=== PATIENT | female | born 1945 | race Caucasian/White ===

== ENCOUNTER 2016-12-09 09:30 | Observation (INO) | payer OTHER ==
[~2016-12-09] VITALS: Ht 167.6 cm; Wt 55.7 kg
[~2016-12-09 09:30] MED LIST: LPR25 PO; NRV/10 PO
[2016-12-09 10:54] LABS: BASO % 0.8 %; BASO ABS # 0.04 K/uL (0-0.2); COMPLETE YES; EOS % 3.5 %; HEMATOCRIT 34.9 % (37-47); LYMPH % 27.5 %; LYMPH ABS # 1.42 K/uL (1.2-3.4); MEAN CELL VOLUME 92.8 fL (80-100); MEAN CORPUSCULAR HEMOGLOBIN 30.6 pg (25-34); MEAN PLATELET VOLUME 8.6 fL (7.4-10.4); MONO % 7.6 %; NEUT % 59.6 %; PLATELET COUNT 291 K/uL (130-400); RED BLOOD COUNT 3.76 M/uL (4.2-5.4); WHITE BLOOD COUNT 5.16 K/uL (4.8-10.8)
[2016-12-09 11:05] LABS: PARTIAL THROMBOPLASTIN RATIO 0.9; PROTHROMBIN TIME (PATIENT) 10.7 SECONDS (9.0-12.0)
[2016-12-09 11:10] LABS: BUN/CREATININE RATIO 17.7 (10-20); CALCIUM 9.2 mg/dl (8.5-10.1); POTASSIUM 4.3 mmol/L (3.5-5.1)
--- NOTE | 2016-12-09 12:25 | EMERGENCY ROOM VISIT NOTE ---
History Report prepared by Heaven: Sadie Curtis Under the Supervision of: Dr. Rosa Pearson M.D. First contact with patient: 10:28 Chief Complaint: RECTAL BLEEDING Stated Complaint: BLOOD IN BOWEL Nursing Triage Summary: pt developed rectal bleeding on has hx of hemmorhoids blood is present with bm pt has had small clots on Saturday bleeding has now lessened and blood light in color no pain History of Present Illness The patient is a 70 year old female who presents to the Emergency Room with complaints of intermittent rectal bleeding for the past 3 days. She notes bright red blood throughout her stool. She denies any abdominal pain, rectal pain, and constipation. She is not on any blood thinners. She has never experienced symptoms like this before. The patient reports a personal history of hemorrhoids. She has not had a recent colonoscopy. She states that she was supposed to have one last year but did not. Source of History: patient Onset: 3 days ago Position: other (rectum) Quality: other (bleeding) Timing: intermittent Associated Symptoms: No abdominal pain Note: Denies rectal pain and constipation. Review of Systems See HPI for pertinent positives & negatives. A total of 10 systems reviewed and were otherwise negative. Past Medical & Surgical Medical Problems: (1) Cystocele (2) Fracture, clavicle (3) GI bleed (4) Hypertension (5) Hypertension (6) Retinal detachment, left (7) Ureteral mass (8) Urinary tract infection (9) Urinary tract infection Surgical Problems: (1) History of appendectomy (2) Left cataract Family History FHx: cancer Social History Smoking Status: Never Smoker Smokeless Tobacco Use: No Alcohol Use: none Marital Status: Housing Status: lives with significant other Occupation Status: employed Current/Historical Medications Scheduled Amlodipine Besylate (Amlodipine Besylate), 10 MG PO DAILY Metoprolol Tartrate (Lopressor), 25 MG PO BID Allergies Coded Allergies: No Known Allergies (Verified , 12/09/16) Physical Exam Vital Signs Date Time Temp Pulse Resp B/P Pulse Ox O2 Delivery O2 Flow Rate FiO2 12/09/16 12:01 60 108/66 96 Room Air 12/09/16 09:35 36.8 80 18 114/72 98 Room Air Physical Exam CONSTITUTIONAL: No acute distress. HEENT: No icterus, moist mucous membranes NECK: No meningismus, trachea is midline. CARDIOVASCULAR: Regular rate, normal perfusion RESPIRATORY: Unlabored breathing. Clear to auscultation. GASTROINTESTINAL: Non-tender GENITOURINARY: No flank tenderness RECTAL: Hematochezia MUSCULOSKELETAL: Full range of motion NEUROLOGIC: No acute gross focal deficits. PSYCHIATRIC: Normal affect SKIN: Normal for ethnicity. Medical Decision & Procedures Laboratory Results 12/09/16 10:40 Red Blood Count 3.76, Mean Corpuscular Volume 92.8, Mean Corpuscular Hemoglobin 30.6, Mean Corpuscular Hemoglobin Concent 33.0, Mean Platelet Volume 8.6, Neutrophils (%) (Auto) 59.6, Lymphocytes (%) (Auto) 27.5, Monocytes (%) (Auto) 7.6, Eosinophils (%) (Auto) 3.5, Basophils (%) (Auto) 0.8, Neutrophils # (Auto) 3.08, Lymphocytes # (Auto) 1.42, Monocytes # (Auto) 0.39, Eosinophils # (Auto) 0.18, Basophils # (Auto) 0.04 12/09/16 10:40 Test 12/09/16 10:40 White Blood Count 5.16 K/uL (4.8-10.8) Red Blood Count 3.76 M/uL (4.2-5.4) Hemoglobin 11.5 g/dL (12.0-16.0) Hematocrit 34.9 % (37-47) Mean Corpuscular Volume 92.8 fL (80-100) Mean Corpuscular Hemoglobin 30.6 pg (25-34) Mean Corpuscular Hemoglobin Concent 33.0 g/dl (32-36) Platelet Count 291 K/uL (130-400) Mean Platelet Volume 8.6 fL (7.4-10.4) Neutrophils (%) (Auto) 59.6 % Lymphocytes (%) (Auto) 27.5 % Monocytes (%) (Auto) 7.6 % Eosinophils (%) (Auto) 3.5 % Basophils (%) (Auto) 0.8 % Neutrophils # (Auto) 3.08 K/uL (1.4-6.5) Lymphocytes # (Auto) 1.42 K/uL (1.2-3.4) Monocytes # (Auto) 0.39 K/uL (0.11-0.59) Eosinophils # (Auto) 0.18 K/uL (0-0.5) Basophils # (Auto) 0.04 K/uL (0-0.2) RDW Standard Deviation 45.1 fL (36.4-46.3) RDW Coefficient of Variation 13.2 % (11.5-14.5) Immature Granulocyte % (Auto) 1.0 % Immature Granulocyte # (Auto) 0.05 K/uL (0.00-0.02) Prothrombin Time 10.7 SECONDS (9.0-12.0) Prothromb Time International Ratio 1.0 (0.9-1.1) Activated Partial Thromboplast Time 24.3 SECONDS (21.0-31.0) Partial Thromboplastin Ratio 0.9 Anion Gap 9.0 mmol/L (3-11) Est Creatinine Clear Calc Drug Dose 49.7 ml/min Estimated GFR () 66.6 Estimated GFR (Non- 57.4 BUN/Creatinine Ratio 17.7 (10-20) Calcium Level 9.2 mg/dl (8.5-10.1) Labs reviewed by ED physician. ED Course 1028: Past medical records reviewed. The patient was evaluated in room C3. A complete history and physical examination was performed. 1040: I spoke with Dr. Rodriguez of [facility]. We discussed the patient's treatment plan. 1156: I spoke with Silvia Jonas PA-C. We discussed the patients results and treatment plan. [facility] Medical Decision Differential diagnoses includes diverticular disease, oncologic process, internal/external hemorrhoids. 70-year-old presents into the emergency room for evaluation of hematochezia over the last several days. She denies use of blood thinners or prior GI bleeding. She states she's not had a colonoscopy in many years. Rectal exam notable for a very thick hematochezia. She remained hemodynamically stable throughout emergency room course with minimal hemoglobin. Given patient's age of [age] years old with no recent colonoscopies and definitive hematochezia decision made to keep patient in observation hospital. Case was discussed with gastroenterology on-call, Dr. kenny, who will consult on a routine basis. Admission arranged with hospital service. Consults Time Called: 1038 Consulting Physician: Dr. Kenny Returned Call: [address] Gase of GI. We discussed the patient's treatment plan. Additional Consults: Time Called: 1154 Consulted Physician: Silvia Jonas PA-C Returned Call: 1156 Additional Comments: I spoke with Silvia Jonas PA-C. We discussed the patients results and treatment plan. [facility]. Impression Primary Impression: Hematochezia Scribe Attestation The scribe's documentation has been prepared under my direction and personally reviewed by me in its entirety. I confirm that the note above accurately reflects all work, treatment, procedures, and medical decision making performed by me. Departure Information Dispostion Being Evaluated By Hospitalist Referrals Larry Jay M.D.([facility]) (PCP) Patient Instructions A Signature Page
[2016-12-09] MEDS ORDERED: NITROGLYCERIN 0.4 MG SL PER TAB CHARGE SL PRN (12:30)
[2016-12-09] MEDS ORDERED: ONDANSETRON INJ 2 MG/ML 2 ML VIAL IV PRN (12:30)
[2016-12-09] MEDS ORDERED: ACETAMINOPHEN 325 MG TAB PO PRN (12:30)
[2016-12-09 12:35] VITALS: O2SAT 96; BMI 21.4
[2016-12-09 13:42] VITALS: BP 120/84; PULSE 64; TEMP 36.6; O2SAT 97
[2016-12-09] MEDS: SODIUM CHLORIDE 0.9% 1000ML 1,000 ML IV SCH ×2 (13:44→20:22)
--- NOTE | 2016-12-09 13:47 | History and Physical ---
History & Physical Date & Time of Service: Dec 09, 2016 at 13:37 Chief Complaint: Gi Bleed Primary Care Physician: Larry Jay M.D.([facility]) History of Present Illness Source: patient This is a 70 y/o female with PMHx of complete heart block s/p pacemaker placement, HTN and other problems as outlined below who presents to the ED with blood in stool x 3 days. Pt reports that 3 days ago she noticed bright red blood in stool. Since that time she has had about 2 BMs per day. She feels like the bleeding has decreased in amount however when she called her PCP today they recommended that she go to the ED for further evaluation. Pt has history of hemorrhoids but she has never had a bleed like this before. Pt denies NSAID or anticoagulation use. Last colonoscopy was "years ago" which was normal. She was scheduled for colonoscopy in 2015 however it was cancelled due to complete heart block. Pt denies fever/chills, diaphoresis, chest pain, palpitations, SOB , wheezing, abd pain, N/V, melena, bladder issues, LE edema ,calf pain, lightheadedness/dizziness. In the ED, vitals are stable. HgB 11.5. Pt is hemodynamically stable and will be admitted for further evaluation and treatment. Past Medical/Surgical History Medical Problems: (1) Cystocele Status: Chronic (2) Fracture, clavicle Status: Resolved (3) History of pacemaker Permanent Comment: placed 12/27/15 Status: Chronic (4) Hypertension Status: Resolved (5) Hypertension Status: Resolved (6) Retinal detachment, left Status: Resolved (7) Third degree heart block Permanent Comment: s/p pacemaker Status: Chronic (8) Ureteral mass Status: Resolved (9) Urinary tract infection Status: Resolved (10) Urinary tract infection Status: Resolved Surgical Problems: (1) History of appendectomy Status: Resolved (2) S/P laser trabeculoplasty of eye Status: Resolved Family History FHx: cancer Social History Smoking Status: Never Smoker Smokeless Tobacco Use: No Alcohol Use: none Drug Use: none Marital Status: Housing status: lives with family Occupational Status: employed Immunizations History of Tetanus Vaccine?: Yes Tetanus Immunization Date: Jul 29, 2014 Allergies Coded Allergies: No Known Allergies (Verified , 12/09/16) Home Medications Scheduled Amlodipine Besylate (Amlodipine Besylate), 10 MG PO DAILY Metoprolol Tartrate (Lopressor), 25 MG PO BID Review of Systems Constitutional: No chills, No fatigue, No fever, No sweats, No weakness Eyes: No worsening of vision Respiratory: No cough, No shortness of breath Cardiovascular: No chest pain, No claudication, No edema, No palpitations Abdomen: + GI bleeding, No constipation, No diarrhea, No nausea, No pain, No vomiting Musculoskeletal: No calf pain, No swelling Genitourinary - Female: No dysuria Neurologic: No weakness Psychiatric: No depression symptoms Endocrine: No fatigue Hematologic / Lymphatic: No abnormal bleeding/bruising Integumentary: No new/changing skin lesions Physical Exam Vital Signs Date Time Temp Pulse Resp B/P Pulse Ox O2 Delivery O2 Flow Rate FiO2 12/09/16 12:35 96 Room Air 12/09/16 12:01 60 108/66 96 Room Air 12/09/16 09:35 36.8 80 18 114/72 98 Room Air General Appearance: WD/WN, no apparent distress, + pertinent finding (Pt is sitting up comfortably in bed ) Head: normocephalic, atraumatic Eyes: normal inspection ENT: hearing grossly normal Neck: supple Respiratory/Chest: chest non-tender, lungs clear, normal breath sounds, no respiratory distress Cardiovascular: regular rate, rhythm, no edema, no murmur Abdomen/GI: normal bowel sounds, non tender, soft Back: normal inspection Extremities/Musculoskelatal: normal inspection, no calf tenderness, no pedal edema Neurologic/Psych: alert, normal mood/affect, oriented x 3 Skin: normal color, warm/dry Diagnostics Laboratory Results Results Past 24 Hours Test 12/09/16 10:40 Range/Units White Blood Count 5.16 4.8-10.8 K/uL Red Blood Count 3.76 4.2-5.4 M/uL Hemoglobin 11.5 12.0-16.0 g/dL Hematocrit 34.9 37-47 % Mean Corpuscular Volume 92.8 80-100 fL Mean Corpuscular Hemoglobin 30.6 25-34 pg Mean Corpuscular Hemoglobin Concent 33.0 32-36 g/dl Platelet Count 291 130-400 K/uL Mean Platelet Volume 8.6 7.4-10.4 fL Neutrophils (%) (Auto) 59.6 % Lymphocytes (%) (Auto) 27.5 % Monocytes (%) (Auto) 7.6 % Eosinophils (%) (Auto) 3.5 % Basophils (%) (Auto) 0.8 % Neutrophils # (Auto) 3.08 1.4-6.5 K/uL Lymphocytes # (Auto) 1.42 1.2-3.4 K/uL Monocytes # (Auto) 0.39 0.11-0.59 K/uL Eosinophils # (Auto) 0.18 0-0.5 K/uL Basophils # (Auto) 0.04 0-0.2 K/uL RDW Standard Deviation 45.1 36.4-46.3 fL RDW Coefficient of Variation 13.2 11.5-14.5 % Immature Granulocyte % (Auto) 1.0 % Immature Granulocyte # (Auto) 0.05 0.00-0.02 K/uL Prothrombin Time 10.7 9.0-12.0 SECONDS Prothromb Time International Ratio 1.0 0.9-1.1 Activated Partial Thromboplast Time 24.3 21.0-31.0 SECONDS Partial Thromboplastin Ratio 0.9 Sodium Level 142 136-145 mmol/L Potassium Level 4.3 3.5-5.1 mmol/L Chloride Level 108 98-107 mmol/L Carbon Dioxide Level 25 21-32 mmol/L Anion Gap 9.0 3-11 mmol/L Blood Urea Nitrogen 18 7-18 mg/dl Creatinine 1.00 0.60-1.20 mg/dl Est Creatinine Clear Calc Drug Dose 49.7 ml/min Estimated GFR () 66.6 Estimated GFR (Non- 57.4 BUN/Creatinine Ratio 17.7 10-20 Random Glucose 101 70-99 mg/dl Calcium Level 9.2 8.5-10.1 mg/dl Impression Assessment and Plan HEMATOCHEZIA LIKELY LOWER GI BLEED pt presents with 3 days of hematochezia; h/o hemorrhoids -admit observation status to med/surg -Denies NSAID use and/or anticoagulation -FOBT is positive in ED -Hgb currently 11.5; will continue to monitor with H&H q 8h -type and cross completed; transfuse PRN HgB <8 -start IVF and Protonix -clear liquid diet -NPO after midnight for possible scope -consult GI, Dr. Case-for possible colonoscopy -pt appears to be hemodynamically stable -continue to monitor closely COMPLETE HEART BLOCK -s/p pacemaker December 02/2016 -follows with cardiology, Dr. Acosta HTN -BP stable -cont metoprolol and Norvasc -monitor DVT PROPHYLAXIS -SCDs only in setting of GI bleed CODE STATUS -FULL CODE status per discussion with patient upon admission DISPO Pt seen in collaboration with Dr Olson. Please see his addendum for further details. Thanks! Attending Note: Patient is a 70 yr old female with PMHx of complete heart block s/p pacemaker, HTN and other comorbidities presents with history of bright red blood in stools since 3 days. She has history of hemorrhoids, last colonoscopy was many years ago. She denies any abd pain, diarrhea, change in weight, appetite, nausea, vomiting, fever, chills. Not on any NSAIDs or anticoagulation. Current HgB is 11.5 and she is hemodynamically stable. Physical Exam: Vital signs as noted above Moderately built and nourished, no distress NC/AT, EOMI, PERRLA CVS: S1, S2, NSR, No murmur Resp; CTA Abd; soft, non tender, BS present, no organomegaly CRYSTAL LAPPER: no focal deficits Ext: No pedal edema Assessment and plan: Lower GI bleeding: H/O hemorrhoids IV fluids, IV protonix Clear liquid diet, NPO from midnight monitor H&H, Transfuse PRN GI Consult DVT px: SCDs Agree with assessment and plan as above Advanced Directives Existing Advance Directive: No Existing Living Will: No Existing Power of Registered Health Nurse: No VTE Prophylaxis VTE Risk Assessment Done? Y/N: Yes Risk Level: Moderate
[2016-12-09] MEDS ORDERED: IV FLUIDS COMPLETED PRN (15:00)
[2016-12-09 16:00] VITALS: O2SAT 96
[2016-12-09 17:10] VITALS: BP 110/73; PULSE 67; TEMP 36.7; O2SAT 97
[2016-12-09 19:46] LABS: HEMATOCRIT 32.1 % (37-47)
[2016-12-09 19:58] VITALS: BP 132/81; PULSE 64; TEMP 36.6; O2SAT 96
[2016-12-09] MEDS: PANTOprazole INJ 40 MG in SYRINGE 0 ML IV SCH (20:25)
[2016-12-09] MEDS: METOPROLOL TARTRATE 25 MG TAB PO SCH (20:26)
[2016-12-09 23:52] VITALS: BP 111/75; PULSE 73; TEMP 36.7; O2SAT 94
[2016-12-10 03:32] LABS: HEMATOCRIT 32.7 % (37-47); MEAN CELL VOLUME 92.6 fL (80-100); MEAN CORPUSCULAR HEMOGLOBIN 30.6 pg (25-34); MEAN PLATELET VOLUME 8.4 fL (7.4-10.4); PLATELET COUNT 213 K/uL (130-400); RED BLOOD COUNT 3.53 M/uL (4.2-5.4)
[2016-12-10 03:54] LABS: BUN/CREATININE RATIO 11.2 (10-20); CALCIUM 8.8 mg/dl (8.5-10.1); CREATININE 0.89 mg/dl (0.60-1.20); POTASSIUM 4.3 mmol/L (3.5-5.1)
[2016-12-10] MEDS: SODIUM CHLORIDE 0.9% 1000ML 1,000 ML IV SCH (04:04)
[2016-12-10 04:51] VITALS: BP 113/74; PULSE 69; TEMP 36.8; O2SAT 95
[2016-12-10 08:00] VITALS: BP 119/77; PULSE 64; TEMP 36.9; O2SAT 96
[2016-12-10] MEDS: PANTOprazole INJ 40 MG in SYRINGE 0 ML IV SCH (08:46)
[2016-12-10] MEDS: AMLODIPINE BESYLATE 5 MG TAB PO SCH (08:47)
[2016-12-10] MEDS: METOPROLOL TARTRATE 25 MG TAB PO SCH ×2 (08:47→20:28)
--- NOTE | 2016-12-10 09:58 | Gastrointestinal Consultation ---
Gastrointestinal Consultation Date of Consultation: Dec 10, 2016 Consulting Physician: Dr. William Reason for Consultation: melena and BRBPR History of Present Illness Patient is a 70 year old female with history of complete heart block s/p cardiac pacemaker who presented to the ED with 4 days of painless melena abnd PRPBR. She states that she went to the bathroom morning and was alarmed that her stool was dark at sticky. She reports 2-3 BM daily that were dark brown. She reports that the black stools resolved and she began experienced episode of BRBPR without clots. She denies feeling dizzy, lightheadded, abd pain, nausea, vomiting, sick contacts. She was admitted through the ED yesterday morning and has not had any episodes of melena or BRBPR since admission. She denies any use of aspirin, Advil, Motrin, Aleve or other NSAIDs. She is not on any anticoagulation. Patient is a poor historian - she did not recall having a colonoscopy four months ago. She states that she had to cancel two colonoscopy attempts due to her cardiac function. From reviewing previous providers notes, mention of clots were documented. Patient denies any clots when I was speaking to her this AM. Colonoscopy [address] William: numerous diverticula throughout the entire examined colon - repeat for screening in 10 years No previous EGD HGB on admission was 11.5 HGB today 10.8 Past Medical/Surgical History Medical Problems: (1) Cough Status: Acute (2) Hematochezia Status: Acute (3) Influenza-like illness Status: Acute (4) UTI (urinary tract infection) Status: Acute Family History FHx: cancer Social History Smoking Status: Never Smoker Alcohol Use: none Drug Use: none Marital Status: Housing Status: lives with significant other Occupation Status: employed Allergies Coded Allergies: No Known Allergies (Verified , 12/09/16) Current Medications Home Meds and Scripts Medications Dose Route/Sig Max Daily Dose Days Date Category Amlodipine Besylate 10 Mg Tab 10 Mg PO DAILY 11/25/16 Reported Lopressor (Metoprolol Tartrate) 25 Mg Tab 25 Mg PO BID 30 12/31/15 Rx Review of Systems Constitutional: No chills, No fever Respiratory: No cough, No shortness of breath Cardiac: No chest pain, No edema Abdomen: + GI bleeding (melena x 4 days, one episode of PRPBR), No constipation , No diarrhea, No nausea, No pain, No vomiting Skin: No color change, No rash Physical Exam Date Time Temp Pulse Resp B/P Pulse Ox O2 Delivery O2 Flow Rate FiO2 12/10/16 08:00 36.9 64 20 119/77 96 Room Air 12/10/16 08:00 Room Air 12/10/16 04:51 36.8 69 20 113/74 95 Room Air 12/10/16 04:00 Room Air 12/10/16 00:00 Room Air 12/09/16 23:52 36.7 73 18 111/75 94 Room Air 12/09/16 20:00 Room Air 12/09/16 19:58 36.6 64 20 132/81 96 Room Air 12/09/16 17:10 36.7 67 20 110/73 97 Room Air 12/09/16 16:00 96 Room Air 12/09/16 13:42 36.6 64 16 120/84 97 Room Air 12/09/16 12:35 96 Room Air 12/09/16 12:01 60 108/66 96 Room Air General Appearance: no apparent distress Eyes: PERRL Respiratory/Chest: lungs clear, normal breath sounds, no respiratory distress, no accessory muscle use Cardiovascular: regular rate, rhythm, no edema, no gallop, no JVD, no murmur, + pertinent finding (cardiac pacemaker) Abdomen: normal bowel sounds, non tender, soft, no organomegaly, no pulsatile mass Neurologic/Psych: alert, normal mood/affect, oriented x 3 Skin: normal color, no jaundice, warm/dry, no rash Laboratory Results Last 24 Hours Test 12/09/16 10:40 12/09/16 19:25 12/10/16 03:25 White Blood Count 5.16 K/uL 4.20 K/uL Red Blood Count 3.76 M/uL 3.53 M/uL Hemoglobin 11.5 g/dL 10.7 g/dL 10.8 g/dL Hematocrit 34.9 % 32.1 % 32.7 % Mean Corpuscular Volume 92.8 fL 92.6 fL Mean Corpuscular Hemoglobin 30.6 pg 30.6 pg Mean Corpuscular Hemoglobin Concent 33.0 g/dl 33.0 g/dl Platelet Count 291 K/uL 213 K/uL Mean Platelet Volume 8.6 fL 8.4 fL Neutrophils (%) (Auto) 59.6 % Lymphocytes (%) (Auto) 27.5 % Monocytes (%) (Auto) 7.6 % Eosinophils (%) (Auto) 3.5 % Basophils (%) (Auto) 0.8 % Neutrophils # (Auto) 3.08 K/uL Lymphocytes # (Auto) 1.42 K/uL Monocytes # (Auto) 0.39 K/uL Eosinophils # (Auto) 0.18 K/uL Basophils # (Auto) 0.04 K/uL RDW Standard Deviation 45.1 fL 44.2 fL RDW Coefficient of Variation 13.2 % 13.2 % Immature Granulocyte % (Auto) 1.0 % Immature Granulocyte # (Auto) 0.05 K/uL Prothrombin Time 10.7 SECONDS Prothromb Time International Ratio 1.0 Activated Partial Thromboplast Time 24.3 SECONDS Partial Thromboplastin Ratio 0.9 Sodium Level 142 mmol/L 145 mmol/L Potassium Level 4.3 mmol/L 4.3 mmol/L Chloride Level 108 mmol/L 111 mmol/L Carbon Dioxide Level 25 mmol/L 27 mmol/L Anion Gap 9.0 mmol/L 7.0 mmol/L Blood Urea Nitrogen 18 mg/dl 10 mg/dl Creatinine 1.00 mg/dl 0.89 mg/dl Est Creatinine Clear Calc Drug Dose 49.7 ml/min 55.8 ml/min Estimated GFR () 66.6 76.6 Estimated GFR (Non- 57.4 66.1 BUN/Creatinine Ratio 17.7 11.2 Random Glucose 101 mg/dl 86 mg/dl Calcium Level 9.2 mg/dl 8.8 mg/dl Impression Patient is a 70 year old female with 4 days of painless melena and one episode of PRPBR - differentials include upper GI bleed and quick transit upper GI bleed , diverticular bleed Plan NPO EGD today with Dr. William PPI BID ATTESTATION: I have performed a history and physical examination of this patient and reviewed the electronic record. Specifically, on physical examination there is no abdominal tenderness. I have discussed the case with ALEX Man. The above note reflects my findings, conclusions, and recommendations. Johny William MD
[2016-12-10 10:41] VITALS: Ht 167.6 cm; Wt 55.7 kg
[2016-12-10 11:36] VITALS: BP 127/81; PULSE 72; TEMP 36.6; O2SAT 97
[2016-12-10] MEDS ORDERED: LIDOCAINE HCL 2% 2 ML VIAL (20MG/ML) ONE (13:42)
[2016-12-10] MEDS ORDERED: PROPOFOL IV EMULSION 10 MG/ML 20 ML VIAL IV ONE (13:42)
--- NOTE | 2016-12-10 13:46 | GI REPORT ---
Procedure Date: 12/10/2016 1:27 PM Procedure: Upper GI endoscopy Indications: Melena Medicines: Monitored Anesthesia Care Complications: No immediate complications. Estimated blood loss: None. Estimated Blood Loss: Estimated blood loss: none. Procedure: Pre-Anesthesia Assessment: - Prior to the procedure, a History and Physical was performed, and patient medications, allergies and sensitivities were reviewed. The patient's tolerance of previous anesthesia was reviewed. - ASA Grade Assessment: III - A patient with severe systemic disease. After obtaining informed consent, the endoscope was passed under direct vision. Throughout the procedure, the patient's blood pressure, pulse, and oxygen saturations were monitored continuously. The scope was introduced through the mouth, and advanced to the third part of duodenum. The upper GI endoscopy was accomplished with ease. The patient tolerated the procedure well. Findings: The upper third of the esophagus, middle third of the esophagus and lower third of the esophagus were normal. The Z-line was regular and was found 37 cm from the incisors. Normal mucosa was found in the entire examined stomach. Biopsies were taken with a cold forceps for Helicobacter pylori testing. There was a mild deformity suggestive of a healed ulcer in the antrum. The examined duodenum was normal. Impression: - Normal upper third of esophagus, middle third of esophagus and lower third of esophagus. - Z-line regular, 37 cm from the incisors. - Normal mucosa was found in the entire stomach. Biopsied. - Normal examined duodenum. Recommendation: - Return patient to [facility] for ongoing care. Johny William M.D. Johny William MD 12/10/2016 1:45:53 PM This report has been signed electronically. Note Initiated On: 12/10/2016 1:27 PM
--- NOTE | 2016-12-10 14:18 | Anesthesiology Progress Note ---
Anesthesia Post Op Note Date & Time Dec 10, 2016 at 14:17 Vital Signs Pain Intensity: 0.0 Vital Signs Past 12 Hours Date Time Temp Pulse Resp B/P Pulse Ox O2 Delivery O2 Flow Rate FiO2 12/10/16 14:03 62 20 119/86 97 Room Air 12/10/16 13:52 71 20 103/71 95 Room Air 12/10/16 12:58 37.1 64 20 138/69 95 Room Air 12/10/16 11:36 36.6 72 18 127/81 97 Room Air 12/10/16 11:33 Room Air 12/10/16 08:00 36.9 64 20 119/77 96 Room Air 12/10/16 08:00 Room Air 12/10/16 04:51 36.8 69 20 113/74 95 Room Air 12/10/16 04:00 Room Air Notes Mental Status: alert / awake / arousable, participated in evaluation Pt Amnestic to Procedure: Yes Nausea / Vomiting: adequately controlled Pain: adequately controlled Airway Patency, RR, SpO2: stable & adequate BP & HR: stable & adequate Hydration State: stable & adequate Anesthetic Complications: no major complications apparent
[2016-12-10 15:20] VITALS: BP 132/86; PULSE 74; TEMP 36.6; O2SAT 97
--- NOTE | 2016-12-10 19:06 | Progress Note ---
Internal Med Progress Note Date of Service: Dec 10, 2016. Provider Documentation: SUBJECTIVE: Patient is seen and examined at bedside. Had Endoscopy this morning. One episode of bright red blood BM. OBJECTIVE: Vital Signs-as noted below General Appearance: WD/WN, no apparent distress Head: normocephalic, atraumatic Eyes: normal inspection ENT: hearing grossly normal Neck: supple Respiratory/Chest: chest non-tender, lungs clear, normal breath sounds, no respiratory distress Cardiovascular: regular rate, rhythm, no edema, no murmur Abdomen/GI: normal bowel sounds, non tender, soft Back: normal inspection Extremities/Musculoskelatal: normal inspection, no calf tenderness, no pedal edema Neurologic/Psych: alert, normal mood/affect, oriented x 3 Skin: normal color, warm/dry Lab data as noted below. ASSESSMENT & PLAN: Patient is a 70 yr old female with PMHx of complete heart block s/p pacemaker, HTN and other comorbidities presents with history of bright red blood in stools since 3 days. She has history of hemorrhoids, last colonoscopy was many years ago. She denies any abd pain, diarrhea, change in weight, appetite, nausea, vomiting, fever, chills. Not on any NSAIDs or anticoagulation. HgB is 11.5 at time of admission and she is hemodynamically stable. Lower GI bleeding: H/O hemorrhoids/Diverticulosis S/P EGD: Normal EGD Continue IV protonix NPO from midnight, probable colonoscopy in AM monitor H&H, Transfuse PRN Appreciate GI help Complete heart block: s/p pacemaker December 02/2016 follows with cardiology, Dr. Acosta Hypertension: Stable continue metoprolol, Norvasc DVT Px SCDs Code Status Full code Vital Signs: Date Time Temp Pulse Resp B/P Pulse Ox O2 Delivery O2 Flow Rate FiO2 12/10/16 15:20 36.6 74 18 132/86 97 Room Air 12/10/16 14:03 62 20 119/86 97 Room Air 12/10/16 13:52 71 20 103/71 95 Room Air 12/10/16 12:58 37.1 64 20 138/69 95 Room Air 12/10/16 11:36 36.6 72 18 127/81 97 Room Air 12/10/16 11:33 Room Air 12/10/16 08:00 36.9 64 20 119/77 96 Room Air 12/10/16 08:00 Room Air 12/10/16 04:51 36.8 69 20 113/74 95 Room Air 12/10/16 04:00 Room Air 12/10/16 00:00 Room Air 12/09/16 23:52 36.7 73 18 111/75 94 Room Air 12/09/16 20:00 Room Air 12/09/16 19:58 36.6 64 20 132/81 96 Room Air Lab Results: Results Past 24 Hours Test 12/09/16 19:25 12/10/16 03:25 12/10/16 11:28 Range/Units Hemoglobin 10.7 10.8 12.0-16.0 g/dL Hematocrit 32.1 32.7 37-47 % White Blood Count 4.20 4.8-10.8 K/uL Red Blood Count 3.53 4.2-5.4 M/uL Mean Corpuscular Volume 92.6 80-100 fL Mean Corpuscular Hemoglobin 30.6 25-34 pg Mean Corpuscular Hemoglobin Concent 33.0 32-36 g/dl RDW Standard Deviation 44.2 36.4-46.3 fL RDW Coefficient of Variation 13.2 11.5-14.5 % Platelet Count 213 130-400 K/uL Mean Platelet Volume 8.4 7.4-10.4 fL Sodium Level 145 136-145 mmol/L Potassium Level 4.3 3.5-5.1 mmol/L Chloride Level 111 98-107 mmol/L Carbon Dioxide Level 27 21-32 mmol/L Anion Gap 7.0 3-11 mmol/L Blood Urea Nitrogen 10 7-18 mg/dl Creatinine 0.89 0.60-1.20 mg/dl Est Creatinine Clear Calc Drug Dose 55.8 ml/min Estimated GFR () 76.6 Estimated GFR (Non- 66.1 BUN/Creatinine Ratio 11.2 10-20 Random Glucose 86 70-99 mg/dl Calcium Level 8.8 8.5-10.1 mg/dl Bedside Glucose 297 70-90 mg/dl
[2016-12-10 19:29] VITALS: BP 124/74; PULSE 73; TEMP 36.6; O2SAT 96
[2016-12-10 20:21] LABS: HEMATOCRIT 33.6 % (37-47)
[2016-12-10 23:13] VITALS: BP 110/74; PULSE 60; TEMP 36.7; O2SAT 97
[2016-12-11 04:20] VITALS: BP 110/76; PULSE 61; TEMP 36.7; O2SAT 97
[2016-12-11 05:52] LABS: MEAN CELL VOLUME 92.7 fL (80-100); MEAN CORPUSCULAR HEMOGLOBIN 30.9 pg (25-34); MEAN CORPUSCULAR HGB CONC 33.3 g/dl (32-36); MEAN PLATELET VOLUME 8.5 fL (7.4-10.4); PLATELET COUNT 245 K/uL (130-400); RED BLOOD COUNT 3.56 M/uL (4.2-5.4); WHITE BLOOD COUNT 4.69 K/uL (4.8-10.8)
[2016-12-11 06:19] LABS: BUN/CREATININE RATIO 12.3 (10-20); CALCIUM 9.6 mg/dl (8.5-10.1); CREATININE 0.91 mg/dl (0.60-1.20); POTASSIUM 4.3 mmol/L (3.5-5.1)
[2016-12-11 07:26] VITALS: BP 104/67; PULSE 65; TEMP 36.7; O2SAT 97
[2016-12-11] MEDS: METOPROLOL TARTRATE 25 MG TAB PO SCH (07:27)
[2016-12-11] MEDS: AMLODIPINE BESYLATE 5 MG TAB PO SCH (07:27)
--- NOTE | 2016-12-11 08:49 | Gastroenterology Progress Note ---
Progress Note Date of Service: Dec 11, 2016 Subjective Pt evaluation today including: conversation w/ patient, physical exam, lab review Patient states that she feels well. She notes that she had two episodes of bloody stools yesterday. She reports that the blood was red and mixed with the stool. She denies any clots, or blood filling the toilet bowl. She states that she does not wish to proceed with an inpatient colonoscopy. Her most recent colonoscopy was 4 months ago and numerous large diverticula were documented throughout the entire colon. Mechanism of bleeding related to divertriculum was explained to the patient. She verbalized understanding that the BRBPR she is experiencing is most likely related to a diverticular bleed, which are self- limiting and colonoscopy do not offer any relief. The patient was encouraged to seek medical attention if the bleeding becomes more frequent, persist, changes, becomes symptomatic or worrisome. The patient verbalized understanding. She denies chest pain, SOB, lightheadedness, dizziness, abdominal pain, N/V/D, edema. Her HGB on admission: 11.5 HGB 12/11/2016: 11 Review of Systems Constitutional: No chills, No fever Cardiac: No chest pain, No edema Abdomen: + GI bleeding (mixed with stool, 2 episodes yesterday. none overnight ), No constipation, No diarrhea, No nausea, No pain, No vomiting Medications Current Inpatient Medications Medications (Trade) Dose Ordered Sig/[place] Route Start Time Stop Time Status Last Admin Dose Admin Acetaminophen (Tylenol Tab) 650 mg Q4H PRN PO 12/09/16 12:30 01/08/17 12:29 Ondansetron HCl (Zofran Inj) 4 mg Q6H PRN IV 12/09/16 12:30 01/08/17 12:29 Nitroglycerin (Nitrostat Tab) 0.4 mg UD PRN SL 12/09/16 12:30 01/08/17 12:29 Metoprolol Tartrate (Lopressor Tab) 25 mg BID PO 12/09/16 21:00 01/08/17 20:59 12/11/16 07:27 25 MG Amlodipine Besylate (Norvasc Tab) 10 mg DAILY PO 12/10/16 09:00 01/09/17 08:59 12/11/16 07:27 10 MG Miscellaneous 1 ea 1 ea PRN PRN N/A 12/09/16 15:00 12/09/17 14:59 Pantoprazole Sodium/Syringe (Protonix Inj/ Syringe) 10 ml @ 40 mls/min DAILY@1100 IV 12/11/16 11:00 01/10/17 10:59 Objective Vital Signs Date Time Temp Pulse Resp B/P Pulse Ox O2 Delivery O2 Flow Rate FiO2 12/11/16 07:26 36.7 65 16 104/67 97 Room Air 12/11/16 04:20 36.7 61 16 110/76 97 Room Air 12/11/16 04:00 Room Air 12/11/16 00:00 Room Air 12/10/16 23:13 36.7 60 20 110/74 97 Room Air 12/10/16 19:47 Room Air 12/10/16 19:29 36.6 73 16 124/74 96 Room Air 12/10/16 16:00 Room Air 12/10/16 15:20 36.6 74 18 132/86 97 Room Air 12/10/16 14:03 62 20 119/86 97 Room Air 12/10/16 13:52 71 20 103/71 95 Room Air 12/10/16 12:58 37.1 64 20 138/69 95 Room Air 12/10/16 11:36 36.6 72 18 127/81 97 Room Air 12/10/16 11:33 Room Air Physical Exam General Appearance: no apparent distress Eyes: PERRL ENT: hearing grossly normal Neck: supple, trachea midline Respiratory/Chest: lungs clear, normal breath sounds, no respiratory distress, no accessory muscle use Cardiovascular: regular rate, rhythm, no edema, no gallop, no JVD, no murmur Abdomen: normal bowel sounds, non tender, soft, no organomegaly Neurologic/Psych: alert, normal mood/affect, oriented x 3 Skin: normal color, no jaundice, warm/dry, no rash Laboratory Results Last 24 Hours Test 12/10/16 11:28 12/10/16 16:40 12/10/16 20:13 12/10/16 20:17 Bedside Glucose 297 mg/dl 76 mg/dl 100 mg/dl Hemoglobin 11.3 g/dL Hematocrit 33.6 % Test 12/11/16 05:27 White Blood Count 4.69 K/uL Red Blood Count 3.56 M/uL Hemoglobin 11.0 g/dL Hematocrit 33.0 % Mean Corpuscular Volume 92.7 fL Mean Corpuscular Hemoglobin 30.9 pg Mean Corpuscular Hemoglobin Concent 33.3 g/dl RDW Standard Deviation 44.1 fL RDW Coefficient of Variation 13.1 % Platelet Count 245 K/uL Mean Platelet Volume 8.5 fL Sodium Level 144 mmol/L Potassium Level 4.3 mmol/L Chloride Level 111 mmol/L Carbon Dioxide Level 25 mmol/L Anion Gap 8.0 mmol/L Blood Urea Nitrogen 11 mg/dl Creatinine 0.91 mg/dl Est Creatinine Clear Calc Drug Dose 53.6 ml/min Estimated GFR () 74.6 Estimated GFR (Non- 64.4 BUN/Creatinine Ratio 12.3 Random Glucose 86 mg/dl Calcium Level 9.6 mg/dl Assessment and Plan Patient is a 70 year old female with 4 days of painless melena and BRBPR. She had an EGD on 12/10/16 without any source of upper GI bleed identified. Her most recent colonoscopy was in June with Dr. William with numerous diverticula throughout the entire examined colon. Differentials include diverticular bleed, hemorrhoidal bleed, colon CA. This is likely a diverticular bleed, which are self-limiting and a repeat colonoscopy would not change the course of treatment Plan Advance to regular, heart-healthy diet as tolerated Continue PPI Monitor BM for bloody/black stools Monitor symptoms Repeat H&H prior to discharge Patient verbalized understanding of likely diagnosis and when to seek medical attention of the bloody bowel movements, persist, change, become worrisome or she becomes symptomatic ATTESTATION: I have performed a history and physical examination of this patient and reviewed the electronic record. Specifically, on physical examination there is no abdominal tenderness. I have discussed the case with ALEX Man. The above note reflects my findings, conclusions, and recommendations. Johny William MD
[2016-12-11] MEDS ORDERED: PANTOprazole SOD 40 MG TAB PO ONE (09:30)
[2016-12-11 10:54] VITALS: BP 97/61; PULSE 66; TEMP 36.8; O2SAT 99
[2016-12-11] MEDS ORDERED: PANTOprazole INJ 40 MG in SYRINGE 0 ML IV SCH (11:00)
[2016-12-11 14:20] LABS: HEMATOCRIT 31.4 % (37-47)
--- NOTE | 2016-12-11 15:04 | Discharge Instructions ---
Discharge Instructions Admission Reason for Admission: Gi Bleed Discharge Discharge Diagnosis / Problem: Lower gastrointestinal bleed Discharge Goals Goal(s): Improve function, Diagnostic testing Activity Recommendations Activity Limitations: resume your previous activity . Instructions / Follow-Up Instructions / Follow-Up Please follow up with Family Medicine Dr. Jay on December 18 at 10:10am. Please follow up with NATALIA Alvarez on January 08 at 9:30am. Current Hospital Diet Patient's current hospital diet: AHA Diet (Heart Healthy) Discharge Diet Recommended Diet: AHA Diet (Heart Healthy) Procedures Procedures Performed: EGD Pending Studies Studies pending at discharge: yes List of pending studies: EGD biopsy pathology Medical Emergencies . Who to Call and When: Medical Emergencies: If at any time you feel your situation is an emergency, please call 911 immediately. . Non-Emergent Contact Non-Emergency issues call your: Primary Care Provider . . "Provider Documentation" section prepared by Aspen Bello. VTE Core Measure Inpt VTE Proph given/why not?: SCD's
[2016-12-11 15:24] VITALS: BP 97/61; PULSE 66; TEMP 36.8; O2SAT 99
--- NOTE | 2016-12-11 18:02 | Discharge Summary ---
Discharge Summary Admission Date: Dec 09, 2016 at 12:32 Discharge Date: Dec 11, 2016 Discharge Disposition: Home Principal Diagnosis: BRBPR Procedures: EGD - Normal upper third of esophagus, middle third of esophagus and lower third of esophagus. - Z-line regular, 37 cm from the incisors. - Normal mucosa was found in the entire stomach. Biopsied. - Normal examined duodenum. Pyloric antrum biopsy 1. MULTIPLE BENIGN STRIPS OF ANTRAL MUCOSA WITH NO PATHOLOGIC DIAGNOSIS ARE SEEN. 2. AN IMMUNOHISTOCHEMICAL STAIN FOR THE HELICOBACTER PYLORI ORGANISMS IS NEGATIVE. Consultations: Gastroenterology Medication Reconciliation Continued Medications: Amlodipine Besylate (Amlodipine Besylate) 10 Mg Tab 10 MG PO DAILY, #90 Metoprolol Tartrate (Lopressor) 25 Mg Tab 25 MG PO BID for 30 Days, #60 TAB Admission Information HPI (per Admitting provider): This is a 70 y/o female with PMHx of complete heart block s/p pacemaker placement, HTN and other problems as outlined below who presents to the ED with blood in stool x 3 days. Pt reports that 3 days ago she noticed bright red blood in stool. Since that time she has had about 2 BMs per day. She feels like the bleeding has decreased in amount however when she called her PCP today they recommended that she go to the ED for further evaluation. Pt has history of hemorrhoids but she has never had a bleed like this before. Pt denies NSAID or anticoagulation use. Last colonoscopy was "years ago" which was normal. She was scheduled for colonoscopy in 2016 however it was cancelled due to complete heart block. Pt denies fever/chills, diaphoresis, chest pain, palpitations, SOB , wheezing, abd pain, N/V, melena, bladder issues, LE edema ,calf pain, lightheadedness/dizziness. In the ED, vitals are stable. HgB 11.5. Pt is hemodynamically stable and will be admitted for further evaluation and treatment. Physical Exam (per Admitting): General Appearance: WD/WN, no apparent distress, + pertinent finding (Pt is sitting up comfortably in bed ) Head: normocephalic, atraumatic Eyes: normal inspection ENT: hearing grossly normal Neck: supple Respiratory/Chest: chest non-tender, lungs clear, normal breath sounds, no respiratory distress Cardiovascular: regular rate, rhythm, no edema, no murmur Abdomen/GI: normal bowel sounds, non tender, soft Back: normal inspection Extremities/Musculoskelatal: normal inspection, no calf tenderness, no pedal edema Neurologic/Psych: alert, normal mood/affect, oriented x 3 Skin: normal color, warm/dry Hospital Course Patient is a 70 yr old female with PMHx of complete heart block s/p pacemaker, HTN who presented with bright red blood in stools for the past 3 days. She has a history of hemorrhoids and diverticula. Her last colonoscopy in June 2015 showed numerous diverticula throughout the entire examined colon. She denied any abdominal pain, diarrhea, change in weight, appetite, nausea, vomiting, fever, chills. She does not take any NSAIDs or anticoagulation. Her hemoglobin remained stable in the mid 10's to low 11's and she remained hemodynamically stable. GI was consulted and did an EGD, which was normal. Biopsy of stomach mucosa was normal. Patient was continued on her home medications. Patient deemed stable for discharge with Family Medicine and GI follow up. Etiology of lower GI bleed was felt to be most likely diverticular. PE on discharge: General- awake; alert; NAD Eyes- EOMI; no scleral icterus Neck- no stridor; trachea midline Lungs- CTA bilaterally; no wheezes/crackles Heart- RRR; no m/r/g Abdomen- soft; NTND; nBS Back- no gross abnormalities Extremities- no c/c/e; no deformities Neuro- no gross focal deficits Skin- no appreciable rash or bruises . Total time spent on discharge = This includes examination of the patient, discharge planning, medication reconciliation, and communication with other providers. Discharge Instructions Discharge Instructions Admission Reason for Admission: Gi Bleed Discharge Discharge Diagnosis / Problem: Lower gastrointestinal bleed Discharge Goals Goal(s): Improve function, Diagnostic testing Activity Recommendations Activity Limitations: resume your previous activity . Instructions / Follow-Up Instructions / Follow-Up Please follow up with Family Medicine Dr. Jay on December 18 at 10:10am. Please follow up with GI Shayy Alvarez on January 08 at 9:30am. Current Hospital Diet Patient's current hospital diet: AHA Diet (Heart Healthy) Discharge Diet Recommended Diet: AHA Diet (Heart Healthy) Procedures Procedures Performed: EGD Pending Studies Studies pending at discharge: yes List of pending studies: EGD biopsy pathology Medical Emergencies . Who to Call and When: Medical Emergencies: If at any time you feel your situation is an emergency, please call 911 immediately. . Non-Emergent Contact Non-Emergency issues call your: Primary Care Provider . . "Provider Documentation" section prepared by Aspen Bello. VTE Core Measure Inpt VTE Proph given/why not?: SCD's Additional Copies To Larry Jay M.D.(ALICIA)
[2016-12-12] MEDS ORDERED: PANTOprazole SOD 40 MG TAB PO SCH (09:00)
== END 2016-12-11 15:45 | disposition home or self-care (01) ==
LOC: ENRESERVTM → ENRESERVDT → C.EDB 09:31 → C.MED 12:32
PROVIDERS: ADMIT Internal Medicine; ATTEND Internal Medicine
DX: K92.2 Gastrointestinal hemorrhage, unspecified (principal); I10 Essential (primary) hypertension; Z95.0 Presence of cardiac pacemaker; I44.2 Atrioventricular block, complete; Z79.899 Other long term (current) drug therapy

== ENCOUNTER 2017-04-18 08:45 | Emergency (ER) | payer OTHER ==
[~2017-04-18] VITALS: Ht 167.6 cm; Wt 60.2 kg
[2017-04-18 09:02] VITALS: TEMP 37.1; Ht 167.6 cm; Wt 60.2 kg
[2017-04-18] MEDS ORDERED: SODIUM CHLORIDE 0.9% 1000ML 1,000 ML IV STA (09:18)
[2017-04-18] MEDS ORDERED: ONDANSETRON INJ 2 MG/ML 2 ML VIAL IV STA (09:18)
[2017-04-18 09:29] LABS: BASO % 0.4 %; BASO ABS # 0.03 K/uL (0-0.2); COMPLETE YES; EOS % 0.1 %; HEMATOCRIT 40.1 % (37-47); IG% 0.3 %; LYMPH ABS # 0.96 K/uL (1.2-3.4); MEAN CELL VOLUME 87.9 fL (80-100); MEAN CORPUSCULAR HEMOGLOBIN 29.8 pg (25-34); MEAN CORPUSCULAR HGB CONC 33.9 g/dl (32-36); MEAN PLATELET VOLUME 8.9 fL (7.4-10.4); MONO % 17.4 %; NEUT % 68.8 %; PLATELET COUNT 281 K/uL (130-400); RED BLOOD COUNT 4.56 M/uL (4.2-5.4); WHITE BLOOD COUNT 7.37 K/uL (4.8-10.8)
[2017-04-18] MEDS ORDERED: FENTANYL CITRATE INJ 50 MCG/1 ML 2 ML VIAL IV ONE (09:30)
[2017-04-18] MEDS ORDERED: METO25TA56 PO (09:32)
--- NOTE | 2017-04-18 09:36 | EMERGENCY ROOM VISIT NOTE ---
History Report prepared by Heaven: Holland Babb Under the Supervision of: Dr. Luz Murray M.D. First contact with patient: 09:02 Chief Complaint: NAUSEA Stated Complaint: SICK IN STOMACH History of Present Illness The patient is a 71 year old female who presents to the Emergency Room with complaints of worsening abdominal pain that began one week prior to arrival. The patient denies any current nausea, diarrhea, or vomiting in the past week. She is currently having bowel movements and passing gas. The patient still has her gallbladder. She has a history of pacemaker. Source of History: patient Onset: One week [employer] Position: abdomen Timing: worsening Associated Symptoms: No diarrhea, No nausea, No vomiting Review of Systems See HPI for pertinent positives & negatives. A total of 10 systems reviewed and were otherwise negative. Past Medical & Surgical Medical Problems: (1) Cystocele (2) Fracture, clavicle (3) GI bleed (4) History of pacemaker (5) Hypertension (6) Hypertension (7) Retinal detachment, left (8) Third degree heart block (9) Ureteral mass (10) Urinary tract infection (11) Urinary tract infection Surgical Problems: (1) History of appendectomy (2) Left cataract (3) S/P laser trabeculoplasty of eye Family History FHx: cancer Social History Smoking Status: Never Smoker Alcohol Use: none Drug Use: none Marital Status: Housing Status: lives with significant other Occupation Status: employed Current/Historical Medications Scheduled Amlodipine Besylate (Amlodipine Besylate), 10 MG PO DAILY Cephalexin Monohydrate (Keflex), 500 MG PO TID Metoprolol Tartrate (Lopressor) (Lopressor), 25 MG PO BID Ondasetron Odt (Zofran Odt), 4 MG SL Q6H Allergies Coded Allergies: No Known Allergies (Verified , 04/18/17) Physical Exam Vital Signs Date Time Temp Pulse Resp B/P Pulse Ox O2 Delivery O2 Flow Rate FiO2 04/18/17 12:09 70 16 125/76 92 04/18/17 11:32 80 04/18/17 11:16 71 20 124/83 99 Room Air 04/18/17 10:21 67 17 113/73 97 Nasal Cannula 1.0 04/18/17 09:46 92 Nasal Cannula 1.0 04/18/17 09:41 72 16 120/84 90 Room Air 04/18/17 09:02 37.1 85 18 140/93 94 Room Air Physical Exam Vital signs reviewed. General: Well-appearing female, in no significant distress. HEENT: No scleral icterus, PERRLA, neck supple. Atraumatic. Cardiovascular: Regular rate and rhythm, no extra sounds. Pulmonary: Clear to auscultation bilaterally, normal work of breathing. Abdomen: Soft, nontender, there is diffuse abdominal tenderness, no rebound no guarding. positive bowel sounds. Musculoskeletal: Atraumatic, no peripheral edema. Neurologic: Patient awake alert and oriented x 3, full strength in all 4 extremities. Cranial nerves 2 through 12 grossly intact. Skin: Warm, dry, no rash Medical Decision & Procedures ER Provider Diagnostic Interpretation: Radiology results as stated below per my review and radiologist interpretation: ULTRASOUND RIGHT UPPER QUADRANT ABDOMEN CLINICAL HISTORY: Generalized abdominal pain. Nausea. COMPARISON STUDY: Abdominal CT dated 06/18/2007. TECHNIQUE: Real-time, grayscale, and color flow sonography of the right upper quadrant of the abdomen was performed. Images are reviewed in the transverse and longitudinal planes. FINDINGS: Liver: The liver is normal in size and echotexture. There is no intrahepatic biliary ductal dilatation. The main portal vein is patent. Gallbladder: There are numerous shadowing calcified gallstones. The gallbladder is not distended and otherwise normal in appearance. There is no gallbladder wall thickening or pericholecystic fluid. A sonographic Higuera's sign is reportedly absent. The common bile duct measures up to 0.4 cm in diameter. Pancreas: Visualized portions of the pancreatic head and body are normal in appearance. Right kidney: Survey images of the right kidney demonstrate mild cortical atrophy. There is no hydronephrosis. There are several right renal cysts. The largest measures 5.4 cm and is located in the upper pole. Ascites: None. IMPRESSION: Cholelithiasis without sonographic evidence of acute cholecystitis. Electronically signed by: Sudeep Singh M.D. 04/18/2017 11:01 AM Dictated Date/Time: 04/18/2017 10:59 AM Laboratory Results 04/18/17 09:15 Red Blood Count 4.56, Mean Corpuscular Volume 87.9, Mean Corpuscular Hemoglobin 29.8, Mean Corpuscular Hemoglobin Concent 33.9, Mean Platelet Volume 8.9, Neutrophils (%) (Auto) 68.8, Lymphocytes (%) (Auto) 13.0, Monocytes (%) (Auto) 17.4, Eosinophils (%) (Auto) 0.1, Basophils (%) (Auto) 0.4, Neutrophils # (Auto ) 5.07, Lymphocytes # (Auto) 0.96, Monocytes # (Auto) 1.28, Eosinophils # (Auto ) 0.01, Basophils # (Auto) 0.03 04/18/17 09:15 Test 04/18/17 09:15 04/18/17 09:40 White Blood Count 7.37 K/uL (4.8-10.8) Red Blood Count 4.56 M/uL (4.2-5.4) Hemoglobin 13.6 g/dL (12.0-16.0) Hematocrit 40.1 % (37-47) Mean Corpuscular Volume 87.9 fL (80-100) Mean Corpuscular Hemoglobin 29.8 pg (25-34) Mean Corpuscular Hemoglobin Concent 33.9 g/dl (32-36) Platelet Count 281 K/uL (130-400) Mean Platelet Volume 8.9 fL (7.4-10.4) Neutrophils (%) (Auto) 68.8 % Lymphocytes (%) (Auto) 13.0 % Monocytes (%) (Auto) 17.4 % Eosinophils (%) (Auto) 0.1 % Basophils (%) (Auto) 0.4 % Neutrophils # (Auto) 5.07 K/uL (1.4-6.5) Lymphocytes # (Auto) 0.96 K/uL (1.2-3.4) Monocytes # (Auto) 1.28 K/uL (0.11-0.59) Eosinophils # (Auto) 0.01 K/uL (0-0.5) Basophils # (Auto) 0.03 K/uL (0-0.2) RDW Standard Deviation 49.0 fL (36.4-46.3) RDW Coefficient of Variation 15.1 % (11.5-14.5) Immature Granulocyte % (Auto) 0.3 % Immature Granulocyte # (Auto) 0.02 K/uL (0.00-0.02) Anion Gap 4.0 mmol/L (3-11) Est Creatinine Clear Calc Drug Dose 55.7 ml/min Estimated GFR () 77.2 Estimated GFR (Non- 66.6 BUN/Creatinine Ratio 12.9 (10-20) Calcium Level 11.0 mg/dl (8.5-10.1) Magnesium Level 2.1 mg/dl (1.8-2.4) Total Bilirubin 0.6 mg/dl (0.2-1) Direct Bilirubin 0.2 mg/dl (0-0.2) Aspartate Amino Transf (AST/SGOT) 9 U/L (15-37) Alanine Aminotransferase (ALT/SGPT) 15 U/L (12-78) Alkaline Phosphatase 122 U/L (45-117) Total Protein 8.1 gm/dl (6.4-8.2) Albumin 3.1 gm/dl (3.4-5.0) Lipase 121 U/L (73-393) Urine Color YELLOW Urine Appearance TURBID (CLEAR) Urine pH 6.5 (4.5-7.5) Urine Specific [place] 1.020 (1.000-1.030) Urine Protein 2+ (NEG) Urine Glucose (UA) NEG (NEG) Urine Ketones NEG (NEG) Urine Occult Blood 3+ (NEG) Urine Nitrite NEG (NEG) Urine Bilirubin NEG (NEG) Urine Urobilinogen NEG (NEG) Urine Leukocyte Esterase LARGE (NEG) Urine WBC (Auto) >30 /hpf (0-5) Urine RBC (Auto) 10-30 /hpf (0-4) Urine Hyaline Casts (Auto) 10-30 /lpf (0-5) Urine Epithelial Cells (Auto) 10-20 /lpf (0-5) Urine Bacteria (Auto) NEG (NEG) Urine Yeast (Auto) PRESENT (NONE PRSENT) Date/Time Source Procedure Growth Status 04/18/17 09:40 Urine , Clean Catch Urine Culture - Final THREE TYPES OF ORGANISMS PRESENT, ALL... Complete Laboratory results per my review. Medications Administered Medications (Trade) Dose Ordered Sig/[place] Route Start Time Stop Time Status Last Admin Dose Admin Sodium Chloride (Nss 1000ml) 1,000 ml @ 125 mls/hr Q8H STAT IV 04/18/17 09:18 04/18/17 12:16 DC 04/18/17 09:40 125 MLS/HR Ondansetron HCl (Zofran Inj) 4 mg NOW STAT IV 04/18/17 09:18 04/18/17 09:20 DC 04/18/17 09:37 4 MG Fentanyl Citrate (Fentanyl Inj) 50 mcg NOW ONCE IV 04/18/17 09:30 04/18/17 09:31 DC 04/18/17 09:37 50 MCG Ceftriaxone Sodium (Rocephin Inj) 1 gm NOW STAT IV 04/18/17 11:06 04/18/17 11:07 DC 04/18/17 11:22 1 GM ECG Indication: abdominal pain Rate (beats per minute): 71 Rhythm: normal sinus Findings: T-wave inversion (Diffuse) Comparison ECG Date: 12/09/2016 Change: No significant pain in repolarization, Sinus rhythm replaced Paced rhythm ED Course 09: Past medical records reviewed. The patient was evaluated in room A4. A complete history and physical examination was performed. 0918: Zofran 4 mg IV, Sodium Chloride 1000 mL @ 125 mL/hr IV. 0930: Ordered Fentanyl 50 mcg IV. 1106: Ordered Rocephin Inj 1 gm IV. 1117: Upon reevaluation, the patient appeared to have improvement of her symptoms. I discussed findings with her. She verbalized agreement of the treatment plan. The patient was discharged home. Medical Decision Differential diagnosis: Etiologies such as appendicitis, diverticulitis, PUD, biliary pathology, UTI, pancreatitis, obstruction, mesenteric ischemia, aortic pathology, infections, inflammatory bowel disease, renal colic, as well as others were entertained. This patient was evaluated and appeared to be in no significant distress. IV access was obtained and laboratory work was drawn. EKG was performed and reveals a normal sinus rhythm with T-wave inversion. Laboratory work is fairly unrevealing. Urinalysis is positive for infection. Ultrasound of right upper quadrant is negative for acute cholecystitis. Cholelithiasis is present. The patient was informed of the findings. She was placed on Keflex 3 times a day for 7 days. She will increase the amount of fluids that she drinks and follow- up with her primary care physician this week for reevaluation. She will return to the ER for worsening of symptoms or any medical concerns. Impression Primary Impression: UTI (urinary tract infection) Scribe Attestation The scribe's documentation has been prepared under my direction and personally reviewed by me in its entirety. I confirm that the note above accurately reflects all work, treatment, procedures, and medical decision making performed by me. Departure Information Dispostion Home / Self-Care Prescriptions Ondasetron Odt (ZOFRAN ODT) 4 Mg Tab 4 MG SL Q6H for Nausea, #10 TAB Prov: Luz Murray M.D. 04/18/17 Cephalexin Monohydrate (Keflex) 500 Mg Cap 500 MG PO TID, #21 CAP Prov: Luz Murray M.D. 04/18/17 Referrals No Doctor, Assigned (PCP) Forms HOME CARE DOCUMENTATION FORM, IMPORTANT VISIT INFORMATION Patient Instructions My [facility] Additional Instructions Diagnosis: UTI Keflex 500 mg 3 times daily for 7 days. Drink plenty of clear fluids. Zofran 4 mg ODT every 6 hours as needed for nausea. Follow up with your doctor this week for reevaluation. Return to emergency for worsening of symptoms or any medical concerns.
[2017-04-18 09:46] VITALS: O2SAT 92
[2017-04-18 09:48] LABS: BUN/CREATININE RATIO 12.9 (10-20); CREATININE 0.88 mg/dl (0.60-1.20); MAGNESIUM 2.1 mg/dl (1.8-2.4); POTASSIUM 4.2 mmol/L (3.5-5.1)
[2017-04-18 09:56] LABS: URINE APPEARANCE TURBID (CLEAR); URINE BILIRUBIN NEG (NEG); URINE COLOR YELLOW; URINE NITRITE NEG (NEG); URINE PH 6.5 (4.5-7.5); UROBILINOGEN NEG (NEG); ZZUR CULT IF INDIC CLEAN CATCH YES
[2017-04-18 10:03] LABS: MANUAL MICROSCOPIC REQUIRED? NO; REVIEW REQ? YES
--- NOTE | 2017-04-18 11:02 | DIAGNOSTIC IMAGING REPORT ---
ULTRASOUND RIGHT UPPER QUADRANT ABDOMEN CLINICAL HISTORY: Generalized abdominal pain. Nausea. COMPARISON STUDY: Abdominal CT dated 06/18/2007. TECHNIQUE: Real-time, grayscale, and color flow sonography of the right upper quadrant of the abdomen was performed. Images are reviewed in the transverse and longitudinal planes. FINDINGS: Liver: The liver is normal in size and echotexture. There is no intrahepatic biliary ductal dilatation. The main portal vein is patent. Gallbladder: There are numerous shadowing calcified gallstones. The gallbladder is not distended and otherwise normal in appearance. There is no gallbladder wall thickening or pericholecystic fluid. A sonographic Higuera's sign is reportedly absent. The common bile duct measures up to 0.4 cm in diameter. Pancreas: Visualized portions of the pancreatic head and body are normal in appearance. Right kidney: Survey images of the right kidney demonstrate mild cortical atrophy. There is no hydronephrosis. There are several right renal cysts. The largest measures 5.4 cm and is located in the upper pole. Ascites: None. IMPRESSION: Cholelithiasis without sonographic evidence of acute cholecystitis. Electronically signed by: Sudeep Singh M.D. 04/18/2017 11:01 AM Dictated Date/Time: 04/18/2017 10:59 AM
[2017-04-18] MEDS ORDERED: CEFTRIAXONE SOD INJ 1 GM ADDVIAL IV STA (11:06)
[2017-04-18] MEDS ORDERED: CEPH500C PO (11:09)
[2017-04-18] MEDS ORDERED: ONDA4TAB10 SL (11:10)
[2017-04-18 12:09] VITALS: BP 125/76; PULSE 70; O2SAT 92
== END 2017-04-18 12:10 | disposition home or self-care (01) ==
LOC: C.EDB 08:46 → C.EDA 12:10
DX: N39.0 Urinary tract infection, site not specified (principal); Z95.0 Presence of cardiac pacemaker; I10 Essential (primary) hypertension; K80.20 Calculus of gallbladder without cholecystitis without obstruction; Z87.440 Personal history of urinary (tract) infections; Z98.49 Cataract extraction status, unspecified eye; Z80.9 Family history of malignant neoplasm, unspecified; Z79.899 Other long term (current) drug therapy

== ENCOUNTER 2017-04-22 09:34 | Emergency (ER) | payer OTHER ==
[~2017-04-22] VITALS: Ht 165.1 cm; Wt 57.0 kg
[~2017-04-22 09:34] MED LIST changes: +CEPH500C PO; -LPR25 PO; +METO25TA56 PO; +ONDA4TAB10 SL
[2017-04-22 09:37] VITALS: TEMP 36.5; Ht 165.1 cm; Wt 57.0 kg
[2017-04-22] MEDS ORDERED: ONDANSETRON INJ 2 MG/ML 2 ML VIAL IV STA (10:02)
--- NOTE | 2017-04-22 10:03 | EMERGENCY ROOM VISIT NOTE ---
History Report prepared by Heaven: Maritza Baker Under the Supervision of: Dr. Adrianna Lamar D.O. First contact with patient: 09:50 Chief Complaint: ABDOMINAL PAIN Stated Complaint: NAUSEA, ABD. PAIN History of Present Illness The patient is a 71 year old female who presents to the Emergency Room with complaints of intermittent nausea beginning yesterday. She notes that she did vomit this morning. The patient was seen in the ED last week for similar symptoms and abdominal pain. She notes that her symptoms improved slightly but worsened again yesterday after she ate. She notes this was the first time having a meal since her symptoms began 9 days ago. The patient has been unable to sleep due to the nausea. She was started on Keflex when she was in the ED for urinary tract infection. The patient was in the ED in December for rectal bleeding and was hospitalized for 2 days. She has a EGD done on December 09 that was normal. She has a history of diverticulitis. Source of History: patient Onset: yesterday Position: other (global) Quality: other (nausea) Timing: intermittent Associated Symptoms: + abdominal pain, + vomiting Note: The patient has been unable to sleep due to the nausea. Review of Systems See HPI for pertinent positives & negatives. A total of 10 systems reviewed and were otherwise negative. Past Medical & Surgical Medical Problems: (1) Cystocele (2) Fracture, clavicle (3) GI bleed (4) History of pacemaker (5) Hypertension (6) Hypertension (7) Retinal detachment, left (8) Third degree heart block (9) Ureteral mass (10) Urinary tract infection (11) Urinary tract infection Surgical Problems: (1) History of appendectomy (2) Left cataract (3) S/P laser trabeculoplasty of eye Family History FHx: cancer Social History Smoking Status: Never Smoker Alcohol Use: none Drug Use: none Marital Status: Housing Status: lives with significant other Occupation Status: employed Current/Historical Medications Scheduled Amlodipine Besylate (Amlodipine Besylate), 10 MG PO DAILY Cephalexin Monohydrate (Keflex), 500 MG PO TID Metoprolol Tartrate (Lopressor) (Lopressor), 25 MG PO BID Ondasetron Odt (Zofran Odt), 4 MG SL Q6H Ranitidine Hcl (Zantac), 150 MG PO BID Allergies Coded Allergies: No Known Allergies (Verified , 04/18/17) Physical Exam Vital Signs Date Time Temp Pulse Resp B/P Pulse Ox O2 Delivery O2 Flow Rate FiO2 04/22/17 12:08 70 18 115/87 94 Room Air 04/22/17 10:40 66 04/22/17 10:39 67 18 112/82 93 Room Air 04/22/17 09:37 36.5 82 18 140/99 95 Room Air Physical Exam HEENT: Head - normocephalic and atraumatic Pupils are equal, round, and reactive to light. Extraocular eye muscles are intact, and sclera are anicteric. Nose - moist nasal mucosa without discharge. Mouth - moist buccal mucosa. Oropharynx is nonerythematous and there is no tonsillar exudate or edema noted. Neck: Supple; no JVD, nuchal rigidity, cervical lymphadenopathy. Heart: Regular rate and rhythm. There is a normal S1 and S2 with no murmurs, clicks, or gallops appreciated. Lungs: Clear to auscultation bilaterally with no wheezes, rales, or rhonchi. Abdomen: Soft, completely nontender, nondistended, with good bowel sounds. There are no palpable pulsatile masses or hepatosplenomegaly. There is no guarding, rigidity, or rebound noted. Extremities: No evidence of cyanosis, clubbing, or edema. There are easily palpable peripheral pulses. Skin: warm and dry with good turgor and no rashes. Medical Decision & Procedures Laboratory Results 04/22/17 09:50 Red Blood Count 5.17, Mean Corpuscular Volume 86.8, Mean Corpuscular Hemoglobin 29.6, Mean Corpuscular Hemoglobin Concent 34.1, Mean Platelet Volume 8.7, Neutrophils (%) (Auto) 59.6, Lymphocytes (%) (Auto) 21.9, Monocytes (%) (Auto) 13.5, Eosinophils (%) (Auto) 0.5, Basophils (%) (Auto) 1.0, Neutrophils # (Auto ) 3.71, Lymphocytes # (Auto) 1.36, Monocytes # (Auto) 0.84, Eosinophils # (Auto ) 0.03, Basophils # (Auto) 0.06 04/22/17 09:50 Test 04/22/17 09:50 04/22/17 10:40 White Blood Count 6.22 K/uL (4.8-10.8) Red Blood Count 5.17 M/uL (4.2-5.4) Hemoglobin 15.3 g/dL (12.0-16.0) Hematocrit 44.9 % (37-47) Mean Corpuscular Volume 86.8 fL (80-100) Mean Corpuscular Hemoglobin 29.6 pg (25-34) Mean Corpuscular Hemoglobin Concent 34.1 g/dl (32-36) Platelet Count 452 K/uL (130-400) Mean Platelet Volume 8.7 fL (7.4-10.4) Neutrophils (%) (Auto) 59.6 % Lymphocytes (%) (Auto) 21.9 % Monocytes (%) (Auto) 13.5 % Eosinophils (%) (Auto) 0.5 % Basophils (%) (Auto) 1.0 % Neutrophils # (Auto) 3.71 K/uL (1.4-6.5) Lymphocytes # (Auto) 1.36 K/uL (1.2-3.4) Monocytes # (Auto) 0.84 K/uL (0.11-0.59) Eosinophils # (Auto) 0.03 K/uL (0-0.5) Basophils # (Auto) 0.06 K/uL (0-0.2) RDW Standard Deviation 47.4 fL (36.4-46.3) RDW Coefficient of Variation 14.8 % (11.5-14.5) Immature Granulocyte % (Auto) 3.5 % Immature Granulocyte # (Auto) 0.22 K/uL (0.00-0.02) Anion Gap 8.0 mmol/L (3-11) Est Creatinine Clear Calc Drug Dose 50.1 ml/min Estimated GFR () 71.2 Estimated GFR (Non- 61.5 BUN/Creatinine Ratio 13.0 (10-20) Calcium Level 10.4 mg/dl (8.5-10.1) Total Bilirubin 0.4 mg/dl (0.2-1) Direct Bilirubin < 0.1 mg/dl (0-0.2) Aspartate Amino Transf (AST/SGOT) 12 U/L (15-37) Alanine Aminotransferase (ALT/SGPT) 15 U/L (12-78) Alkaline Phosphatase 121 U/L (45-117) Total Creatine Kinase 42 U/L (26-192) Creatine Kinase MB 1.4 ng/ml (0.5-3.6) Creatine Kinase MB Ratio 3.3 (0-3.0) Troponin I < 0.015 ng/ml (0-0.045) Total Protein 8.4 gm/dl (6.4-8.2) Albumin 3.2 gm/dl (3.4-5.0) Lipase 161 U/L (73-393) Urine Color YELLOW Urine Appearance TURBID (CLEAR) Urine pH 7.0 (4.5-7.5) Urine Specific [place] 1.015 (1.000-1.030) Urine Protein 3+ (NEG) Urine Glucose (UA) NEG (NEG) Urine Ketones NEG (NEG) Urine Occult Blood 3+ (NEG) Urine Nitrite NEG (NEG) Urine Bilirubin NEG (NEG) Urine Urobilinogen NEG (NEG) Urine Leukocyte Esterase LARGE (NEG) Urine WBC (Auto) >30 /hpf (0-5) Urine RBC (Auto) >30 /hpf (0-4) Urine Hyaline Casts (Auto) 0 /lpf (0-5) Urine Epithelial Cells (Auto) >30 /lpf (0-5) Urine Bacteria (Auto) 2+ (NEG) Urine Pathogenic Casts /lpf (0) Urine Mucus PRESENT (NONE PRSENT) Urine Yeast (Auto) (NONE PRSENT) Laboratory results per my review. Medications Administered Medications (Trade) Dose Ordered Sig/[place] Route Start Time Stop Time Status Last Admin Dose Admin Ondansetron HCl (Zofran Inj) 4 mg NOW STAT IV 04/22/17 10:02 04/22/17 10:04 DC 04/22/17 10:32 4 MG Ranitidine HCl (zANTac TAB) 150 mg NOW STAT PO 04/22/17 11:49 04/22/17 11:50 DC 04/22/17 12:13 150 MG Procedure Zofran Inj 4 mg IV, Zantac Tab 150 mg PO. ECG Indication: nausea Rate (beats per minute): 70 Rhythm: other (paced) Findings: T-wave inversion (Inferior and lateral) Change: no significant change (from April 18, 2017) ED Course 0956: Past medical records reviewed. The patient was evaluated in room C5. A complete history and physical exam was performed. An IV lock was initiated and labs are drawn as above. 1002: Zofran Inj 4 mg IV. 1108: I checked on the patient. She was asleep and I woke her up. She notes no nausea after the antiemetics. 1141: The patient is still asleep. 1149: Zantac Tab 150 mg PO. 1152: I spoke with Dr. Jay about the patient. It is recommended she is started on H2 maco and follows up in the office. 1158: I discussed my conversation with Dr. Jay to the patient. She said that she had chilli last night for dinner and then the pain began. I encouraged a bland diet. 1206: Upon reevaluation, the patient is hemodynamically stable. I discussed findings and results with her. She verbalized agreement of the treatment plan. She was discharged home. Medical Decision The patient is a 71 year old female who presents to the ED with abdominal pain. Differential diagnosis includes diverticulitis, colitis, GERD, pancreatitis, cholecystitis. Lab findings include: no leukocytosis, stable H&H, glucose 101, normal LFT, normal lipase, negative cardiac enzyme. Urine analysis showed 3+ blood, large leukocyte esterase, greater than 30 white blood cells, greater than 30 red blood cells, 2+ bacteria. While evaluating the patient, it does not seem that the patient has any reproducible abdominal pain at all but that her symptoms are nausea and vomiting. The patient has been having nausea for the past 10 days. Unfortunately, last night the patient ate a bowl of chili and it seemed to make the symptoms worse. I will start the patient on Zantac twice a day and she will follow-up with Dr. Jay. Laboratory studies today were not much different then when she was here couple of days ago. Consults Time Called: 1150 Consulting Physician: Dr. Misty Suh Returned Call: [address] Jay about the patient. It is recommended she is started on H2 maco and follows up in the office. Impression Primary Impression: Nausea Scribe Attestation The scribe's documentation has been prepared under my direction and personally reviewed by me in its entirety. I confirm that the note above accurately reflects all work, treatment, procedures, and medical decision making performed by me. Departure Information Dispostion Home / Self-Care Prescriptions Ranitidine Hcl (ZANTAC) 150 Mg Tab 150 MG PO BID, #60 TAB Prov: Adrianna Lamar D.O. 04/22/17 Referrals Larry Jay M.D.([place]) (PCP) Forms HOME CARE DOCUMENTATION FORM, IMPORTANT VISIT INFORMATION Patient Instructions My [facility], Nausea Vomit Control Additional Instructions Rest Take a bland diet zantac - 150mg every 12 [address] Follow up with Dr. Jay this week
[2017-04-22 10:22] LABS: BASO ABS # 0.06 K/uL (0-0.2); COMPLETE YES; EOS % 0.5 %; HEMATOCRIT 44.9 % (37-47); IG% 3.5 %; LYMPH % 21.9 %; LYMPH ABS # 1.36 K/uL (1.2-3.4); MEAN CELL VOLUME 86.8 fL (80-100); MEAN CORPUSCULAR HEMOGLOBIN 29.6 pg (25-34); MEAN CORPUSCULAR HGB CONC 34.1 g/dl (32-36); MEAN PLATELET VOLUME 8.7 fL (7.4-10.4); MONO % 13.5 %; NEUT % 59.6 %; PLATELET COUNT 452 K/uL (130-400); RED BLOOD COUNT 5.17 M/uL (4.2-5.4); WHITE BLOOD COUNT 6.22 K/uL (4.8-10.8)
[2017-04-22 10:30] LABS: ALT/SGPT 15 U/L (12-78); AST/SGOT 12 U/L (15-37); BLOOD UREA NITROGEN 12 mg/dl (7-18); CALCIUM 10.4 mg/dl (8.5-10.1); CARBON DIOXIDE 30 mmol/L (21-32); CHLORIDE 101 mmol/L (98-107); CREATININE 0.94 mg/dl (0.60-1.20); GLUCOSE 101 mg/dl (70-99); POTASSIUM 3.6 mmol/L (3.5-5.1); SODIUM 139 mmol/L (136-145)
[2017-04-22 10:36] LABS: ALKALINE PHOSPHATASE 121 U/L (45-117); CKMB/CK RATIO 3.3 (0-3.0)
[2017-04-22 11:15] LABS: URINE APPEARANCE TURBID (CLEAR); URINE BILIRUBIN NEG (NEG); URINE COLOR YELLOW; URINE EPITHELIAL CELL AUTO >30 /lpf (0-5); URINE NITRITE NEG (NEG); URINE SPECIFIC GRAVITY 1.015 (1.000-1.030); UROBILINOGEN NEG (NEG)
[2017-04-22 11:19] LABS: MANUAL MICROSCOPIC REQUIRED? NO; REVIEW REQ? YES
[2017-04-22 11:42] LABS: URINE MUCUS PRESENT (NONE PRSENT)
[2017-04-22] MEDS ORDERED: RANITIDINE HCL 150 MG TAB PO STA (11:49)
[2017-04-22] MEDS ORDERED: RANI150T3 PO (11:54)
[2017-04-22 12:08] VITALS: BP 115/87; PULSE 70; O2SAT 94
== END 2017-04-22 12:23 | disposition home or self-care (01) ==
LOC: C.EDB 09:35 → C.EDC 12:23
DX: R11.0 Nausea (principal); Z87.440 Personal history of urinary (tract) infections; I10 Essential (primary) hypertension; Z95.0 Presence of cardiac pacemaker; Z98.42 Cataract extraction status, left eye; Z80.9 Family history of malignant neoplasm, unspecified; Z79.899 Other long term (current) drug therapy

== ENCOUNTER 2018-04-22 20:26 | Emergency (ER) | payer OTHER ==
[~2018-04-22] VITALS: Ht 165.1 cm; Wt 60.0 kg
[~2018-04-22 20:26] MED LIST changes: -CEPH500C PO; -ONDA4TAB10 SL
[2018-04-22 20:28] VITALS: TEMP 36.7; Ht 165.1 cm; Wt 60.0 kg
--- NOTE | 2018-04-22 20:33 | EMERGENCY ROOM VISIT NOTE ---
ED Visit Note First contact with patient: 20:32 CHIEF COMPLAINT: Right foot pain HISTORY OF PRESENTING ILLNESS: This is a 72-year-old female who presents to the emergency department with complaint of right foot pain. She states that she started with itching and burning of the foot approximately 2-3 weeks ago that she believed was athlete's foot. She states she has been treating this with [id number] sprays and creams, but states this has not been helping. Over the past week the pain has been increasing, to the point that she is having difficulty walking because of pain. Pain is constant, 10/10. She states she has tried Epsom salts which have helped slightly. She has not tried any over- the-counter pain medication such as Tylenol or ibuprofen. She states that she has developed swelling in the foot for the past 2 days and the entire foot has turned red. She denies any fevers or chills. She denies any previous infections of her foot or leg. She is not a diabetic. She is not on any blood thinners. She denies any injuries to the foot. She denies any headaches, neck pain, chest pain, shortness of breath, dizziness or syncope, abdominal pain, back pain, nausea or vomiting, diarrhea, bowel or bladder dysfunction, urinary symptoms, or unusual rash. REVIEW OF SYSTEMS: A complete 10 point review of systems was reviewed with the patient with pertinent positives and negatives as per history of present illness. All else were negative. PAST MEDICAL HISTORY: Reviewed in the chart, see problem list below. SOCIAL HISTORY: Lives at home. Denies tobacco use. ALLERGIES: No known allergies. PHYSICAL EXAM: CONSTITUTIONAL: Pleasant and cooperative. No acute distress. Well appearing and well nourished. HEENT: Normocephalic, atraumatic. Pupils equal, round and reactive to light, EOMI. TMs normal. Pharynx normal. NECK: Supple, full active range of motion without discomfort. RESPIRATORY: Clear to auscultation bilaterally with no wheezing, crackles, rhonchi or stridor. Equal expansion bilaterally. CARDIOVASCULAR: Regular rate and rhythm with no murmurs, rubs or gallops. Normal peripheral perfusion. GASTROINTESTINAL: Soft, nontender, nondistended. No palpable masses or HSM. Bowel sounds present in all quadrants. MUSCULOSKELETAL: The right foot is moderately swollen, erythematous, and slightly warm to touch. Tender to palpation. There is excoriated tissue between the toes and under the toes with cracked, moist skin. There is no purulent drainage noted. Palpable pulses, brisk cap refill and sensation intact. Full range of motion of all joints without discomfort. No calf tenderness or swelling. INTEGUMENTARY: No rash or other significant dermatologic conditions noted. NEUROLOGIC: Alert and oriented X 4 with normal affect. Normal strength and sensation in all 4 extremities. No focal neurologic deficits noted. Normal speech. ED COURSE AND MEDICAL DECISION MAKING: CC: Patient presenting with complaint of right foot pain and swelling DIFFERENTIAL DIAGNOSIS: Includes, but not limited to athlete's foot, cellulitis , osteomyelitis, gangrene, trench foot, among others. INTERPRETATION OF LABS: No leukocytosis, no anemia, no significant electrolyte abnormalities, renal function grossly within normal limits. Mildly elevated CRP , normal ESR. IMAGING: R FOOT MIN 3 VIEWS ROUTINE CLINICAL HISTORY: 72 years-old Female presenting with foot pain, swelling, eval cellulitis, osteomyelitis, right foot pain for 2 weeks, no history of injury. TECHNIQUE: Frontal, oblique, and lateral views of the right foot were obtained. COMPARISON: None. FINDINGS: Osteopenia suspected. Mild hallux valgus deformity. Prominent enthesophyte at the origin of the plantar fascia. No acute fracture or malalignment. No advanced degenerative change. Mild diffuse soft tissue swelling. No gross evidence of soft tissue emphysema. No osseous erosion or periosteal reaction apparent. IMPRESSION: 1. No acute osseous injury. 2. No radiographic evidence of osteomyelitis. MEDICATION RECONCILIATION: I attest that I have personally reviewed the patient 's current medication list. INITIAL VITAL SIGNS REVIEW: I reviewed the patient's initial vital signs and interpret them as follows: T: Afebrile; BP: Hypertensive; HR: Within normal limits; RR: Within normal limits; Pulse Ox: Within normal limits on room air. Blood pressure screening: The patient was found to have an elevated blood pressure and was referred to their primary doctor for recheck and further treatment. SUMMARY: Patient was evaluated at bedside, history and physical exam performed. Patient is alert and oriented, in no acute distress, but does appear uncomfortable, resting in the stretcher. Moderate swelling and erythema of the right foot, tender to palpation, with excoriated skin under the toes and between the toes. No calf swelling or tenderness to palpation. Orders were placed at bedside for labs, Tylenol for pain, foot x-ray to evaluate for osteomyelitis/cellulitis. Patient discussed with Dr. Echavarria, who agrees with my assessment and plan. Labs and imaging reviewed as above, no findings concerning for osteomyelitis or severe cellulitis. Patient was given IV Rocephin 1 g, and Rx for Keflex was sent to pharmacy. Patient does not meet any criteria or risk factors for MRSA at this time. Patient reassessed multiple times throughout ED stay, she remained stable, and reports significant improvement in her pain after the Tylenol. Wound care was provided by nursing staff, patient was placed in a postop shoe for comfort. telehealth case manager faxed a referral for wound care clinic, the patient will be called tomorrow to set up an appointment. Patient was updated on all results and plan for discharge, she was encouraged to follow closely with her PCP, as well as to follow-up with the wound care clinic. Patient was also given strict return precautions should her symptoms worsen, she verbalized understanding. Patient was discharged home in stable condition and ambulatory. Problem List Medical Problems: (1) Cystocele Status: Chronic (2) Fracture, clavicle Status: Resolved (3) History of pacemaker Permanent Comment: placed 12/27/15 Status: Chronic (4) Hypertension Status: Resolved (5) Hypertension Status: Resolved (6) Retinal detachment, left Status: Resolved (7) Third degree heart block Permanent Comment: s/p pacemaker Status: Chronic (8) Ureteral mass Status: Resolved (9) Urinary tract infection Status: Resolved (10) Urinary tract infection Status: Resolved Surgical Problems: (1) History of appendectomy Status: Resolved (2) S/P laser trabeculoplasty of eye Status: Resolved Current/Historical Medications Scheduled Amlodipine Besylate (Amlodipine Besylate), 10 MG PO DAILY Cephalexin Monohydrate (Keflex), 500 MG PO QID Metoprolol Tartrate (Lopressor) (Lopressor), 25 MG PO BID Allergies Coded Allergies: No Known Allergies (Verified , 04/18/17) Vital Signs Date Time Temp Pulse Resp B/P (MAP) Pulse Ox O2 Delivery O2 Flow Rate FiO2 04/22/18 22:47 66 150/96 98 04/22/18 20:28 36.7 85 18 145/102 97 Room Air Laboratory Results 04/22/18 21:00 Red Blood Count 4.77, Mean Corpuscular Volume 90.6, Mean Corpuscular Hemoglobin 31.2, Mean Corpuscular Hemoglobin Concent 34.5, Mean Platelet Volume 8.6, Neutrophils (%) (Auto) 50.0, Lymphocytes (%) (Auto) 38.1, Monocytes (%) (Auto) 7.8, Eosinophils (%) (Auto) 3.3, Basophils (%) (Auto) 0.5, Neutrophils # (Auto) 2.87, Lymphocytes # (Auto) 2.19, Monocytes # (Auto) 0.45, Eosinophils # (Auto) 0.19, Basophils # (Auto) 0.03 04/22/18 21:00 Test 04/22/18 21:00 White Blood Count 5.75 K/uL (4.8-10.8) Red Blood Count 4.77 M/uL (4.2-5.4) Hemoglobin 14.9 g/dL (12.0-16.0) Hematocrit 43.2 % (37-47) Mean Corpuscular Volume 90.6 fL (80-100) Mean Corpuscular Hemoglobin 31.2 pg (25-34) Mean Corpuscular Hemoglobin Concent 34.5 g/dl (32-36) Platelet Count 193 K/uL (130-400) Mean Platelet Volume 8.6 fL (7.4-10.4) Neutrophils (%) (Auto) 50.0 % Lymphocytes (%) (Auto) 38.1 % Monocytes (%) (Auto) 7.8 % Eosinophils (%) (Auto) 3.3 % Basophils (%) (Auto) 0.5 % Neutrophils # (Auto) 2.87 K/uL (1.4-6.5) Lymphocytes # (Auto) 2.19 K/uL (1.2-3.4) Monocytes # (Auto) 0.45 K/uL (0.11-0.59) Eosinophils # (Auto) 0.19 K/uL (0-0.5) Basophils # (Auto) 0.03 K/uL (0-0.2) RDW Standard Deviation 44.6 fL (36.4-46.3) RDW Coefficient of Variation 13.5 % (11.5-14.5) Immature Granulocyte % (Auto) 0.3 % Immature Granulocyte # (Auto) 0.02 K/uL (0.00-0.02) Erythrocyte Sedimentation Rate 21 mm/hr (0-21) Anion Gap 6.0 mmol/L (3-11) Est Creatinine Clear Calc Drug Dose 41.1 ml/min Estimated GFR () 56.6 Estimated GFR (Non- 48.9 BUN/Creatinine Ratio 25.9 (10-20) Calcium Level 9.6 mg/dl (8.5-10.1) C-Reactive Protein 0.76 mg/dl (0-0.29) Medications Administered Medications (Trade) Dose Ordered Sig/[place] Route Start Time Stop Time Status Last Admin Dose Admin Acetaminophen (Tylenol Tab) 1,000 mg NOW STAT PO 04/22/18 20:42 04/22/18 20:43 DC 04/22/18 20:47 1,000 MG Ceftriaxone Sodium (Rocephin Inj) 1 gm NOW STAT IV 04/22/18 21:40 04/22/18 21:43 DC 04/22/18 21:51 1 GM Departure Information Impression Primary Impression: Cellulitis of right foot Dispostion Home / Self-Care Condition GOOD Prescriptions Cephalexin Monohydrate (Keflex) 500 Mg Cap 500 MG PO QID for 10 Days, #40 CAP Prov: Lora Garrison CRNP 04/22/18 Referrals No Doctor, Assigned (PCP) [facility] Patient Instructions ED Infec Skin Cellulitis, [facility] Additional Instructions You were seen in the Emergency Department for cellulitis (infection) of your right foot. You have been prescribed Keflex to be taken 4 times a day for 10 days. This medication is an antibiotic. Stop this medication and contact a medical provider if you were to develop any significant adverse side effects including: wheezing, shortness of breath, passing out, vomiting, or a diffuse rash. Always take antibiotics as directed and COMPLETE the ENTIRE course regardless of the improvement of your symptoms. Look for signs of worsening infection of the wound including: increased pain, swelling, foul discharge, streaking, or fevers/chills/feeling ill. If any of these are noticed you should return to the Emergency Department for further assessment and treatment. For pain control, you can use the following [id number] medicines (if >12 yo): - Extra strength (500mg/tab) Tylenol (acetaminophen) 1-2 tabs every 6-8 hours as needed. Do not exceed 6 tablets in a 24 hour period. Avoid taking more than 3 grams (3000 mg) of Tylenol per day. This includes any other sources of acetaminophen you may take on a regular basis. - Regular strength (200 mg/tab) Advil (ibuprofen) 1-2 tabs every 4-6 hours as needed. Do not exceed a dose of 2400 mg per day. Apply warm compresses to the area to help with pain and also to help improve the infection. Keep the foot elevated as much as possible to reduce swelling. Follow up with your PCP in 2 days for recheck, or sooner for worsening symptoms. You have also been provided with a referral to the wound care clinic. You will be called tomorrow to set up an appointment. Return to the emergency department if your symptoms worsen despite treatment course outlined above. Work Instructions Return To Work: 5 days
[2018-04-22] MEDS ORDERED: ACETAMINOPHEN 500 MG TAB PO STA (20:42)
--- NOTE | 2018-04-22 20:46 | EMERGENCY ROOM VISIT NOTE ---
ED Visit Note First contact with patient: 20:32 I have seen and examined this patient with Lora Garrison and generally agree with the treatment plan as discussed. Problem List Medical Problems: (1) Cystocele Status: Chronic (2) Fracture, clavicle Status: Resolved (3) History of pacemaker Permanent Comment: placed 12/27/15 Status: Chronic (4) Hypertension Status: Resolved (5) Hypertension Status: Resolved (6) Retinal detachment, left Status: Resolved (7) Third degree heart block Permanent Comment: s/p pacemaker Status: Chronic (8) Ureteral mass Status: Resolved (9) Urinary tract infection Status: Resolved (10) Urinary tract infection Status: Resolved Surgical Problems: (1) History of appendectomy Status: Resolved (2) S/P laser trabeculoplasty of eye Status: Resolved Current/Historical Medications Scheduled Amlodipine Besylate (Amlodipine Besylate), 10 MG PO DAILY Metoprolol Tartrate (Lopressor) (Lopressor), 25 MG PO BID Allergies Coded Allergies: No Known Allergies (Verified , 04/18/17) Vital Signs Date Time Temp Pulse Resp B/P (MAP) Pulse Ox O2 Delivery O2 Flow Rate FiO2 04/22/18 20:28 36.7 85 18 145/102 97 Room Air Laboratory Results Test 04/22/18 20:40 Departure Information Referrals No Doctor, Assigned (PCP) Patient Instructions [facility]
[2018-04-22 21:15] LABS: BASO % 0.5 %; BASO ABS # 0.03 K/uL (0-0.2); EOS % 3.3 %; EOS ABS # 0.19 K/uL (0-0.5); HEMATOCRIT 43.2 % (37-47); HEMOGLOBIN 14.9 g/dL (12.0-16.0); IG# 0.02 K/uL (0.00-0.02); LYMPH % 38.1 %; LYMPH ABS # 2.19 K/uL (1.2-3.4); MEAN CELL VOLUME 90.6 fL (80-100); MEAN CORPUSCULAR HEMOGLOBIN 31.2 pg (25-34); MEAN CORPUSCULAR HGB CONC 34.5 g/dl (32-36); MEAN PLATELET VOLUME 8.6 fL (7.4-10.4); MONO % 7.8 %; MONO ABS # 0.45 K/uL (0.11-0.59); NEUT ABS # 2.87 K/uL (1.4-6.5); PLATELET COUNT 193 K/uL (130-400); RED CELL DISTRIBUTION WIDTH CV 13.5 % (11.5-14.5); RED CELL DISTRIBUTION WIDTH SD 44.6 fL (36.4-46.3); WHITE BLOOD COUNT 5.75 K/uL (4.8-10.8)
--- NOTE | 2018-04-22 21:24 | DIAGNOSTIC IMAGING REPORT ---
R FOOT MIN 3 VIEWS ROUTINE CLINICAL HISTORY: 72 years-old Female presenting with foot pain, swelling, eval cellulitis, osteomyelitis, right foot pain for 2 weeks, no history of injury. TECHNIQUE: Frontal, oblique, and lateral views of the right foot were obtained. COMPARISON: None. FINDINGS: Osteopenia suspected. Mild hallux valgus deformity. Prominent enthesophyte at the origin of the plantar fascia. No acute fracture or malalignment. No advanced degenerative change. Mild diffuse soft tissue swelling. No gross evidence of soft tissue emphysema. No osseous erosion or periosteal reaction apparent. IMPRESSION: 1. No acute osseous injury. 2. No radiographic evidence of osteomyelitis. . Electronically signed by: Simon Bolden M.D. 04/22/2018 9:23 PM Dictated Date/Time: 04/22/2018 9:20 PM
[2018-04-22 21:38] LABS: CALCIUM 9.6 mg/dl (8.5-10.1); CREATININE 1.13 mg/dl (0.60-1.20)
[2018-04-22] MEDS ORDERED: CEFTRIAXONE SOD INJ 1 GM ADDVIAL IV STA (21:40)
[2018-04-22] MEDS ORDERED: CEPH500C PO (21:55)
[2018-04-22 22:47] VITALS: BP 150/96; PULSE 66; O2SAT 98
== END 2018-04-22 22:48 | disposition home or self-care (01) ==
LOC: C.EDB 20:27 → C.EDC 22:48
DX: L03.115 Cellulitis of right lower limb (principal); I10 Essential (primary) hypertension; Z87.440 Personal history of urinary (tract) infections; Z95.0 Presence of cardiac pacemaker; Z90.89 Acquired absence of other organs; Z98.890 Other specified postprocedural states; Z79.899 Other long term (current) drug therapy

== ENCOUNTER 2021-08-02 14:32 | Inpatient (IN) ==
[2021-08-02 17:13] LABS: Basophils # (auto) 0.01 K/uL (0-0.2); Basophils % (auto) 0.2 %; Eosinophils # (auto) 0.01 K/uL (0-0.5); Eosinophils % (auto) 0.2 %; Hematocrit (blood only) 45.3 % (37-47); Hemoglobin 15.3 g/dL (12.0-16.0); Immature Granulocytes # (auto) 0.01 K/uL (0.00-0.02); Immature Granulocytes % (auto) 0.2 %; Lymphocytes # (auto) 1.63 K/uL (1.2-3.4); Lymphocytes % (auto) 36.8 %; Mean Corpuscular Hemoglobin 31.2 pg (25-34); Mean Corpuscular Hgb Conc 33.8 g/dL (32-36); Mean Corpuscular Volume 92.3 fL (80-100); Mean Platelet Volume 9.2 fL (7.4-10.4); Monocytes # (auto) 0.68 K/uL (0.11-0.59); Monocytes % (auto) 15.3 %; Neutrophils # (auto) 2.09 K/uL (1.4-6.5); Neutrophils % (auto) 47.3 %; Platelet Count 197 K/uL (130-400); RDW Coefficient of Variation 14.7 % (11.5-14.5); RDW Standard Deviation 50.1 fL (36.4-46.3); Red Blood Count 4.91 M/uL (4.2-5.4); White Blood Count 4.43 K/uL (4.8-10.8)
[2021-08-02] MEDS ORDERED: SODIUM CHLORIDE 0.9% 1000ML 1,000 ML IV SCH (17:15)
[2021-08-02 17:21] LABS: Alanine Aminotransferase 23 U/L (12-78); Aspartate Aminotransferase 28 U/L (15-37); BUN Creatinine Ratio 16.7 (10-20); Blood Urea Nitrogen 20 mg/dl (7-18); Calcium 9.2 mg/dl (8.5-10.1); Carbon Dioxide 25 mmol/L (21-32); Chloride 105 mmol/L (98-107); Creatinine Clr Calc Pharmacy 38.2 ml/min; Est GFR (African American) 52.1 ml/min; Est GFR (Non-African American) 44.9 ml/min; Glucose 87 mg/dl (70-99); Sodium 136 mmol/L (136-145)
[2021-08-02 17:23] LABS: Appearance Urine Clear (Clear); Bacteria Urine Automated Negative (Negative); Bilirubin Urine Negative (Negative); Blood Urine 1+ (Negative); Color Urine Dark Yellow; Glucose Urine UA Negative (Negative); Ketones Urine Negative (Negative); Leukocyte Esterase Urine 1+ (Negative); Nitrite Urine Negative (Negative); Protein Urine 1+ (Negative); Specific Gravity Urine 1.025 (1.000-1.030); Urobilinogen Urine Negative (Negative); pH Urine 5.5 (4.5-7.5)
[2021-08-02 17:32] LABS: Alkaline Phosphatase 125 U/L (45-117); Bilirubin,Total 0.7 mg/dl (0.2-1); Globulin 4.1 gm/dl (2.5-4.0); Total Protein 8.1 gm/dl (6.4-8.2); Troponin I < 0.015 ng/ml (0-0.045)
--- NOTE | 2021-08-02 17:44 | XRay Report ---
XR chest 1V portable HISTORY: weakness COMPARISON: Chest 02/01/2021. FINDINGS: Mild interstitial thickening which appears to be chronic. No new focal lung consolidations to suggest pneumonia. No pleural effusions. No pneumothorax. Left-sided dual-chamber pacemaker. There is a left shoulder prosthesis. Tortuous thoracic aorta. The heart is mildly enlarged. IMPRESSION: No significant change compared to the prior study. No acute process. ACT 112: Negative or not required by law. Electronically signed by: Julito Rodrigez M.D. 08/02/2021 5:43 PM
[2021-08-02] MEDS ORDERED: cefTRIAXone SODIUM 1,000 MG/50 ML BAG IV STA (21:07)
[2021-08-02] MEDS ORDERED: OPTIRAY 320 125ml IV ONE (21:19)
--- NOTE | 2021-08-02 22:10 | Emergency Department Note ---
Impression & Plan Syncope and collapse, Weakness, Acute UTI (urinary tract infection) ED Provider Note INFORMANT: Patient and family ED PROVIDER(S): Rigoberto Rich MD CHIEF COMPLAINT: Fall PLAN: Disposition: Admitted Condition: Good Outpatient prescription management: none Referral: None MEDICAL DECISION MAKING: Patient presented after what appears to be a syncopal episode. She struck the back of her head. She underwent laboratory work-up, ECG, and urinalysis. The patient was ordered for CT imaging. Her ECG showed a paced rhythm. Her pacemaker was interrogated and I did speak with the [employer] sales representative. No episodes were noted. Battery and the device functioned normally. The elizabeth ent underwent CT imaging of the head but also CT imaging of the chest for PE. The patient was found to have findings concerning for UTI. Her CBC, chemistry panel, LFTs, TSH, and troponin were negative. Patient was given IV Rocephin. She was gently hydrated. Given the UTI, weakness, and syncope further management in the hospital was felt to be appropriate. [facility]. Patient was evaluated in the ER for further management. CT study showed no PE. But the patient did have findings concerning for possible atypical pneumonia. Covid testing ordered. Triage Nursing notes reviewed and agree them. Vital Signs: reviewed and remarkable for no significant abnormalities Differential diagnosis: Vasovagal event, dehydration, infection, hypoglycemia, electrolyte abnormalities, cardiac sources, intracerebral event, pulmonary embolism, seizure, toxicologic, neurologic, as well as other pathologies. Diagnostics interpreted by me: ECG: Twelve-lead ECG reveals a paced rhythm at 75 bpm. No ectopy. Cardiac Monitoring: Cardiac monitoring ordered by me: The patient was placed on continuous cardiac monitoring and observed. It revealed a paced rhythm at 71 bpm. Imaging studies: Chest x-ray. Findings: A chest x-ray was performed and revealed no pneumothorax, effusion, infiltrate, pulmonary edema, free air under the diaphragm, or wide mediastinum. Impression: No acute disease. Head CT: A noncontrast CT scan of the head was performed and was negative for tumor, fracture, intracranial hemorrhage, or other acute pathology. CT PE study negative for acute pulmonary embolus. Radiology question of an atypical infiltrate. . HPI: The patient is a 75 year old female who presents to the Emergency Room with complaints of fall. This started tonight just prior to arrival and is concerning for syncopal episode. The patient states that she was walking into the kitchen and then woke up on the floor. The patient also notes the following associated symptoms, weakness for a few days. The patient has taken no medication for relieving factors. Current pain is rated as 3/10. Pt denies fevers, chills, diaphoresis, visual changes, neck pain, chest pain, breathing difficulties, nausea, vomiting, abdominal pain, back pain, melena, hematochezia, urinary symptoms, numbness, lymphadenopathy, rash, or other complaints. ROS: See above HPI for pertinent positives & negatives. A total of 10 systems reviewed and were otherwise negative. PAST MEDICAL HISTORY:GI bleed, hypercalcemia, third-degree heart block, see below PAST SURGICAL HISTORY:See Below, pacemaker FAMILY HISTORY:See Below SOCIAL HISTORY:See Below, HOME MEDICATIONS:See Below ALLERGIES:See Below VITALS:See Below PHYSICAL EXAMINATION: GENERAL: Awake, tired-appearing, in no distress HENT: Normocephalic, small occipital contusion. No lacerations.. Oropharynx unremarkable. EYES: Normal conjunctiva. Sclera non-icteric. NECK: Inspection normal. Non-tender. Supple. No nuchal rigidity. FROM. No masses. RESPIRATORY: Clear to auscultation. No wheezes. No rales. Normal respiratory effort. CARDIAC: Normal rate. Normal rhythm. No murmurs. No rubs. Extremities warm and well perfused. Pulses equal. No JVD. GI: Soft, non-distended. No tenderness to palpation. No rebound or guarding. No masses. RECTAL: Deferred. MUSCULOSKELETAL: Atraumatic. Chest examination reveals no tenderness. The back is symmetrical on inspection without obvious abnormality. There is no CVA tenderness to palpation. No joint edema. LOWER EXTREMITIES: Calves are equal size bilaterally and non-tender. No edema. No discoloration. NEURO: Normal sensorium. No sensory or motor deficits noted. SKIN: No rash or jaundice noted. Rigoberto Rich MD Past Med/Surg History Medical History Hemothorax on right History of GI bleed History of pacemaker Surgical History H/O detached retina repair History of appendectomy History of cataract surgery History of colonoscopy History of esophagogastroduodenoscopy (EGD) History of tooth extraction Status post biventricular cardiac pacemaker insertion Status post reverse arthroplasty of left shoulder (~01/2021) Family History Other No family history of adverse response to anesthesia Social History Smoking Status: Never smoker Second Hand Exposure: No; Hx Alcohol Use: No Preferred Language: Maltese Communication Ability: Effective Reimbursement Counselor Required: No Beliefs That Will Affect Care: None Current Living Situation: Spouse Feels Safe at Home: Yes Assistive Devices: Glasses Allergies Allergies Allergy/AdvReac Type Severity Reaction Status Date / Time No Known Allergies Allergy Verified 08/02/21 16:43 Home Meds Home Medications Medication Instructions Recorded Confirmed amlodipine 10 mg tablet 10 mg PO QAM 08/24/19 08/02/21 metoprolol tartrate 25 mg tablet 25 mg PO BID 08/24/19 08/02/21 Results & Data (ED) Vital Signs Vital Signs - 24 hr 08/02/21 14:53 08/02/21 16:27 08/02/21 16:30 Temperature 37.1 C Temperature Source Oral Pulse Rate - Lying Pulse Rate - Sitting Pulse Rate - Standing Pulse Rate 74 62 64 Pulse Rate from SpO2 Sensor Respiratory Rate 20 20 22 Respiratory Effort / Characteristics Non-Labored Spontaneous Respiratory Depth Normal Blood Pressure - Lying Blood Pressure - Sitting Blood Pressure- Standing Blood Pressure 123/85 Blood Pressure Mean 97 Pulse Oximetry 93 Oxygen Delivery Method Room Air Room Air Room Air Sepsis Recent Fever Within 48 Hours No Sepsis New/Unexplained Change in Mental Status N/A Sepsis Action Taken by Nursing No Action Required End-Tidal CO2 90 90 08/02/21 17:00 08/02/21 17:10 08/02/21 17:30 Temperature Temperature Source Pulse Rate - Lying Pulse Rate - Sitting Pulse Rate - Standing Pulse Rate 62 63 67 Pulse Rate from SpO2 Sensor 68 Respiratory Rate 24 20 18 Respiratory Effort / Characteristics Respiratory Depth Blood Pressure - Lying Blood Pressure - Sitting Blood Pressure- Standing Blood Pressure 141/80 H 140/80 Blood Pressure Mean 100 100 Pulse Oximetry 90 90 95 Oxygen Delivery Method Room Air Room Air Sepsis Recent Fever Within 48 Hours Sepsis New/Unexplained Change in Mental Status Sepsis Action Taken by Nursing End-Tidal CO2 08/02/21 17:46 08/02/21 18:00 08/02/21 18:30 Temperature Temperature Source Pulse Rate - Lying 67 Pulse Rate - Sitting 76 Pulse Rate - Standing 75 Pulse Rate 64 71 Pulse Rate from SpO2 Sensor 63 72 Respiratory Rate 22 19 Respiratory Effort / Characteristics Respiratory Depth Blood Pressure - Lying 141/83 H Blood Pressure - Sitting 145/84 H Blood Pressure- Standing 110/78 Blood Pressure 137/78 143/82 H Blood Pressure Mean 97 102 Pulse Oximetry 95 91 Oxygen Delivery Method Room Air Sepsis Recent Fever Within 48 Hours Sepsis New/Unexplained Change in Mental Status Sepsis Action Taken by Nursing End-Tidal CO2 08/02/21 19:00 08/02/21 19:30 08/02/21 20:00 Temperature Temperature Source Pulse Rate - Lying Pulse Rate - Sitting Pulse Rate - Standing Pulse Rate 65 65 71 Pulse Rate from SpO2 Sensor 65 66 70 Respiratory Rate 22 21 18 Respiratory Effort / Characteristics Respiratory Depth Blood Pressure - Lying Blood Pressure - Sitting Blood Pressure- Standing Blood Pressure 142/81 H 134/81 131/82 Blood Pressure Mean 101 98 98 Pulse Oximetry 91 90 92 Oxygen Delivery Method Room Air Room Air Room Air Sepsis Recent Fever Within 48 Hours Sepsis New/Unexplained Change in Mental Status Sepsis Action Taken by Nursing End-Tidal CO2 08/02/21 20:30 08/02/21 21:00 08/02/21 21:30 Temperature Temperature Source Pulse Rate - Lying Pulse Rate - Sitting Pulse Rate - Standing Pulse Rate 77 74 74 Pulse Rate from SpO2 Sensor 77 74 73 Respiratory Rate 18 19 20 Respiratory Effort / Characteristics Respiratory Depth Blood Pressure - Lying Blood Pressure - Sitting Blood Pressure- Standing Blood Pressure 149/88 H 132/92 162/89 H Blood Pressure Mean 108 105 113 Pulse Oximetry 93 94 91 Oxygen Delivery Method Sepsis Recent Fever Within 48 Hours Sepsis New/Unexplained Change in Mental Status Sepsis Action Taken by Nursing End-Tidal CO2 08/02/21 22:01 08/02/21 22:30 Temperature Temperature Source Pulse Rate - Lying Pulse Rate - Sitting Pulse Rate - Standing Pulse Rate 83 75 Pulse Rate from SpO2 Sensor 85 75 Respiratory Rate 23 23 Respiratory Effort / Characteristics Respiratory Depth Blood Pressure - Lying Blood Pressure - Sitting Blood Pressure- Standing Blood Pressure Blood Pressure Mean Pulse Oximetry 92 93 Oxygen Delivery Method Room Air Sepsis Recent Fever Within 48 Hours Sepsis New/Unexplained Change in Mental Status Sepsis Action Taken by Nursing End-Tidal CO2 Laboratory Data Result diagrams: 08/02/21 16:30 08/02/21 16:30 Lab Results 08/02/21 08/02/21 08/02/21 Range/Units 16:30 16:30 22:55 WBC 4.43 L (4.8-10.8) K/uL RBC 4.91 (4.2-5.4) M/uL Hgb 15.3 (12.0-16.0) g/dL Hct 45.3 (37-47) % MCV 92.3 (80-100) fL MCH 31.2 (25-34) pg MCHC 33.8 (32-36) g/dL RDW Std Deviation 50.1 H (36.4-46.3) fL RDW Coeff of Ole 14.7 H (11.5-14.5) % Plt Count 197 (130-400) K/uL MPV 9.2 (7.4-10.4) fL Immature Gran % (Auto) 0.2 % Neut % (Auto) 47.3 % Lymph % (Auto) 36.8 % Charlton % (Auto) 15.3 % Eos % (Auto) 0.2 % Baso % (Auto) 0.2 % Neut # (Auto) 2.09 (1.4-6.5) K/uL Lymph # (Auto) 1.63 (1.2-3.4) K/uL Charlton # (Auto) 0.68 H (0.11-0.59) K/uL Eos # (Auto) 0.01 (0-0.5) K/uL Baso # (Auto) 0.01 (0-0.2) K/uL Immature Gran # (Auto) 0.01 (0.00-0.02) K/uL Sodium 136 (136-145) mmol/L Potassium 4.0 (3.5-5.1) mmol/L Chloride 105 (98-107) mmol/L Carbon Dioxide 25 (21-32) mmol/L Anion Gap 6.0 (3-11) BUN 20 H (7-18) mg/dl Creatinine 1.19 (0.6-1.2) mg/dl Est Cr Clr Drug Dosing 38.2 ml/min Est GFR ( Amer) 52.1 ml/min Est GFR (Non-Af Amer) 44.9 ml/min BUN/Creatinine Ratio 16.7 (10-20) Glucose 87 (70-99) mg/dl Calcium 9.2 (8.5-10.1) mg/dl Magnesium 2.0 (1.8-2.4) mg/dl Total Bilirubin 0.7 (0.2-1) mg/dl AST 28 (15-37) U/L ALT 23 (12-78) U/L Alkaline Phosphatase 125 H (45-117) U/L Troponin I < 0.015 (0-0.045) ng/ml Total Protein 8.1 (6.4-8.2) gm/dl Albumin 4.0 (3.4-5.0) gm/dl Globulin 4.1 H (2.5-4.0) gm/dl Albumin/Globulin Ratio 1.0 (0.9-2) TSH 1.760 (0.300-4.500) uIu/ml Urine Color Urine Appearance (Clear) Urine pH (4.5-7.5) Ur Specific Leary (1.000-1.030) Urine Protein (Negative) Urine Glucose (UA) (Negative) Urine Ketones (Negative) Urine Blood (Negative) Urine Nitrite (Negative) Urine Bilirubin (Negative) Urine Urobilinogen (Negative) Ur Leukocyte Esterase (Negative) Urine WBC (Auto) (0-5) /hpf Urine RBC (Auto) (0-4) /hpf U Hyaline Cast (Auto) (0-5) /lpf U Epithel Cells (Auto) (0-5) /lpf Urine Bacteria (Auto) (Negative) COVID-19 Eval Order Covid19 at [facility] 08/02/21 Range/Units Unknown WBC (4.8-10.8) K/uL RBC (4.2-5.4) M/uL Hgb (12.0-16.0) g/dL Hct (37-47) % MCV (80-100) fL MCH (25-34) pg MCHC (32-36) g/dL RDW Std Deviation (36.4-46.3) fL RDW Coeff of Ole (11.5-14.5) % Plt Count (130-400) K/uL MPV (7.4-10.4) fL Immature Gran % (Auto) % Neut % (Auto) % Lymph % (Auto) % Charlton % (Auto) % Eos % (Auto) % Baso % (Auto) % Neut # (Auto) (1.4-6.5) K/uL Lymph # (Auto) (1.2-3.4) K/uL Charlton # (Auto) (0.11-0.59) K/uL Eos # (Auto) (0-0.5) K/uL Baso # (Auto) (0-0.2) K/uL Immature Gran # (Auto) (0.00-0.02) K/uL Sodium (136-145) mmol/L Potassium (3.5-5.1) mmol/L Chloride (98-107) mmol/L Carbon Dioxide (21-32) mmol/L Anion Gap (3-11) BUN (7-18) mg/dl Creatinine (0.6-1.2) mg/dl Est Cr Clr Drug Dosing ml/min Est GFR ( Amer) ml/min Est GFR (Non-Af Amer) ml/min BUN/Creatinine Ratio (10-20) Glucose (70-99) mg/dl Calcium (8.5-10.1) mg/dl Magnesium (1.8-2.4) mg/dl Total Bilirubin (0.2-1) mg/dl AST (15-37) U/L ALT (12-78) U/L Alkaline Phosphatase (45-117) U/L Troponin I (0-0.045) ng/ml Total Protein (6.4-8.2) gm/dl Albumin (3.4-5.0) gm/dl Globulin (2.5-4.0) gm/dl Albumin/Globulin Ratio (0.9-2) TSH (0.300-4.500) uIu/ml Urine Color Dark Yellow Urine Appearance Clear (Clear) Urine pH 5.5 (4.5-7.5) Ur Specific Leary 1.025 (1.000-1.030) Urine Protein 1+ H (Negative) Urine Glucose (UA) Negative (Negative) Urine Ketones Negative (Negative) Urine Blood 1+ H (Negative) Urine Nitrite Negative (Negative) Urine Bilirubin Negative (Negative) Urine Urobilinogen Negative (Negative) Ur Leukocyte Esterase 1+ H (Negative) Urine WBC (Auto) 10-30 H (0-5) /hpf Urine RBC (Auto) 5-10 H (0-4) /hpf U Hyaline Cast (Auto) 5-10 H (0-5) /lpf U Epithel Cells (Auto) 10-20 H (0-5) /lpf Urine Bacteria (Auto) Negative (Negative) COVID-19 Eval Order Administered Medications Sodium Chloride (Nss 1000ml) 1,000 mls @ 125 mls/hr IV .Q8H JUDY Stop: 08/03/21 01:14 Last Admin: 08/02/21 17:16 Dose: 125 mls/hr Documented by: [id number] Discontinued Medications Ceftriaxone Sodium (Rocephin) 1,000 mg in 50 mls @ 100 mls/hr IV NOW STA Stop: 08/02/21 21:36 Last Infusion: 08/02/21 22:20 Dose: 0 mls/hr Documented by: [id number] Admin: 08/02/21 21:50 Dose: 100 mls/hr Documented by: [id number] Ioversol (Optiray 320 125ml) 119 ml IV ONCE ONE Stop: 08/02/21 21:20 Last Admin: 08/02/21 21:19 Dose: 119 ml Documented by: [id number] Imaging Data Radiologist's Impression: Chest X-Ray 08/02/21 17:06 XR chest 1V portable HISTORY: weakness COMPARISON: Chest 02/01/2021. FINDINGS: Mild interstitial thickening which appears to be chronic. No new focal lung consolidations to suggest pneumonia. No pleural effusions. No pneumothorax. Left-sided dual-chamber pacemaker. There is a left shoulder prosthesis. Tortuous thoracic aorta. The heart is mildly enlarged. IMPRESSION: No significant change compared to the prior study. No acute process. ACT 112: Negative or not required by law. Electronically signed by: Julito Rodrigez M.D. 08/02/2021 5:43 PM Discharge Plan Visit Data Chief Complaint: Fall Stated Complaint: FELL AND DOES NOT REMEMBER IT ED Provider: Rigoberto Rich Discharge Problem: Syncope and collapse, Weakness, Acute UTI (urinary tract infection) Forms Stand Alone Forms: [facility] [employer] Prescriptions Prescriptions: No Action amlodipine 10 mg tablet 10 mg PO QAM RF: 0 metoprolol tartrate 25 mg tablet 25 mg PO BID RF: 0 Referrals Referrals: PCP,NO [Primary Care Provider] -
[2021-08-03] MEDS ORDERED: REMDESIVIR 200 MG in SODIUM CHLORIDE 0.9% 210 ML IV STA (00:14)
[2021-08-03] MEDS ORDERED: ACETAMINOPHEN 325 MG TAB PO PRN (01:38)
[2021-08-03] MEDS ORDERED: NITROGLYCERIN SL 0.4 MG/TAB TAB SL PRN (01:38)
[2021-08-03] MEDS ORDERED: ONDANSETRON INJ 2 MG/ML 2 ML VIAL IV PRN (01:38)
--- NOTE | 2021-08-03 01:48 | History and Physical Report ---
DATE OF ADMISSION: 08/02/2021. CHIEF COMPLAINT: Syncope and COVID positive. HISTORY OF PRESENT ILLNESS: A 75-year-old female with past medical history significant for complete heart block, status post pacemaker, hypertension, GERD, vitamin D deficiency, chronic kidney disease stage III, history of partial retinal detachment comes with syncope. The patient lives with her . She was getting up from a chair and walking, trying to go to the kitchen. Next thing she heard her calling out and she fell down in the kitchen, lost consciousness for about a few minutes, no seizure-like activity, no biting of the tongue, no incontinence and after that, she was doing okay. She has a cough for last 2 days. Denies any chest pain, no shortness of breath, no fever. Appetite is good. No difficulty swallowing. Denies any headache. No blurred vision. Very hard of hearing, no runny nose, no sore throat, no abdominal pain, normal bowel and bladder movements. Currently, resting comfortably. She was saturating 88% on room air, requiring 1 liter of oxygen. ER, physician also interrogated her pacemaker. It was okay. Labs showed possible UTI. CT of the chest was done, which showed possible ground glass opacities, possible pneumonia . She is not vaccinated and COVID came it back positive. ALLERGIES: No known drug allergies. PAST MEDICAL HISTORY: As mentioned above. PAST SURGICAL HISTORY: Colonoscopy, EGD, pacemaker placement,laser trabeculoplasty, left shoulder reconstruction surgery, appendectomy. MEDICATIONS: The patient is on amlodipine 10 mg p.o. a.m., metoprolol tartrate 25 mg p.o. b.i.d. FAMILY HISTORY: Significant for father has kidney failure; mother has aneurysm. SOCIAL HISTORY: . No smoking, no alcohol, no drug use. REVIEW OF SYSTEMS: As per HPI. Rest of the review of systems is negative. PHYSICAL EXAMINATION: GENERAL: The patient is of moderate build, not in acute distress. VITAL SIGNS: Temperature 37.1, pulse 69, respiratory rate 20, blood pressure 113/78, oxygen 92% on 1 liter. HEENT: Pupils equal, round and reactive to light. Oral mucosa moist. NECK: No JVD. No neck masses. CARDIOVASCULAR: S1 and S2 heard. Regular rate and rhythm. No murmur, no gallop. RESPIRATORY SYSTEM: Normal AP diameter. No accessory muscle use. No wheezing, no crackles. ABDOMEN: Soft, bowel sounds present, nontender, no distention. CENTRAL NERVOUS SYSTEM: Cranial nerves II-XII grossly intact, nonfocal. EXTREMITIES: No edema, no erythema. LABORATORY DATA: WBC is 4.4, hemoglobin 15.3, hematocrit 45.3, platelets 197. Sodium 136, potassium 4, chloride 105, bicarbonate 25, BUN 20, creatinine 1.1, serum glucose 87, calcium 9.2, magnesium 2, total bilirubin 0.7, AST 28, ALT 23, alkaline phosphatase 124. Troponin I less than 0.015. TSH 1.7. Urinalysis positive for leukocyte esterase. SARS-CoV-2 PCR positive. 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 No evidence of right heart strain, mild patchy peripheral airspace and ground glass infiltrates. Unable to exclude atypical pneumonia in the appropriate clinical setting. Mild T12 compression fracture deformity, multiple old bilateral rib fractures, no pneumothorax or hemothorax. CT of the head, no acute findings. Chest x-ray, no acute findings. EKG: AV dual paced rhythm, rate of 75. ASSESSMENT AND PLAN: This is a 75-year-old female who presents with syncope and found to be COVID positive. 1. Syncope, possibly secondary to COVID. We will monitor in the [employer], serial enzymes, consult Cardiology. Echo as per Cardiology. We will also check for orthostatics, fluids for 1 liter. 2. COVID pneumonia. Empirically started on Rocephin, doxycycline and we will start on remdesivir and steroids. COVID precautions. Follow up inflammatory markers as needed. 3. Possible UTI. Antibiotics as above. We will follow the cultures. Likely contributing to her fall and syncope. 4. History of complete heart block, status post pacemaker. In the ER, the patient was interrogated and was okay. 5. History of hypertension: On amlodipine and metoprolol. We will monitor the blood pressure. 6. History of chronic kidney disease stage III, creatinine is 1.1. We will follow the repeat labs. 7. Deep venous thrombosis prophylaxis: Placed her on Lovenox. DISPOSITION: Closely monitor in the [employer] tele. PT/OT prior to discharge. Social service to help with discharge planning. Job ID: [id number] [facility]
[2021-08-03] MEDS ORDERED: SODIUM CHLORIDE 0.9% 1000ML 1,000 ML IV SCH (02:00)
[2021-08-03] MEDS: dexAMETHasone 6 MG in SYRINGE 0 ML IV SCH (03:20)
[2021-08-03] MEDS: ENOXAPARIN INJ 40 MG/0.4 ML SYR SQ SCH (03:20)
[2021-08-03] MEDS: DOXYCYCLINE HYCLATE 100 MG in DEXTROSE 5% 100 ML IV SCH ×2 (03:22→13:51)
--- NOTE | 2021-08-03 07:00 | CT Scan Report ---
CT SCAN OF THE BRAIN WITHOUT IV CONTRAST CLINICAL HISTORY: Fall. COMPARISON STUDY: CT of the brain dated 01/31/2012. TECHNIQUE: Unenhanced axial CT scan of the brain is performed from the vertex to the skull base. A do se lowering technique was utilized adhering to the principles of ALARA. FINDINGS: Brain parenchyma: There are age-related involutional changes noting mild to moderate patchy subcorti debbie and periventricular microangiopathic change. There is no hemorrhage, mass effect, or evidence of acute territorial ischemia by CT criteria. Mancini-white matter differentiation is preserved. No extra-a xial fluid collection is seen. Ventricles, sulci, cisterns: Prominent secondary to involutional change. Intracranial vasculature: There is atherosclerotic calcification of the cavernous carotid arteries. Calvarium: The skeletal structures are osteopenic. There is no depressed calvarial fracture. Sinuses and mastoids: There is trace mucosal thickening within sphenoid sinuses. The remaining visual ized paranasal sinuses are clear. The mastoid air cells are well pneumatized. Orbits: The bony orbits are grossly intact. There has been banding of the right globe. IMPRESSION: There is no hemorrhage, mass effect, or evidence of acute territorial ischemia by CT katlyn santillan. ACT 112: Negative or not required by law. Electronically signed by: Sudeep Singh M.D. 08/03/2021 6:59 AM
[2021-08-03] MEDS: METOPROLOL TARTRATE 25 MG TAB PO SCH ×2 (08:08→20:02)
[2021-08-03] MEDS: amLODIPine BESYLATE 5 MG TAB PO SCH (08:13)
[2021-08-03 08:16] LABS: Alanine Aminotransferase 18 U/L (12-78); Albumin Level 3.3 gm/dl (3.4-5.0); Alkaline Phosphatase 107 U/L (45-117); Aspartate Aminotransferase 19 U/L (15-37); Bilirubin Direct < 0.1 mg/dl (0-0.2); Bilirubin,Total 0.4 mg/dl (0.2-1); Troponin I < 0.015 ng/ml (0-0.045)
--- NOTE | 2021-08-03 08:33 | CT Scan Report ---
CT ANGIOGRAPHY OF THE CHEST, PULMONARY EMBOLUS PROTOCOL CLINICAL HISTORY: Fall. Weakness. COMPARISON STUDY: Chest CT August 24, 2019. Chest radiograph performed earlier today. TECHNIQUE: Following IV administration of Optiray, helical axial images of the chest were obtained ut ilizing the pulmonary embolus protocol. Maximal intensity projections and sagittal and coronal refor mats were viewed on an independent 3D workstation. IV contrast was administered without complication . Automated exposure control was utilized for the study. A dose lowering technique was utilized adh ering to the principles of ALARA. CT DOSE: 781.22 mGy.cm FINDINGS: No pulmonary emboli are identified. Moderate cardiomegaly is noted. A dual-lead left subcl ike pacemaker is in place. There is no pericardial effusion. There is a small hiatal hernia. There is no thoracic aortic dissection. Dilatation of the ascending aorta, measuring 4 cm, is similar to CT of August 24, 2019. There is mild dilatation of the central pulmonary arteries. There is no pneum othorax or pleural effusion. There are mild ground glass opacity scattered throughout the lungs. Lung s are suboptimally assessed due to respiratory motion. Central airways are patent. Numerous old bilat eral rib fractures are noted. There is a left seventh rib fracture which is mildly displaced and appe ars subacute. Right hepatic dome cyst is benign. Left hydronephrosis is chronic and partially imaged on this exam. This was shown on prior abdominal CT. IMPRESSION: 1. No pulmonary emboli identified. 2. Moderate scattered groundglass opacities within the lungs which may reflect viral pneumonia. 3. Moderate cardiomegaly. Stable mild dilatation of the ascending aorta. No thoracic aortic dissectio n. 4. Mildly displaced left seventh rib fracture which is likely subacute. Numerous old bilateral rib fr actures. ACT 112: Negative or not required by law. Electronically signed by: Jamel Grant M.D. 08/03/2021 8:32 AM
--- NOTE | 2021-08-03 10:40 | Cardiology Consultation ---
Date of Consultation August 03, 2021 Assessment & Plan (1) Syncope and collapse: (2) Fall: (3) Pneumonia due to COVID-19 virus: (4) Hypoxia: 75-year-old female present to the hospital with fall and possible syncope. Pacemaker interrogation without evidence of dysrhythmia or malfunction. Telemetry revealing AV paced rhythm. Currently she is resting comfortably without symptoms. I suspect episode is related to orthostatic blood pressure changes in the setting of acute Covid pneumonia, hypoxia, and urinary tract infection. Defer echocardiogram at this time until she has recovered from COVID-19 as no arrhythmias were discovered on pacemaker interrogation. No evidence of acute coronary syndrome. Treatment of urinary tract infection and COVID-19 pneumonia as per internal medicine. Encourage patient to improve hydration. Cardiology follow-up and echocardiogram in the outpatient setting when recovered. Thank you for allow me to participate in the care of your patient. History of Present Illness Reason for Consultation: Syncope Requesting Physician: Dr. Bragg Attending Physician: Sonia Ríos DO History of Present Illness 75-year-old female presents to the emergency department with fall and possible syncope. Patient remembers walking to her kitchen where she fell. She does not recall the fall. Struck the back of her head. Pacemaker interrogation performed in the ER demonstrates normal function. No arrhythmic events. Diagnosed with COVID-19 pneumonia as well as possible urinary tract infection in the ER. Patient seen examined in the COVID-19 unit. Appropriate PPE was worn during examination. She denies chest pain or shortness of breath. She does not recall the events precipitating her fall. Denies any chest pain, lightheadedness, or dizziness. Minimally hypoxic requiring 1 L nasal cannula supplemental oxygen. Cardiac enzymes are undetectable. Telemetry reveals AV sequential pacing. No arrhythmias. Allergies Allergy/AdvReac Type Severity Reaction Status Date / Time No Known Allergies Allergy Verified 08/02/21 16:43 Home Medications Medication Instructions Recorded Confirmed Type amlodipine 10 mg tablet 10 mg PO QAM 08/24/19 08/02/21 History metoprolol tartrate 25 mg tablet 25 mg PO BID 08/24/19 08/02/21 History Patient History Medical History Hemothorax on right 08/2019 2/2 rib fx. Had OP f/u with Jocelyn. Resolved. History of GI bleed History of pacemaker 2016, [employer]. INSERTED FOR CHB (FOLLOWS WITH DR. DAHL). WILL BRING CARD DOS. Surgical History H/O detached retina repair LEFT History of appendectomy History of cataract surgery RT/LEFT History of colonoscopy History of esophagogastroduodenoscopy (EGD) History of tooth extraction Status post biventricular cardiac pacemaker insertion Status post reverse arthroplasty of left shoulder (~01/2021) Family History Other No family history of adverse response to anesthesia Social History Smoking Status: Never smoker Second Hand Exposure: No; Hx Alcohol Use: No Hx Substance Use: No Preferred Language: Japanese Communication Ability: Effective Demand Planning Manager Required: No Beliefs That Will Affect Care: None marital status: Current Living Situation: Spouse Other Information That Helps Us Care for You: No Feels Safe at Home: Yes Safety Concerns: Feels Safe At This Time Assistive Devices: Glasses Assistive Devices Comment: glasses not with patient Review of Systems Review of Systems: All systems reviewed & are unremarkable except as noted in Subjective Physical Exam Constitutional: well developed, well nourished and + thin; not ill appearing Respiratory: normal respiratory effort; no respiratory distress, no labored breathing and no retractions Auscultation: + crackles (Scant, scattered crackles bilaterally); no rales, no rhonchi and no wheezes Cardiovascular: Rate/Rhythm: regular rate and regular rhythm Heart Sounds: normal S1 and normal S2; no gallop, no murmur and no cardiac rub Vessels: radial pulses present; no JVD and no carotid bruit Extremities: no edema Gastrointestinal (Abdomen): Inspection/Auscultation: abdomen normal to inspection and normal bowel sounds; abdomen not distended Percussion/Palpation: abdomen soft; abdomen nontender, no guarding and abdomen not rigid Neurologic: CN's II-XI intact bilaterally and moves all extremities; no focal motor deficits Speech / Cognition: normal speech Motor/Sensory: no tremor Psychiatric: A+Ox3, euthymic affect Results & Data ([facility]) Vital Signs (Past 12 Hours) Vital Signs Temp Pulse Pulse Resp BP BP Pulse Ox 08/03/21 07:31 36.7 C 67 18 128/69 95 08/03/21 07:00 60 08/03/21 01:38 36.2 C L 75 16 137/95 100 08/03/21 01:00 80 21 127/84 94 08/03/21 00:30 70 17 122/76 93 08/03/21 00:00 69 20 139/78 92 08/02/21 23:56 88 L 08/02/21 23:54 72 21 88 L 08/02/21 23:30 24 138/85 92 08/02/21 23:00 16 150/87 H 92 Pulse Ox 08/03/21 07:31 08/03/21 07:00 08/03/21 01:38 97 08/03/21 01:00 08/03/21 00:30 08/03/21 00:00 08/02/21 23:56 08/02/21 23:54 08/02/21 23:30 08/02/21 23:00
[2021-08-03 11:23] LABS: Hematocrit (blood only) 40.9 % (37-47); Hemoglobin 13.7 g/dL (12.0-16.0); Mean Corpuscular Hemoglobin 31.3 pg (25-34); Mean Corpuscular Hgb Conc 33.5 g/dL (32-36); Mean Corpuscular Volume 93.4 fL (80-100); Mean Platelet Volume 9.1 fL (7.4-10.4); Nucleated RBC # (auto) 0.02 K/uL (0-0); Nucleated RBC % (auto) 0.7 %; Platelet Count 182 K/uL (130-400); RDW Coefficient of Variation 14.7 % (11.5-14.5); RDW Standard Deviation 49.8 fL (36.4-46.3); Red Blood Count 4.38 M/uL (4.2-5.4); White Blood Count 2.15 K/uL (4.8-10.8)
--- NOTE | 2021-08-03 11:36 | Hospitalist Progress Note ---
Date of Service August 03, 2021 Assessment & Plan (1) Syncope and collapse: Plan: Syncope and collapse at home likely secondary to one of the following possibilities, which is not an exhaustive list. Suspect orthostatic blood pressure changes in setting of acute Covid pneumonia, hypoxia and/or urinary tract infection. She is currently on treatment for all 3. Device was interrogated with no arrhythmias. She has no evidence of acute coronary syndrome. She reports feeling better with treatment. Orthostatics today were checked and were negative. (2) Pneumonia due to COVID-19 virus: Plan: Symptoms began on Saturday, 08/01 with fatigue. She denies excessive coughing and declines cough syrup at this time. She remains hypoxic. Continue treatment with dexamethasone and remdesivir. Trend CRP in a.m. and continue supportive care with oxygen based on her needs. Prone as able. (3) Hypoxia: Plan: Secondary to pneumonia as above, continue current plan as listed above. (4) Acute UTI (urinary tract infection): Plan: Abnormal urinalysis on admission. Continue antibiotics pending culture results. (5) History of pacemaker: Plan: Pacemaker device was interrogated with no arrhythmia noted. She remains on telemetry and is doing well. Cardiology following. (6) DVT prophylaxis: Plan: Lovenox Full code Disposition-pending PT/OT recommendations Sonia Ríos DO [facility] Hospitalist Admission and Anticipated Discharge Date Admission Date: August 02, 2021 Subjective 75 yo F presented after syncopal episode at home. She reports going from lying down in her recliner to standing up and walking into her kitchen. Right when she got in her kitchen she lost consciousness without warning or prodrome, and woke up on the floor clear that she was on the kitchen floor. She has been symptomatic with fatigue, retrospectively this was Covid, since Saturday. Device was interrogated with no abnormal rhythm. She remains on telemetry and notably is hypoxic off oxygen therapy. When I arrived in the room she was not working to breathe but was 86% on room air. Review of Systems Review of Systems: At least ten systems were reviewed and negative except as indicated in HPI above. Physical Exam Physical Exam: CONSTITUTIONAL: WNWD, vitals as above, generally well- appearing EYES: normal conjunctivae, no scleral icterus ENT: external ear and nose normal, MMM NECK: trachea midline RESPIRATORY: Crackles at the bases bilaterally, no rales or wheezes, normal respiratory effort, supplemental oxygen in place. CARDIOVASCULAR: regular rate and rhythm, S1 and 2 heard without murmurs, gallops or rubs, no JVD, no peripheral edema GASTROINTESTINAL: soft, nontender, nondistended. MUSCULOSKELETAL: strength 5/5 throughout, head is normocephalic and atraumatic SKIN: warm and dry NEUROLOGIC: CN 2-12 grossly intact, no sensory deficit, normal cognition, normal speech, no tremor PSYCHIATRIC: alert cooperative and oriented to person, place and time. Results & Data Results & Data ([facility]) Vital Signs (Past 12 Hours) Vital Signs Temp Pulse Pulse Resp BP BP Pulse Ox 08/03/21 11:32 36.7 C 61 18 107/69 94 08/03/21 07:31 36.7 C 67 18 128/69 95 08/03/21 07:00 60 08/03/21 01:38 36.2 C L 75 16 137/95 100 08/03/21 01:00 80 21 127/84 94 08/03/21 00:30 70 17 122/76 93 08/03/21 00:00 69 20 139/78 92 08/02/21 23:56 88 L 08/02/21 23:54 72 21 88 L Pulse Ox 08/03/21 11:32 08/03/21 07:31 08/03/21 07:00 08/03/21 01:38 97 08/03/21 01:00 08/03/21 00:30 08/03/21 00:00 08/02/21 23:56 08/02/21 23:54 Laboratory Results Short CBC 08/02/21 08/03/21 Range/Units 16:30 10:58 WBC 4.43 L 2.15 L (4.8-10.8) K/uL Hgb 15.3 13.7 (12.0-16.0) g/dL Hct 45.3 40.9 (37-47) % Plt Count 197 182 (130-400) K/uL BMP 08/02/21 16:30 Sodium 136 Potassium 4.0 Chloride 105 Carbon Dioxide 25 BUN 20 H Creatinine 1.19 Glucose 87 Calcium 9.2 Cardiac Enzymes 08/02/21 08/03/21 Range/Units 16:30 06:45 Troponin I < 0.015 < 0.015 (0-0.045) ng/ml Liver Function 08/02/21 08/03/21 Range/Units 16:30 06:45 Total Bilirubin 0.7 0.4 (0.2-1) mg/dl Direct Bilirubin < 0.1 (0-0.2) mg/dl AST 28 19 (15-37) U/L ALT 23 18 (12-78) U/L Alkaline Phosphatase 125 H 107 (45-117) U/L Albumin 4.0 3.3 L (3.4-5.0) gm/dl Urine 08/02/21 Range/Units Unknown Urine Color Dark Yellow Urine Appearance Clear (Clear) Urine pH 5.5 (4.5-7.5) Ur Specific [place] 1.025 (1.000-1.030) Urine Protein 1+ H (Negative) Urine Glucose (UA) Negative (Negative) Medications Administered Current Inpatient Medications Acetaminophen (Acetaminophen 325 Mg Tab) 650 mg PO Q4H PRN PRN Reason: Pain or Fever Stop: 09/02/21 01:37 Amlodipine Besylate (Amlodipine Besylate 5 Mg Tab) 10 mg PO QAM [facility] Stop: 09/02/21 08:59 Last Admin: 08/03/21 08:13 Dose: 10 mg Documented by: Enoxaparin Sodium (Enoxaparin Inj 40 Mg/0.4 Ml Syr) 40 mg SQ Q24H [facility] Stop: 09/02/21 01:59 Last Admin: 08/03/21 03:20 Dose: 40 mg Documented by: Sodium Chloride (Nss 1000ml) 1,000 mls @ 100 mls/hr IV .Q10H [facility]Y Stop: 08/03/21 11:59 Last Admin: 08/03/21 03:21 Dose: 100 mls/hr Documented by: Ceftriaxone Sodium 1,000 mg/ (Dextrose) 50 mls @ 100 mls/hr IV Q24H [facility]; Protocol Stop: 08/10/21 19:59 Doxycycline Hyclate 100 mg/ (Dextrose) 110 mls @ 50 mls/hr IV Q12H [facility] Stop: 08/10/21 01:59 Last Infusion: 08/03/21 05:54 Dose: Infused Documented by: Remdesivir 100 mg/ Sodium (Chloride) 250 mls @ 250 mls/hr IV Q24H [facility]; Protocol Stop: 08/06/21 20:59 Dexamethasone 6 mg/ Syringe 1.5 mls @ 1 mls/min IV DAILY [facility] Stop: 09/02/21 01:59 Last Admin: 08/03/21 03:20 Dose: 1 mls/min Documented by: Metoprolol Tartrate (Metoprolol Tartrate 25 Mg Tab) 25 mg PO BID [facility] Stop: 09/02/21 08:59 Last Admin: 08/03/21 08:08 Dose: 25 mg Documented by: Nitroglycerin (Nitroglycerin Sl 0.4 Mg/Tab Tab) 0.4 mg SL UD PRN PRN Reason: Chest Pain Stop: 09/02/21 01:37 Ondansetron HCl (Ondansetron Inj 2 Mg/Ml 2 Ml Vial) 4 mg IV Q6H PRN PRN Reason: Nausea Stop: 09/02/21 01:37 Sodium Chloride (Sodium Chloride 0.9% 10ml Flush) 30 ml IV Q24H [facility] Stop: 08/06/21 20:01
[2021-08-03 11:46] LABS: BUN Creatinine Ratio 14.7 (10-20); Blood Urea Nitrogen 14 mg/dl (7-18); C Reactive Protein < 0.29 mg/dl (0-0.29); Calcium 8.1 mg/dl (8.5-10.1); Carbon Dioxide 22 mmol/L (21-32); Chloride 110 mmol/L (98-107); Creatinine Clr Calc Pharmacy 42.5 ml/min; Est GFR (African American) 67.5 ml/min; Est GFR (Non-African American) 58.3 ml/min; Glucose 148 mg/dl (70-99); Potassium 4.2 mmol/L (3.5-5.1); Sodium 138 mmol/L (136-145)
[2021-08-03] MEDS: cefTRIAXone SODIUM 1,000 MG in DEXTROSE 5% 50 ML IV SCH (19:43)
[2021-08-03] MEDS: REMDESIVIR 100 MG in SODIUM CHLORIDE 0.9% 230 ML IV SCH (20:58)
[2021-08-03] MEDS: SODIUM CHLORIDE 0.9% 10ML FLUSH IV SCH (22:10)
[2021-08-04] MEDS: ENOXAPARIN INJ 40 MG/0.4 ML SYR SQ SCH (02:57)
[2021-08-04] MEDS: DOXYCYCLINE HYCLATE 100 MG in DEXTROSE 5% 100 ML IV SCH ×2 (02:57→14:06)
--- NOTE | 2021-08-04 05:39 | Electrocardiogram Report ---
Test Reason : Blood Pressure : / mmHG Vent. Rate : 075 BPM Atrial Rate : 075 BPM P-R Int : 186 ms QRS Dur : 154 ms QT Int : 430 ms P-R-T Axes : 000 -75 091 degrees QTc Int : 480 ms AV dual-paced rhythm Abnormal ECG When compared with ECG of 01-FEB-2021 14:17, Vent. rate has increased BY 12 BPM Confirmed by Rudy Costa ([id number]) on 08/04/2021 5:38:57 AM Referred By: REFERRED SELF Confirmed By:Rudy Costa
[2021-08-04 06:10] LABS: Hematocrit (blood only) 43.1 % (37-47); Hemoglobin 14.5 g/dL (12.0-16.0); Mean Corpuscular Hemoglobin 30.9 pg (25-34); Mean Corpuscular Hgb Conc 33.6 g/dL (32-36); Mean Corpuscular Volume 91.9 fL (80-100); Mean Platelet Volume 8.8 fL (7.4-10.4); Platelet Count 171 K/uL (130-400); RDW Coefficient of Variation 14.7 % (11.5-14.5); RDW Standard Deviation 49.5 fL (36.4-46.3); Red Blood Count 4.69 M/uL (4.2-5.4); White Blood Count 3.55 K/uL (4.8-10.8)
--- NOTE | 2021-08-04 06:11 | Electrocardiogram Report ---
Test Reason : Blood Pressure : / mmHG Vent. Rate : 064 BPM Atrial Rate : 064 BPM P-R Int : 186 ms QRS Dur : 154 ms QT Int : 468 ms P-R-T Axes : 086 -71 096 degrees QTc Int : 482 ms AV dual-paced rhythm Abnormal ECG When compared with ECG of 02-AUG-2021 16:19, Vent. rate has decreased BY 11 BPM Confirmed by Rudy Costa ([id number]) on 08/04/2021 6:11:03 AM Referred By: REFERRED SELF Confirmed By:Rudy Costa
[2021-08-04 06:30] LABS: BUN Creatinine Ratio 20.3 (10-20); Creatinine Clr Calc Pharmacy 44.9 ml/min; Est GFR (Non-African American) 62.2 ml/min; Magnesium 1.7 mg/dl (1.8-2.4); Potassium 4.2 mmol/L (3.5-5.1)
[2021-08-04 06:31] LABS: C Reactive Protein 0.33 mg/dl (0-0.29); Phosphorus 2.8 mg/dl (2.5-4.9)
[2021-08-04] MEDS: dexAMETHasone 6 MG in SYRINGE 0 ML IV SCH (09:22)
[2021-08-04] MEDS: METOPROLOL TARTRATE 25 MG TAB PO SCH ×2 (09:23→20:18)
[2021-08-04] MEDS: amLODIPine BESYLATE 5 MG TAB PO SCH (09:23)
--- NOTE | 2021-08-04 12:51 | Cardiology Progress Note ---
Date of Service August 04, 2021 Assessment & Plan (1) Syncope and collapse: (2) Fall: (3) Pneumonia due to COVID-19 virus: (4) Hypoxia: Plan: Pacemaker interrogation without evidence of dysrhythmia or malfunction. Telemetry and ECG revealing AV paced rhythm. Suspect episode is related to orthostatic blood pressure changes and/or vagal etiology in the setting of acute Covid pneumonia. Blood pressure stable since admission. Defer echocardiogram at this time until she has recovered from COVID-19 as no arrhythmias were discovered on pacemaker interrogation. No evidence of acute coronary syndrome. Treatment COVID-19 pneumonia as per internal medicine. Encouraged patient to improve hydration. Cardiology will sign off. Please call with any further concerns/questions. Admission and Anticipated Discharge Date Admission Date: August 02, 2021 Subjective Patient seen exam at the bedside. Requesting discharge. Denies lighthea dedness, dizziness, syncope, or near syncope. No chest pain or unusual shortness of breath. Denies orthopnea, PND, or lower extremity edema. Telemetry reveals AV paced rhythm. Review of Systems Review of Systems: All systems reviewed & are unremarkable except as noted in Subjective Physical Exam Constitutional: well developed, well nourished and + thin; not ill appearing Respiratory: normal respiratory effort; no respiratory distress, no labored breathing and no retractions Auscultation: no crackles, no rales, no rhonchi and no wheezes Cardiovascular: Rate/Rhythm: regular rate and regular rhythm Heart Sounds: normal S1 and normal S2; no gallop, no murmur and no cardiac rub Vessels: radial pulses present; no JVD and no carotid bruit Extremities: no edema Gastrointestinal (Abdomen): Inspection/Auscultation: abdomen normal to inspection and normal bowel sounds; abdomen not distended Percussion/Palpation: abdomen soft; abdomen nontender, no guarding and abdomen not rigid Neurologic: CN's II-XI intact bilaterally and moves all extremities; no focal motor deficits Speech / Cognition: normal speech Motor/Sensory: no tremor Psychiatric: A+Ox3, euthymic affect Results & Data ([facility]) Vital Signs (Past 12 Hours) Vital Signs Temp Pulse Pulse Resp BP Pulse Ox Pulse Ox 08/04/21 11:47 36.7 C 60 18 119/76 95 08/04/21 11:24 96 08/04/21 07:16 36.5 C 60 18 131/82 92 09/03/21 07:00 62 08/04/21 04:00 61 08/04/21 03:11 36.5 C 69 20 144/93 H 96 Pulse Ox Pulse Ox 08/04/21 11:47 08/04/21 11:24 96 88 L 08/04/21 07:16 08/04/21 07:00 08/04/21 04:00 08/04/21 03:11
--- NOTE | 2021-08-04 15:28 | Hospitalist Progress Note ---
Date of Service August 04, 2021 Assessment & Plan (1) Syncope and collapse: Plan: Syncope and collapse at home likely secondary to- Suspect orthostatic blood pressure changes in setting of acute Covid pneumonia, hypoxia and/or urinary tract infection. Device was interrogated with no arrhythmias. She has no evidence of acute coronary syndrome. Orthostatics today were checked and were negative. Appreciate cardiology input and recommendation No more episodes of syncope and no dizziness in the hospital (2) Pneumonia due to COVID-19 virus: Plan: Symptoms began on Saturday, 08/01 with fatigue. She denies excessive coughing and declines cough syrup at this time. She remains hypoxic on admission. Continue treatment with dexamethasone and remdesivir. CRP is not elevated Has not been requiring any oxygen at rest right now Need to finish the course of remdesivir before discharge (3) Hypoxia: Plan: Secondary to pneumonia as above, continue current plan as listed above. Hypoxic episodes on admission and also noted once following admission Has been requiring any oxygen to maintain saturation now Clinically much better (4) Acute UTI (urinary tract infection): Plan: Abnormal urinalysis on admission. Continue antibiotics pending culture results. Urine culture is growing three types of organisms We will discontinue antibiotic after 3 days (5) History of pacemaker: Plan: Pacemaker device was interrogated with no arrhythmia noted. She remains on telemetry and is doing well. Cardiology following. (6) DVT prophylaxis: Plan: Lovenox Full code Disposition-pending PT/OT recommendations Admission and Anticipated Discharge Date Admission Date: August 02, 2021 Subjective 08/04/21 The patient was seen and examined in telemetry unit and in the Covid room She has been feeling much better without any symptoms and wants to go home She has been ambulating in the room without any difficulties She is saturating well on room air Review of Systems Review of Systems: All systems reviewed and are unremarkable except as noted below Respiratory: no cough, no chest congestion and no dyspnea Cardiovascular: no chest pain and no palpitations Physical Exam Physical Exam: Lying in bed comfortably Constitutional: average body habitus; not ill appearing Eyes: PERRL, conjunctivae normal, anicteric sclerae ENMT: external ear and nose normal, oropharynx normal Neck: trachea midline, no thyromegaly Respiratory: no respiratory distress Auscultation: lungs clear to auscultation bilaterally Cardiovascular: Rate/Rhythm: regular rate and regular rhythm; not tachycardic Heart Sounds: normal S1 and normal S2; no murmur Extremities: no edema Gastrointestinal (Abdomen): Inspection/Auscultation: normal bowel sounds; abdomen not distended Musculoskeletal: No acute arthritis in any joint Neurologic: Alert, awake and oriented x3. No focal sensory and motor deficit appreciated Results & Data Results & Data ([facility]) Vital Signs (Past 12 Hours) Vital Signs Temp Pulse Pulse Resp BP Pulse Ox Pulse Ox 08/04/21 11:47 36.7 C 60 18 119/76 95 08/04/21 11:24 96 08/04/21 07:16 36.5 C 60 18 131/82 92 08/04/21 07:00 62 08/04/21 04:00 61 Pulse Ox Pulse Ox 08/04/21 11:47 08/04/21 11:24 96 88 L 08/04/21 07:16 08/04/21 07:00 08/04/21 04:00 Laboratory Results Short CBC 08/04/21 Range/Units 05:51 WBC 3.55 L (4.8-10.8) K/uL Hgb 14.5 (12.0-16.0) g/dL Hct 43.1 (37-47) % Plt Count 171 (130-400) K/uL BMP 08/04/21 05:51 Sodium 139 Potassium 4.2 Chloride 112 H Carbon Dioxide 24 BUN 18 Creatinine 0.91 Glucose 81 Calcium 9.0 Liver Function 08/04/21 Range/Units 05:51 AST 19 (15-37) U/L ALT 17 (12-78) U/L Medications Administered Current Inpatient Medications Acetaminophen (Acetaminophen 325 Mg Tab) 650 mg PO Q4H PRN PRN Reason: Pain or Fever Stop: 09/02/21 01:37 Amlodipine Besylate (Amlodipine Besylate 5 Mg Tab) 10 mg PO QAM [facility] Stop: 09/02/21 08:59 Last Admin: 08/04/21 09:23 Dose: 10 mg Documented by: Enoxaparin Sodium (Enoxaparin Inj 40 Mg/0.4 Ml Syr) 40 mg SQ Q24H [facility] Stop: 09/02/21 01:59 Last Admin: 08/04/21 02:57 Dose: 40 mg Documented by: Ceftriaxone Sodium 1,000 mg/ (Dextrose) 50 mls @ 100 mls/hr IV Q24H [facility]; Protocol Stop: 08/10/21 19:59 Last Infusion: 08/03/21 20:59 Dose: Infused Documented by: Doxycycline Hyclate 100 mg/ (Dextrose) 110 mls @ 50 mls/hr IV Q12H [facility] Stop: 08/10/21 01:59 Last Admin: 08/04/21 14:06 Dose: 50 mls/hr Documented by: Remdesivir 100 mg/ Sodium (Chloride) 250 mls @ 250 mls/hr IV Q24H [facility]; Protocol Stop: 08/06/21 20:59 Last Infusion: 08/03/21 22:10 Dose: Infused Documented by: Dexamethasone 6 mg/ Syringe 1.5 mls @ 1 mls/min IV DAILY [facility] Stop: 09/02/21 01:59 Last Admin: 08/04/21 09:22 Dose: 1 mls/min Documented by: Metoprolol Tartrate (Metoprolol Tartrate 25 Mg Tab) 25 mg PO BID [facility] Stop: 09/02/21 08:59 Last Admin: 08/04/21 09:23 Dose: 25 mg Documented by: Nitroglycerin (Nitroglycerin Sl 0.4 Mg/Tab Tab) 0.4 mg SL UD PRN PRN Reason: Chest Pain Stop: 09/02/21 01:37 Ondansetron HCl (Ondansetron Inj 2 Mg/Ml 2 Ml Vial) 4 mg IV Q6H PRN PRN Reason: Nausea Stop: 09/02/21 01:37 Sodium Chloride (Sodium Chloride 0.9% 10ml Flush) 30 ml IV Q24H [facility] Stop: 08/06/21 20:01 Last Admin: 08/03/21 22:10 Dose: 30 ml Documented by:
[2021-08-04] MEDS: cefTRIAXone SODIUM 1,000 MG in DEXTROSE 5% 50 ML IV SCH (20:18)
[2021-08-04] MEDS: REMDESIVIR 100 MG in SODIUM CHLORIDE 0.9% 230 ML IV SCH (21:10)
[2021-08-04] MEDS: SODIUM CHLORIDE 0.9% 10ML FLUSH IV SCH (22:20)
[2021-08-05] MEDS: DOXYCYCLINE HYCLATE 100 MG in DEXTROSE 5% 100 ML IV SCH ×2 (02:25→13:48)
[2021-08-05] MEDS: ENOXAPARIN INJ 40 MG/0.4 ML SYR SQ SCH (02:26)
--- NOTE | 2021-08-05 06:32 | Electrocardiogram Report ---
Test Reason : Blood Pressure : / mmHG Vent. Rate : 060 BPM Atrial Rate : 060 BPM P-R Int : 188 ms QRS Dur : 154 ms QT Int : 480 ms P-R-T Axes : -20 -73 086 degrees QTc Int : 480 ms AV dual-paced rhythm Abnormal ECG When compared with ECG of 03-AUG-2021 06:37, Vent. rate has decreased BY 4 BPM Confirmed by Rudy Costa ([id number]) on 08/05/2021 6:31:56 AM Referred By: REFERRED SELF Confirmed By:Rudy Costa
[2021-08-05 07:04] LABS: Albumin Level 3.3 gm/dl (3.4-5.0); Calcium 9.5 mg/dl (8.5-10.1); Est GFR (African American) 78.2 ml/min; Est GFR (Non-African American) 67.5 ml/min; Potassium 4.3 mmol/L (3.5-5.1)
[2021-08-05 07:06] LABS: Albumin Globulin Ratio 0.9 (0.9-2); Bilirubin,Total 0.4 mg/dl (0.2-1); Globulin 3.8 gm/dl (2.5-4.0); Total Protein 7.1 gm/dl (6.4-8.2)
[2021-08-05] MEDS: amLODIPine BESYLATE 5 MG TAB PO SCH (07:52)
[2021-08-05] MEDS: METOPROLOL TARTRATE 25 MG TAB PO SCH ×2 (07:52→19:49)
[2021-08-05] MEDS: dexAMETHasone 6 MG in SYRINGE 0 ML IV SCH (07:52)
--- NOTE | 2021-08-05 16:30 | Hospitalist Progress Note ---
Date of Service August 05, 2021 Assessment & Plan (1) Syncope and collapse: Plan: Syncope and collapse at home likely secondary to- Suspect orthostatic blood pressure changes in setting of acute Covid pneumonia, hypoxia and/or urinary tract infection. Device was interrogated with no arrhythmias. She has no evidence of acute coronary syndrome. Orthostatics today were checked and were negative. Appreciate cardiology input and recommendation No more episodes of syncope and no dizziness in the hospital Remains stable (2) Pneumonia due to COVID-19 virus: Plan: Symptoms began on Saturday, 08/01 with fatigue. She denies excessive coughing and declines cough syrup at this time. She remains hypoxic on admission. Continue treatment with dexamethasone and remdesivir. CRP is not elevated Has not been requiring any oxygen at rest right now Need to finish the course of remdesivir before discharge No requirement of oxygen to maintain saturation (3) Hypoxia: Plan: Secondary to pneumonia as above, continue current plan as listed above. Hypoxic episodes on admission and also noted once following admission Has been requiring any oxygen to maintain saturation now Clinically much better (4) Acute UTI (urinary tract infection): Plan: Abnormal urinalysis on admission. Continue antibiotics pending culture results. Urine culture is growing three types of organisms We will discontinue antibiotic after 3 days We will discontinue antibiotic from tomorrow (5) History of pacemaker: Plan: Pacemaker device was interrogated with no arrhythmia noted. She remains on telemetry and is doing well. Cardiology following. (6) DVT prophylaxis: Plan: Lovenox Full code Disposition-pending PT/OT recommendations Admission and Anticipated Discharge Date Admission Date: August 02, 2021 Subjective 08/04/21 The patient was seen and examined in telemetry unit and in the Covid room She has been feeling much better without any symptoms and wants to go home She has been ambulating in the room without any difficulties She is saturating well on room air 08/05/2021 The patient was seen and examined in telemetry unit and in the Covid room She remains stable and does not require any more oxygen to maintain saturation She wants to go home Review of Systems Review of Systems: All systems reviewed and are unremarkable except as noted below Respiratory: no cough, no chest congestion and no dyspnea Cardiovascular: no chest pain and no palpitations Physical Exam Physical Exam: Lying in bed comfortably Constitutional: average body habitus; not ill appearing Eyes: PERRL, conjunctivae normal, anicteric sclerae ENMT: external ear and nose normal, oropharynx normal Neck: trachea midline, no thyromegaly Respiratory: no respiratory distress Auscultation: lungs clear to auscultation bilaterally Cardiovascular: Rate/Rhythm: regular rate and regular rhythm; not tachycardic Heart Sounds: normal S1 and normal S2; no murmur Extremities: no edema Gastrointestinal (Abdomen): Inspection/Auscultation: normal bowel sounds; abdomen not distended Musculoskeletal: No acute arthritis in any joint Neurologic: Alert, awake and oriented x3. No focal sensory and motor deficit appreciated Results & Data Results & Data ([facility]) Vital Signs (Past 12 Hours) Vital Signs Temp Pulse Pulse Resp BP BP Pulse Ox 08/05/21 15:31 36.8 C 64 18 108/70 96 08/05/21 15:02 60 08/05/21 11:35 36.6 C 60 18 115/73 96 08/05/21 07:41 36.5 C 68 18 119/81 93 08/05/21 07:24 60 Laboratory Results [facility] 08/05/21 06:04 Sodium 138 Potassium 4.3 Chloride 110 H Carbon Dioxide 22 BUN 24 H Creatinine 0.85 Glucose 86 Calcium 9.5 Liver Function 08/05/21 Range/Units 06:04 Total Bilirubin 0.4 (0.2-1) mg/dl AST 12 L (15-37) U/L ALT 16 (12-78) U/L Alkaline Phosphatase 108 (45-117) U/L Albumin 3.3 L (3.4-5.0) gm/dl Medications Administered Current Inpatient Medications Acetaminophen (Acetaminophen 325 Mg Tab) 650 mg PO Q4H PRN PRN Reason: Pain or Fever Stop: 09/02/21 01:37 Amlodipine Besylate (Amlodipine Besylate 5 Mg Tab) 10 mg PO QAM [facility] Stop: 09/02/21 08:59 Last Admin: 08/05/21 07:52 Dose: 10 mg Documented by: Enoxaparin Sodium (Enoxaparin Inj 40 Mg/0.4 Ml Syr) 40 mg SQ Q24H [facility] Stop: 09/02/21 01:59 Last Admin: 08/05/21 02:26 Dose: 40 mg Documented by: Ceftriaxone Sodium 1,000 mg/ (Dextrose) 50 mls @ 100 mls/hr IV Q24H [facility]; Protocol Stop: 08/10/21 19:59 Last Infusion: 08/04/21 21:14 Dose: Infused Documented by: Doxycycline Hyclate 100 mg/ (Dextrose) 110 mls @ 50 mls/hr IV Q12H [facility] Stop: 08/10/21 01:59 Last Infusion: 08/05/21 16:10 Dose: Infused Documented by: Remdesivir 100 mg/ Sodium (Chloride) 250 mls @ 250 mls/hr IV Q24H [facility]; Protocol Stop: 08/06/21 20:59 Last Infusion: 08/04/21 22:15 Dose: Infused Documented by: Dexamethasone 6 mg/ Syringe 1.5 mls @ 1 mls/min IV DAILY [facility] Stop: 09/02/21 01:59 Last Admin: 08/05/21 07:52 Dose: 1 mls/min Documented by: Metoprolol Tartrate (Metoprolol Tartrate 25 Mg Tab) 25 mg PO BID [facility] Stop: 09/02/21 08:59 Last Admin: 08/05/21 07:52 Dose: 25 mg Documented by: Nitroglycerin (Nitroglycerin Sl 0.4 Mg/Tab Tab) 0.4 mg SL UD PRN PRN Reason: Chest Pain Stop: 09/02/21 01:37 Ondansetron HCl (Ondansetron Inj 2 Mg/Ml 2 Ml Vial) 4 mg IV Q6H PRN PRN Reason: Nausea Stop: 09/02/21 01:37 Sodium Chloride (Sodium Chloride 0.9% 10ml Flush) 30 ml IV Q24H [facility] Stop: 08/06/21 20:01 Last Admin: 08/04/21 22:20 Dose: 30 ml Documented by:
[2021-08-05] MEDS: REMDESIVIR 100 MG in SODIUM CHLORIDE 0.9% 230 ML IV SCH (19:49)
[2021-08-05] MEDS: SODIUM CHLORIDE 0.9% 10ML FLUSH IV SCH (22:18)
[2021-08-06] MEDS: ENOXAPARIN INJ 40 MG/0.4 ML SYR SQ SCH (02:22)
[2021-08-06] MEDS: DOXYCYCLINE HYCLATE 100 MG in DEXTROSE 5% 100 ML IV SCH (02:22)
[2021-08-06 07:16] LABS: Creatinine Clr Calc Pharmacy 53.7 ml/min; Est GFR (African American) 89.6 ml/min; Est GFR (Non-African American) 77.3 ml/min
[2021-08-06] MEDS: dexAMETHasone 6 MG in SYRINGE 0 ML IV SCH (07:34)
[2021-08-06] MEDS: METOPROLOL TARTRATE 25 MG TAB PO SCH (07:34)
[2021-08-06] MEDS: amLODIPine BESYLATE 5 MG TAB PO SCH (07:34)
--- NOTE | 2021-08-06 12:15 | Hospitalist Progress Note ---
Date of Service August 06, 2021 Assessment & Plan (1) Syncope and collapse: Plan: Syncope and collapse at home likely secondary to- Suspect orthostatic blood pressure changes in setting of acute Covid pneumonia, hypoxia and/or urinary tract infection. Device was interrogated with no arrhythmias. She has no evidence of acute coronary syndrome. Orthostatics today were checked and were negative. Appreciate cardiology input and recommendation No more episodes of syncope and no dizziness in the hospital Remains stable No arrhythmias and no more episode of dizziness and/or collapse (2) Pneumonia due to COVID-19 virus: Plan: Symptoms began on Saturday, 08/01 with fatigue. She denies excessive coughing and declines cough syrup at this time. She remains hypoxic on admission. Continue treatment with dexamethasone and remdesivir. CRP is not elevated Has not been requiring any oxygen at rest right now Need to finish the course of remdesivir before discharge No requirement of oxygen to maintain saturation We'll finish the last dose of remdesivir today and will be discharged home after that (3) Hypoxia: Plan: Secondary to pneumonia as above, continue current plan as listed above. Hypoxic episodes on admission and also noted once following admission Has been requiring any oxygen to maintain saturation now Clinically much better-not requiring any oxygen since admission (4) Acute UTI (urinary tract infection): Plan: Abnormal urinalysis on admission. Continue antibiotics pending culture results. Urine culture is growing three types of organisms We will discontinue antibiotic after 3 days We will discontinue antibiotic from tomorrow (5) History of pacemaker: Plan: Pacemaker device was interrogated with no arrhythmia noted. She remains on telemetry and is doing well. Cardiology following. (6) DVT prophylaxis: Plan: Lovenox Full code Disposition-pending PT/OT recommendations Plan: Discharge home this afternoon Admission and Anticipated Discharge Date Admission Date: August 02, 2021 Subjective 08/04/21 The patient was seen and examined in telemetry unit and in the Covid room She has been feeling much better without any symptoms and wants to go home She has been ambulating in the room without any difficulties She is saturating well on room air 08/05/2021 The patient was seen and examined in telemetry unit and in the Covid room She remains stable and does not require any more oxygen to maintain saturation She wants to go home 08/06/2021 The patient was seen and examined in telemetry unit and in Covid room She has been feeling much better and has been ambulating in the room without any difficulties She hasn't been requiring any oxygen since admission Denies any other symptoms and will be going home this afternoon Review of Systems Review of Systems: All systems reviewed and are unremarkable except as noted below Respiratory: no cough, no chest congestion and no dyspnea Cardiovascular: no chest pain and no palpitations Physical Exam Physical Exam: Sitting on a chair without any acute symptoms Constitutional: average body habitus; not ill appearing Eyes: PERRL, conjunctivae normal, anicteric sclerae ENMT: external ear and nose normal, oropharynx normal Neck: trachea midline, no thyromegaly Respiratory: no respiratory distress Auscultation: lungs clear to auscultation bilaterally Cardiovascular: Rate/Rhythm: regular rate and regular rhythm; not tachycardic Heart Sounds: normal S1 and normal S2; no murmur Extremities: no edema Gastrointestinal (Abdomen): Inspection/Auscultation: normal bowel sounds; abdomen not distended Musculoskeletal: no cyanosis or clubbing, extremities motor strength 5/5 Neurologic: PERRL, EOMI, accommodation nl, no face palsy, no dysarthria Lymphatic: no cervical or axillary lymphadenopathy Results & Data Results & Data ([facility]) Vital Signs (Past 12 Hours) Vital Signs Temp Pulse Pulse Resp BP BP Pulse Ox 08/06/21 11:05 36.5 C 72 18 125/76 96 08/06/21 07:32 36.4 C L 66 16 118/88 95 08/06/21 07:15 60 08/06/21 04:22 36.7 C 64 17 137/87 94 Laboratory Results [facility] 08/06/21 06:34 Creatinine 0.76 Liver Function 08/06/21 Range/Units 06:34 AST 17 (15-37) U/L ALT 17 (12-78) U/L Medications Administered Current Inpatient Medications Acetaminophen (Acetaminophen 325 Mg Tab) 650 mg PO Q4H PRN PRN Reason: Pain or Fever Stop: 09/02/21 01:37 Amlodipine Besylate (Amlodipine Besylate 5 Mg Tab) 10 mg PO QAM [facility] Stop: 09/02/21 08:59 Last Admin: 08/06/21 07:34 Dose: 10 mg Documented by: Enoxaparin Sodium (Enoxaparin Inj 40 Mg/0.4 Ml Syr) 40 mg SQ Q24H [facility] Stop: 09/02/21 01:59 Last Admin: 08/06/21 02:22 Dose: 40 mg Documented by: Doxycycline Hyclate 100 mg/ (Dextrose) 110 mls @ 50 mls/hr IV Q12H [facility] Stop: 08/10/21 01:59 Last Infusion: 08/06/21 05:32 Dose: Infused Documented by: Remdesivir 100 mg/ Sodium (Chloride) 250 mls @ 250 mls/hr IV Q24H [facility]; Protocol Stop: 08/06/21 20:59 Last Infusion: 08/05/21 22:18 Dose: Infused Documented by: Dexamethasone 6 mg/ Syringe 1.5 mls @ 1 mls/min IV DAILY [facility] Stop: 09/02/21 01:59 Last Admin: 08/06/21 07:34 Dose: 1 mls/min Documented by: Metoprolol Tartrate (Metoprolol Tartrate 25 Mg Tab) 25 mg PO BID [facility] Stop: 09/02/21 08:59 Last Admin: 08/06/21 07:34 Dose: 25 mg Documented by: Nitroglycerin (Nitroglycerin Sl 0.4 Mg/Tab Tab) 0.4 mg SL UD PRN PRN Reason: Chest Pain Stop: 09/02/21 01:37 Ondansetron HCl (Ondansetron Inj 2 Mg/Ml 2 Ml Vial) 4 mg IV Q6H PRN PRN Reason: Nausea Stop: 09/02/21 01:37 Sodium Chloride (Sodium Chloride 0.9% 10ml Flush) 30 ml IV Q24H [facility] Stop: 08/06/21 20:01 Last Admin: 08/05/21 22:18 Dose: 30 ml Documented by:
[2021-08-06] MEDS: REMDESIVIR 100 MG in SODIUM CHLORIDE 0.9% 230 ML IV SCH (12:33)
--- NOTE | 2021-08-06 15:46 | Discharge Summary ---
Date of Service August 06, 2021 Admission HPI Per Admitting Provider DICTATED BY: Mathieu Bragg MD DATE OF ADMISSION: 08/02/2021. CHIEF COMPLAINT: Syncope and COVID positive. HISTORY OF PRESENT ILLNESS: A 75-year-old female with past medical history significant for complete heart block, status post pacemaker, hypertension, GERD, vitamin D deficiency, chronic kidney disease stage III, history of partial retinal detachment comes with syncope. The patient lives with her . She was getting up from a chair and walking, trying to go to the kitchen. Next thing she heard her calling out and she fell down in the kitchen, lost consciousness for about a few minutes, no seizure-like activity, no biting of the tongue, no incontinence and after that, she was doing okay. She has a cough for last 2 days. Denies any chest pain, no shortness of breath, no fever. Appetite is good. No difficulty swallowing. Denies any headache. No blurred vision. Very hard of hearing, no runny nose, no sore throat, no abdominal pain, normal bowel and bladder movements. Currently, resting comfortably. She was saturating 88% on room air, requiring 1 liter of oxygen. ER, physician also interrogated her pacemaker. It was okay. Labs showed possible UTI. CT of the chest was done, which showed possible ground glass opacities, possible pneumonia . She is not vaccinated and COVID came it back positive. Admission Exam Per Admitting Provider GENERAL: The patient is of moderate build, not in acute distress. VITAL SIGNS: Temperature 37.1, pulse 69, respiratory rate 20, blood pressure 113/78, oxygen 92% on 1 liter. HEENT: Pupils equal, round and reactive to light. Oral mucosa moist. NECK: No JVD. No neck masses. CARDIOVASCULAR: S1 and S2 heard. Regular rate and rhythm. No murmur, no gallop. RESPIRATORY SYSTEM: Normal AP diameter. No accessory muscle use. No wheezing, no crackles. ABDOMEN: Soft, bowel sounds present, nontender, no distention. CENTRAL NERVOUS SYSTEM: Cranial nerves II-XII grossly intact, nonfocal. EXTREMITIES: No edema, no erythema. Principal Diagnosis Syncope and collapse, no arrhythmias and/or neurological symptoms, COVID-19 virus infection, history of PPM Discharge Exam Constitutional average body habitus; not ill appearing Eyes PERRL, conjunctivae normal, anicteric sclerae ENMT external ear and nose normal, oropharynx normal Neck trachea midline, no thyromegaly Respiratory no respiratory distress Auscultation: lungs clear to auscultation bilaterally Cardiovascular Rate/Rhythm: regular rate and regular rhythm; not tachycardic Heart Sounds: normal S1 and normal S2; no murmur Extremities: no edema Gastrointestinal (Abdomen) Inspection/Auscultation: normal bowel sounds; abdomen not distended Musculoskeletal no cyanosis or clubbing, extremities motor strength 5/5 Neurologic PERRL, EOMI, accommodation nl, no face palsy, no dysarthria Lymphatic no cervical or axillary lymphadenopathy Discharge Data Allergies Allergy/AdvReac Type Severity Reaction Status Date / Time No Known Allergies Allergy Verified 08/02/21 16:43 Consultations 08/03/21 08:00 Consult Cardiology Routine Ordered Studies 08/02/21 19:57 CT head/brain wo con Urgent 08/02/21 20:34 CT angio chest PE protocol Urgent Hospital Course (1) Syncope and collapse: Syncope and collapse at home likely secondary to- Suspect orthostatic blood pressure changes in setting of acute Covid pneumonia, hypoxia and/or urinary tract infection. Device was interrogated with no arrhythmias. She has no evidence of acute coronary syndrome. Orthostatics today were checked and were negative. Appreciate cardiology input and recommendation No more episodes of syncope and no dizziness in the hospital Remains stable No arrhythmias and no more episode of dizziness and/or collapse (2) Pneumonia due to COVID-19 virus: Symptoms began on Saturday, 08/01 with fatigue. She denies excessive coughing and declines cough syrup at this time. She remains hypoxic on admission. Continue treatment with dexamethasone and remdesivir. CRP is not elevated Has not been requiring any oxygen at rest right now Need to finish the course of remdesivir before discharge No requirement of oxygen to maintain saturation We'll finish the last dose of remdesivir today and will be discharged home after that (3) Hypoxia: Secondary to pneumonia as above, continue current plan as listed above. Hypoxic episodes on admission and also noted once following admission Has been requiring any oxygen to maintain saturation now Clinically much better-not requiring any oxygen since admission (4) Acute UTI (urinary tract infection): Abnormal urinalysis on admission. Continue antibiotics pending culture results. Urine culture is growing three types of organisms We will discontinue antibiotic after 3 days We will discontinue antibiotic from tomorrow (5) History of pacemaker: Pacemaker device was interrogated with no arrhythmia noted. She remains on telemetry and is doing well. Cardiology following. (6) DVT prophylaxis: Lovenox Full code Disposition-pending PT/OT recommendations Discharge home this afternoon Total Time Total Time Spent Total Time Spent (In Minutes): 35 minutes Discharge Plan Discharge Items Patient Disposition: Home - Self-Care Reason For Visit: FALL Discharge Diagnosis: Syncope and collapse, no arrhythmias and/or neurological symptoms, COVID-19 virus infection, history of PPM Condition on Discharge: Good Activity: Resume your previous activity Non-emergency contact: Primary Care Provider Call non-emergency contact if: you have any medication questions and your symptoms worsen Follow-up/Referrals: PCP,NO [Primary Care Provider] - (Please make an appointment with your primary care physician within 1 week) Diet: Heart Healthy Addtl Attending Provider Instructions: Please take precautions to avoid falls Please take your medications as advised You will need to be in isolation until 08/11/2021 as per guidelines below:Home Isolation COVID-19 Instructions The following information about Home Isolation is from the CDC Website: https://www.cdc.gov/coronavirus/2019-ncov/hcp/ctqxtfmv-qbosptw-rllbus.html Stay home except to get medical care People who are mildly ill with COVID-19 are able to isolate at home during their illness. You should restrict activities outside your home, except for getting medical care. Do not go to work, school, or public areas. Avoid using public transportation, ride-sharing, or taxis. Separate yourself from other people and animals in your home People: As much as possible, you should stay in a specific room and away from other people in your home. Also, you should use a separate bathroom, if available. Animals: You should restrict contact with pets and other animals while you are sick with COVID-19, just like you would around other people. Although there have not been reports of pets or other animals becoming sick with COVID-19, it is still recommended that people sick with COVID-19 limit contact with animals until more information is known about the virus. When possible, have another member of your household care for your animals while you are sick. If you are sick with COVID-19, avoid contact with your pet, including petting, snuggling, being kissed or licked, and sharing food. If you must care for your pet or be around animals while you are sick, wash your hands before and after you interact with pets and wear a face mask. Call ahead before visiting your doctor If you have a medical appointment, call the healthcare provider and tell them that you have or may have COVID-19. This will help the healthcare providers office take steps to keep other people from getting infected or exposed. Wear a face mask You should wear a face mask when you are around other people (e.g., sharing a room or vehicle) or pets and before you enter a healthcare providers office. If you are not able to wear a face mask (for example, because it causes trouble breathing), then people who live with you should not stay in the same room with you, or they should wear a face mask if they enter your room. Cover your coughs and sneezes Cover your mouth and nose with a tissue when you cough or sneeze. Throw used tissues in a lined trash can. Immediately wash your hands with soap and water for at least 20 seconds or, if soap and water are not available, clean your hands with an alcohol-based hand dialysis rn that contains at least 60% alcohol. Clean your hands often Wash your hands often with soap and water for at least 20 seconds, especially after blowing your nose, coughing, or sneezing; going to the bathroom; and before eating or preparing food. If soap and water are not readily available, use an alcohol-based hand dialysis rn with at least 60% alcohol, covering all surfaces of your hands and rubbing them together until they feel dry. Soap and water are the best option if hands are visibly dirty. Avoid touching your eyes, nose, and mouth with unwashed hands. Avoid sharing personal household items You should not share dishes, drinking glasses, cups, eating utensils, towels, or bedding with other people or pets in your home. After using these items, they should be washed thoroughly with soap and water. Clean all high-touch surfaces everyday High touch surfaces include counters, tabletops, doorknobs, bathroom fixtures, toilets, phones, keyboards, tablets, and bedside tables. Also, clean any surfaces that may have blood, stool, or body fluids on them. Use a household cleaning spray or wipe, according to the label instructions. Labels contain instructions for safe and effective use of the cleaning product including p recautions you should take when applying the product, such as wearing gloves and making sure you have good ventilation during use of the product. Monitor your symptoms Seek prompt medical attention if your illness is worsening (e.g., difficulty breathing).Beforeseeking care, call your healthcare provider and tell them that you have, or are being evaluated for, COVID-19. Put on a face mask before you enter the facility. These steps will help the healthcare providers office to keep other people in the office or waiting room from getting infected or exposed. Ask your healthcare provider to call the local or state health department. Persons who are placed under active monitoring or facilitated self- monitoring should follow instructions provided by their local health department or occupational health professionals, as appropriate. When working with your local health department check their available hours. If you have a medical emergency and need to call 911, notify the dispatch personnel that you have, or are being evaluated for COVID-19. If possible, put on a face mask before emergency medical services arrive. Discontinuing home isolation Patients with confirmed COVID-19 should remain under home isolation precautions until the risk of secondary transmission to others is thought to be low. The decision to discontinue home isolation precautions should be made on a [id number] basis, in consultation with healthcare providers and state and local health departments. Pending Studies at Discharge: No Stand-Alone Forms: [employer], Smoking Cessation Medications and DC Order Prescriptions: New dexamethasone 6 mg tablet 6 mg PO DAILY Qty: 5 RF: 0 doxycycline hyclate 100 mg capsule 100 mg PO BID 5 Days Qty: 10 RF: 0 Continued amlodipine 10 mg tablet 10 mg PO QAM RF: 0 metoprolol tartrate 25 mg tablet 25 mg PO BID RF: 0 Discharge Orders: Discharge Order (Routine); Ordered 08/06/21 Ordered By: Jason Herman Admission Data Admit Date/Time: 08/02/21 23:59 Attending Provider: Jason Herman Admit Provider: Mathieu Bragg Primary Care Provider: PCP,NO Other Providers: Jasper Pollard ; Burke Guerrero ; Ajay Acosta ; Reji Bender ; Renato Mcclellan ; Abdulkadir Miller ; Shannon Lopez ; Karen Garcia ; Radha Nieves ; Pawel Irving ; Sonia Ríos Other Interventions: Discharge Summary Assessment (RN) Last Done: 08/06/21 14:38
== END 2021-08-06 14:40 | disposition home or self-care (01) | DRG 177 ==
LOC: ED 14:32 → SUATTDRO 23:59 → 2E 23:59

== ENCOUNTER 2024-05-24 14:51 | Inpatient (IN) ==
--- OUTSIDE RECORDS SUMMARY | 2024-05-24 14:56 | External Medical Summary | Summary of Care ---
Author Name Unknown Organization [facility] Address [address] [facility] [place] [address] Phone [phone] Care Team Providers Care Meeting Facilitator Name Role Phone Avani Palacios DO Primary Care Provider [phone] Reason for Referral * Precert (Within 10 days (routine)) - Authorized Specialty Diagnoses / Procedures Referred By Sukhwindre sultana Referred To Contact Sleep Disorders Diagnoses Obstructive sleep apnea Loud snoring Insomnia, unspecified type Atrial flutter, unspecified type (HCC) Procedures SLEEP STUDY, W/O CPAP Brooklynn Cobb CRNP [address] [place] [address] Referral ID Status Reason Start Date Expiration Date V isits Requested Visits Authorized [id number] Authorized 02/12/2024 999 999 * Precert (Within 10 days (routine)) - Authorized Specialty Diagnoses / Procedures Referred By Sukhwinder sultana Referred To Contact Sleep Disorders Diagnoses Obstructive sleep apnea Loud snoring Insomnia, unspecified type Atrial flutter, unspecified type (HCC) Procedures SLEEP STUDY, W/ CPAP (TREATMENT SETTINGS) Brooklynn Cobb CRNP [address] [place] [address] Referral ID Status Reason Start Date Expiration Date V isits Requested Visits Authorized [id number] Authorized 02/12/2024 999 999 Reason for Visit * Reason Comments NEW PATIENT * Evaluate & Treat - Unlimited Visits (Within 30 days (routine)) - Authorized Specialty Diagnoses / Procedures Referred By Sukhwinder t Referred To Contact Sleep Medicine / Sleep Disorders Diagnoses Atrial flutter, unspecified type (HCC) CHB (complete heart block) (HCC) Cardiac pacemaker in situ HTN, goal below 140/90 Dyslipidemia, goal LDL below 100 Radha Nieves CRNP [address] [facility] [place] [address] Referral ID Status Reason Start Date Expiration Date Visits Requested Visits Authorized [id number] Authorized Specialty Services Required 01/28/2024 2 2 Encounter Details Date Type Department Care Team (Late st Contact Info) Description 02/12/2024 8:00 AM EDT Office Visit Sleep Disorders Ctr [facility] [address] [facility] [place] [phone] Brooklynn Cobb CRNP [address] [facility] [place] [address] Obstructive sleep apnea*; Loud snoring; Insomnia, unspecified type; Atrial flutter, unspecified type (HCC); Frequent nocturnal awakening Allergies No known active allergiesdocumented as of this encounter (statuses as of 02/12/2024) Medications Medication Sig Dispensed Refills Start Date End Date Status Vitamin D3 915214 UNIT/GM Powder Use as directed. 0 Acti ve D-1000 Extra Strength 25 MCG (1000 UT) Oral Tablet (Cholecalciferol)Deysi cations:Vitamin D deficiency TAKE BY MOUTH 1 TABLET IN THE MORNING. 90 Tablet 3 03/18/2023 Active amLODIPine Besylate 10 MG Oral Tablet (Norvasc)Indications: CHB (complete heart block) (HCC),HTN, goal below 140/90 TAKE 1 TABLET BY MOUTH EVERY DAY 90 Tablet 3 11/04/2023 Active Metoprolol Succinate ER 25 MG Oral Tablet Extended Release 24 Hour (toPROL XL)Indications:Atrial flutter, unspecified type (HCC),CHB (complete heart block) (HCC),Cardiac pacemaker in situ,HTN, goal below 140/90,Dyslipidemia, goal LDL below 100 Take 1.5 Tablets by mouth in the morning. 200 Tablet 3 01/28/2024 Active Apixaban 5 MG Oral Tablet (Eliquis)Indications: Atrial flutter, unspecified type (HCC),CHB (complete heart block) (HCC),Cardiac pacemaker in situ,HTN, goal below 140/90,Dyslipidemia, goal LDL below 100 Take 1 Tablet by mouth in the morning and 1 Tablet before bedtime. 60 Tablet 11 01/28/2024 Active Rosuvastatin Calcium 5 MG Oral Tablet (Crestor) Take 1 Tablet by mouth in the morning. 90 Tablet 3 01/29/2024 Active documented as of this encounter (statuses as of 02/12/2024) Active Problems Problem Noted Date Diagnosed Date Hyperparathyroidism, primary 08/20/2023 Age-related osteoporosis wit hout current pathological fracture 08/20/2023 Female genital prolapse 08/20/2023 Presence of pessary 08/20/2023 Diverticulosis of large intestine without hemorr ammy 08/20/2023 History of GI bleed 08/20/2023 Hepatic cyst 08/20/2023 Tortuous aorta 08/20/2023 History of bilateral reverse prosthetic total shoulder arthroplasty 08/20/2023 LVH (left ventricular hypertrophy) 08/20/2023 Trace mitral regurgitation by prior echocardiogr am 08/20/2023 Trace tricuspid regurgitation by prior echocardi ogram 08/20/2023 Trace aortic regurgitation by prior echocardiogr am 08/20/2023 Diastolic dysfunction 08/20/2023 Ascending aorta dilatation 08/20/2023 Atherosclerosis of both carotid arteries 023 Stage 3a chronic kidney disease 10/10/2020 Overview: Per CKD protocol - Per CKD protocol HTN, goal below 140/90 06/30/2018 Gastroesophageal reflux disease without esophagi tis 06/30/2018 Vitamin D deficiency 03/15/2017 CHB (complete heart block) 01/09/2016 Cardiac pacemaker in situ 01/09/2016 Old retinal detachment, partial 02/24/2015 documented as of this encounter (statuses as of 02/12/2024) Resolved Problems Problem Noted Date Diagnosed Date Resolved Date Kidney disease, chronic, sta ge III (GFR 30-59 ml/min) 09/14/2019 10/13/2020 Overview: Per CKD protocol Menopause 05/09/2017 documented as of this encounter (statuses as of 02/12/2024) Immunizations Name Administration Dates Next Due TDAP (age 10 and older)(Boostrix) 07/29/2014 documented as of this encounter Social History Tobacco Use Types Packs/Day Years Used Date Smoking Tobacco: Never Smokeless Tobacco: Never Alcohol Use Standard Drinks/Week Comments No 0 (1 standard drink = 0.6 oz pur e alcohol) PHQ-2 Answer Date Recorded PHQ-2 Score 0 08/19/2019 Sex and Gender Information Value Date Recorded Sex Assigned at Not on file Gender Identity Not on file Sexual Orientation Not on file Job Start Date Occupation Industry Not on file Not on file Not on file documented as of this encounter Last Filed Vital Signs Vital Sign Reading Time Taken Comments Blood Pressure 136/82 02/12/2024 7:51 AM EDT Pulse 67 02/12/2024 7:51 AM EDT Temperature 36 C (96.8 F) 02/12/2024 7:51 AM EDT Respiratory Rate 20 02/12/2024 7:51 AM EDT Oxygen Saturation 97% 02/12/2024 7:51 AM EDT ra, rest Inhaled Oxygen Concentration - - Weight 55.2 kg (121 lb 12.8 oz) 02/12/2024 7:51 AM EDT Height 160 cm (5' 3") 02/12/2024 7:51 AM EDT Body Mass Index 21.58 02/12/2024 7:51 AM EDT documented in this encounter Patient Instructions * Patient Instructions* Brooklynn Cobb CRNP - 02/12/2024 8:38 AM EDT OBSTRUCTIVE SLEEP APNEA You are being evaluated for obstructive sleep apnea. Obstructive sleep apnea is when someone has difficulties with breathing only during sleep. This typically happens without the individual being aware they are having breathing issues. Obstructive sleep apnea is very common. It can be seen in kids and adults. It can cause symptoms of excessive daytime sleepiness, fatigue, morning headaches, and poor memory and cognition. It can also lead to difficulties at work or school and motor vehicle accidents. If left untreated, it puts people at risk for heart attacks, strokes, and diabetes, among other things. Obstructive sleep apnea is diagnosed through either an in-lab sleep study or a home sleep test. If a home sleep test is done and shows inconclusive results, an in-lab study may be recommended. At [facility], a trained crop and soil technician will be present to administer and monitor the test. They willbe putting sensors on you that monitor your brain waves, breathing, movements, and respiratory effort. None of the sensors should be painful, though they may be annoying or uncomfortable to some patients when they are trying to sleep. [facility] are accredited by the [place] [employer] (AASM), as they meet or exceed all standards for professional quality sleep medicine care. - Plan to get enough sleep at night. Most adults do best with 7-8 hours a night. - Exercise daily! Aim for 30 minutes per day of moderate-intensity exercise (enough to get your heart rate up and break out into a light sweat). - Losing even a little bit of weight can reduce the severity of sleep apnea and helps overall sleep. - Don't drive when you are sleepy/drowsy. If you become drowsy while driving, dry chain puller, take a quick nap, get some caffeine, or get someone else to drive. More information can be obtained at: SleepEducation.org It may take 4 weeks to get the results. Please arrange a follow-up appointment to discuss your testresults. documented in this encounter Progress Notes * Brooklynn Cobb CRNP - 02/12/2024 8:16 AM EDT [facility] SLEEP MEDICINE CONSULTATION Mrs. Deidre Dewey is a 78 year old female with history of hypertension, complete heart block s/p pacemaker, atrial flutter, LVH, diastolic dysfunction seen at the request of ALEX Gudino for evaluation of possible sleep disordered breathing in the setting of atrial flutter. Deidre is unsure why she is here today. She denies any concerns about her sleep. Review of sleep symptoms ("+" indicates reports, "-" indicates denies): (+) Loud snoring (-) Witnessed apneas (-) Nocturnal choking or gasping (-) Dry mouth on waking (-) Morning headaches (-) Non-restorative sleep (-) Daytime sleepiness or fatigue (+) Difficulty with sleep initiation and maintenance noting frequent awakenings (-) Use of hypnotics (-) Symptoms of restless legs syndrome (-) Abnormal sleep behaviors including dream enactment or sleep walking (-) Difficulty with memory or concentration (-) History of nasal fracture or other facial trauma Bedroom environment: Lives with and 6 grand/great grand kids. Sleeps in bed shared with . Prefers right side sleeping. 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 Sitting and reading Slight chance of dozing Watching TV Slight chance of dozing Sitting inactive in a public place, such as a theater or meeting No chance of dozing As a passenger in a car for an hour without a break No chance of dozing Lying down to rest in the afternoon when circumstances permit Slight chance of dozing When sitting and talking to someone No chance of dozing When sitting quietly after lunch without alcohol No chance of dozing In a car, while stopped for a few minutes in traffic No chance of dozing Score (range: 0 - 24) 3 Functional Outcomes Of Sleep Question 02/12/2024 7:56 AM EDT - Filed by Dominique Navarro LPN Please complete the following questions. Do you have difficulty concentrating because you are sleepy or tired? No Do you have difficulty remembering things because you are sleepy or tired? No Do you have difficulty operating a motor vehicle for short distances (less than 100 miles) because you become sleepy? No Do you have difficulty operating a motor vehicle for long distances (more than 100 miles) because you become sleepy? No Do you have difficulty visiting family or friends in their home because you become sleepy or tired?No Has your relationship with family, friends, or work colleagues been affected because you are sleepyor tired? No Do you have difficulty watching a movie or video because you become sleepy or tired? Yes, a little Do you have difficulty being as active as you want to be in the evening because you are tired or sleepy? No Do you have difficulty being as active as you want to be in the morning because you are tired or sleepy? No Has your mood been affected because you are sleepy or tired? No Score (range: 10 - 40) 39 Medical History: Patient Active Problem List Diagnosis Code Old retinal detachment, partial H33.8 CHB (complete heart block) ([facility]) I44.2 Cardiac pacemaker in situ Z95.0 Vitamin D deficiency E55.9 HTN, goal below 140/90 I10 Gastroesophageal reflux disease without esophagitis K21.9 Stage 3a chronic kidney disease N18.31 Hyperparathyroidism, primary (HCC) E21.0 Age-related osteoporosis without current pathological fracture M81.0 Female genital prolapse N81.9 Presence of pessary Z96.0 Diverticulosis of large intestine without hemorrhage K57.30 History of GI bleed Z87.19 Hepatic cyst K76.89 Tortuous aorta (HCC) I77.1 History of bilateral reverse prosthetic total shoulder arthroplasty Z96.611, Z96.612 LVH (left ventricular hypertrophy) I51.7 Trace mitral regurgitation by prior echocardiogram I34.0 Trace tricuspid regurgitation by prior echocardiogram I07.1 Trace aortic regurgitation by prior echocardiogram I35.1 Diastolic dysfunction I51.89 Ascending aorta dilatation (HCC) I77.810 Atherosclerosis of both carotid arteries I65.23 Surgical History: Past Surgical History: Procedure Laterality Date COLONOSCOPY, DIAGNOSTIC (RECTUM) 06/11/2016 diverticulosis, repeat 10 yrs/COLONOSCOPY FLEXIBLE PROXIMAL DIAGNOSTIC performed by Johny William MD at [facility] COLONOSCOPY, DIAGNOSTIC (RECTUM) 12/29/2015 COLONOSCOPY FLEXIBLE PROXIMAL DIAGNOSTIC performed by Roby Zayas MD at [facility] EGD, FLEXIBLE, DIAGNOSTIC 12/10/2016 normal bx/[facility] INSERT HEART ELECTRODE, DUAL CHAMBR 12/30/2015 LASER TRABECULOPLASTY Left 03/09/2015 Laser procedure of the LEFT eye; Dr. Alonso RECONSTRUCT SHOULDER JOINT, IMPLANT Left 02/06/2021 REMOVAL OF APPENDIX Denies history of upper airway, palate or jaw surgery Current Medications: Outpatient Medications Marked as Taking for the 02/12/24 encounter (Office Visit) with Brooklynn Cobb CRNP Medication Sig Rosuvastatin Calcium 5 MG Oral Tablet (Crestor) Take 1 Tablet by mouth in the morning. Apixaban 5 MG Oral Tablet (Eliquis) Take 1 Tablet by mouth in the morning and 1 Tablet before bedtime. Metoprolol Succinate ER 25 MG Oral Tablet Extended Release 24 Hour (toPROL XL) Take 1.5 Tablets by mouth in the morning. amLODIPine Besylate 10 MG Oral Tablet (Norvasc) TAKE 1 TABLET BY MOUTH EVERY DAY D-1000 Extra Strength 25 MCG (1000 UT) Oral Tablet (Cholecalciferol) TAKE BY MOUTH 1 TABLET IN THE MORNING. Vitamin D3 844438 UNIT/GM Powder Use as directed. Social History: Caffeine: coffee 2 cups/am, occasional soda or ice tea Alcohol use: denies Nicotine use: denies Illicit drug use: denies Routine exercise: none outside of work and house chores Family History: Denies family history of sleep related disorders. Review of Systems Constitutional: Negative for fatigue. Weight down 10 lbs HENT: Negative for congestion and postnasal drip. Respiratory: Negative for shortness of breath. Cardiovascular: Negative for chest pain, palpitations and leg swelling. Musculoskeletal: Negative for arthralgias, back pain and neck pain. Psychiatric/Behavioral: Positive for sleep disturbance. Physical Exam: BP 136/82 | Pulse 67 | Temp 36 C (96.8 F) (Tympanic) | Resp 20 | Ht 1.6 m (5' 3") | Wt 55.2 kg (121 lb 12.8 oz) | SpO2 97% Comment: ra, rest | BMI 21.58 kg/m | BSA 1.57 m Constitutional: No acute distress, accompanied by self Eyes: No conjunctival icterus or pallor Nose: Normal external appearance. Oral: edentulous with dentures, tongue large for mouth, hard palate normal, low soft palate, small oropharyngeal space, uvula erythematous, Mallampati 4, tonsils are not visualized Mandible: No retrognathia Neck: Circumference 11 inches Chest: Normal respiratory effort at rest, clear lung tubbs Cardiac: Regular rate and rhythm Neuro: Alert, oriented, fluent/clear speech Psych: Appropriate mood and affect. Impression/Recommendations: 78 year old female with history of hypertension, complete heart block s/p pacemaker, atrial flutter, LVH, diastolic dysfunction who presents with loud snoring, SO/SM insomnia and frequent awakenings. At risk for LEXA given small airway, STOP-Bang 2 (snoring and HTN) - Discussed the pathophysiology, implications on short- and long-term health, diagnostic evaluation, and likely treatment options of LEXA - Schedule an overnight PSG - split night protocol if meets criteria. - Avoid driving or engaging in any activity that requires full alertness if feeling sleepy, drowsy or otherwise impaired. Return following testing in order to review test results and next steps. [facility] I spent a total of 30-39 minutes (exact time 35 mins) on the date of service in preparation, delivery, and documentation of the care provided to Deidre Dewey excluding any time spent in the performance of separately billed services. documented in this encounter Nursing Notes * Dominique Navarro LPN - 02/12/2024 7:48 AM EDT New pt referred for sleep evaluation. Neck - 11" [place] Sleepiness Scale Question 02/12/2024 7:55 AM EDT - Filed by Dominique Navarro LPN What is the chance you will doze off in the following situation? Sitting and reading Slight chance of dozing Watching TV Slight chance of dozing Sitting inactive in a public place, such as a theater or meeting No chance of dozing As a passenger in a car for an hour without a break No chance of dozing Lying down to rest in the afternoon when circumstances permit Slight chance of dozing When sitting and talking to someone No chance of dozing When sitting quietly after lunch without alcohol No chance of dozing In a car, while stopped for a few minutes in traffic No chance of dozing Score (range: 0 - 24) 3 Functional Outcomes Of Sleep Question 02/12/2024 7:56 AM EDT - Filed by Dominique Navarro LPN Please complete the following questions. Do you have difficulty concentrating because you are sleepy or tired? No Do you have difficulty remembering things because you are sleepy or tired? No Do you have difficulty operating a motor vehicle for short distances (less than 100 miles) because you become sleepy? No Do you have difficulty operating a motor vehicle for long distances (more than 100 miles) because you become sleepy? No Do you have difficulty visiting family or friends in their home because you become sleepy or tired?No Has your relationship with family, friends, or work colleagues been affected because you are sleepyor tired? No Do you have difficulty watching a movie or video because you become sleepy or tired? Yes, a little Do you have difficulty being as active as you want to be in the evening because you are tired or sleepy? No Do you have difficulty being as active as you want to be in the morning because you are tired or sleepy? No Has your mood been affected because you are sleepy or tired? No Score (range: 10 - 40) 39 documented in this encounter Plan of Treatment Upcoming Encounters Date Type Department Care Team (Late st Contact Info) Description 03/20/2024 8:30 AM EDT Cardiac Studies Cardiology, [facility] [address] [place] [address] [facility] [address] [place] [address] 03/25/2024 7:30 PM EDT PulmDiagnostic Sleep Lab, [facility] [address] [facility] [address] [place] [address] [facility], Sleep Med [facility] Sleep [address] [facility] [place] [address] 03/26/2024 3:00 PM EDT Office Visit Cardiology, [facility] [address] [place] [address] Radha Nieves CRNP [address] [place] [address] 04/29/2024 2:30 PM EDT Office Visit Gynecology/Obstetrics Kael Rousseau [address] [facility] [place] [address] Lesvia Mcbride CRNP [address] [place] [address] 06/24/2024 7:00 AM EDT [facility] [address] [place] [phone] Brooklynn Cobb CRNP [address] [place] [address] 08/24/2024 10:30 AM EDT Office Visit Care at Home [address], [place] [id number] Farzaneh Cardoso PA-C [address], [place] [id number] Scheduled Orders Name Type Priority Associated Diagnoses Orde r Schedule SLEEP STUDY, W/ CPAP (TREATMENT SETTINGS) Procedures Routine Obstructive sleep apnea Loud snoring Insomnia, unspecified type Atrial flutter, unspecified type (HCC) Ordered: 02/12/2024 SLEEP STUDY, W/O CPAP Procedures Routine Obstructive sleep apnea Loud snoring Insomnia, unspecified type Atrial flutter, unspecified type (HCC) Ordered: 02/12/2024 Scheduled Procedures Name Priority Associated Diagnoses Date/Ti me COLONOSCOPY FLEXIBLE PROXIMA L DIAGNOSTIC Recall Encounter for screening colonoscopy Health Maintenance Due Date Last Done Comments Albumin/Creatinine Ratio 1963 Hepatitis C Screening 1963 DXA Scan 1996 Zoster Vaccines (1 of 2) 1996 Pneumococcal Vaccine: 65+ Years (1 of 1 - PCV) 2011 Depression Screening 08/19/2020 08/19/2019 CKD PHOS USE SMARTSET [id number] 03/08/2023 04/0 06/2022, 12/08/2021, 12/04/2021 COVID-19 Vaccine ( season) 2023 Influenza Vaccine (FLU shot) (#1) 2023 *BISPHONATE OR OTHER ACCEPTABLE MEDICATION NEEDED FOR OSTEOPOROSIS (REFER TO SMARTSET #1146) 08/28/2023 GFR 07/28/2024 01/28/2024, 04/0 06/2022, 12/08/2021, Additional history exists DTaP,Tdap,and Td Vaccines (2 - Td or Tdap) 07/29/2024 07/29/2014 CKD HGB USE SMARTSET [id number] 01/28/202501/28, 01/28/2024, 12/04/2021, Additional history exists VITAMIN D LEVEL ONCE IN A LIFETIME-USE SMARTSET# [id number] Completed 12/08/2021, 12/04/2021, 08/19/2019, Additional history exists GARDASIL-HPV IMMUNIZATION SERIES Aged Out No longer eligible based on patient's age to complete this topic Hepatitis B Aged Out No longer eligi ble based on patient's age to complete this topic MENINGOCOCCAL (MENACTRA/MENVEO) Aged Out No longer eligible based on patient's age to complete this topic documented as of this encounter Medical Devices Not on filedocumented as of this encounter Visit Diagnoses Diagnosis Obstructive sleep apnea- Primary Obstructive sleep apnea (adult) (pediatric) Loud snoring Insomnia, unspecified type Atrial flutter, unspecified type (HCC) Frequent nocturnal awakening Other sleep disturbances documented in this encounter Care Teams Meeting Facilitator Relationship Specialty Start Date End Date Avani Palacios DO [address] [place] [address] PCP - General Family Medicine 07/30/22 documented as of this encounter
--- OUTSIDE RECORDS SUMMARY | 2024-05-24 14:56 | External Medical Summary | Summary of Care ---
Author Name Unknown Organization [facility] Address [address] [place] [facility] [place] [address] Phone [phone] Care Team Providers Care Cnc Specialist Name Role Phone Avani Palacios DO Primary Care Provider [phone] Reason for Visit * Reason Comments Outpatient Testing Encounter Details Date Type Department Care Team (Late st Contact Info) Description 01/28/2024 10:00 AM EST Laboratory Laboratory, [facility] [address] [place] [address] [facility] [address] [place] [address] [employer] Other*[id number]; Atrial flutter, unspecified type (HCC); CHB (complete heart block) (HCC); Cardiac pacemaker in situ; HTN, goal below 140/90; Dyslipidemia, goal LDL below 100 Allergies No known active allergiesdocumented as of this encounter (statuses as of 01/28/2024) Medications Medication Sig Dispensed Refills Start Date End Date Status Vitamin D3 865092 UNIT/GM Powder Use as directed. 0 Acti [...] before bedtime. 60 Tablet 11 01/28/2024 Active documented as of this encounter (statuses as of 01/28/2024) Active Problems Problem Noted Date Diagnosed Date [...] as of this encounter (statuses as of 01/28/2024) Resolved Problems Problem Noted Date Diagnosed Date Resolved Date Kidney disease, chronic, sta ge III (GFR 30-59 ml/min) 09/14/2019 10/13/2020 Overview: Per CKD protocol Menopause 05/09/2017 documented as of this encounter (statuses as of 01/28/2024) Immunizations Name Administration Dates Next Due TDAP [...] on file documented as of this encounter Plan of Treatment Upcoming Encounters Date Type Department Care Team (Late st Contact Info) Description 01/30/2024 1:45 PM EST Office Visit Gynecology/Obstetrics [facility] [address] [place] [address] Lesvia Mcbride CRNP [address] [place] [address] 02/06/2024 8:40 AM EST Office Visit Sleep Disorders Ctr [facility] [address] [place] [phone] Ute Delgado DO [address] [place] [address] 03/20/2024 8:30 AM EDT Cardiac Studies Cardiology, [facility] [address] [place] [address] [facility] [address] [place] [address] 03/26/2024 3:00 PM EDT Office Visit Cardiology, [facility] [address] [place] [address] Radha Nieves, [employer]HOUSE P[employer]ER [address] [place] [address] 08/24/2024 10:30 AM EDT Office Visit Care at Home [address], [place] [id number] Farzaneh Cardoso PA-C [address], [place] [phone] Pending Results Name Type Priority Associated Diagnoses Date /Time MYCODE SUBSEQUENT ADULT Lab Routine MyCode [employer] Other*[id number] 01/28/2024 9:58 AM EST LIPID PANEL WITH DIRECT LDL IF TG IS HIGH Lab Routine Atrial flutter, unspecified type (HCC) CHB (complete heart block) (HCC) Cardiac pacemaker in situ HTN, goal below 140/90 Dyslipidemia, goal LDL below 100 01/28/2024 9:58 AM EST CBC WITH WBC DIFFERENTIAL Lab Routine Atrial flutter, unspecified type (HCC) CHB (complete heart block) (HCC) Cardiac pacemaker in situ HTN, goal below 140/90 Dyslipidemia, goal LDL below 100 01/28/2024 9:58 AM EST COMPREHENSIVE METABOLIC PANEL Lab Routine Atrial flutter, unspecified type (HCC) CHB (complete heart block) (HCC) Cardiac pacemaker in situ HTN, goal below 140/90 Dyslipidemia, goal LDL below 100 01/28/2024 9:58 AM EST TSH WITH FREE T4 IF INDICATED Lab Routine Atrial flutter, unspecified type (HCC) CHB (complete heart block) (HCC) Cardiac pacemaker in situ HTN, goal below 140/90 Dyslipidemia, goal LDL below 100 01/28/2024 9:58 AM EST MAGNESIUM Lab Routine Atrial flutter, unspecified type (HCC) CHB (complete heart block) (HCC) Cardiac pacemaker in situ HTN, goal below 140/90 Dyslipidemia, goal LDL below 100 01/28/2024 9:58 AM EST MYCODE SST1 Lab Routine MyCode Research Other*[id number] 01/28/2024 9:58 AM EST MYCODE SST2 Lab Routine MyCode Research Other*[id number] 01/28/2024 9:58 AM EST CBC Lab Routine Atrial flutter, unspecified type (HCC) CHB (complete heart block) (HCC) Cardiac pacemaker in situ HTN, goal below 140/90 Dyslipidemia, goal LDL below 100 01/28/2024 9:58 AM EST DIFFERENTIAL, AUTOMATED Lab Routine Atrial flutter, unspecified type (HCC) CHB (complete heart block) (HCC) Cardiac pacemaker in situ HTN, goal below 140/90 Dyslipidemia, goal LDL below 100 01/28/2024 9:58 AM EST Scheduled Procedures Name Priority Associated Diagnoses Date/Ti me COLONOSCOPY FLEXIBLE PROXIMA L DIAGNOSTIC Recall Encounter for screening colonoscopy Health Maintenance Due Date Last Done Comments Albumin/Creatinine Ratio 1963 Hepatitis C Screening 1963 DXA Scan 1996 Zoster Vaccines (1 of 2) 1996 Pneumococcal Vaccine: 65+ Years (1 of 1 - PCV) 2011 Depression Screening 08/19/2020 08/19/2019 GFR 09/07/2022 03/08/2022, 06/2022, 12/04/2021, Additional history exists CKD HGB USE SMARTSET 50272 12/04/202212/04, 12/04/2021, 11/09/2020, Additional history exists CKD PHOS USE SMARTSET 70326 03/08/202306/2022, 12/08/2021, 12/04/2021 COVID-19 Vaccine ( season) 2023 Influenza Vaccine (FLU shot) (#1) 2023 *BISPHONATE OR OTHER ACCEPTABLE MEDICATION NEEDED FOR OSTEOPOROSIS (REFER TO SMARTSET #1146) 08/28/2023 DTaP,Tdap,and Td Vaccines (2 - Td or Tdap) 07/29/2024 07/29/2014 VITAMIN D LEVEL ONCE IN A LIFETIME-USE SMARTSET# [id number] Completed 12/08/2021, 12/04/2021, 08/19/2019, Additional history exists [...] as of this encounter Visit Diagnoses Diagnosis MyCode Research Other*[id number] Atrial flutter, unspecified type (HCC) CHB (complete heart block) (HCC) Atrioventricular block, complete Cardiac pacemaker in situ HTN, goal below 140/90 Unspecified essential hypertension Dyslipidemia, goal LDL below 100 Other and unspecified hyperlipidemia documented in this encounter Care Teams Cnc Specialist Relationship Specialty Start Date End Date Avani Palacios DO [address] [place] [address] PCP - General Family Medicine 07/30/22 documented as of this encounter
--- OUTSIDE RECORDS SUMMARY | 2024-05-24 14:56 | External Medical Summary | Summary of Care ---
Author Name Unknown Organization [facility] Address [address] [facility] [place] [address] Phone [phone] Care Team Providers Care Transportation Lead Name Role Phone Avani Palacios DO Primary Care Provider [phone] Encounter Details Date Type Department Care Team (Late st Contact Info) Description 01/30/2024 1:45 PM EST Office Visit Gynecology/Obstetric s [facility] [address] [place] [address] Lesvia Mcbride CRNP [address] [place] [address] Pessary maintenance* Allergies No known active allergiesdocumented as of this encounter (statuses as of 01/30/2024) Medications Medication Sig Dispensed Refills Start Date End Date Status Vitamin D3 416679 UNIT/GM Powder Use as directed. 0 Acti [...] as of this encounter (statuses as of 01/30/2024) Active Problems Problem Noted Date Diagnosed Date [...] as of this encounter (statuses as of 01/30/2024) Resolved Problems Problem Noted Date Diagnosed Date Resolved Date Kidney disease, chronic, sta ge III (GFR 30-59 ml/min) 09/14/2019 10/13/2020 Overview: Per CKD protocol Menopause 05/09/2017 documented as of this encounter (statuses as of 01/30/2024) Immunizations Name Administration Dates Next Due TDAP [...] Sign Reading Time Taken Comments Blood Pressure 122/74 01/30/2024 1:44 PM EST Pulse - - Temperature - - Respiratory Rate - - Oxygen Saturation - - Inhaled Oxygen Concentration - - Weight 54.9 kg (121 lb) 01/30/2024 1:44 PM EST Height 157.5 cm (5' 2") 01/30/2024 1:44 PM EST Body Mass Index 22.13 01/30/2024 1:44 PM EST documented in this encounter Progress Notes * Lesvia Mcbride CRNP - 01/30/2024 1:53 PM EST CC: Here for pessary check HPI: The pt is a 78 year old female with prolapse who has been using a ring with support pessary for relief of her symptoms. She has no c/o today. She denies pelvic pressure, vaginal bleeding or soreness. She denies urinary burning, leaking of urine, or urinary retention. PE: pleasant white female in NAD BP 122/74 | Ht 1.575 m (5' 2") | Wt 54.9 kg (121 lb) | BMI 22.13 kg/m | BSA 1.55 m Tariff Expert Documentation Provider requested cryptographic center specialist. Name of cryptographic center specialist: Crystal EXAM: General: alert, healthy, and no distress Head: Normocephalic Neuro Exam: alert & oriented x 3 with fluent speech, no focal motor/sensory deficits, gait normal Pelvic Exam- reveals pessary to be in place. It was gently removed and cleansed. Speculum exam reveals no abrasions or ulcerations. BM exam is negative. The pessary was coated with KY Jelly and replaced. A/P: Pessary maintenance (Primary) Follow Up: Return in about 3 months (around 04/29/2024) for pessary. | For: pessary ALEX Price documented in this encounter Nursing Notes * Crystal Liu LPN - 01/30/2024 1:44 PM EST Pt is here for pessary check documented in this encounter Plan of Treatment Upcoming Encounters Date Type Department Care Team (Late st Contact Info) Description 03/20/2024 8:30 AM EDT Cardiac Studies Cardiology, [facility] [address] [facility] [place] [address] [place] [address] [place] [address] 03/26/2024 3:00 PM EDT Office Visit Cardiology, [facility] [address] [facility] [place] [address] Radha Nieves CRNP [address] [place] [address] 04/29/2024 2:30 PM EDT Office Visit Gynecology/Obstetrics [facility] [address] [place] [address] Lesvia Mcbride CRNP [address] [place] [address] 08/24/2024 10:30 AM EDT [facility] [address] [facility] [address] Farzaneh Cardoso PA-C [address] [place] [address] Scheduled Procedures Name Priority Associated Diagnoses Date/Ti me COLONOSCOPY FLEXIBLE PROXIMA L DIAGNOSTIC Recall Encounter for screening colonoscopy Health Maintenance Due Date Last Done Comments Albumin/Creatinine Ratio 1963 Hepatitis C Screening 1963 DXA Scan 1996 Zoster Vaccines (1 of 2) 1996 Pneumococcal Vaccine: 65+ Years (1 of 1 - PCV) 2011 Depression Screening 08/19/2020 08/19/2019 CKD PHOS USE SMARTSET 33648 03/08/2023 04/0 06/2022, 12/08/2021, 12/04/2021 COVID-19 Vaccine ( - season) 2023 Influenza Vaccine (FLU shot) (#1) 2023 *BISPHONATE OR OTHER ACCEPTABLE MEDICATION NEEDED FOR OSTEOPOROSIS (REFER TO SMARTSET #1146) 08/28/2023 GFR 07/28/2024 01/28/2024, 04/0 06/2022, 12/08/2021, Additional history exists DTaP,Tdap,and Td Vaccines (2 - Td or Tdap) 07/29/2024 07/29/2014 CKD HGB USE SMARTSET 29846 01/28/202501/28, 01/28/2024, 12/04/2021, Additional history exists VITAMIN D LEVEL ONCE IN A LIFETIME-USE SMARTSET# 22627 Completed 12/08/2021, 12/04/2021, 08/19/2019, Additional history exists [...] as of this encounter Visit Diagnoses Diagnosis Pessary maintenance- Primary Fitting and adjustment of other device documented in this encounter Care Teams Transportation Lead Relationship Specialty Start Date End Date Avani Palacios DO [address] [place] [address] PCP - General Family Medicine 07/30/22 documented as of this encounter
--- OUTSIDE RECORDS SUMMARY | 2024-05-24 14:56 | External Medical Summary | Summary of Care ---
Author Name Unknown Organization [facility] Address [address] [facility] [place] [address] Phone [phone] Care Team Providers Care Log Stacker Operator Name Role Phone Avani Palacios DO Primary Care Provider [phone] Reason for Visit * Reason Comments Call Center Operator Return Encounter Details Date Type Department Care Team (Late st Contact Info) Description 04/29/2024 2:30 PM EDT Office Visit Gynecology/Obstetric s [facility] [address] [place] [address] Lesvia Mcbride CRNP [address] [place] [address] Pessary maintenance* Allergies No known active allergiesdocumented as of this encounter (statuses as of 04/29/2024) Medications Medication Sig Dispensed Refills Start Date End Date Status Vitamin D3 679183 UNIT/GM Powder Use as directed. Acti ve amLODIPine Besylate 10 MG Oral Tablet (Norvasc)Indications: [...] the morning. 200 Tablet 3 01/28/2024 Active Rosuvastatin Calcium 5 MG Oral Tablet (Crestor) Take 1 Tablet by mouth in the morning. 90 Tablet 3 01/29/2024 Active D-1000 Extra Strength 25 MCG (1000 UT) Oral Tablet (Cholecalciferol)Deysi cations:Vitamin D deficiency TAKE 1 TABLET BY MOUTH EVERY DAY IN THE MORNING 90 Tablet 3 03/25/2024 Active Apixaban 5 MG Oral Tablet (Eliquis)Indications: Atrial flutter, unspecified type (HCC),CHB (complete heart block) (HCC),Cardiac pacemaker in situ,HTN, goal below 140/90,Dyslipidemia, goal LDL below 100 Take 1 Tablet by mouth in the morning and 1 Tablet before bedtime. 180 Tablet 3 03/26/2024 Active documented as of this encounter (statuses as of 04/29/2024) Active Problems Problem Noted Date Diagnosed Date [...] as of this encounter (statuses as of 04/29/2024) Resolved Problems Problem Noted Date Diagnosed Date Resolved Date Kidney disease, chronic, sta ge III (GFR 30-59 ml/min) 09/14/2019 10/13/2020 Overview: Per CKD protocol Menopause 05/09/2017 documented as of this encounter (statuses as of 04/29/2024) Immunizations Name Administration Dates Next Due TDAP [...] Sign Reading Time Taken Comments Blood Pressure 108/62 04/29/2024 2:38 PM EDT Pulse - - Temperature - - Respiratory Rate - - Oxygen Saturation - - Inhaled Oxygen Concentration - - Weight 56.7 kg (125 lb) 04/29/2024 2:38 PM EDT Height 160 cm (5' 3") 04/29/2024 2:38 PM EDT Body Mass Index 22.14 04/29/2024 2:38 PM EDT documented in this encounter Progress Notes * Lesvia Mcbride CRNP - 04/29/2024 2:49 PM EDT CC: Here for pessary check HPI: The pt is a 78 year old female with prolapse who has been using a ring with support pessary for relief of her symptoms. She has no c/o today. She denies pelvic pressure, vaginal bleeding or soreness. She denies urinary burning, leaking of urine, or urinary retention. PE: pleasant white female in NAD BP 108/62 | Ht 1.6 m (5' 3") | Wt 56.7 kg (125 lb) | BMI 22.14 kg/m | BSA 1.59 m In Service Education Teacher Documentation Provider requested master control supervisor. Name of master control supervisor: Crystal General: alert, healthy, and no distress Head: [...] Up: Return in about 3 months (around 07/30/2024) for pessary. | For: pessary ALEX Price documented in this encounter Nursing Notes * Crystal Liu LPN - 04/29/2024 2:39 PM EDT Pt is here for pessary check documented in this encounter Plan of Treatment Upcoming Encounters Date Type Department Care Team (Late st Contact Info) Description 06/24/2024 7:00 AM EDT Office Visit Sleep Disorders Ctr [facility] [address] [facility] [place] [address] Brooklynn Cobb CRNP [address] [facility] [address] 08/12/2024 2:30 PM EDT Office Visit Gynecology/Obstetrics [facility] [address] [facility] [place] [address] Les[facility] Mcbride CRNP [address] [facility] [place] [address] 08/24/2024 10:30 AM EDT Office Visit Care at Home [address] [place], [place] [phone] Farzaneh Cardoso PA-C [address] [place], [place] [phone] 09/25/2024 9:30 AM EDT Office Visit Cardiology, [facility] [address] [facility] [place] [address] Radha Nieves CRNP [address] [place] [address] Scheduled Procedures Name Priority Associated Diagnoses Date/Ti me COLONOSCOPY FLEXIBLE PROXIMA L DIAGNOSTIC Recall Encounter for screening colonoscopy Health Maintenance Due Date Last Done Comments Albumin/Creatinine Ratio 1963 Hepatitis C Screening 1963 DXA Scan 1996 Zoster Vaccines (1 of 2) 1996 Pneumococcal Vaccine: 65+ Years (1 of 1 - PCV) 2011 Depression Screening 08/19/2020 08/19/2019 CKD PHOS USE SMARTSET 22979 03/08/20230 06/2022, 12/08/2021, 12/04/2021 COVID-19 Vaccine ( - season) 2023 *BISPHONATE OR OTHER ACCEPTABLE MEDICATION NEEDED FOR OSTEOPOROSIS (REFER TO SMARTSET #1146) 08/28/2023 GFR 07/28/2024 01/28/2024, 0 06/2022, 12/08/2021, Additional history exists DTaP,Tdap,and Td Vaccines (2 - Td or Tdap) 07/29/2024 07/29/2014 Influenza Vaccine (FLU shot) (Season Ended) 2024 CKD HGB USE SMARTSET 34993 01/28/202501/28, 01/28/2024, 12/04/2021, Additional history exists VITAMIN D LEVEL ONCE IN A LIFETIME-USE SMARTSET# 79522 Completed 12/08/2021, 12/04/2021, 08/19/2019, Additional history exists [...] device documented in this encounter Care Teams Log Stacker Operator Relationship Specialty Start Date End Date Avani Palacios DO [address] [place] [address] PCP - General Family Medicine 07/30/22 documented as of this encounter
--- OUTSIDE RECORDS SUMMARY | 2024-05-24 14:56 | External Medical Summary | Summary of Care ---
Author Name Unknown Organization [facility] Address [address] [facility] [place] [address] Phone [phone] Care Team Providers Care Car Dropper Name Role Phone Avani Palacios DO Primary Care Provider [phone] Reason for Visit * Reason Comments Follow Up Encounter Details Date Type Department Care Team (Late st Contact Info) Description 03/26/2024 3:00 PM EDT Office Visit Cardiology, [facility] [address] [facility] [place] [address] Radha Nieves CRNP [address] [facility] [place] [address] PAF (paroxysmal atrial fibrillation) (HCC)*; Atrial flutter, unspecified type (HCC); CHB (complete heart block) (HCC); Cardiac pacemaker in situ; HTN, goal below 140/90; Dyslipidemia, goal LDL below 100 Allergies No known active allergiesdocumented as of this encounter (statuses as of 03/26/2024) Medications Medication Sig Dispensed Refills Start Date End Date Status Vitamin D3 829928 UNIT/GM Powder Use as directed. 0 Active amLODIPine Besylate 10 MG Oral Tablet (Norvasc)Indicatio ns:CHB (complete heart block) (HCC),HTN, goal below 140/90 TAKE 1 TABLET BY MOUTH EVERY DAY 90 Tablet 3 11/04/2023 Active Metoprolol Succinate ER 25 MG Oral Tablet Extended Release 24 Hour (toPROL XL)Indications:Atr ial flutter, unspecified type (HCC),CHB (complete heart block) (HCC),Cardiac pacemaker in situ,HTN, goal below 140/90,Dyslipidemi a, goal LDL below 100 Take 1.5 Tablets by mouth in the morning. 200 Tablet 3 01/28/2024 Active Rosuvastatin Calcium 5 MG Oral Tablet (Crestor) Take 1 Tablet by mouth in the morning. 90 Tablet 3 01/29/2024 Active D-1000 Extra Strength 25 MCG (1000 UT) Oral Tablet (Cholecalciferol)I ndications:Vitamin D deficiency TAKE 1 TABLET BY MOUTH EVERY DAY IN THE MORNING 90 Tablet 3 03/25/2024 Active Apixaban 5 MG Oral Tablet (Eliquis)Indicatio ns:Atrial flutter, unspecified type (HCC),CHB (complete heart block) (HCC),Cardiac pacemaker in situ,HTN, goal below 140/90,Dyslipidemi a, goal LDL below 100 Take 1 Tablet by mouth in the morning and 1 Tablet before bedtime. 180 Tablet 3 03/26/2024 Active Apixaban 5 MG Oral Tablet (Eliquis)Indicatio ns:Atrial flutter, unspecified type (HCC),CHB (complete heart block) (HCC),Cardiac pacemaker in situ,HTN, goal below 140/90,Dyslipidemi a, goal LDL below 100 Take 1 Tablet by mouth in the morning and 1 Tablet before bedtime. 60 Tablet 11 01/28/2024 03/26/2024 Discontinued (Refill) documented as of this encounter (statuses as of 03/26/2024) Active Problems Problem Noted Date Diagnosed Date [...] as of this encounter (statuses as of 03/26/2024) Resolved Problems Problem Noted Date Diagnosed Date Resolved Date Kidney disease, chronic, sta ge III (GFR 30-59 ml/min) 09/14/2019 10/13/2020 Overview: Per CKD protocol Menopause 05/09/2017 documented as of this encounter (statuses as of 03/26/2024) Immunizations Name Administration Dates Next Due TDAP (age 10 and older)(Boostrix) 07/29/2014 documented as of this encounter Social History Tobacco Use Types Packs/Day Years Used Date Smoking Tobacco: Never Smokeless Tobacco: Never Tobacco Cessation:Counseling Given: Not Answered Alcohol Use Standard Drinks/Week Comments No 0 [...] Sign Reading Time Taken Comments Blood Pressure 110/82 03/26/2024 3:04 PM EDT Pulse 82 03/26/2024 3:04 PM EDT Temperature - - Respiratory Rate - - Oxygen Saturation 97% 03/26/2024 3:04 PM EDT Inhaled Oxygen Concentration - - Weight 55.8 kg (123 lb) 03/26/2024 3:04 PM EDT Height - - Body Mass Index 21.79 02/12/2024 7:51 AM EDT documented in this encounter Progress Notes * Radha Nieves CRNP - 03/26/2024 3:00 PM EDT Cardiology Outpatient Visit 03/26/2024 Primary Hotel Maid: Dr. 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 Last evaluated by the undersigned approximately 2 months ago. On 01/20/2024 patient presented for a device check, she had an episode appearing to be a flutter on11/02/2023 at 5:33 a.m. lasting approximately 31 seconds with controlled ventricular response. Eliquis was started. Metoprolol tartrate dc'd in favor of succinate. An echocardiogram was performed 01/27/2024 showing a preserved LV systolic function 65-69% with moderate concentric LVH. Moderate MR and mild TR noted. Left and right atrium were normal in size. Repeat device interrogation dated 03/20/2024 showed no return of atrial fibrillation/flutter. Today the patient presents feeling well and offers no acute concerns. Continues to work at the [employer]. She is active. Denies any exertional chest pain or unusual shortness of breath. No palpitations lightheadedness or dizziness. No orthopnea or PND. No lower extremity edema. No fever, chills,cough, hematochezia, melena, or hemoptysis. She states she is compliant with all medications, and offers no side effects. Current Outpatient Medications Medication Sig Dispense Refill Vitamin D3 196244 UNIT/GM Powder Use as directed. amLODIPine Besylate 10 MG Oral Tablet (Norvasc) TAKE 1 TABLET BY MOUTH EVERY DAY 90 Tablet 3 Metoprolol Succinate ER 25 MG Oral Tablet Extended Release 24 Hour (toPROL XL) Take 1.5 Tablets by mouth in the morning. 200 Tablet 3 Rosuvastatin Calcium 5 MG Oral Tablet (Crestor) Take 1 Tablet by mouth in the morning. 90 Tablet 3 D-1000 Extra Strength 25 MCG (1000 UT) Oral Tablet (Cholecalciferol) TAKE 1 TABLET BY MOUTH EVERY DAY IN THE MORNING 90 Tablet 3 Apixaban 5 MG Oral Tablet (Eliquis) Take 1 Tablet by mouth in the morning and 1 Tablet before bedtime. 180 Tablet 3 No current facility-administered medications for this visit. Past Medical History: Diagnosis Date Cardiac pacemaker in situ 01/09/2016 CHB (complete heart block) (HCC) 01/09/2016 Old retinal detachment, partial 02/24/2015 Vitamin D deficiency 03/15/2017 Past Surgical History: Procedure Laterality Date COLONOSCOPY, DIAGNOSTIC (RECTUM) 06/11/2016 diverticulosis, repeat 10 yrs/COLONOSCOPY FLEXIBLE PROXIMAL DIAGNOSTIC performed by Johny William MD at [facility] COLONOSCOPY, DIAGNOSTIC (RECTUM) 12/29/2015 COLONOSCOPY FLEXIBLE PROXIMAL DIAGNOSTIC performed by Roby Zayas MD at [facility] EGD, FLEXIBLE, DIAGNOSTIC 12/10/2016 normal /[facility] INSERT HEART ELECTRODE, DUAL CHAMBR 12/30/2015 LASER TRABECULOPLASTY Left 03/09/2015 Laser procedure of the LEFT eye; Dr. Alonso RECONSTRUCT SHOULDER JOINT, IMPLANT Left 02/06/2021 REMOVAL OF APPENDIX Social History Tobacco Use Smoking status: Never Smokeless tobacco: Never Vaping Use Vaping Use: Never used Substance Use Topics Alcohol use: No Drug use: No Review of patient's allergies indicates: No Known Allergies Review of Systems: See HPI for pertinent positives. All others negative, other than those noted in HPI. Physical Exam BP 110/82 | Pulse 82 | Wt 55.8 kg (123 lb) | SpO2 97% | BMI 21.79 kg/m | BSA 1.57 m General: No acute distress. A+Ox3. HEENT: Normocephalic. Atraumatic. Conjunctiva and sclera clear. NECK: No carotid bruits. No JVD. Carotid upstrokes are brisk. Heart: RRR. S1 and S2 noted.+1/6 systolic murmur Lungs: Clear to auscultation. No wheezes, rhonchi, rales. Extremities: No edema. No clubbing or cyanosis. Pulses: radial=2/4, posterior tibial=2/4, dorsalis pedis = 2/4. NEURO: No focal deficits. PSYCH: Normal. Lab data/imaging study review: Echo 01/27/2024 The examination is adequate to evaluate the referral indication. The qualitative LV ejection fraction is 65-69% (normal). The left ventricular cavity size is normal. The basal septum is thickened and angulated consistent with sigmoid septum. The LV wall thickness is moderately increased (concentric). There is a pacemaker wire in the right ventricle. The left atrium is normal sized (< 35 ml/m^2). Mild aortic valve sclerosis is present. Aortic stenosis is absent. Mild aortic valve regurgitation is present. Moderate mitral regurgitation is present. Mild tricuspid regurgitation is present. Impression/Plan: This is a 78 year old female who is being evaluated in the cardiology office for ongoing care/risk management for Aflutter, CHB s/p ppm and HTN. 1. Atrial fibrillation/flutter -Atrial fibrillation/flutter, initially seen on device check 11/02/2023, No further atrial fibrillation seen on device check 03/2024. -[id number] score of 5 (age 3, female, HTN, PAD) 1. Continue metoprolol succinate 37.5 mg twice daily. 2. Continue Eliquis 5 mg BID for stroke prevention. 2. CHB (complete heart block) (HCC) 3. Cardiac pacemaker in situ -Sinus atrial node disease with complete heart block, status post dual chamber Medtronic permanent pacemaker implantation 12/30/2015. 1. Continue to follow with device Clinic as scheduled. 4. HTN, goal below 140/90 -Well controlled. No medication changes at this time. 1. Continue Norvasc 10 mg daily 5. Dyslipidemia, goal LDL below 100 LDL 133. 1. Crestor started 01/2024-- repeat fasting lipid panel with next blood work. There are no Patient Instructions on file for this visit. The patient agrees to the above plan and will call with additional questions or concerns. ER with all emergencies advised. Follow Up: Return in about 6 months (around 09/25/2024). I spent a total of 30 minutes on the date of service in preparation, delivery, and documentation ofthe care provided to Deidre Dewey excluding any time spent in the performance of separately billedservices. ALEX Lord, Department of Cardiology This chart was completed in part utilizing [employer] Speech Voice Recognition Software. Grammatical errors, random word insertions, prounoun errors, and incomplete sentences are an occasional consequence of this system due to software limitations, ambient noise, and hardware issues. Any formal questions or concerns about the content, text, or information contained within the body of this dictation should be directly addressed to the provider for clarification. documented in this encounter Nursing Notes * Jolie Calvillo CMA - 03/26/2024 3:03 PM EDT Examination Room: 7 Name: Deidre Dewey Date of : (1945) Reason for Visit: 2m Interim Hospitalization(s): none Problems/Concerns: denied Chest Pain/SOB: denied My [facility] is a way you can talk to your provider online through e-mail. Would you like to sign up? I can activate it for you? ALREADY ACTIVE Patient was instructed to not get up on the exam table until directed and assisted by their provider; patient is to remain seated in the chair/ wheelchair/ exam table for fall prevention and safety reasons. Patient is aware to have assistance to step down off exam table with personnel. Patient voiced full comprehension of instructions. documented in this encounter Plan of Treatment Upcoming Encounters Date Type Department Care Team (Late st Contact Info) Description 04/29/2024 2:30 PM EDT Office Visit Gynecology/Obstetrics [facility] [address] [place] [address] Lesvia Mcbride CRNP [address] [place] [address] 06/24/2024 7:00 AM EDT [facility] [address] [place] [id number] Brooklynn Cobb CRNP [address] [place] [address] 08/24/2024 10:30 AM EDT Office Visit Care at Home [address] [place] [address] Farzaneh Cardoso PA-C [address] [place] [address] 09/25/2024 9:30 AM EDT Office Visit Cardiology, [facility] [address] [place] [address] Radha Nieves CRNP [address] [place] [address] Scheduled Orders Name Type Priority Associated Diagnoses Orde r Schedule LIPID PANEL WITH DIRECT LDL IF TG IS HIGH Lab Routine Atrial flutter, unspecified type (HCC) CHB (complete heart block) (HCC) Cardiac pacemaker in situ HTN, goal below 140/90 Dyslipidemia, goal LDL below 100 Expected: 03/26/2024, Expires: 03/26/2025 HEPATIC FUNCTION PANEL Lab Routine PAF (paroxysmal atrial fibrillation) (HCC) Atrial flutter, unspecified type (HCC) CHB (complete heart block) (HCC) Cardiac pacemaker in situ HTN, goal below 140/90 Dyslipidemia, goal LDL below 100 Expected: 03/26/2024, Expires: 03/26/2025 Scheduled Procedures Name Priority Associated Diagnoses Date/Ti me COLONOSCOPY FLEXIBLE PROXIMA L DIAGNOSTIC Recall Encounter for screening colonoscopy Health Maintenance Due Date Last Done Comments Albumin/Creatinine Ratio 1963 Hepatitis C Screening 1963 DXA Scan 1996 Zoster Vaccines (1 of 2) 1996 Pneumococcal Vaccine: 65+ Years (1 of 1 - PCV) 2011 Depression Screening 08/19/2020 08/19/2019 CKD PHOS USE SMARTSET 61172 03/08/20230 06/2022, 12/08/2021, 12/04/2021 COVID-19 Vaccine ( - season) 2023 *BISPHONATE OR OTHER ACCEPTABLE MEDICATION NEEDED FOR OSTEOPOROSIS (REFER TO SMARTSET #1146) 08/28/2023 GFR 07/28/2024 01/28/2024, 0 06/2022, 12/08/2021, Additional history exists DTaP,Tdap,and Td Vaccines (2 - Td or Tdap) 07/29/2024 07/29/2014 Influenza Vaccine (FLU shot) (Season Ended) 2024 CKD HGB USE SMARTSET 26320 01/28/202501/28, 01/28/2024, 12/04/2021, Additional history exists VITAMIN D LEVEL ONCE IN A LIFETIME-USE SMARTSET# 54076 Completed 12/08/2021, 12/04/2021, 08/19/2019, Additional history exists [...] as of this encounter Visit Diagnoses Diagnosis PAF (paroxysmal atrial fibrillation) (HCC)- Primary Atrial fibrillation Atrial flutter, unspecified type (HCC) CHB (complete heart block) (HCC) Atrioventricular block, complete Cardiac pacemaker in situ HTN, goal below 140/90 Unspecified essential hypertension Dyslipidemia, goal LDL below 100 Other and unspecified hyperlipidemia documented in this encounter Care Teams Car Dropper Relationship Specialty Start Date End Date Avani Palacios DO [address] [place] [place] [address] PCP - General Family Medicine 07/30/22 documented as of this encounter"
--- OUTSIDE RECORDS SUMMARY | 2024-05-24 14:56 | External Medical Summary ---
Author Name Unknown Address Unknown Organization K01:[facility] [place] [address] [place] [address] Laboratory Report Ordering Provider Test Date Status SUKHI ZHU 01/28/2024 09:58:38 Final Observation Date Value Abnormality Reference (Units ) Status TSH 01/28/2024 09:58:38 2.02 0.27-4.20 (uIU/mL) Final Performing Location [facility] [place] [address] [place] [address]
--- OUTSIDE RECORDS SUMMARY | 2024-05-24 14:56 | External Medical Summary | Summary of Care ---
Author Name Unknown Organization [facility] Address [address] [facility] [address] Phone [phone] Care Team Providers Care Studio Receptionist Name Role Phone Avani Palacios DO Primary Care Provider [phone] Encounter Details Date Type Department Care Team (Late st Contact Info) Description 03/24/2024 Result Scan Unspecified Department Ajay Acosta MD [address] [place] [address] <No scans attached> Allergies No known active allergiesdocumented as of this encounter (statuses as of 03/24/2024) Medications Medication Sig Dispensed Refills Start Date End Date Status Vitamin D3 126169 UNIT/GM Powder Use as directed. 0 Acti [...] as of this encounter (statuses as of 03/24/2024) Active Problems Problem Noted Date Diagnosed Date [...] as of this encounter (statuses as of 03/24/2024) Resolved Problems Problem Noted Date Diagnosed Date Resolved Date Kidney disease, chronic, sta ge III (GFR 30-59 ml/min) 09/14/2019 10/13/2020 Overview: Per CKD protocol Menopause 05/09/2017 documented as of this encounter (statuses as of 03/24/2024) Immunizations Name Administration Dates Next Due TDAP [...] 03/26/2024 3:00 PM EDT Office Visit Cardiology, [facility] [address] [place] [address] Radha Nieves CRNP [address] [place] [address] 04/29/2024 2:30 PM EDT Office Visit Gynecology/Obstetrics [facility] [address] [place] [address] Lesvia Mcbride CRNP [address] [place] [address] 06/24/2024 7:00 AM EDT [facility] [place] [phone] Brooklynn Cobb CRNP [address] [place] [address] 08/24/2024 10:30 AM EDT Office Visit Care at Home [address] [facility] [place] [address] Farzaneh Cardoso PA-C [address] [facility] [place] [address] Scheduled Procedures Name Priority Associated Diagnoses Date/Ti me COLONOSCOPY FLEXIBLE PROXIMA L DIAGNOSTIC Recall Encounter for screening colonoscopy Health Maintenance Due Date Last Done Comments Albumin/Creatinine Ratio 1963 Hepatitis C Screening 1963 DXA Scan 1996 Zoster Vaccines (1 of 2) 1996 Pneumococcal Vaccine: 65+ Years (1 of 1 - PCV) 2011 Depression Screening 08/19/2020 08/19/2019 CKD PHOS USE SMARTSET 43447 03/08/2023 04/0 06/2022, 12/08/2021, 12/04/2021 COVID-19 Vaccine (1 - season) 2023 *BISPHONATE OR OTHER ACCEPTABLE MEDICATION NEEDED FOR OSTEOPOROSIS (REFER TO SMARTSET #1146) 08/28/2023 GFR 07/28/2024 01/28/2024, 0 06/2022, 12/08/2021, Additional history exists DTaP,Tdap,and Td Vaccines (2 - Td or Tdap) 07/29/2024 07/29/2014 Influenza Vaccine (FLU shot) (Season Ended) 2024 CKD HGB USE SMARTSET 84170 01/28/202501/28, 01/28/2024, 12/04/2021, Additional history exists VITAMIN D LEVEL ONCE IN A LIFETIME-USE SMARTSET# [id number] Completed 12/08/2021, 12/04/2021, 08/19/2019, Additional history exists [...] Not on filedocumented as of this encounter Procedures Procedure Name Priority Date/Time Associated Diagnosis Comments CARDIOLOGY SCANNED RESULT 03/24/2024 documented in this encounter Results * CARDIOLOGY SCANNED RESULT (03/24/2024) 03/24/2024 Ajay Acosta MD OTHER documented in this encounter Care Teams Studio Receptionist Relationship Specialty Start Date End Date Avani Palacios DO [address] [place] [address] PCP - General Family Medicine 07/30/22 documented as of this encounter
--- OUTSIDE RECORDS SUMMARY | 2024-05-24 14:56 | External Medical Summary | Summary of Care ---
Author Name Unknown Organization [facility] Address [address] [facility] [place] [address] Phone [phone] Care Team Providers Care Air And Water Tester Name Role Phone Shauna Monaco DO Primary Care Provider [phone] Reason for Visit * Reason Comments eRx-Medication Refill Encounter Details Date Type Department Care Team (Late st Contact Info) Description 03/24/2024 Refill Family Practice [facility] [address] [place] [address] Shauna Monaco DO [address] [place] [address] Vitamin D deficiency Allergies No known active allergiesdocumented as of this encounter (statuses as of 03/25/2024) Medications Medication Sig Dispensed Refills Start Date End Date Status Vitamin D3 047134 UNIT/GM Powder Use as directed. 0 Active amLODIPine Besylate 10 MG Oral Tablet (Norvasc)Indicati ons:CHB (complete heart block) (HCC),HTN, goal below 140/90 TAKE 1 TABLET BY MOUTH EVERY DAY 90 Tablet 3 11/04/2023 Active Metoprolol Succinate ER 25 MG Oral Tablet Extended Release 24 Hour (toPROL XL)Indications:At rial flutter, unspecified type (HCC),CHB (complete heart block) (HCC),Cardiac pacemaker in situ,HTN, goal below 140/90,Dyslipidem ia, goal LDL below 100 Take 1.5 Tablets by mouth in the morning. 200 Tablet 3 01/28/2024 Active Apixaban 5 MG Oral Tablet (Eliquis)Indicati ons:Atrial flutter, unspecified type (HCC),CHB (complete heart block) (HCC),Cardiac pacemaker in situ,HTN, goal below 140/90,Dyslipidem ia, goal LDL below 100 Take 1 Tablet by mouth in the morning and 1 Tablet before bedtime. 60 Tablet 11 01/28/2024 Active Rosuvastatin Calcium 5 MG Oral Tablet (Crestor) Take 1 Tablet by mouth in the morning. 90 Tablet 3 01/29/2024 Active D-1000 Extra Strength 25 MCG (1000 UT) Oral Tablet (Cholecalciferol) Indications:Vitam in D deficiency TAKE 1 TABLET BY MOUTH EVERY DAY IN THE MORNING 90 Tablet 3 03/25/2024 Active D-1000 Extra Strength 25 MCG (1000 UT) Oral Tablet (Cholecalciferol) Indications:Vitam in D deficiency TAKE BY MOUTH 1 TABLET IN THE MORNING. 90 Tablet 3 03/18/2023 03/25/2024 Discontinued documented as of this encounter (statuses as of 03/25/2024) Active Problems Problem Noted Date Diagnosed Date [...] as of this encounter (statuses as of 03/25/2024) Resolved Problems Problem Noted Date Diagnosed Date Resolved Date Kidney disease, chronic, sta ge III (GFR 30-59 ml/min) 09/14/2019 10/13/2020 Overview: Per CKD protocol Menopause 05/09/2017 documented as of this encounter (statuses as of 03/25/2024) Immunizations Name Administration Dates Next Due TDAP [...] on file documented as of this encounter Miscellaneous Notes * Telephone Encounter - Shauna Monaco DO - 03/25/2024 9:10 AM EDTSigned Prescriptions: Disp Refills D-1000 Extra Strength 25 MCG (1000 UT) Ora*90 Tab*3 Sig: TAKE 1 TABLET BY MOUTH EVERY DAY IN THE MORNING Authorizing Provider: SHAUNA MONACO * Telephone Encounter - Sarah Espino LPN - 03/25/2024 8:02 AM EDTPending Prescriptions: Disp Refills D-1000 Extra Strength 25 MCG (1000 UT) Ora*90 Tab*3 Sig: TAKE 1 TABLET BY MOUTH EVERY DAY IN THE MORNING * Telephone Encounter - Sarah Espino LPN - 03/25/2024 8:01 AM EDT Did you pend patient's preferred pharmacy and medication before forwarding?yes Pharmacy: [id number] [address] [place] [address] Pending Prescriptions: Disp Refills D-1000 Extra Strength 25 MCG (1000 UT) Or*90 Tab*3 Sig: TAKE 1 TABLET BY MOUTH EVERY DAY IN THE MORNING Last Visit: 12/11/2021 (in office), Visit date not found (telemedicine) Next Visit: Visit date not found If no future appointments scheduled, and last appointment is greater than a year ago, please schedule patient for a follow-up appointment Last date the medication was ordered: 03/18/2023 Is this request for a controlled substance?No Urine Drug Screen:No results found for this or any previous visit. Patient Phone Numbers Labs: Lab Results Component Value Date/Time CREAT 1.0 01/28/2024 09:58 AM CREAT 1.0 11/09/2020 08:24 AM POTASSIUM 4.8 01/28/2024 09:58 AM POTASSIUM 5.0 11/09/2020 08:24 AM TSH 2.02 01/28/2024 09:58 AM TSH 2.70 11/09/2020 08:24 AM LDLCALC 133 (H) 01/28/2024 09:58 AM LDLCALC 136 (H) 11/09/2020 08:24 AM LDLDIRECT NOT APPLICABLE 11/09/2020 08:24 AM ALT 11 01/28/2024 09:58 AM ALT 11 11/09/2020 08:24 AM * Telephone Encounter - Ladarius Maldonado - 03/25/2024 5:06 AM EDTPending Prescriptions: Disp Refills D-1000 Extra Strength 25 MCG (1000 UT) Ora*90 Tab*3 Sig: TAKE 1TABLET BY MOUTH EVERY DAY IN THE MORNING documented in this encounter Plan of Treatment Upcoming Encounters Date Type Department Care Team (Late st Contact Info) Description 03/26/2024 3:00 PM EDT Office Visit Cardiology, [facility] [address] [place] [address] Radha Nieves CRNP [address] [place] [address] 04/29/2024 2:30 PM EDT Office Visit Gynecology/Obstetrics [facility] [address] [place] [address] Lesvia Mcbride CRNP [address] [place] [address] 06/24/2024 7:00 AM EDT Office Visit Sleep Disorders Ctr [facility] [address] [facility] [place] [phone] Brooklynn Cobb CRNP [address] [place] [address] 08/24/2024 10:30 AM EDT [facility] [address] [facility] [address] Farzaneh Cardoso PA-C [address] [place] [address] Scheduled Procedures Name Priority Associated Diagnoses Date/Ti me COLONOSCOPY FLEXIBLE PROXIMA L DIAGNOSTIC Recall Encounter for screening colonoscopy Health Maintenance Due Date Last Done Comments Albumin/Creatinine Ratio 1963 Hepatitis C Screening 1963 DXA Scan 1996 Zoster Vaccines (1 of 2) 1996 Pneumococcal Vaccine: 65+ Years (1 of 1 - PCV) 2011 Depression Screening 08/19/2020 08/19/2019 CKD PHOS USE SMARTSET 35877 03/08/2023 04/0 06/2022, 12/08/2021, 12/04/2021 COVID-19 Vaccine (1 - season) 2023 *BISPHONATE OR OTHER ACCEPTABLE MEDICATION NEEDED FOR OSTEOPOROSIS (REFER TO SMARTSET #1146) 08/28/2023 GFR 07/28/2024 01/28/2024, 0 06/2022, 12/08/2021, Additional history exists DTaP,Tdap,and Td Vaccines (2 - Td or Tdap) 07/29/2024 07/29/2014 Influenza Vaccine (FLU shot) (Season Ended) 2024 CKD HGB USE SMARTSET 47489 01/28/202501/28, 01/28/2024, 12/04/2021, Additional history exists VITAMIN D LEVEL ONCE IN A LIFETIME-USE SMARTSET# [id number] Completed 12/08/2021, 12/04/2021, 08/19/2019, Additional history exists [...] as of this encounter Visit Diagnoses Diagnosis Vitamin D deficiency Unspecified vitamin D deficiency documented in this encounter Care Teams Air And Water Tester Relationship Specialty Start Date End Date Shauna Monaco DO [address] [place] [address] PCP - General Family Medicine 07/30/22 documented as of this encounter
--- OUTSIDE RECORDS SUMMARY | 2024-05-24 14:56 | External Medical Summary | Summary of Care ---
Author Name Unknown Organization [facility] Address [address] [place] [address] Phone [phone] Care Team Providers Care Cardiographer Name Role Phone Avani Palacios DO Primary Care Provider [phone] Reason for Visit * Reason Onset Date Comments Order Request 03/09/2024 Sleep Study orde r sent to [facility] Encounter Details Date Type Department Care Team (Late st Contact Info) Description 03/09/2024 Telephone Access Center, [place] [address] [facility] *DO NOT REMOVE THIS DEPARTMENT* [place] [address] Services, Scheduling [address] [place] [address] Order Request (Sleep Study order sent to [facility]... Allergies No known active allergiesdocumented as of this encounter (statuses as of 03/09/2024) Medications Medication Sig Dispensed Refills Start Date End Date Status Vitamin D3 684844 UNIT/GM Powder Use as directed. 0 Acti [...] as of this encounter (statuses as of 03/09/2024) Active Problems Problem Noted Date Diagnosed Date [...] as of this encounter (statuses as of 03/09/2024) Resolved Problems Problem Noted Date Diagnosed Date Resolved Date Kidney disease, chronic, sta ge III (GFR 30-59 ml/min) 09/14/2019 10/13/2020 Overview: Per CKD protocol Menopause 05/09/2017 documented as of this encounter (statuses as of 03/09/2024) Immunizations Name Administration Dates Next Due TDAP [...] encounter Miscellaneous Notes * Telephone Encounter - Kaylee Maradiaga OSA - 03/09/2024 7:57 AM EDT Pt called in requesting that Sleep Study orders please be sent to [facility] to be completed. Pt is requesting a return call once the orders are sent. Please Advise. Thank you! documented in this encounter Plan of Treatment Upcoming Encounters Date Type Department Care Team (Late st Contact Info) Description 03/20/2024 8:30 AM EDT Cardiac Studies Cardiology, [facility] [address] [facility] [place] [address] [facility] [address] [facility] [place] [address] 03/26/2024 3:00 PM EDT Office Visit Cardiology, [facility] [address] [facility] [place] [address] Radha Nieves CRNP [address] [facility] [place] [address] 04/29/2024 2:30 PM EDT Office Visit Gynecology/Obstetrics [facility] [address] [place] [address] Lesvia Mcbride CRNP [address] [place] [address] 06/24/2024 7:00 AM EDT Office Visit Sleep Disorders Ctr [facility] [address] [place] [phone] Brooklynn Cobb CRNP [address] [place] [address] 08/24/2024 10:30 AM EDT Office Visit Care at Home [address] [place], [place] [id number] Farzaneh Cardoso PA-C [address] [place], [place] [id number] Scheduled Procedures Name Priority Associated Diagnoses Date/Ti me COLONOSCOPY FLEXIBLE PROXIMA L DIAGNOSTIC Recall Encounter for screening colonoscopy Health Maintenance Due Date Last Done Comments Albumin/Creatinine Ratio 1963 Hepatitis C Screening 1963 DXA Scan 1996 Zoster Vaccines (1 of 2) 1996 Pneumococcal Vaccine: 65+ Years (1 of 1 - PCV) 2011 Depression Screening 08/19/2020 08/19/2019 CKD PHOS USE SMARTSET 70379 03/08/20230 06/2022, 12/08/2021, 12/04/2021 COVID-19 Vaccine ( - season) 2023 *BISPHONATE OR OTHER ACCEPTABLE MEDICATION NEEDED FOR OSTEOPOROSIS (REFER TO SMARTSET #1146) 08/28/2023 GFR 07/28/2024 01/28/2024, 06/2022, 12/08/2021, Additional history exists DTaP,Tdap,and Td Vaccines (2 - Td or Tdap) 07/29/2024 07/29/2014 Influenza Vaccine (FLU shot) (Season Ended) 2024 CKD HGB USE SMARTSET 31038 01/28/202501/28, 01/28/2024, 12/04/2021, Additional history exists VITAMIN D LEVEL ONCE IN A LIFETIME-USE SMARTSET# [id number] Completed 12/08/2021, 12/04/2021, 08/19/2019, Additional history exists [...] Not on filedocumented as of this encounter Care Teams Cardiographer Relationship Specialty Start Date End Date Avani Palacios DO [address] [place] [address] PCP - General Family Medicine 07/30/22 documented as of this encounter
--- OUTSIDE RECORDS SUMMARY | 2024-05-24 14:56 | External Medical Summary | Summary of Care ---
Author Name Unknown Organization [facility] Address [address] [facility] [place] [address] Phone [phone] Care Team Providers Care Permastone Applicator Name Role Phone Avani Palacios DO Primary Care Provider [phone] Reason for Referral * Evaluate & Treat - Unlimited Visits (Within 30 days (routine)) - Authorized Specialty Diagnoses / Procedures Referred By Sukhwinder t Referred To Contact Sleep Medicine / Sleep Disorders Diagnoses Atrial flutter, unspecified type (HCC) CHB (complete heart block) (HCC) Cardiac pacemaker in situ HTN, goal below 140/90 Dyslipidemia, goal LDL below 100 Radha Nieves CRNP [address] [place] [address] Referral ID Status Reason Start Date Expiration Date Visits Requested Visits Authorized [id number] Authorized Specialty Services Required 01/28/2024 2 2 Question Answer Referral Priority Within 30 days (routine) [facility] Sleep Apnea Testing and Management Does the patient snore and/or gasp at night or has been told they stop breathing at night? Yes Reason for Visit * Reason Comments Follow Up Encounter Details Date Type Department Care Team (Late st Contact Info) Description 01/28/2024 9:30 AM EST Office Visit Cardiology, [facility] [address] [place] [address] Radha Nieves CRNP [address] [place] [address] Atrial flutter, unspecified type (HCC)*; CHB (complete heart block) (HCC); Cardiac pacemaker in situ; HTN, goal below 140/90; Dyslipidemia, goal LDL below 100 Allergies No known active allergiesdocumented as of this encounter (statuses as of 01/28/2024) Medications Medication Sig Dispensed Refills Start Date End Date Status Vitamin D3 982612 UNIT/GM Powder Use as directed. 0 Active D-1000 Extra Strength 25 MCG (1000 UT) Oral Tablet (Cholecalciferol)I ndications:Vitamin D deficiency TAKE BY MOUTH 1 TABLET [...] 01/28/2024 Active Apixaban 5 MG Oral Tablet (Eliquis)Indicatio ns:Atrial flutter, unspecified type (HCC),CHB (complete heart block) (HCC),Cardiac pacemaker in situ,HTN, goal below 140/90,Dyslipidemi a, goal LDL below 100 Take 1 Tablet by mouth in the morning and 1 Tablet before bedtime. 60 Tablet 11 01/28/2024 Active Metoprolol Tartrate 25 MG Oral Tablet (Lopressor)Indicat ions:CHB (complete heart block) (HCC),HTN, goal below 140/90 TAKE 1 TABLET BY MOUTH TWICE A DAY 180 Tablet 3 11/04/2023 01/28/2024 Discontinued (Medication/ Dose Changed) documented as of this encounter (statuses as [...] Sign Reading Time Taken Comments Blood Pressure 130/84 01/28/2024 9:33 AM EST Pulse 76 01/28/2024 9:33 AM EST Temperature - - Respiratory Rate 14 01/28/2024 9:33 AM EST Oxygen Saturation - - Inhaled Oxygen Concentration - - Weight 54.9 kg (121 lb) 01/28/2024 9:33 AM EST Height - - Body Mass Index 22.13 10/28/2023 9:07 AM EST documented in this encounter Patient Instructions * Patient Instructions* Radha Nieves CRNP - 01/28/2024 9:46 AM EST STOP Metoprolol TARTRATE START Metoprolol succinate 37.5 mg (1.5 tablets) twice per day Start Eliquis 5 mg twice per day -- use coupon card for the first 30 days free and we will work with your insurance to get it for you intermission coordinator. PACE/PACENET Prescription Assistance Program (Program of All-Inclusive Care for the Elderly) [facility] prescription assistance programs for older adults offer low-cost prescription medication to qualified residents, age 65 and older. This is a free program. There is no cost to apply. Call to apply. If you do not qualify, please reach out to our office so we can investigate other options for you. PACE Income Limits: Single: $33,500 : $41,500 documented in this encounter Progress Notes * Radha Nieves CRNP - 01/28/2024 9:30 AM EST Cardiology Outpatient Visit 01/28/2024 Primary Outbound Sales Professional: Dr. 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 On 01/20/2024 patient presented for a device check, she had an episode appearing to be a flutter on11/02/2023 at 5:33 a.m. lasting approximately 31 seconds with controlled ventricular response. An echocardiogram was performed yesterday, 01/27/2024 showing a preserved LV systolic function 65-69% with moderate concentric LVH. Moderate MR and mild TR noted. Left and right atrium were normal insize. Today the patient presents feeling well and offers no acute concerns. She was completely asymptomatic with her episode of atrial flutter. She denies chest pain, shortness of breath or palpitations. No lightheadedness/dizziness, syncope or near syncope. No orthopnea, PND, or increased lower extremity edema. No fever, chills, cough, hematochezia, melena, or hemoptysis. Notes that she sleeps well but per her she does snore. Chart review indicated a history of GI bleed back in 2017 secondary to diverticulitis. No return of bleeding. She continues to work at the [employer] a few times per week doing strenuous activities-- no exertional symptoms. She states she is compliant with all medications, and offers no side effects. Current Outpatient Medications Medication Sig Dispense Refill D-1000 Extra Strength 25 MCG (1000 UT) Oral Tablet (Cholecalciferol) TAKE BY MOUTH 1 TABLET IN THE MORNING. 90 Tablet 3 amLODIPine Besylate 10 MG Oral Tablet (Norvasc) TAKE 1 TABLET BY MOUTH EVERY DAY 90 Tablet 3 Metoprolol Succinate ER 25 MG Oral Tablet Extended Release 24 Hour (toPROL XL) Take 1.5 Tablets by mouth in the morning. 200 Tablet 3 Apixaban 5 MG Oral Tablet (Eliquis) Take 1 Tablet by mouth in the morning and 1 Tablet before bedtime. 60 Tablet 11 Vitamin D3 244960 UNIT/GM Powder Use as directed. (Patient not taking: Reported on 10/01/2022 ) No current facility-administered medications for this visit. Past Medical History: Diagnosis Date Cardiac pacemaker in situ 01/09/2016 CHB (complete heart block) (HCC) 01/09/2016 Old retinal detachment, partial 02/24/2015 Vitamin D deficiency 03/15/2017 Past Surgical History: Procedure Laterality Date COLONOSCOPY, DIAGNOSTIC (RECTUM) 06/11/2016 diverticulosis, repeat 10 yrs/COLONOSCOPY FLEXIBLE PROXIMAL DIAGNOSTIC performed by Johny William MD at [facility] COLONOSCOPY, DIAGNOSTIC (RECTUM) 12/29/2015 COLONOSCOPY FLEXIBLE PROXIMAL DIAGNOSTIC performed by Roby Zayas MD at [facility] EGD, FLEXIBLE, DIAGNOSTIC 12/10/2016 normal /[facility] INSERT HEART ELECTRODE, DUAL CHAMBR 12/30/2015 LASER TRABECULOPLASTY Left 03/09/2015 Laser procedure of the LEFT eye; Dr. Alonso RECONSTRUCT SHOULDER JOINT, IMPLANT Left 02/06/2021 REMOVAL OF APPENDIX Social History Tobacco Use Smoking status: Never Smokeless tobacco: Never Substance Use Topics Alcohol use: No Drug use: No Review of patient's allergies indicates: No Known Allergies Review of Systems: See HPI for pertinent positives. All others negative, other than those noted in HPI. Physical Exam BP 130/84 | Pulse 76 | Resp 14 | Wt 54.9 kg (121 lb) | BMI 22.13 kg/m | BSA 1.55 m General: No acute distress. A+Ox3. HEENT: [...] CHB s/p ppm and HTN. 1. Atrial flutter, unspecified type (HCC) -Atrial flutter, initially seen on device check 11/02/2023 -[id number] score of 5 (age 3, female, HTN, PAD) 1. Discontinue metoprolol tartrate in favor of metoprolol succinate with a slightly higher dose of 37.5 mg twice daily. 2. Start Eliquis 5 mg BID for stroke prevention-- 30 day free trial card given. Will reach out to pharmacy regarding fpc cost. Patient may qualify for PACE 3. Sleep Medicine referral placed, rule out LEXA. 4. Routine blood work ordered. 2. CHB (complete heart block) (HCC) 3. Cardiac pacemaker in situ -Sinus atrial node disease with complete heart block, status post dual chamber Medtronic permanent pacemaker implantation 12/30/2015. 1. Continue to follow with device Clinic as scheduled. 2. Discontinuing metoprolol tartrate in favor of metoprolol succinate as stated above. 4. HTN, goal below 140/90 -Well controlled. No medication changes at this time. 1. Continue Norvasc 10 mg daily 5. Dyslipidemia, goal LDL below 100 LDL 104. 1. Need to consider starting statin therapy. Will discuss at follow-up. Patient Instructions STOP Metoprolol TARTRATE START Metoprolol succinate 37.5 mg (1.5 tablets) twice per day Start Eliquis 5 mg twice per day -- use coupon card for the first 30 days free and we will work with your insurance to get it for you fpc. PACE/PACENET Prescription Assistance Program (Program of All-Inclusive Care for the Elderly) [facility] prescription assistance programs for older adults offer low-cost prescription medication to qualified residents, age 65 and older. This is a free program. There is no cost to apply. Call to apply. If you do not qualify, please reach out to our office so we can investigate other options for you. PACE Income Limits: Single: $33,500 : $41,500 The patient agrees to the above plan and will call with additional questions or concerns. ER with all emergencies advised. Follow-up: Return in about 2 months (around 03/28/2024). | Check-out note: Labs today. Sleep med referral. I spent a total of 40 minutes on the date of service in preparation, delivery, and documentation ofthe care provided to Deidre Dewey excluding any time spent in the performance of separately billedservices. ALEX Lord, Department of Cardiology This chart was completed in part utilizing [employer] Speech Voice Recognition Software. Grammatical errors, random [...] documented in this encounter Nursing Notes * Bowen Abdalla RN - 01/28/2024 9:31 AM EST Examination Room: room 7 Name: Deidre Dewey Date of : (1945). Reason for Visit: for follow up Interim Hospitalization(s): denies Problems/Concerns: denies Chest Pain/SOB: denies [facility] Discussed: Yes [facility] is a way you can talk to your provider online through e-mail. Would you like to sign up? I can activate it for you? NO INTERNET ACCESS Patient was instructed to not get up [...] 01/30/2024 1:45 PM EST Office Visit Gynecology/Obstetrics [facility] [address] [place] [address] Lesvia Mcbride CRNP [address] [place] [address] 02/06/2024 8:40 AM EST [facility] [address] [place] [address] Ute Delgado DO [address] [place] [address] 03/20/2024 8:30 AM EDT Cardiac Studies Cardiology, [facility] [address] [place] [address] [place], [facility] [address] [facility] [place] [address] 03/26/2024 3:00 PM EDT Office Visit Cardiology, [facility] [place] [place] [address] Radha Nieves CRNP [address] [facility] [place] [address] 08/24/2024 10:30 AM EDT Office Visit Care at Home [address], [place] [id number] Farzaneh Cardoso PA-C [address] [place] [address] Pending Results Name Type Priority Associated Diagnoses Date /Time LIPID PANEL WITH DIRECT LDL IF TG [...] below 100 01/28/2024 9:58 AM EST Scheduled Orders Name Type Priority Associated Diagnoses Orde r Schedule LIPID PANEL WITH DIRECT LDL IF TG IS HIGH Lab Routine Atrial flutter, unspecified type (HCC) CHB (complete heart block) (HCC) Cardiac pacemaker in situ HTN, goal below 140/90 Dyslipidemia, goal LDL below 100 Expected: 01/28/2024, Expires: 01/28/2025 CBC WITH WBC DIFFERENTIAL Lab Routine Atrial flutter, unspecified type (HCC) CHB (complete heart block) (HCC) Cardiac pacemaker in situ HTN, goal below 140/90 Dyslipidemia, goal LDL below 100 Expected: 01/28/2024, Expires: 01/28/2025 COMPREHENSIVE METABOLIC PANEL Lab Routine Atrial flutter, unspecified type (HCC) CHB (complete heart block) (HCC) Cardiac pacemaker in situ HTN, goal below 140/90 Dyslipidemia, goal LDL below 100 Expected: 01/28/2024, Expires: 01/28/2025 TSH WITH FREE T4 IF INDICATED Lab Routine Atrial flutter, unspecified type (HCC) CHB (complete heart block) (HCC) Cardiac pacemaker in situ HTN, goal below 140/90 Dyslipidemia, goal LDL below 100 Expected: 01/28/2024, Expires: 01/28/2025 MAGNESIUM Lab Routine Atrial flutter, unspecified type (HCC) CHB (complete heart block) (HCC) Cardiac pacemaker in situ HTN, goal below 140/90 Dyslipidemia, goal LDL below 100 Expected: 01/28/2024, Expires: 01/28/2025 Scheduled Procedures Name Priority Associated Diagnoses Date/Ti me COLONOSCOPY FLEXIBLE PROXIMA L DIAGNOSTIC Recall Encounter for screening colonoscopy Scheduled Referrals Name Type Priority Associated Diagnoses Orde r Schedule SLEEP MEDICINE REFERRAL OP Referral Within 30 days (routine) Atrial flutter, unspecified type (HCC) CHB (complete heart block) (HCC) Cardiac pacemaker in situ HTN, goal below 140/90 Dyslipidemia, goal LDL below 100 Ordered: 01/28/2024 Health Maintenance Due Date Last Done Comments Albumin/Creatinine Ratio 1963 Hepatitis C Screening 1963 DXA Scan 1996 Zoster Vaccines (1 of 2) 1996 Pneumococcal Vaccine: 65+ Years (1 of 1 - PCV) 2011 Depression Screening 08/19/2020 08/19/2019 GFR 09/07/2022 03/08/2022, 06/2022, 12/04/2021, Additional history exists CKD HGB USE SMARTSET 06673 12/04/202212/04, 12/04/2021, 11/09/2020, Additional history exists CKD PHOS USE SMARTSET 87473 03/08/202306/2022, 12/08/2021, 12/04/2021 COVID-19 Vaccine ( - season) 2023 Influenza Vaccine (FLU shot) (#1) 2023 *BISPHONATE OR OTHER ACCEPTABLE MEDICATION NEEDED FOR OSTEOPOROSIS (REFER TO SMARTSET #1146) 08/28/2023 DTaP,Tdap,and Td Vaccines (2 - Td or Tdap) 07/29/2024 07/29/2014 VITAMIN D LEVEL ONCE IN A LIFETIME-USE SMARTSET# [id number] Completed 12/08/2021, 12/04/2021, 08/19/2019, Additional history exists [...] as of this encounter Visit Diagnoses Diagnosis Atrial flutter, unspecified type (HCC)- Primary CHB (complete heart block) (HCC) Atrioventricular block, complete Cardiac pacemaker in situ HTN, goal below 140/90 Unspecified essential hypertension Dyslipidemia, goal LDL below 100 Other and unspecified hyperlipidemia documented in this encounter Care Teams Permastone Applicator Relationship Specialty Start Date End Date Avani Palacios DO [address] [place] [address] PCP - General Family Medicine 07/30/22 documented as of this encounter"
--- OUTSIDE RECORDS SUMMARY | 2024-05-24 14:56 | External Medical Summary ---
Author Name Unknown Address Unknown Organization K01:[facility]ORY [facility] [place], [place] - [address] [place] [address] Laboratory Report Ordering Provider Test Date Status SUKHI ZHU 01/28/2024 09:58:38 Final Observation Date Value Abnormality Reference (Units ) Status Magnesium 01/28/2024 09:58:38 2.2 1.5-2.6 (m g/dL) Final Performing Location LAB[facility]ATORY [facility] - [address] [place] [address]
--- OUTSIDE RECORDS SUMMARY | 2024-05-24 14:56 | External Medical Summary | Summary of Care ---
Author Name Unknown Organization [facility] Address [address] [place] [address] Phone [phone] Care Team Providers Care Commissary Superintendent Name Role Phone Avani Palacios DO Primary Care Provider [phone] Reason for Visit * Reason Onset Date Comments Order Request 03/09/2024 Sleep Study orde r sent to [facility] Encounter Details Date Type Department Care Team (Late st Contact Info) Description 03/09/2024 Telephone Access Center, [place] [address] [facility] *DO NOT REMOVE THIS DEPARTMENT* [place] [address] Services, Scheduling [address] [place] [address] Order Request (Sleep Study order sent to M... Allergies No known active allergiesdocumented as of this encounter (statuses as of 03/09/2024) Medications Medication Sig Dispensed Refills Start Date End Date Status Vitamin D3 354434 UNIT/GM Powder Use as directed. 0 Acti [...] encounter Miscellaneous Notes * Telephone Encounter - Macie Chang OSA - 03/09/2024 10:46 AM EDT Orders sent to [facility] * Telephone Encounter - Kaylee Maradiaga OSA [...] 03/20/2024 8:30 AM EDT Cardiac Studies Cardiology, [facility] [address] [facility] [place] [address] [facility] [address] [place] [address] 03/26/2024 3:00 PM EDT Office Visit Cardiology, [facility] [address] [facility] [place] [address] Radha Nieves CRNP [address] [place] [address] 04/29/2024 2:30 PM EDT Office Visit Gynecology/Obstetrics [facility] [address] [place] [address] Lesvia Mcbride CRNP [address] [place] [address] 06/24/2024 7:00 AM EDT Office Visit Sleep Disorders Ctr [facility] [address] [place] [phone] Brooklynn Cobb CRNP [address] [place] [address] 08/24/2024 10:30 AM EDT Office Visit Care at Home [address] [place] [address] Farzaneh Cardoso PA-C [address] [place] [address] Scheduled Procedures Name Priority Associated Diagnoses Date/Ti me COLONOSCOPY FLEXIBLE PROXIMA L DIAGNOSTIC Recall Encounter for screening colonoscopy Health Maintenance Due Date Last Done Comments Albumin/Creatinine Ratio 1963 Hepatitis C Screening 1963 DXA Scan 1996 Zoster Vaccines (1 of 2) 1996 Pneumococcal Vaccine: 65+ Years (1 of 1 - PCV) 2011 Depression Screening 08/19/2020 08/19/2019 CKD PHOS USE SMARTSET 45475 03/08/202306/2022, 12/08/2021, 12/04/2021 COVID-19 Vaccine ( - 2022- season) 2023 *BISPHONATE OR OTHER ACCEPTABLE MEDICATION NEEDED FOR OSTEOPOROSIS (REFER TO SMARTSET #1146) 08/28/2023 GFR 07/28/2024 01/28/2024, 06/2022, 12/08/2021, Additional history exists DTaP,Tdap,and Td Vaccines (2 - Td or Tdap) 07/29/2024 07/29/2014 Influenza Vaccine (FLU shot) (Season Ended) 2024 CKD HGB USE SMARTSET 53576 01/28/202501/28, 01/28/2024, 12/04/2021, Additional history exists VITAMIN D LEVEL ONCE IN A LIFETIME-USE SMARTSET# 30372 Completed 12/08/2021, 12/04/2021, 08/19/2019, Additional history exists [...] filedocumented as of this encounter Care Teams Commissary Superintendent Relationship Specialty Start Date End Date Avani Palacios DO [address] [place] [address] PCP - General Family Medicine 07/30/22 documented as of this encounter
--- OUTSIDE RECORDS SUMMARY | 2024-05-24 14:56 | External Medical Summary | Summary of Care ---
Author Name Unknown Organization [facility] Address [address] [facility] [place] [address] Phone [phone] Care Team Providers Care Investment Director Name Role Phone Avani Palacios DO Primary Care Provider [phone] Reason for Visit * Reason Comments Pacemaker Clinic Encounter Details Date Type Department Care Team (Latest Contact Info) Description 03/20/2024 8:30 AM EDT Cardiac Studies Cardiology, [facility] [address] [place] [address] [place], [facility] [address] [place] [address] CHB (complete heart block) (HCC)*; Atrial flutter, unspecified type (HCC); Cardiac pacemaker in situ Allergies No known active allergiesdocumented as of this encounter (statuses as of 03/20/2024) Medications Medication Sig Dispensed Refills Start Date End Date Status Vitamin D3 566430 UNIT/GM Powder Use as directed. 0 Acti [...] as of this encounter (statuses as of 03/20/2024) Active Problems Problem Noted Date Diagnosed Date [...] as of this encounter (statuses as of 03/20/2024) Resolved Problems Problem Noted Date Diagnosed Date Resolved Date Kidney disease, chronic, sta ge III (GFR 30-59 ml/min) 09/14/2019 10/13/2020 Overview: Per CKD protocol Menopause 05/09/2017 documented as of this encounter (statuses as of 03/20/2024) Immunizations Name Administration Dates Next Due TDAP [...] on file documented as of this encounter Progress Notes * Rachell Rowe LPN - 03/20/2024 8:44 AM EDT Patient and implanted device were evaluated today in the [facility]. Providers please see scanned report in the Scans tab. Left pectoral device pocket is healthy without erythema, swelling, pain, or drainage. Patient interrogated by [employer]. Home monitor ordered, patient educated on how to send manual transmissions. documented in this encounter Plan of Treatment Upcoming Encounters Date Type Department Care Team (Late st Contact Info) Description 03/26/2024 3:00 PM EDT Office Visit Cardiology, [facility] [address] [place] [address] Radha Nieves CRNP [address] [place] [address] 04/29/2024 2:30 PM EDT Office Visit Gynecology/Obstetrics [facility] [address] [place] [address] Lesvia Mcbride CRNP [address] [place] [address] 06/24/2024 7:00 AM EDT [facility] [address] [place] [phone] Brooklynn Cobb CRNP [address] [place] [address] 08/24/2024 10:30 AM EDT Office Visit Care at Home [address] [place] [address] Farzaneh Cardoso PA-C [address] [place], [place] [phone] Scheduled Orders Name Type Priority Associated Diagnoses Orde r Schedule DUAL-LEAD PACEMAKER + REPROGRAM Procedures Routine CHB (complete heart block) (HCC) Atrial flutter, unspecified type (HCC) Cardiac pacemaker in situ Ordered: 03/20/2024 Scheduled Procedures Name Priority Associated Diagnoses Date/Ti me COLONOSCOPY FLEXIBLE PROXIMA L DIAGNOSTIC Recall Encounter for screening colonoscopy Health Maintenance Due Date Last Done Comments Albumin/Creatinine Ratio 1963 Hepatitis C Screening 1963 DXA Scan 1996 Zoster Vaccines (1 of 2) 1996 Pneumococcal Vaccine: 65+ Years (1 of 1 - PCV) 2011 Depression Screening 08/19/2020 08/19/2019 CKD PHOS USE SMARTSET 65418 03/08/20230 06/2022, 12/08/2021, 12/04/2021 COVID-19 Vaccine ( - season) 2023 *BISPHONATE OR OTHER ACCEPTABLE MEDICATION NEEDED FOR OSTEOPOROSIS (REFER TO SMARTSET #1146) 08/28/2023 GFR 07/28/2024 01/28/2024, 06/2022, 12/08/2021, Additional history exists DTaP,Tdap,and Td Vaccines (2 - Td or Tdap) 07/29/2024 07/29/2014 Influenza Vaccine (FLU shot) (Season Ended) 2024 CKD HGB USE SMARTSET 35218 01/28/202501/28, 01/28/2024, 12/04/2021, Additional history exists VITAMIN D LEVEL ONCE IN A LIFETIME-USE SMARTSET# 62510 Completed 12/08/2021, 12/04/2021, 08/19/2019, Additional history exists [...] as of this encounter Visit Diagnoses Diagnosis CHB (complete heart block) (HCC)- Primary Atrioventricular block, complete Atrial flutter, unspecified type (HCC) Cardiac pacemaker in situ documented in this encounter Care Teams Investment Director Relationship Specialty Start Date End Date Avani Palacios DO [address] [place] [address] PCP - General Family Medicine 07/30/22 documented as of this encounter
--- OUTSIDE RECORDS SUMMARY | 2024-05-24 14:56 | External Medical Summary | Summary of Care ---
Author Name Unknown Organization [facility] Address [address] [facility] [place] [address] Phone [phone] Care Team Providers Care Cannery Tender Engineer Name Role Phone Avani Palacios DO Primary Care Provider [phone] Reason for Visit * Reason Onset Date Comments Test Results 01/29/2024 Encounter Details Date Type Department Care Team (Late st Contact Info) Description 01/29/2024 Telephone Cardiology, [facility] [address] [place] [address] Radha Nieves CRNP [address] [place] [address] Test Results Allergies No known active allergiesdocumented as of this encounter (statuses as of 01/29/2024) Medications Medication Sig Dispensed Refills Start Date End Date Status Vitamin D3 448951 UNIT/GM Powder Use as directed. 0 Acti [...] as of this encounter (statuses as of 01/29/2024) Active Problems Problem Noted Date Diagnosed Date [...] as of this encounter (statuses as of 01/29/2024) Resolved Problems Problem Noted Date Diagnosed Date Resolved Date Kidney disease, chronic, sta ge III (GFR 30-59 ml/min) 09/14/2019 10/13/2020 Overview: Per CKD protocol Menopause 05/09/2017 documented as of this encounter (statuses as of 01/29/2024) Immunizations Name Administration Dates Next Due TDAP [...] encounter Miscellaneous Notes * Telephone Encounter - Mingo Shields LPN - 01/29/2024 2:06 PM EST Called patient and informed of Radha's message. Patient verbalized understanding. Orders pended. ----- Message from ALEX Gudino sent at 01/29/2024 10:52 AM EST ----- LDL uncontrolled-- recommend starting rosuvastatin 5 mg daily. Repeat fasting cholesterol panel andLFTs in 6 weeks. Renal function electrolytes stable. CBC stable-repeat CBC in 6 weeks after starting anticoagulation Thyroid function normal documented in this encounter Plan of Treatment Upcoming Encounters Date Type Department Care Team (Late st Contact Info) Description 01/30/2024 1:45 PM EST Office Visit Gynecology/Obstetrics Kael Rousseau [address] [place] [address] Lesvia Mcbride CRNP [address] [place] [address] 02/06/2024 8:40 AM EST [facility] [address] [place] [address] Ute Delgado, DO [address] [place] [address] 03/20/2024 8:30 AM EDT Cardiac Studies Cardiology, [facility] [address] [place] [address] [place], [facility] [address] [place] [address] 03/26/2024 3:00 PM EDT Office Visit Cardiology, [facility] [address] [facility] [place] [address] Radha Nieves CRNP [facility] [address] 08/24/2024 10:30 AM EDT Office Visit Care at Home [address] [place], [place] [address] Farzaneh Cardoso PA-C [address] [place], [place] [id number] Scheduled Orders Name Type Priority Associated Diagnoses Orde r Schedule CBC Lab Routine PAF (paroxysmal atrial fibrillation) (HCC) Dyslipidemia, goal LDL below 100 Expected: 03/12/2024 (Approximate), Expires: 01/29/2025 HEPATIC FUNCTION PANEL Lab Routine PAF (paroxysmal atrial fibrillation) (HCC) Dyslipidemia, goal LDL below 100 Expected: 03/12/2024 (Approximate), Expires: 01/29/2025 LIPID PANEL WITH DIRECT LDL IF TG IS HIGH Lab Routine PAF (paroxysmal atrial fibrillation) (HCC) Dyslipidemia, goal LDL below 100 Expected: 03/12/2024 (Approximate), Expires: 01/29/2025 Scheduled Procedures Name Priority Associated Diagnoses Date/Ti me COLONOSCOPY FLEXIBLE PROXIMA L DIAGNOSTIC Recall Encounter for screening colonoscopy Health Maintenance Due Date Last Done Comments Albumin/Creatinine Ratio 1963 Hepatitis C Screening 1963 DXA Scan 1996 Zoster Vaccines (1 of 2) 1996 Pneumococcal Vaccine: 65+ Years (1 of 1 - PCV) 2011 Depression Screening 08/19/2020 08/19/2019 CKD PHOS USE SMARTSET 96827 03/08/20230 06/2022, 12/08/2021, 12/04/2021 COVID-19 Vaccine (1 - season) 2023 Influenza Vaccine (FLU shot) (#1) 2023 *BISPHONATE OR OTHER ACCEPTABLE MEDICATION NEEDED FOR OSTEOPOROSIS (REFER TO SMARTSET #1146) 08/28/2023 GFR 07/28/2024 01/28/2024, 0 06/2022, 12/08/2021, Additional history exists DTaP,Tdap,and Td Vaccines (2 - Td or Tdap) 07/29/2024 07/29/2014 CKD HGB USE SMARTSET 99102 01/28/202501/28, 01/28/2024, 12/04/2021, Additional history exists VITAMIN D LEVEL ONCE IN A LIFETIME-USE SMARTSET# 05863 Completed 12/08/2021, 12/04/2021, 08/19/2019, Additional history exists [...] Diagnosis Atrial flutter, unspecified type (HCC)- Primary PAF (paroxysmal atrial fibrillation) (HCC) Atrial fibrillation Dyslipidemia, goal LDL below 100 Other and unspecified hyperlipidemia documented in this encounter Care Teams Cannery Tender Engineer Relationship Specialty Start Date End Date Avani Palacios DO [address] [place] [address] PCP - General Family Medicine 07/30/22 documented as of this encounter
--- OUTSIDE RECORDS SUMMARY | 2024-05-24 14:56 | External Medical Summary ---
Author Name Unknown Address Unknown Organization K01:[facility] [place] [address] [place] [address] Laboratory Report Ordering Provider Test Date Status CIELO DUPREE 01/28/2024 09:58:38 Final Observation Date Value Abnormality Reference (Units ) Status MYCODE SPECIMEN-SST 01/28/2024 09:58:38 Freezing of extracted DNA, whole blood and/or serum. Final Performing Location [facility] [place] [address] [place] [address]
--- OUTSIDE RECORDS SUMMARY | 2024-05-24 14:56 | External Medical Summary | Summary of Care ---
Author Name Unknown Organization [facility] Address [address] [facility] [place] [address] Phone [phone] Care Team Providers Care Heel Stiffener Name Role Phone Avani Palacios DO Primary Care Provider [phone] Reason for Visit * Reason Onset Date Comments Medication Question 01/28/2024 Encounter Details Date Type Department Care Team (Late st Contact Info) Description 01/28/2024 Telephone Cardiology, [facility] [address] [place] [address] Radha Nieves CRNP [address] [place] [address] Medication Question Allergies No known active allergiesdocumented as of this encounter (statuses as of 01/31/2024) Medications Medication Sig Dispensed Refills Start Date End Date Status Vitamin D3 365086 UNIT/GM Powder Use as directed. 0 Acti [...] as of this encounter (statuses as of 01/31/2024) Active Problems Problem Noted Date Diagnosed Date [...] as of this encounter (statuses as of 01/31/2024) Resolved Problems Problem Noted Date Diagnosed Date Resolved Date Kidney disease, chronic, sta ge III (GFR 30-59 ml/min) 09/14/2019 10/13/2020 Overview: Per CKD protocol Menopause 05/09/2017 documented as of this encounter (statuses as of 01/31/2024) Immunizations Name Administration Dates Next Due TDAP [...] encounter Miscellaneous Notes * Telephone Encounter - Rachel Mueller RPh - 01/30/2024 3:22 PM EST Followed up with pt regarding residential cost of Eliquis. Confirmed she picked up Eliquis and used 30-day free trial card. Pt is already enrolled in [employer] therefore she likely has a $15 copay/month going forward. Informed pt to call if this is not the case. Rachel Mueller PharmD PGY1 Bookkeeper 01/30/2024 3:27 PM * Telephone Encounter - Rachel Mueller RPh - 01/30/2024 10:17 AM EST Attempted to call pt regarding cost of Eliquis. informed me pt is not available to talk until after 3pm this afternoon. Will follow up then. Rachel Mueller PharmD PGY1 Bookkeeper 01/30/2024 10:21 AM * Telephone Encounter - Radha Nieves CRNP - 01/28/2024 9:56 AM EST I started this patient on Eliquis for PAF/Flutter. I did provide her with a free trial card. Can we check residential cost for this med for her? She is willing to switch to mail order if needed-- she may also qualify for [employer]. Thanks, ALEX Youngblood documented in this encounter Plan of Treatment Upcoming Encounters Date Type Department Care Team (Late st Contact Info) Description 03/20/2024 8:30 AM EDT Cardiac Studies Cardiology, [facility] [address] [facility] [place] [address] [place], Pacer Clinic [facility] [address] [place] [address] 03/26/2024 3:00 PM EDT Office Visit Cardiology, [facility] [address] [facility] [place] [address] Radha Nieves CRNP [address] [place] [address] 04/29/2024 2:30 PM EDT Office Visit Gynecology/Obstetrics [facility] [address] [place] [address] Lesvia Mcbride CRNP [address] [place] [address] 08/24/2024 10:30 AM EDT Office Visit Care at Home [address] [place] [address] Farzaneh Cardoso PA-C [address] [place] [address] Scheduled Procedures Name Priority Associated Diagnoses Date/Ti me COLONOSCOPY FLEXIBLE PROXIMA L DIAGNOSTIC Recall Encounter for screening colonoscopy Health Maintenance Due Date Last Done Comments Albumin/Creatinine Ratio 1963 Hepatitis C Screening 1963 DXA Scan 1996 Zoster Vaccines (1 of 2) 1996 Pneumococcal Vaccine: 65+ Years (1 of 1 - PCV) 2011 Depression Screening 08/19/2020 08/19/2019 CKD PHOS USE SMARTSET 33698 03/08/20230 06/2022, 12/08/2021, 12/04/2021 COVID-19 Vaccine (1 - 2022-24 season) 2023 Influenza Vaccine (FLU shot) (#1) 2023 *BISPHONATE OR OTHER ACCEPTABLE MEDICATION NEEDED FOR OSTEOPOROSIS (REFER TO SMARTSET #1146) 08/28/2023 GFR 07/28/2024 01/28/2024, 06/2022, 12/08/2021, Additional history exists DTaP,Tdap,and Td Vaccines (2 - Td or Tdap) 07/29/2024 07/29/2014 CKD HGB USE SMARTSET 54976 01/28/202501/28, 01/28/2024, 12/04/2021, Additional history exists VITAMIN D LEVEL ONCE IN A LIFETIME-USE SMARTSET# 11340 Completed 12/08/2021, 12/04/2021, 08/19/2019, Additional history exists [...] filedocumented as of this encounter Care Teams Heel Stiffener Relationship Specialty Start Date End Date Avani Palacios DO [address] [place] [address] PCP - General Family Medicine 07/30/22 documented as of this encounter
--- OUTSIDE RECORDS SUMMARY | 2024-05-24 14:57 | External Medical Summary | Summary of Care ---
Author Name Unknown Organization [facility] Address [address] [facility] [address] Phone [phone] Care Team Providers Care County Auditor Name Role Phone Avani Palacios DO Primary Care Provider [phone] Reason for Referral * Precert (Within 10 days (routine)) - Authorized Specialty Diagnoses / Procedures Referred By Contashley t Referred To Contact Cardiac Studies Diagnoses PAF (paroxysmal atrial fibrillation) (HCC) Murmur Procedures ECHO, COMPLETE (2D), TRANS-THORACIC Erum Soriano PA-C [address] [place] [id number] Referral ID Status Reason Start Date Expiration Date V isits Requested Visits Authorized [id number] Authorized Precert 01/22/2024 999 999 Reason for Visit * Reason Onset Date Comments Abnormal Test Results 01/20/2024 Encounter Details Date Type Department Care Team (Late st Contact Info) Description 01/20/2024 Telephone Cardiology, [facility] [address] [place] [address] Erum Soriano PA-C [address] [place] [address] Abnormal Test Results Allergies No known active allergiesdocumented as of this encounter (statuses as of 01/21/2024) Medications Medication Sig Dispensed Refills Start Date End Date Status Vitamin D3 704719 UNIT/GM Powder Use as directed. 0 Acti ve D-1000 Extra Strength 25 MCG (1000 UT) Oral Tablet (Cholecalciferol)Deysi cations:Vitamin D deficiency TAKE BY MOUTH 1 TABLET IN THE MORNING. 90 Tablet 3 03/18/2023 Active amLODIPine Besylate 10 MG Oral Tablet (Norvasc)Indications: CHB (complete heart block) (HCC),HTN, goal below 140/90 TAKE 1 TABLET BY MOUTH EVERY DAY 90 Tablet 3 11/04/2023 Active Metoprolol Tartrate 25 MG Oral Tablet (Lopressor)Indication s:CHB (complete heart block) (HCC),HTN, goal below 140/90 TAKE 1 TABLET BY MOUTH TWICE A DAY 180 Tablet 3 11/04/2023 Active documented as of this encounter (statuses as of 01/21/2024) Active Problems Problem Noted Date Diagnosed Date [...] as of this encounter (statuses as of 01/21/2024) Resolved Problems Problem Noted Date Diagnosed Date Resolved Date Kidney disease, chronic, sta ge III (GFR 30-59 ml/min) 09/14/2019 10/13/2020 Overview: Per CKD protocol Menopause 05/09/2017 documented as of this encounter (statuses as of 01/21/2024) Immunizations Name Administration Dates Next Due TDAP [...] as of this encounter Miscellaneous Notes * Addendum Note - Erum Soriano PA-C - 01/21/2024 12:27 PM ESTAddended by: ERUM SORIANO on: 01/21/2024 12:27 PM Modules accepted: Orders * Telephone Encounter - Erum Soriano PA-C - 01/21/2024 12:26 PM EST Echo ordered. Hold off on other recommendations listed until seen. Erum Soriano PA-C Department of Cardiology * Telephone Encounter - Arlin Merrill OSA - 01/21/2024 11:05 AM EST Pt returned my call and accepted appointments for echo and office visit. * Telephone Encounter - Arlin Merrill OSA - 01/21/2024 9:51 AM EST Called Pt to schedule, no answer, left message for return call. I did schedule an echo for 01/27 at 10:45, and an appointment with Radha Nieves on 01/28 at 9:30. I will reschedule these if they do notwork for the patient. Need orders for echo and lab. Also need referral for sleep med. * Telephone Encounter - Erum Soriano PA-C - 01/20/2024 5:27 PM EST Patient presented to the office today for device interrogation. Monitored episode of AT/AF brought to my attention, appearing to be atrial flutter on November 02, 2023 at 5:53 AM lasting 31 seconds induration, with a controlled ventricular response. [id number] Score is 5 points via chart review. Patient last seen in this office by Mrs. Nieves in November 2021. Recommend Cardiology follow-up evaluation, to discuss results. Will need to discuss anticoagulation risks and benefits, referral for laboratory work, resting echocardiography, and evaluation for sleep apnea as well as switching metoprolol tartrate to metoprolol succinate. Erum Soriano PA-C Department of Cardiology documented in this encounter Plan of Treatment Upcoming Encounters Date Type Department Care Team (Late st Contact Info) Description 01/27/2024 10:45 AM EST Cardiac Studies Cardiac Studies, [facility] [address] [place] [address] 01/28/2024 9:30 AM EST [facility], [facility] [place] [address] Radha Neives CRNP [address] [place] [address] 01/30/2024 1:45 PM EST Office Visit Gynecology/Obstetrics [facility] [address] [place] [address] Levsia Mcbride CRNP [address] [place] [address] 03/20/2024 8:30 AM EDT Cardiac Studies Cardiology, [facility] [address] [facility] [place] [address] [place] [facility] [address] [place] [address] 08/24/2024 10:30 AM EDT Office Visit Care at Home [address] [place], [place] [phone] Farzaneh Cardoso PA-C [address] [place] [address] Scheduled Orders Name Type Priority Associated Diagnoses Orde r Schedule ECHO, COMPLETE (2D), TRANS-THORACIC Echocardiology Routine PAF (paroxysmal atrial fibrillation) (HCC) Murmur Expected: 01/22/2024, Expires: 02/18/2026 Scheduled Procedures Name Priority Associated Diagnoses Date/Ti [...] Additional history exists CKD HGB USE SMARTSET 19221 12/04/202212/04, 12/04/2021, 11/09/2020, Additional history exists CKD PHOS USE SMARTSET 24155 03/08/202306/2022, 12/08/2021, 12/04/2021 COVID-19 Vaccine ( - season) 2023 Influenza Vaccine (FLU shot) (#1) 2023 *BISPHONATE OR OTHER ACCEPTABLE MEDICATION NEEDED FOR OSTEOPOROSIS (REFER TO SMARTSET #1146) 08/28/2023 DTaP,Tdap,and Td Vaccines (2 - Td or Tdap) 07/29/2024 07/29/2014 VITAMIN D LEVEL ONCE IN A LIFETIME-USE SMARTSET# 58682 Completed 12/08/2021, 12/04/2021, 08/19/2019, Additional history exists [...] (paroxysmal atrial fibrillation) (HCC)- Primary Atrial fibrillation Murmur Undiagnosed cardiac murmurs documented in this encounter Care Teams County Auditor Relationship Specialty Start Date End Date Avani Palacios DO [address] [place] [address] PCP - General Family Medicine 07/30/22 documented as of this encounter
--- OUTSIDE RECORDS SUMMARY | 2024-05-24 14:57 | External Medical Summary ---
Author Name Unknown Address Unknown Organization K01:[facility] [place] [address] [facility] [place] [address] Laboratory Report Ordering Provider Test Date Status REBEL ZHUISO 01/28/2024 09:58:38 Final Observation Date Value Abnormality Reference (Units ) Status Triglyceride 01/28/2024 09:58:38 119 <=174 ( mg/dL) Final Triglyceride Reference Range s (mg/dL):
<150 Acceptable
150-174 Borderline high
175-499 High
>=500 Very high Cholesterol 01/28/2024 09:58:38 250 Above high normal <200 (mg/dL) Final Total Cholesterol Reference Ranges (mg/dL):
<200 Desirable
200-239 Borderline high
>=240 High HDL 01/28/2024 09:58:38 93 >49 (mg/dL ) Final HDL Cholesterol Reference Ra nges (mg/dL):
>=60 High (Desirable)
<50 Low (Undesirable) For Females
<40 Low (Undesirable) For Males NON-HDL CHOLESTEROL 01/28/2024 09:58:38 157 <=159 (mg/dL) Final Non-HDL Cholesterol Referenc e Range (mg/dL):
<100 Target level for high risk ASCVD patient
<130 Optimal for general population
130-159 Near optimal for general population
160-189 Borderline High
190-219 High
>=220 Very High LDL, (calculated) 01/28/2024 09:58:38 133 Above high n ormal <=129 (mg/dL) Final LDL Cholesterol Reference Ra nges (mg/dL):
<70 Target level for high risk ASCVD patient
<100 Optimal for general population
100-129 Near optimal for general population
130-159 Borderline high
160-189 High
>=190 Very high Performing Location [facility] [place] [address] [facility] [address]
--- OUTSIDE RECORDS SUMMARY | 2024-05-24 14:57 | External Medical Summary | Summary of Care ---
Author Name Unknown Organization [facility] Address [address] [facility] [place] [address] Phone [phone] Care Team Providers Care Call Center Agent Name Role Phone Avani Palacios DO Primary Care Provider [phone] Reason for Visit * Reason Onset Date Comments Abnormal Test Results 01/20/2024 Encounter Details Date Type Department Care Team (Late st Contact Info) Description 01/20/2024 Telephone Cardiology, [facility] [address] [place] [address] Abdulkadir Miller PA-C [address] [place] [address] Abnormal Test Results Allergies No known active allergiesdocumented as of this encounter (statuses as of 01/21/2024) Medications Medication Sig Dispensed Refills Start Date End Date Status Vitamin D3 487944 UNIT/GM Powder Use as directed. 0 Acti [...] encounter Miscellaneous Notes * Telephone Encounter - Arlin Merrill OSA [...] for sleep med. * Telephone Encounter - Abdulkadir Miller PA-C - 01/20/2024 5:27 PM EST Patient presented to the office today for device interrogation. Monitored episode of AT/AF brought to my attention, appearing to be atrial flutter on November 02, 2023 at 5:53 AM lasting 31 seconds induration, with a controlled ventricular response. [id number] Score is 5 points via chart review. Patient last seen in this office by Mrs. Nieves in November 2021. Recommend Cardiology follow-up evaluation, to discuss results. Will need to discuss anticoagulation risks and benefits, referral for laboratory work, resting echocardiography, and evaluation for sleep apnea as well as switching metoprolol tartrate to metoprolol succinate. Abdulkadir Miller PA-C Department of Cardiology documented in this encounter Plan of Treatment Upcoming Encounters Date Type Department Care Team (Late st Contact Info) Description 01/27/2024 10:45 AM EST Cardiac Studies Card[facility] Studies, [facility] [address] 01/28/2024 9:30 AM EST Office Visit Cardiology, [facility] 132 [facility] [place] [address] Radha Nieves CRNP [address] [facility] [place] [address] 01/30/2024 1:45 PM EST Office Visit Gynecology/Obstetrics [facility] [address] [facility] [place] [address] Lesvia Mcbride CRNP [address] [facility] [place] [address] 03/20/2024 8:30 AM EDT Cardiac Studies Cardiology, [facility] [address] [facility] [place] [address] [facility] [address] 08/24/2024 10:30 AM EDT Office Visit Care at Home [address] [place] [address] Farzaneh Cardoso PA-C [address] [place], [place] [phone] Scheduled Procedures Name Priority Associated Diagnoses Date/Ti [...] Additional history exists CKD HGB USE SMARTSET 90558 12/04/202212/04, 12/04/2021, 11/09/2020, Additional history exists CKD PHOS USE SMARTSET 90958 03/08/2023 04/0 06/2022, 12/08/2021, 12/04/2021 COVID-19 Vaccine ( - season) 2023 Influenza Vaccine (FLU shot) (#1) 2023 *BISPHONATE OR OTHER ACCEPTABLE MEDICATION NEEDED FOR OSTEOPOROSIS (REFER TO SMARTSET #1146) 08/28/2023 DTaP,Tdap,and Td Vaccines (2 - Td or Tdap) 07/29/2024 07/29/2014 VITAMIN D LEVEL ONCE IN A LIFETIME-USE SMARTSET# 57737 Completed 12/08/2021, 12/04/2021, 08/19/2019, Additional history exists [...] filedocumented as of this encounter Care Teams Call Center Agent Relationship Specialty Start Date End Date Avani Palacios DO [address] [place] [address] PCP - General Family Medicine 07/30/22 documented as of this encounter
--- OUTSIDE RECORDS SUMMARY | 2024-05-24 14:57 | External Medical Summary | Summary of Care ---
Author Name Unknown Organization [facility] Address [address] [place] [place] [address] Phone [phone] Care Team Providers Care Herb Grower Name Role Phone Avani Palacios DO Primary Care Provider [phone] Reason for Visit * Reason Comments Outpatient Testing Encounter Details Date Type Department Care Team (Late st Contact Info) Description 01/27/2024 11:50 AM EST Laboratory Laboratory, [facility] [address] [facility] [place] [address] [facility] [address] [facility] [place] [address] Arrived Allergies No known active allergiesdocumented as of this encounter (statuses as of 01/27/2024) Medications Medication Sig Dispensed Refills Start Date End Date Status Vitamin D3 940280 UNIT/GM Powder Use as directed. 0 Acti [...] as of this encounter (statuses as of 01/27/2024) Active Problems Problem Noted Date Diagnosed Date [...] as of this encounter (statuses as of 01/27/2024) Resolved Problems Problem Noted Date Diagnosed Date Resolved Date Kidney disease, chronic, sta ge III (GFR 30-59 ml/min) 09/14/2019 10/13/2020 Overview: Per CKD protocol Menopause 05/09/2017 documented as of this encounter (statuses as of 01/27/2024) Immunizations Name Administration Dates Next Due TDAP [...] Office Visit [facility], [facility] [place] [address] Radha Nieves CRNP [address] [place] [address] 01/30/2024 1:45 PM EST Office Visit Gynecology/Obstetrics [facility] 132 [facility] [place] [address] Lesvia Mcbride CRNP [address] [place] [address] 03/20/2024 8:30 AM EDT Cardiac Studies Cardiology, [facility] 132 [facility] [place] [address] [place], [facility] 132 [facility] [place] [address] 08/24/2024 10:30 AM EDT Office Visit Care at Home [address], [place] [phone] Farzaneh Cardoso PA-C [address], [place] [phone] Scheduled Procedures Name Priority Associated Diagnoses Date/Ti [...] Additional history exists CKD HGB USE SMARTSET 13738 12/04/202212/04, 12/04/2021, 11/09/2020, Additional history exists CKD PHOS USE SMARTSET 05981 03/08/2023 04/0 06/2022, 12/08/2021, 12/04/2021 COVID-19 Vaccine (24 season) 2023 Influenza Vaccine (FLU shot) (#1) 2023 *BISPHONATE OR OTHER ACCEPTABLE MEDICATION NEEDED FOR OSTEOPOROSIS (REFER TO SMARTSET #1146) 08/28/2023 DTaP,Tdap,and Td Vaccines (2 - Td or Tdap) 07/29/2024 07/29/2014 VITAMIN D LEVEL ONCE IN A LIFETIME-USE SMARTSET# 75098 Completed 12/08/2021, 12/04/2021, 08/19/2019, Additional history exists [...] filedocumented as of this encounter Care Teams Herb Grower Relationship Specialty Start Date End Date Avani Palacios DO [address] [place] [address] PCP - General Family Medicine 07/30/22 documented as of this encounter
--- OUTSIDE RECORDS SUMMARY | 2024-05-24 14:57 | External Medical Summary ---
Author Name Unknown Address Unknown Organization [id number]:[facility] [address] [place] [address] Laboratory Report Ordering Provider Test Date Status SUKHI ZHU 01/28/2024 09:58:38 Final Observation Date Value Abnormality Reference (Units ) Status WBC, Total 01/28/2024 09:58:38 4.87 4.00-10.8 0 (K/uL) Final RBC 01/28/2024 09:58:38 4.77 3.85-5.15 (M/uL) Final Hemoglobin 01/28/2024 09:58:38 15.0 12.0-15.3 (g/dL) Final HCT 01/28/2024 09:58:38 45.9 Above high normal 36 .0-45.2 (%) Final MCV 01/28/2024 09:58:38 96.2 81.5-97.5 (fL) Final MCH 01/28/2024 09:58:38 31.4 27.0-34.0 (pg) Final MCHC 01/28/2024 09:58:38 32.7 32.0-36.0 (g/dL) Final RDW 01/28/2024 09:58:38 13.1 11.5-15.5 (%) Final Platelets 01/28/2024 09:58:38 214 140-400 (K /uL) Final MPV 01/28/2024 09:58:38 9.4 6.6-11.1 ( fL) Final Performing Location [facility] [address] [place] [address]
--- OUTSIDE RECORDS SUMMARY | 2024-05-24 14:57 | External Medical Summary | Summary of Care ---
Author Name Unknown Organization [facility] Address [address] [facility] [address] Phone [phone] Care Team Providers Care Campaign Consultant Name Role Phone Avani Palacios DO Primary Care Provider [phone] Reason for Visit * Reason Comments Pacemaker Clinic Encounter Details Date Type Department Care Team (Latest Contact Info) Description 01/20/2024 9:30 AM EST Cardiac Studies Cardiology, [facility] 132 [place] [address] [place], Pacer Clinic [facility] 132 [place] [address] CHB (complete heart block) (HCC)*; Cardiac pacemaker in situ Allergies No known active allergiesdocumented as of this encounter (statuses as of 01/20/2024) Medications Medication Sig Dispensed Refills Start Date End Date Status Vitamin D3 669838 UNIT/GM Powder Use as directed. 0 Acti [...] as of this encounter (statuses as of 01/20/2024) Active Problems Problem Noted Date Diagnosed Date [...] as of this encounter (statuses as of 01/20/2024) Resolved Problems Problem Noted Date Diagnosed Date Resolved Date Kidney disease, chronic, sta ge III (GFR 30-59 ml/min) 09/14/2019 10/13/2020 Overview: Per CKD protocol Menopause 05/09/2017 documented as of this encounter (statuses as of 01/20/2024) Immunizations Name Administration Dates Next Due TDAP [...] on file documented as of this encounter Nursing Notes * Rachell Rowe LPN - 01/20/2024 11:32 AM EST Patient and implanted device were evaluated today in the [facility]. Providers please see scanned report in the Scans tab. Left pectoral device pocket is healthy without erythema, swelling, pain, or drainage. 3 episodes of NSVT, longest episode 2 seconds fastest 207bpm 1 episode of AFIB lasting 2 seconds V-rate 95bpm documented in this encounter Plan of Treatment Upcoming Encounters Date Type Department Care Team (Late st Contact Info) Description 01/30/2024 1:45 PM EST Office Visit Gynecology/Obstetrics [facility] [address] [facility] [place] [address] Lesvia Mcbride CRNP [facility] [place] [address] 03/20/2024 8:30 AM EDT Cardiac Studies Cardiology, [facility] 132 [facility] [place] [address] [place], [facility] [address] 08/24/2024 10:30 AM EDT Office Visit Care at [facility] [address] [facility] [address] Farzaneh Cardoso PA-C [address] [facility] [phone] Scheduled Orders Name Type Priority Associated Diagnoses Orde r Schedule DUAL-LEAD PACEMAKER + REPROGRAM Procedures Routine CHB (complete heart block) (HCC) Cardiac pacemaker in situ Ordered: 01/20/2024 Scheduled Procedures Name Priority Associated Diagnoses Date/Ti [...] Additional history exists CKD HGB USE SMARTSET 53887 12/04/202212/04, 12/04/2021, 11/09/2020, Additional history exists CKD PHOS USE SMARTSET 84209 03/08/202306/2022, 12/08/2021, 12/04/2021 COVID-19 Vaccine (1 - season) 2023 Influenza Vaccine (FLU shot) (#1) 2023 *BISPHONATE OR OTHER ACCEPTABLE MEDICATION NEEDED FOR OSTEOPOROSIS (REFER TO SMARTSET #1146) 08/28/2023 DTaP,Tdap,and Td Vaccines (2 - Td or Tdap) 07/29/2024 07/29/2014 VITAMIN D LEVEL ONCE IN A LIFETIME-USE SMARTSET# 71785 Completed 12/08/2021, 12/04/2021, 08/19/2019, Additional history exists [...] heart block) (HCC)- Primary Atrioventricular block, complete Cardiac pacemaker in situ documented in this encounter Care Teams Campaign Consultant Relationship Specialty Start Date End Date Avani Palacios DO 132 [place] [address] PCP - General Family Medicine 07/30/22 documented as of this encounter
--- OUTSIDE RECORDS SUMMARY | 2024-05-24 14:57 | External Medical Summary | Summary of Care ---
Author Name Unknown Organization [facility] Address [address] [facility] [place] [address] Phone [phone] Care Team Providers Care Asbestos Removal Worker Name Role Phone Avani Palacios DO Primary Care Provider [phone] Reason for Visit * Reason Onset Date Comments Abnormal Test Results 01/20/2024 Encounter Details Date Type Department Care Team (Late st Contact Info) Description 01/20/2024 Telephone Cardiology, [facility] [address] [place] [address] Abdulkadir Miller PA-C [address] [place] [address] Abnormal Test Results Allergies No known active allergiesdocumented as of this encounter (statuses as of 01/21/2024) Medications Medication Sig Dispensed Refills Start Date End Date Status Vitamin D3 076231 UNIT/GM Powder Use as directed. 0 Acti [...] seconds induration, with a controlled ventricular response. [id number] Score is 5 points via chart review. Patient last seen in this office by Jose Nieves in November 2021. Recommend Cardiology follow-up [...] 10:45 AM EST Cardiac Studies Cardiac Studies, [facility] [place] [address] 01/28/2024 9:30 AM EST Office Visit Cardiology, [facility] [place] [address] Radha Nieves CRNP 132 [facility] [place] [address] 01/30/2024 1:45 PM EST Office Visit Gynecology/Obstetrics [facility] [address] [place] [address] Lesvia Mcbride CRNP [address] [place] [address] 03/20/2024 8:30 AM EDT Cardiac Studies Cardiology, [facility] [address] [facility] [place] [address] [place] [facility] [place] [address] 08/24/2024 10:30 AM EDT Office Visit Care at Home [address] [place] [address] Farzaneh Cardoso PA-C [address] [place], [place] [phone] Scheduled Procedures Name Priority Associated Diagnoses Date/Ti [...] Additional history exists CKD HGB USE SMARTSET 70170 12/04/202212/04, 12/04/2021, 11/09/2020, Additional history exists CKD PHOS USE SMARTSET 85453 03/08/202306/2022, 12/08/2021, 12/04/2021 COVID-19 Vaccine ( - season) 2023 Influenza Vaccine (FLU shot) (#1) 2023 *BISPHONATE OR OTHER ACCEPTABLE MEDICATION NEEDED FOR OSTEOPOROSIS (REFER TO SMARTSET #1146) 08/28/2023 DTaP,Tdap,and Td Vaccines (2 - Td or Tdap) 07/29/2024 07/29/2014 VITAMIN D LEVEL ONCE IN A LIFETIME-USE SMARTSET# 37684 Completed 12/08/2021, 12/04/2021, 08/19/2019, Additional history exists [...] filedocumented as of this encounter Care Teams Asbestos Removal Worker Relationship Specialty Start Date End Date Avani Palacios DO 132 [place] [address] PCP - General Family Medicine 07/30/22 documented as of this encounter
--- OUTSIDE RECORDS SUMMARY | 2024-05-24 14:57 | External Medical Summary ---
Author Name Unknown Address Unknown Organization [facility] [address] [facility] [address] [place] [address] Laboratory Report Ordering Provider Test Date Status SUKHI ZHU 01/28/2024 09:58:38 Final Observation Date Value Abnormality Reference (Units ) Status SYNC LEUKOCYTES IN BLOOD BY AUTOMATED COUNT 01/28/2024 09:58:38 4.87 4.00-10.80 (K/uL) Final Segs 01/28/2024 09:58:38 50.5 40.0-75.0 (%) Final Lymphs % 01/28/2024 09:58:38 34.3 18.0-42.0 (%) Final Monos 01/28/2024 09:58:38 10.9 1.0-11.0 (%) Final Eosinophils 01/28/2024 09:58:38 3.5 0.0-6.0 (%) Final Basos 01/28/2024 09:58:38 0.8 0.0-2.0 (%) Final Absolute Segs 01/28/2024 09:58:38 2.46 1.80-7.70 (K/uL) Final Lymphs, absolute 01/28/2024 09:58:38 1.67 1.00-4.80 (K/ul) Final Monos, Abs 01/28/2024 09:58:38 0.53 0.00-1.10 (K/uL) Final Eos, Abs 01/28/2024 09:58:38 0.17 0.00-0.70 (K/uL) Final Basos, Abs 01/28/2024 09:58:38 0.04 0.00-0.20 (K/uL) Final Performing Location [facility]ORY [facility] [address] [place] [address]
--- OUTSIDE RECORDS SUMMARY | 2024-05-24 14:57 | External Medical Summary | Summary of Care ---
Author Name Unknown Organization [facility] Address [address] [facility] [place] [address] Phone [phone] Care Team Providers Care Construction Job Cost Estimator Name Role Phone Avani Palacios DO Primary Care Provider [phone] Encounter Details Date Type Department Care Team (Late st Contact Info) Description 01/22/2024 Result Scan Unspecified Department Ajay Acosta MD [address] [place] [address] <No scans attached> Allergies No known active allergiesdocumented as of this encounter (statuses as of 01/22/2024) Medications Medication Sig Dispensed Refills Start Date End Date Status Vitamin D3 575306 UNIT/GM Powder Use as directed. 0 Acti [...] as of this encounter (statuses as of 01/22/2024) Active Problems Problem Noted Date Diagnosed Date [...] as of this encounter (statuses as of 01/22/2024) Resolved Problems Problem Noted Date Diagnosed Date Resolved Date Kidney disease, chronic, sta ge III (GFR 30-59 ml/min) 09/14/2019 10/13/2020 Overview: Per CKD protocol Menopause 05/09/2017 documented as of this encounter (statuses as of 01/22/2024) Immunizations Name Administration Dates Next Due TDAP [...] 10:45 AM EST Cardiac Studies Card[facility] Studies, [facility] [address] 01/28/2024 9:30 AM EST Office Visit Cardiology, [facility] [address] Radha Nieves CRNP [address] [place] [address] 01/30/2024 1:45 PM EST Office Visit Gynecology/Obstetrics [facility] 132 [facility] [place] [address] Lesvia Mcbride CRNP 132 [facility] [place] [address] 03/20/2024 8:30 AM EDT Cardiac Studies Cardiology, [facility] [address] [place] [address] 08/24/2024 10:30 AM EDT Office Visit Care at Home [address] [place] [address] Farzaneh Cardoso PA-C [address] [place], [place] [phone] Scheduled Procedures Name Priority Associated Diagnoses Date/Ti [...] Additional history exists CKD HGB USE SMARTSET 84248 12/04/202212/04, 12/04/2021, 11/09/2020, Additional history exists CKD PHOS USE SMARTSET 31581 03/08/2023 04/0 06/2022, 12/08/2021, 12/04/2021 COVID-19 Vaccine (2022-24 season) 2023 Influenza Vaccine (FLU shot) (#1) 2023 *BISPHONATE OR OTHER ACCEPTABLE MEDICATION NEEDED FOR OSTEOPOROSIS (REFER TO SMARTSET #1146) 08/28/2023 DTaP,Tdap,and Td Vaccines (2 - Td or Tdap) 07/29/2024 07/29/2014 VITAMIN D LEVEL ONCE IN A LIFETIME-USE SMARTSET# 69686 Completed 12/08/2021, 12/04/2021, 08/19/2019, Additional history exists [...] Date/Time Associated Diagnosis Comments CARDIOLOGY SCANNED RESULT 01/22/2024 documented in this encounter Results * CARDIOLOGY SCANNED RESULT (01/22/2024) 01/22/2024 Ajay Acosta MD OTHER documented in this encounter Care Teams Construction Job Cost Estimator Relationship Specialty Start Date End Date Avani Palacios DO [address] [place] [address] PCP - General Family Medicine 07/30/22 documented as of this encounter
--- OUTSIDE RECORDS SUMMARY | 2024-05-24 14:57 | External Medical Summary ---
Author Name Unknown Address Unknown Organization K01:LAB[facility]ORY [facility] - [address] [place] [address] Laboratory Report Ordering Provider Test Date Status CIELO DUPREE 01/28/2024 09:58:38 Final Observation Date Value Abnormality Reference (Units ) Status MYCODE SPECIMEN-SST 01/28/2024 09:58:38 Freezing of extracted DNA, whole blood and/or serum. Final Performing Location LAB[facility] - [address] [place] [address]
--- OUTSIDE RECORDS SUMMARY | 2024-05-24 14:57 | External Medical Summary | Summary of Care ---
Author Name Unknown Organization [facility] Address [address] [facility] [place] [address] Phone [phone] Care Team Providers Care Factory Maintenance Manager Name Role Phone Avani Palacios DO Primary Care Provider [phone] Reason for Visit * Reason Onset Date Comments Abnormal Test Results 01/20/2024 Encounter Details Date Type Department Care Team (Late st Contact Info) Description 01/20/2024 Telephone Cardiology, [facility] [address] [place] [address] Abdulkadir Miller PA-C [address] [place] [address] Abnormal Test Results Allergies No known active allergiesdocumented as of this encounter (statuses as of 01/20/2024) Medications Medication Sig Dispensed Refills Start Date End Date Status Vitamin D3 614080 UNIT/GM Powder Use as directed. 0 Acti [...] encounter Miscellaneous Notes * Telephone Encounter - Abdulkadir Miller PA-C - 01/20/2024 5:27 PM EST Patient presented to the office today for device interrogation. Monitored episode of AT/AF brought to my attention, appearing to be atrial flutter on November 02, 2023 at 5:53 AM lasting 31 seconds induration, with a controlled ventricular response. [id number] Score is 5 points via chart review. [...] Visit Gynecology/Obstetrics [facility] [address] [place] [address] Lesvia Mcbride CRNP [address] [place] [address] 03/20/2024 8:30 AM EDT Cardiac Studies Cardiology, [facility] [address] [place] [address] [place], Pacer Clinic [facility] [address] [place] [address] 08/24/2024 10:30 AM EDT Office Visit Care at Home [address] [place], [place] [phone] Farzaneh Cardoso PA-C [address] [place], [place] [phone] Scheduled Procedures Name Priority Associated Diagnoses Date/Ti [...] Additional history exists CKD HGB USE SMARTSET 54505 12/04/202212/04, 12/04/2021, 11/09/2020, Additional history exists CKD PHOS USE SMARTSET 04690 03/08/202306/2022, 12/08/2021, 12/04/2021 COVID-19 Vaccine ( - season) 2023 Influenza Vaccine (FLU shot) (#1) 2023 *BISPHONATE OR OTHER ACCEPTABLE MEDICATION NEEDED FOR OSTEOPOROSIS (REFER TO SMARTSET #1146) 08/28/2023 DTaP,Tdap,and Td Vaccines (2 - Td or Tdap) 07/29/2024 07/29/2014 VITAMIN D LEVEL ONCE IN A LIFETIME-USE SMARTSET# 12580 Completed 12/08/2021, 12/04/2021, 08/19/2019, Additional history exists [...] filedocumented as of this encounter Care Teams Factory Maintenance Manager Relationship Specialty Start Date End Date Avani Palacios DO [address] [place] [address] PCP - General Family Medicine 07/30/22 documented as of this encounter
--- OUTSIDE RECORDS SUMMARY | 2024-05-24 14:57 | External Medical Summary | Summary of Care ---
Author Name Unknown Organization [facility] Address [address] [facility] [address] Phone [phone] Care Team Providers Care Agricultural Research Director Name Role Phone Avani Palacios DO Primary Care Provider [phone] Reason for Referral * Precert (Within 10 days (routine)) - Authorized Specialty Diagnoses / Procedures Referred By Contashley t Referred To Contact Cardiac Studies Diagnoses PAF (paroxysmal atrial fibrillation) (HCC) Murmur Procedures ECHO, COMPLETE (2D), TRANS-THORACIC Erum Soriano PA-C [address] [place] [address] Referral ID Status Reason Start Date Expiration Date V isits Requested Visits Authorized [id number] Authorized Precert 01/22/2024 999 999 Reason for Visit * Reason Onset Date Comments Abnormal Test Results 01/20/2024 Encounter Details Date Type Department Care Team (Late st Contact Info) Description 01/20/2024 Telephone Cardiology, [facility] [address] [place] [address] Erum Soriano PA-C [address] [place] [address] Abnormal Test Results Allergies No known active allergiesdocumented as of this encounter (statuses as of 01/21/2024) Medications Medication Sig Dispensed Refills Start Date End Date Status Vitamin D3 631658 UNIT/GM Powder Use as directed. 0 Acti [...] seconds induration, with a controlled ventricular response. [id number] Score is 5 points via chart review. [...] 10:45 AM EST Cardiac Studies Cardiac Studies, [facility] [address] [place] [address] 01/28/2024 9:30 AM EST Office Visit Cardiology, [facility] [place] [address] Radha Nieves CRNP [address] [place] [address] 01/30/2024 1:45 PM EST Office Visit Gynecology/Obstetrics [facility] [address] [place] [address] Lesvia Mcbride CRNP [address] [place] [address] 03/20/2024 8:30 AM EDT Cardiac Studies Cardiology, [facility] 132 [facility] [place] [address] [place] [facility] [address] [place] [address] 08/24/2024 10:30 AM EDT Office Visit Care at Home [address] [place], [place] [phone] Farzaneh Cardoso PA-C [address] [place] [address] Scheduled Orders Name Type Priority [...] Additional history exists CKD HGB USE SMARTSET 04428 12/04/202212/04, 12/04/2021, 11/09/2020, Additional history exists CKD PHOS USE SMARTSET 75348 03/08/202306/2022, 12/08/2021, 12/04/2021 COVID-19 Vaccine ( - season) 2023 Influenza Vaccine (FLU shot) (#1) 2023 *BISPHONATE OR OTHER ACCEPTABLE MEDICATION NEEDED FOR OSTEOPOROSIS (REFER TO SMARTSET #1146) 08/28/2023 DTaP,Tdap,and Td Vaccines (2 - Td or Tdap) 07/29/2024 07/29/2014 VITAMIN D LEVEL ONCE IN A LIFETIME-USE SMARTSET# [id number] Completed 12/08/2021, 12/04/2021, 08/19/2019, Additional history exists [...] murmurs documented in this encounter Care Teams Agricultural Research Director Relationship Specialty Start Date End Date Avani Palacios DO [address] [place] [address] PCP - General Family Medicine 07/30/22 documented as of this encounter
--- OUTSIDE RECORDS SUMMARY | 2024-05-24 14:57 | External Medical Summary | Summary of Care ---
Author Name Unknown Organization [facility] Address [address] [facility] [place] [address] Phone [phone] Care Team Providers Care Glass Silverer Name Role Phone Avani Palacios DO Primary Care Provider [phone] Reason for Visit * Reason Onset Date Comments Abnormal Test Results 01/20/2024 Encounter Details Date Type Department Care Team (Late st Contact Info) Description 01/20/2024 Telephone Cardiology, [facility] [address] [place] [address] Abdulkadir Miller PA-C [address] [place] [address] Abnormal Test Results Allergies No known active allergiesdocumented as of this encounter (statuses as of 01/21/2024) Medications Medication Sig Dispensed Refills Start Date End Date Status Vitamin D3 567629 UNIT/GM Powder Use as directed. 0 Acti [...] seconds induration, with a controlled ventricular response. [id number] Score is 5 points via chart review. [...] 10:45 AM EST Cardiac Studies Cardiac Studies, [facility] [address] [facility] [place] [address] 01/28/2024 9:30 AM EST Office Visit Cardiology, [facility] [address] [facility] [place] [address] Radha Nieves CRNP [address] [facility] [place] [place] [address] 01/30/2024 1:45 PM EST Office Visit Gynecology/Obstetrics [facility] [address] [place] [address] Lesvia Mcbride CRNP [address] [place] [address] 03/20/2024 8:30 AM EDT Cardiac Studies Cardiology, [facility] [address] [facility] [place] [address] [facility] [address] [facility] [place] [address] 08/24/2024 10:30 AM EDT Office Visit Care at Home [address] [place] [address] Farzaneh Cardoso PA-C [address] [place], [place] [id number] Scheduled Procedures Name Priority Associated Diagnoses Date/Ti [...] Additional history exists CKD HGB USE SMARTSET 24358 12/04/202212/04, 12/04/2021, 11/09/2020, Additional history exists CKD PHOS USE SMARTSET 58399 03/08/202306/2022, 12/08/2021, 12/04/2021 COVID-19 Vaccine ( - season) 2023 Influenza Vaccine (FLU shot) (#1) 2023 *BISPHONATE OR OTHER ACCEPTABLE MEDICATION NEEDED FOR OSTEOPOROSIS (REFER TO SMARTSET #1146) 08/28/2023 DTaP,Tdap,and Td Vaccines (2 - Td or Tdap) 07/29/2024 07/29/2014 VITAMIN D LEVEL ONCE IN A LIFETIME-USE SMARTSET# 60149 Completed 12/08/2021, 12/04/2021, 08/19/2019, Additional history exists [...] filedocumented as of this encounter Care Teams Glass Silverer Relationship Specialty Start Date End Date Avani Palacios DO [address] [place] [address] PCP - General Family Medicine 07/30/22 documented as of this encounter
--- OUTSIDE RECORDS SUMMARY | 2024-05-24 14:57 | External Medical Summary | Summary of Care ---
Author Name Unknown Organization [facility] Address [address] [facility] [address] Phone [phone] Care Team Providers Care Wood Shop Teacher Name Role Phone Avani Palacios DO Primary Care Provider [phone] Reason for Referral * Precert (Within 10 days (routine)) - Authorized Specialty Diagnoses / Procedures Referred By Contashley t Referred To Contact Cardiac Studies Diagnoses PAF (paroxysmal atrial fibrillation) (HCC) Murmur Procedures ECHO, COMPLETE (2D), TRANS-THORACIC Erum Soriano PA-C [address] [place] [address] Referral ID Status Reason Start Date Expiration Date V isits Requested Visits Authorized [id number] Authorized Precert 01/22/2024 999 999 Reason for Visit * Reason Onset Date Comments Abnormal Test Results 01/20/2024 Encounter Details Date Type Department Care Team (Late st Contact Info) Description 01/20/2024 Telephone Cardiology, [facility] [address] [place] [address] Erum Soriano PA-C [address] [place] [address] Abnormal Test Results Allergies No known active allergiesdocumented as of this encounter (statuses as of 01/21/2024) Medications Medication Sig Dispensed Refills Start Date End Date Status Vitamin D3 799225 UNIT/GM Powder Use as directed. 0 Acti [...] seconds induration, with a controlled ventricular response. [id number] Score is 5 points via chart review. [...] AM EST Cardiac Studies Cardiac Studies, [facility] [address] [place] [address] 01/28/2024 9:30 AM EST Office Visit Cardiology, [facility] [place] [address] Radha Nieves CRNP [address] [place] [address] 01/30/2024 1:45 PM EST Office Visit Gynecology/Obstetrics [facility] [address] [place] [address] Lesvia Mcbride CRNP [address] [place] [address] 03/20/2024 8:30 AM EDT Cardiac Studies Cardiology, [facility] [address] [facility] [place] [address] [facility] [address] [facility] [place] [address] 08/24/2024 10:30 AM EDT Office Visit Care at Home [address] [place], [place] [phone] Farzaneh Cardoso PA-C [address] [place] [address] Scheduled Orders Name Type Priority [...] Additional history exists CKD HGB USE SMARTSET 12162 12/04/202212/04, 12/04/2021, 11/09/2020, Additional history exists CKD PHOS USE SMARTSET 57227 03/08/202306/2022, 12/08/2021, 12/04/2021 COVID-19 Vaccine ( - season) 2023 Influenza Vaccine (FLU shot) (#1) 2023 *BISPHONATE OR OTHER ACCEPTABLE MEDICATION NEEDED FOR OSTEOPOROSIS (REFER TO SMARTSET #1146) 08/28/2023 DTaP,Tdap,and Td Vaccines (2 - Td or Tdap) 07/29/2024 07/29/2014 VITAMIN D LEVEL ONCE IN A LIFETIME-USE SMARTSET# 37259 Completed 12/08/2021, 12/04/2021, 08/19/2019, Additional history exists [...] murmurs documented in this encounter Care Teams Wood Shop Teacher Relationship Specialty Start Date End Date Avani Palacios DO [address] [place] [address] PCP - General Family Medicine 07/30/22 documented as of this encounter
--- NOTE | 2024-05-24 15:21 | ED Triage Note ---
Date of Service May 24, 2024 Provider in Triage Author: Lora Flores History of Present Illness This patient was briefly evaluated while in triage. An abbreviated physical exam was performed. This patient is a 78-year-old Female who presents to the ED for evaluation of fatigue and feeling of no energy. Had some fevers a couple days ago, not now. Has a cough and congestion. No sick contacts known. No chest pain, SOB, abd pain, nausea, vomiting, diarrhea, urianry symptoms. Has a pacemaker. Physical Exam CONSTITUTIONAL: No acute distress. Well appearing. RESPIRATORY: Diminished throughout, clear to auscultation bilaterally. Nonlabored breathing. Equal expansion bilaterally. CARDIOVASCULAR: Regular rate and rhythm. GASTROINTESTINAL: Soft, nontender. NEUROLOGIC: Alert and oriented X 4 with normal affect. Initial orders for labs and / or imaging were placed and patient was placed in the waiting area until a bed is available. Please see further documentation for the full ED course.
--- NOTE | 2024-05-24 16:44 | XRay Report ---
SINGLE VIEW CHEST CLINICAL HISTORY: Generalized weakness. Cough FINDINGS: A PA chest radiograph is compared to chest x-ray and chest CT dated 08/02/2021. A 2-lead card iac pacemaker is unchanged in position and partially obscures the left upper chest. The heart is enla rged, and there is uncoiling of the thoracic. The pulmonary vasculature is noncongested. Chronic inte rstitial thickening is similar to previous. There is bibasilar scarring/atelectasis. No airspace cons olidation or large pleural effusion is identified. No pneumothorax is seen. The skeletal structures a re osteopenic. There are numerous chronic/healed bilateral rib fractures. A left shoulder arthroplast y is in place. IMPRESSION: 1. Cardiomegaly and cardiac pacemaker without radiographic evidence of congestive failure. 2. No airspace consolidation or pleural effusion is identified. ACT 112: Negative or not required by law. Electronically signed by: Sudeep Singh M.D. 05/24/2024 4:41 PM
[2024-05-24 17:04] LABS: Basophils # (auto) 0.03 K/uL (0.00-0.20); Basophils % (auto) 0.6 %; Hematocrit (blood only) 38.1 % (37.0-47.0); Hemoglobin 12.5 g/dl (12.0-16.0); Immature Granulocytes # (auto) 0.04 K/uL (0.01-0.20); Immature Granulocytes % (auto) 0.8 %; Lymphocytes # (auto) 1.26 K/uL (1.20-3.40); Lymphocytes % (auto) 24.9 %; Mean Corpuscular Hemoglobin 30.6 pg (25.0-34.0); Mean Corpuscular Hgb Conc 32.8 g/dL (32.0-36.0); Mean Corpuscular Volume 93.2 fL (80.0-100.0); Mean Platelet Volume 8.8 fL (9.4-12.4); Monocytes # (auto) 0.57 K/uL (0.11-0.59); Monocytes % (auto) 11.2 %; Neutrophils # (auto) 3.07 K/uL (1.40-6.50); Neutrophils % (auto) 60.5 %; Platelet Count 344 K/uL (130-400); RDW Coefficient of Variation 12.9 % (11.5-14.5); RDW Standard Deviation 44.2 fL (36.4-46.3); Red Blood Count 4.09 M/uL (4.20-5.40); White Blood Count 5.07 K/ul (4.8-10.8)
[2024-05-24 17:23] LABS: Albumin Level 3.6 gm/dl (3.4-5.0); BUN Creatinine Ratio 15.6 (10-20); Bilirubin,Total 0.4 mg/dl (0.2-1.0); Calcium 10.6 mg/dl (8.6-10.3); Creatinine Clr Calc Pharmacy 50.6 ml/min; Est GFR (African American) 86.3 ml/min; Est GFR (Non-African American) 74.5 ml/min; Globulin 3.7 gm/dl (2.5-4.0); Magnesium 1.8 mg/dl (1.7-2.4); Potassium 4.1 mmol/L (3.5-5.1); Total Protein 7.3 gm/dl (6.0-8.3)
[2024-05-24 17:29] LABS: Troponin I High Sensitivity 4.3 pg/ml (0-14)
[2024-05-24 17:39] LABS: Thyroid Stimulating Hormone 1.491 uIu/ml (0.300-4.500)
[2024-05-24 17:46] LABS: Adenovirus PCR Not Detected (NotDetected); Bordetella parapertussis PCR Not Detected (NotDetected); Bordetella pertussis PCR Not Detected (NotDetected); Chlamydia pneumoniae PCR Not Detected (NotDetected); Coronavirus 229E PCR Not Detected (NotDetected); Coronavirus CoV-2 (COVID19)PCR Not Detected (NotDetected); Coronavirus HKU1 PCR Not Detected (NotDetected); Coronavirus NL63 PCR Not Detected (NotDetected); Coronavirus OC43PCR Not Detected (NotDetected); Human Metapneumovirus PCR Not Detected (NotDetected); Influenza A PCR Not Detected (NotDetected); Influenza B PCR Not Detected (NotDetected); Mycoplasma pneumoniae PCR Not Detected (NotDetected); Parainfluenza Virus 1 PCR Not Detected (NotDetected); Parainfluenza Virus 2 PCR Not Detected (NotDetected); Parainfluenza Virus 3 PCR Not Detected (NotDetected); Parainfluenza Virus 4 PCR Not Detected (NotDetected); Respiratory Syncytial VirusPCR Not Detected (NotDetected); Rhinovirus/Enterovirus PCR Not Detected (NotDetected)
--- NOTE | 2024-05-24 17:48 | Emergency Department Note ---
Impression & Plan Acute UTI, Weakness, History of pacemaker ED Provider Note NAME: DESMOND AVENDANO AGE: 78 SEX: F : 1945 ARRIVES VIA: Walk-In INFORMANT: Patient ED PROVIDER(S): Wilner Zarate MD CHIEF COMPLAINT: Weakness, UTI PLAN: Disposition: Admit MEDICAL DECISION MAKING: The patient is a pleasant 78-year-old woman with a past medical history of complete heart block status post PPM, history of hypercalcemia, retinal attachment who presents to the emergency department via walk-in, by her for evaluation of ongoing generalized weakness for the past week where she reports she was seen at urgent care on and had a urine sample obtained and was started on antibiotic though she is not sure what but then reports she was called on Saturday and was told that she did not have a urine infection. However she presents tonight because of persistent weakness. She denies any chest pain, abdominal pain palpitations, shortness of breath, near syncope. Of note, the patient did arrive to emergency department during time of high volume, acuity and prolonged emergency department waiting times. Critical pathways initiated from triage. On evaluation the patient is no distress, afebrile with stable vital signs. She appears clinically dry. EKG is paced without overt acute ischemia. No exertion. Chest x-ray negative for acute cardiopulmonary process per my preliminary independent interpretation. PPM interrogation performed from triage. Device is working normally. It did detect a single episode of NSVT lasting less than 1 second several days ago. Does not seem to correlate with any of the patient's symptoms at this time. WBC, H/H and platelets within normal limits. Chemistry without metabolic acidosis. Electrolytes and LFTs without significant abnormality. Lactic acid 0.5, within normal limits. Calcium is 10.6 mildly above normal. LFTs unremarkable. Highest troponin 4.3, within normal limits. Procalcitonin is not elevated. TSH within normal limits. UA suspicious for infection with positive leuk esterase, WBCs and 4+ bacteria. Treatment for UTI initiated with IV ceftriaxone. No prior cultures available for assessment. IV fluid hydration provided. Patient does agree with and prefer plan for admission for further management of her weakness in setting of her ongoing UTI. Case was discussed with Dr. Bragg, [facility] hospitalist, who will evaluate the patient for admission. Further management per admitting team. Triage Nursing notes reviewed and agree them. Prior/external medical records reviewed Vital Signs: reviewed Differential diagnosis: Infection, dehydration, metabolic abnormality, hypo/hyperglycemia, electrolyte disturbance, anemia, hypoxia, cardiac sources, intracerebral event, toxicologic, neurologic, as well as other pathologies. ER treatment provided: See below. Diagnostics interpreted by me: ECG: Atrial sensed ventricular paced rhythm, 70 bpm, no ectopy, no overt acute ischemia. Cardiac Monitoring: An order for continuous cardiac monitoring was placed and demonstrated Atrial sensed ventricular paced rhythm, 70 bpm, no ectopy. Laboratory studies: See below Imaging studies: See below Consultation(s): Case was discussed with Dr. Bragg, [facility] hospitalist, who will evaluate the patient for admission. HPI: The patient is a pleasant 78-year-old woman with a past medical history of complete heart block status post PPM, history of hypercalcemia, retinal attachment who presents to the emergency department via walk-in, by her for evaluation of ongoing generalized weakness for the past week where she reports she was seen at urgent care on and had a urine sample obtained and was started on antibiotic though she is not sure what but then reports she was called on Saturday and was told that she did not have a urine infection. However she presents tonight because of persistent weakness. She denies any chest pain, abdominal pain palpitations, shortness of breath, near syncope. ROS: See above HPI for pertinent positives & negatives. A total of 10 systems reviewed and were otherwise negative. VITALS:See Below PHYSICAL EXAMINATION: GENERAL: Awake, alert, fatigued-appearing, in no distress HENT: Normocephalic, atraumatic. Oropharynx with dry mucous membranes and otherwise unremarkable. EYES: Normal conjunctiva. Sclera non-icteric. NECK: Supple. No nuchal rigidity. FROM. No JVD. RESPIRATORY: Clear to auscultation. CARDIAC: Regular rate, normal rhythm. Extremities warm and well perfused. Pulses equal. ABDOMEN: Soft, non-distended. No tenderness to palpation. No rebound or guarding. No masses. MUSCULOSKELETAL: Chest examination reveals no tenderness. The back is symmetrical on inspection without obvious abnormality. There is no CVA tenderness to palpation. No joint edema. LOWER EXTREMITIES: Calves are equal size bilaterally and non-tender. No edema. No discoloration. NEURO: Normal sensorium. No sensory or motor deficits noted. SKIN: No rash or jaundice noted. Wilner Zarate MD Past Med/Surg History Problem List (Updated 05/25/24 @ 05:52 by Wilner Zarate MD) Weakness (Acute) Acute UTI (Acute) DVT prophylaxis Hypoxia Pneumonia due to COVID-19 virus Fall Syncope and collapse (Acute) Weakness (Acute) Status post reverse arthroplasty of left shoulder (~01/2021) Encounter for pre-operative examination Hypercalcemia (Acute) Genital prolapse (Acute) Cystocele (Acute) Closed fracture of left proximal humerus History of pacemaker (Chronic) 2016, [employer]. INSERTED FOR CHB (FOLLOWS WITH DR. DAHL). WILL BRING CARD DOS. GI bleed Third degree heart block (Chronic) "s/p pacemaker" Medical History History of GI bleed Hemothorax on right 08/2019 2/2 rib fx. Had OP f/u with Jocelyn. Resolved. Surgical History Status post biventricular cardiac pacemaker insertion History of esophagogastroduodenoscopy (EGD) History of colonoscopy History of tooth extraction H/O detached retina repair LEFT History of cataract surgery RT/LEFT Family History Other No family history of adverse response to anesthesia Social History Smoking Status: Never smoker Second Hand Exposure: No; Hx Alcohol Use: No Hx Substance Use: No Preferred Language: Korean Communication Ability: Effective Photogeologist Required: No Beliefs That Will Affect Care: None marital status: Current Living Situation: Spouse and Family Other Information That Helps Us Care for You: No Feels Safe at Home: Yes Safety Concerns: Feels Safe At This Time Assistive Devices: Denture - Upper, Denture - Lower and Glasses Allergies Allergies Allergy/AdvReac Type Severity Reaction Status Date / Time No Known Allergies Allergy Verified 08/02/21 16:43 Home Meds Home Medications Medication Instructions Recorded Confirmed amlodipine 10 mg tablet 10 mg PO QAM 08/24/19 05/24/24 apixaban 5 mg tablet (Eliquis) 5 mg BID 05/24/24 05/24/24 cholecalciferol (vitamin D3) 125 125 mcg PO DAILY 05/24/24 05/24/24 mcg (5,000 unit) tablet (Vitamin D3) metoprolol succinate 25 mg 37.5 mg PO DAILY 05/24/24 05/24/24 tablet,extended release 24 hr rosuvastatin 5 mg tablet 5 mg PO DAILY 05/24/24 05/24/24 Results & Data (ED) Vital Signs Vital Signs - 24 hr 05/24/24 15:16 05/24/24 17:43 05/24/24 17:44 Temperature 36.3 C L Temperature Source Temporal Artery Scan Pulse Rate 72 84 Pulse Rate [Left Finger] 86 Pulse Rhythm [Left Finger] Pulse Strength [Left Finger] Respiratory Rate 19 26 H Respiratory Effort / Characteristics Non-Labored Spontaneous Respiratory Depth Normal Respiratory Pattern Blood Pressure 129/81 Blood Pressure [Right Arm] 153/99 H Blood Pressure Mean 97 Blood Pressure Mean [Right Arm] 117 Blood Pressure Position [Right Arm] Pulse Oximetry 93 93 Oxygen Delivery Method Room Air Sepsis Recent Fever Within 48 Hours No Sepsis New/Unexplained Change in Mental Status N/A Sepsis Action Taken by Nursing No Action Required 05/24/24 20:00 05/24/24 20:35 05/24/24 22:00 Temperature Temperature Source Pulse Rate Pulse Rate [Left Finger] 71 73 Pulse Rhythm [Left Finger] Regular Regular Pulse Strength [Left Finger] Normal Normal Respiratory Rate 18 18 Respiratory Effort / Characteristics Non-Labored Spontaneous Non-Labored Spontaneous Respiratory Depth Normal Normal Respiratory Pattern Regular Regular Blood Pressure Blood Pressure [Right Arm] 138/89 133/77 Blood Pressure Mean Blood Pressure Mean [Right Arm] 105 95 Blood Pressure Position [Right Arm] Semi-fowlers Semi-fowlers Pulse Oximetry 96 96 95 Oxygen Delivery Method Room Air Room Air Room Air Sepsis Recent Fever Within 48 Hours Sepsis New/Unexplained Change in Mental Status Sepsis Action Taken by Nursing Laboratory Data Attestation: I reviewed the patient's lab results. 05/24/24 16:33 05/24/24 16:33 Lab Results 05/24/24 05/24/24 05/24/24 Range/Units 16:32 16:33 17:44 WBC 5.07 (4.8-10.8) K/ul RBC 4.09 L (4.20-5.40) M/uL Hgb 12.5 (12.0-16.0) g/dl Hct 38.1 (37.0-47.0) % MCV 93.2 (80.0-100.0) fL MCH 30.6 (25.0-34.0) pg MCHC 32.8 (32.0-36.0) g/dL RDW Std Deviation 44.2 (36.4-46.3) fL RDW Coeff of Ole 12.9 (11.5-14.5) % Plt Count 344 (130-400) K/uL MPV 8.8 L (9.4-12.4) fL Immature Gran % (Auto) 0.8 % Neut % (Auto) 60.5 % Lymph % (Auto) 24.9 % [place] % (Auto) 11.2 % Eos % (Auto) 2.0 % Baso % (Auto) 0.6 % Neut # (Auto) 3.07 (1.40-6.50) K/uL Lymph # (Auto) 1.26 (1.20-3.40) K/uL [place] # (Auto) 0.57 (0.11-0.59) K/uL Eos # (Auto) 0.10 (0.00-0.50) K/uL Baso # (Auto) 0.03 (0.00-0.20) K/uL Immature Gran # (Auto) 0.04 (0.01-0.20) K/uL Sodium 138 (136-145) mmol/L Potassium 4.1 (3.5-5.1) mmol/L Chloride 106 (98-107) mmol/L Carbon Dioxide 26 (21-32) mmol/L Anion Gap 6 (3-11) BUN 12 (6-23) mg/dl Creatinine 0.77 (0.6-1.2) mg/dl Est Cr Clr Drug Dosing 50.6 ml/min Est GFR ( Amer) 86.3 ml/min Est GFR (Non-Af Amer) 74.5 ml/min BUN/Creatinine Ratio 15.6 (10-20) Glucose 104 H (70-99(Fasting)) mg/dl Lactate (0.4-2.0) mmol/L Calcium 10.6 H (8.6-10.3) mg/dl Magnesium 1.8 (1.7-2.4) mg/dl Total Bilirubin 0.4 (0.2-1.0) mg/dl AST 14 (13-39) U/L ALT 13 (7-52) U/L Alkaline Phosphatase 103 (34-104) U/L Troponin I High Sens 4.3 (0-14) pg/ml Total Protein 7.3 (6.0-8.3) gm/dl Albumin 3.6 (3.4-5.0) gm/dl Globulin 3.7 (2.5-4.0) gm/dl Albumin/Globulin Ratio 1.0 (0.9-2) Procalcitonin 0.07 (0-0.5) ng/ml TSH 1.491 (0.300-4.500) uIu/ml Urine Color Yellow Urine Appearance Turbid A (Clear) Urine pH 6.5 (4.5-7.5) Ur Specific [place] 1.016 (1.000-1.030) Urine Protein 3+ H (Negative) Urine Glucose (UA) Negative (Negative) Urine Ketones Negative (Negative) Urine Blood 3+ H (Negative) Urine Nitrite Negative (Negative) Urine Bilirubin Negative (Negative) Urine Urobilinogen Negative (Negative) Ur Leukocyte Esterase 3+ H (Negative) Urine WBC (Auto) >50 H (0-5) /hpf Urine RBC (Auto) 11-20 H (0-2) /hpf U Hyaline Cast (Auto) 11-20 H (0-2) /lpf U Epithel Cells (Auto) 0-2 (0-2) /hpf Urine Bacteria (Auto) 4+ H (None Seen) Adenovirus (PCR) Not Detected (NotDetected) B. pertussis DNA (PCR) Not Detected (NotDetected) B.parapertussis DNA PCR Not Detected (NotDetected) C. pneumoniae DNA (PCR) Not Detected (NotDetected) Coronavirus OC43 (PCR) Not Detected (NotDetected) Coronavirus HKU1 (PCR) Not Detected (NotDetected) Coronavirus 229E (PCR) Not Detected (NotDetected) SARS-CoV-2 (PCR) Not Detected (NotDetected) Coronavirus NL63 (PCR) Not Detected (NotDetected) Human Metapneumovir PCR Not Detected (NotDetected) Influenza Type A (PCR) Not Detected (NotDetected) Influenza Type B (PCR) Not Detected (NotDetected) M. pneumoniae (PCR) Not Detected (NotDetected) Parainfluenza 1 (PCR) Not Detected (NotDetected) Parainfluenza 2 (PCR) Not Detected (NotDetected) Parainfluenza 3 (PCR) Not Detected (NotDetected) Parainfluenza 4 (PCR) Not Detected (NotDetected) RSV (PCR) Not Detected (NotDetected) Entero/Rhino (PCR) Not Detected (NotDetected) 05/24/24 05/24/24 Range/Units 18:23 19:40 WBC (4.8-10.8) K/ul RBC (4.20-5.40) M/uL Hgb (12.0-16.0) g/dl Hct (37.0-47.0) % MCV (80.0-100.0) fL MCH (25.0-34.0) pg MCHC (32.0-36.0) g/dL RDW Std Deviation (36.4-46.3) fL RDW Coeff of Ole (11.5-14.5) % Plt Count (130-400) K/uL MPV (9.4-12.4) fL Immature Gran % (Auto) % Neut % (Auto) % Lymph % (Auto) % [place] % (Auto) % Eos % (Auto) % Baso % (Auto) % Neut # (Auto) (1.40-6.50) K/uL Lymph # (Auto) (1.20-3.40) K/uL [place] # (Auto) (0.11-0.59) K/uL Eos # (Auto) (0.00-0.50) K/uL Baso # (Auto) (0.00-0.20) K/uL Immature Gran # (Auto) (0.01-0.20) K/uL Sodium (136-145) mmol/L Potassium (3.5-5.1) mmol/L Chloride (98-107) mmol/L Carbon Dioxide (21-32) mmol/L Anion Gap (3-11) BUN (6-23) mg/dl Creatinine (0.6-1.2) mg/dl Est Cr Clr Drug Dosing ml/min Est GFR ( Amer) ml/min Est GFR (Non-Af Amer) ml/min BUN/Creatinine Ratio (10-20) Glucose (70-99(Fasting)) mg/dl Lactate 0.5 (0.4-2.0) mmol/L Calcium (8.6-10.3) mg/dl Magnesium (1.7-2.4) mg/dl Total Bilirubin (0.2-1.0) mg/dl AST (13-39) U/L ALT (7-52) U/L Alkaline Phosphatase (34-104) U/L Troponin I High Sens 4.6 (0-14) pg/ml Total Protein (6.0-8.3) gm/dl Albumin (3.4-5.0) gm/dl Globulin (2.5-4.0) gm/dl Albumin/Globulin Ratio (0.9-2) Procalcitonin (0-0.5) ng/ml TSH (0.300-4.500) uIu/ml Urine Color Urine Appearance (Clear) Urine pH (4.5-7.5) Ur Specific [place] (1.000-1.030) Urine Protein (Negative) Urine Glucose (UA) (Negative) Urine Ketones (Negative) Urine Blood (Negative) Urine Nitrite (Negative) Urine Bilirubin (Negative) Urine Urobilinogen (Negative) Ur Leukocyte Esterase (Negative) Urine WBC (Auto) (0-5) /hpf Urine RBC (Auto) (0-2) /hpf U Hyaline Cast (Auto) (0-2) /lpf U Epithel Cells (Auto) (0-2) /hpf Urine Bacteria (Auto) (None Seen) Adenovirus (PCR) (NotDetected) B. pertussis DNA (PCR) (NotDetected) B.parapertussis DNA PCR (NotDetected) C. pneumoniae DNA (PCR) (NotDetected) Coronavirus OC43 (PCR) (NotDetected) Coronavirus HKU1 (PCR) (NotDetected) Coronavirus 229E (PCR) (NotDetected) SARS-CoV-2 (PCR) (NotDetected) Coronavirus NL63 (PCR) (NotDetected) Human Metapneumovir PCR (NotDetected) Influenza Type A (PCR) (NotDetected) Influenza Type B (PCR) (NotDetected) M. pneumoniae (PCR) (NotDetected) Parainfluenza 1 (PCR) (NotDetected) Parainfluenza 2 (PCR) (NotDetected) Parainfluenza 3 (PCR) (NotDetected) Parainfluenza 4 (PCR) (NotDetected) RSV (PCR) (NotDetected) Entero/Rhino (PCR) (NotDetected) Administered Medications Sodium Chloride (Nss) 1,000 mls @ 80 mls/hr IV .[id number] JUDY Stop: 05/25/24 12:05 Last Admin: 05/25/24 00:41 Dose: 80 mls/hr Documented By: IDD Discontinued Medications Sodium Chloride (Nss) 1,000 mls @ 999 mls/hr IV .[id number] ONE Stop: 05/24/24 18:39 Last Infusion: 05/24/24 19:53 Dose: Infused Documented By: Admin: 05/24/24 18:29 Dose: 999 mls/hr Documented By: KAREN Ceftriaxone Sodium (Rocephin) 2,000 mg in 50 mls @ 100 mls/hr IV NOW STA Stop: 05/24/24 19:40 Last Infusion: 05/24/24 20:28 Dose: Infused Documented By: Admin: 05/24/24 19:53 Dose: 100 mls/hr Documented By: IDD Imaging Data Radiologist's Impression: Chest X-Ray 05/24/24 15:21 SINGLE VIEW CHEST CLINICAL HISTORY: Generalized weakness. Cough FINDINGS: A PA chest radiograph is compared to chest x-ray and chest CT dated 08/02/2021. A 2-lead cardiac pacemaker is unchanged in position and partially obscures the left upper chest. The heart is enlarged, and there is uncoiling of the thoracic. The pulmonary vasculature is noncongested. Chronic interstitial thickening is similar to previous. There is bibasilar scarring/atelectasis. No airspace consolidation or large pleural effusion is identified. No pneumothorax is seen. The skeletal structures are osteopenic. There are numerous chronic/healed bilateral rib fractures. A left shoulder arthroplasty is in place. IMPRESSION: 1. Cardiomegaly and cardiac pacemaker without radiographic evidence of congestive failure. 2. No airspace consolidation or pleural effusion is identified. ACT 112: Negative or not required by law. Electronically signed by: Sudeep Singh M.D. 05/24/2024 4:41 PM Discharge Plan Visit Data Chief Complaint: Lethargic Stated Complaint: NO ENERGY, LETHARGIC ED Provider: Wilner Zarate Discharge Problem: Acute UTI, Weakness, History of pacemaker Discharge Instructions Interventions: ED Discharge Assessment Last Done: 05/24/24 23:36
[2024-05-24 18:15] LABS: Appearance Urine Turbid (Clear); Bacteria Urine Automated 4+ (None Seen); Bilirubin Urine Negative (Negative); Blood Urine 3+ (Negative); Color Urine Yellow; Epithelial Cell Urine Auto 0-2 /hpf (0-2); Glucose Urine UA Negative (Negative); Ketones Urine Negative (Negative); Leukocyte Esterase Urine 3+ (Negative); Nitrite Urine Negative (Negative); Protein Urine 3+ (Negative); Specific Gravity Urine 1.016 (1.000-1.030); Urobilinogen Urine Negative (Negative); WBC Urine Automated >50 /hpf (0-5); pH Urine 6.5 (4.5-7.5)
[2024-05-24] MEDS: SODIUM CHLORIDE 0.9% 1,000 ML IV ONE (18:29)
[2024-05-24] MEDS: cefTRIAXone SODIUM 2,000 MG/50 ML BAG IV STA (19:53)
--- NOTE | 2024-05-24 23:03 | History & Physical Report ---
Date of Service May 24, 2024 Assessment & Plan (1) Weakness: Plan: 78-year-old female with past medical history significant for primary hyperparathyroidism, complete heart block s/p pacemaker, ascending aortic dilatation, hypertension, left ventricular hypertrophy, diastolic dysfunction, GERD, diverticulosis of large intestine, hepatic cyst, stage III chronic of kidney disease, female genital prolapse, presence of pessary, osteoporosis, partial old retinal detachment, history of GI bleed, was brought in because of ongoing weakness for 1 week and found to have UTI. As per ER patient went to urgent care on and was told she has UTI and started antibiotic though seems she was again called back on Saturday and was told that she did not have a urine infection. Because of persistent weakness came to the ER today. Denies any fevers. No headache. No dizziness. No blurred vision. No runny nose or sore throat. No cough. No chest pain or shortness of breath. No nausea vomiting. Appetite is okay. No abdominal pain. Normal bowel and bladder movements. Currently resting comfortably and hemodynamically stable. weakness possible from UTI ER started on Rocephin which will be continued gentle fluids will follow cultures PT OT when stable hypercalcemia calcium 10.6 possible dehydration we will follow repeat labs will check vitamin D and PTH levels history of complete heart block s/p pacemaker pacemaker interrogation performed from triage and seems device is working normally and it did detected a single episode of nonsustained SVT lasting less than 1 second several days ago. Will monitor on telemetry history of A-fib/a flutter on metoprolol and Eliquis will monitor hypertension on amlodipine and metoprolol we will monitor chronic diastolic CHF will monitor for fluid overload hyperlipidemia on statin CKD stage III presented with creatinine 0.7 will follow labs DVT prophylaxis on Eliquis disposition med/telemetry full code History of Present Illness Chief Complaint: weakness and UTI Primary Care Provider: Avani Palacios DO 78-year-old female with past medical history significant for primary hyperparathyroidism, complete heart block s/p pacemaker, ascending aortic dilatation, hypertension, left ventricular hypertrophy, diastolic dysfunction, GERD, diverticulosis of large intestine, hepatic cyst, stage III chronic of kidney disease, female genital prolapse, presence of pessary, osteoporosis, partial old retinal detachment, history of GI bleed, was brought in because of ongoing weakness for 1 week and found to have UTI. As per ER patient went to urgent care on and was told she has UTI and started antibiotic though seems she was again called back on Saturday and was told that she did not have a urine infection. Because of persistent weakness came to the ER today. Denies any fevers. No headache. No dizziness. No blurred vision. No runny nose or sore throat. No cough. No chest pain or shortness of breath. No nausea vomiting. Appetite is okay. No abdominal pain. Normal bowel and bladder movements. Currently resting comfortably and hemodynamically stable. Past medical history. As mentioned above. Past surgical history. Colonoscopy and EGD. S/p dual-chamber pacemaker. Appendectomy. Reconstruction of shoulder joint left side. Laser trabeculoplasty. Social history. . No smoking. No alcohol use. No drug use. Family history. Mother had aneurysm. Father had kidney failure. Allergies Allergy/AdvReac Type Severity Reaction Status Date / Time No Known Allergies Allergy Verified 08/02/21 16:43 Home Medications Medication Instructions Recorded Confirmed Type amlodipine 10 mg tablet 10 mg PO QAM 08/24/19 05/24/24 History apixaban 5 mg tablet (Eliquis) 5 mg BID 05/24/24 05/24/24 History cholecalciferol (vitamin D3) 125 125 mcg PO DAILY 05/24/24 05/24/24 History mcg (5,000 unit) tablet (Vitamin D3) metoprolol succinate 25 mg 37.5 mg PO DAILY 05/24/24 05/24/24 History tablet,extended release 24 hr rosuvastatin 5 mg tablet 5 mg PO DAILY 05/24/24 05/24/24 History Past Med/Surg History Problem List (Updated 05/25/24 @ 05:52 by Wilner Zarate MD) Weakness (Acute) Acute UTI (Acute) DVT prophylaxis Hypoxia Pneumonia due to COVID-19 virus Fall Syncope and collapse (Acute) Weakness (Acute) Status post reverse arthroplasty of left shoulder (~01/2021) Encounter for pre-operative examination Hypercalcemia (Acute) Genital prolapse (Acute) Cystocele (Acute) Closed fracture of left proximal humerus History of pacemaker (Chronic) 2016, [employer]. INSERTED FOR CHB (FOLLOWS WITH DR. DAHL). WILL BRING CARD DOS. GI bleed Third degree heart block (Chronic) "s/p pacemaker" Medical History History of GI bleed Hemothorax on right 08/2019 2/2 rib fx. Had OP f/u with Jocelyn. Resolved. Surgical History Status post biventricular cardiac pacemaker insertion History of esophagogastroduodenoscopy (EGD) History of colonoscopy History of tooth extraction H/O detached retina repair LEFT History of cataract surgery RT/LEFT Family History Other No family history of adverse response to anesthesia Social History Smoking Status: Never smoker Second Hand Exposure: No; Hx Alcohol Use: No Hx Substance Use: No Preferred Language: Turkish Communication Ability: Effective Jumpbasting Armhole Baster Required: No Beliefs That Will Affect Care: None marital status: Current Living Situation: Spouse and Family Other Information That Helps Us Care for You: No Feels Safe at Home: Yes Safety Concerns: Feels Safe At This Time Assistive Devices: Denture - Upper, Denture - Lower and Glasses Review of Systems Review of Systems: All systems reviewed & are unremarkable except as noted in HPI & below Physical Exam Physical Exam: General- Not in distress Head- atraumatic Eyes- PERRL. ENT- oropharynx clear Neck- supple, no JVD. Lungs- clear to auscultation no wheezing or crackles. Heart- regular rhythm; no murmur, no gallop. Abdomen- normal bowel sounds, soft, nontender, no distension. Extremities- no pretibial edema, no erythema seen. Neuro- alert, oriented PERRL, EOMI; no facial palsy; no dysarthria; moves extremities. Results & Data Results & Data Vital Signs (Past 12 Hours) Vital Signs Temp Pulse Pulse Resp BP BP Pulse Ox 05/24/24 22:00 73 18 133/77 95 05/24/24 20:35 96 05/24/24 20:00 71 18 138/89 96 05/24/24 17:44 84 05/24/24 17:43 86 26 H 153/99 H 93 05/24/24 15:16 36.3 C L 72 19 129/81 93 O2 Del Method 05/24/24 22:00 Room Air 05/24/24 20:35 Room Air 05/24/24 20:00 Room Air 05/24/24 17:44 05/24/24 17:43 05/24/24 15:16 Room Air Diagnostic Findings Laboratory Results WBC 5.07 K/ul (4.8-10.8) 05/24/24 16:33 RBC 4.09 M/uL (4.20-5.40) L 05/24/24 16:33 Hgb 12.5 g/dl (12.0-16.0) 05/24/24 16:33 Hct 38.1 % (37.0-47.0) 05/24/24 16:33 MCV 93.2 fL (80.0-100.0) 05/24/24 16:33 MCH 30.6 pg (25.0-34.0) 05/24/24 16:33 MCHC 32.8 g/dL (32.0-36.0) 05/24/24 16:33 RDW Std Deviation 44.2 fL (36.4-46.3) 05/24/24 16:33 RDW Coeff of Ole 12.9 % (11.5-14.5) 05/24/24 16:33 Plt Count 344 K/uL (130-400) 05/24/24 16:33 MPV 8.8 fL (9.4-12.4) L 05/24/24 16:33 Immature Gran % (Auto) 0.8 % 05/24/24 16:33 Neut % (Auto) 60.5 % 05/24/24 16:33 Lymph % (Auto) 24.9 % 05/24/24 16:33 Robeson % (Auto) 11.2 % 05/24/24 16:33 Eos % (Auto) 2.0 % 05/24/24 16:33 Baso % (Auto) 0.6 % 05/24/24 16:33 Neut # (Auto) 3.07 K/uL (1.40-6.50) 05/24/24 16:33 Lymph # (Auto) 1.26 K/uL (1.20-3.40) 05/24/24 16:33 Robeson # (Auto) 0.57 K/uL (0.11-0.59) 05/24/24 16:33 Eos # (Auto) 0.10 K/uL (0.00-0.50) 05/24/24 16:33 Baso # (Auto) 0.03 K/uL (0.00-0.20) 05/24/24 16:33 Immature Gran # (Auto) 0.04 K/uL (0.01-0.20) 05/24/24 16:33 Sodium 138 mmol/L (136-145) 05/24/24 16:33 Potassium 4.1 mmol/L (3.5-5.1) 05/24/24 16:33 Chloride 106 mmol/L (98-107) 05/24/24 16:33 Carbon Dioxide 26 mmol/L (21-32) 05/24/24 16:33 Anion Gap 6 (3-11) 05/24/24 16:33 BUN 12 mg/dl (6-23) 05/24/24 16:33 Creatinine 0.77 mg/dl (0.6-1.2) 05/24/24 16:33 Est Cr Clr Drug Dosing 50.6 ml/min 05/24/24 16:33 Est GFR ( Amer) 86.3 ml/min 05/24/24 16:33 Est GFR (Non-Af Amer) 74.5 ml/min 05/24/24 16:33 BUN/Creatinine Ratio 15.6 (10-20) 05/24/24 16:33 Glucose 104 mg/dl (70-99(Fasting)) H 05/24/24 16:33 Lactate 0.5 mmol/L (0.4-2.0) 05/24/24 18:23 Calcium 10.6 mg/dl (8.6-10.3) H 05/24/24 16:33 Magnesium 1.8 mg/dl (1.7-2.4) 05/24/24 16:33 Total Bilirubin 0.4 mg/dl (0.2-1.0) 05/24/24 16:33 AST 14 U/L (13-39) 05/24/24 16:33 ALT 13 U/L (7-52) 05/24/24 16:33 Alkaline Phosphatase 103 U/L (34-104) 05/24/24 16:33 Troponin I High Sens 4.6 pg/ml (0-14) 05/24/24 19:40 Total Protein 7.3 gm/dl (6.0-8.3) 05/24/24 16:33 Albumin 3.6 gm/dl (3.4-5.0) 05/24/24 16:33 Globulin 3.7 gm/dl (2.5-4.0) 05/24/24 16:33 Albumin/Globulin Ratio 1.0 (0.9-2) 05/24/24 16:33 Procalcitonin 0.07 ng/ml (0-0.5) 05/24/24 16:33 TSH 1.491 uIu/ml (0.300-4.500) 05/24/24 16:33 Urine Color Yellow 05/24/24 17:44 Urine Appearance Turbid (Clear) A 05/24/24 17:44 Urine pH 6.5 (4.5-7.5) 05/24/24 17:44 Ur Specific Butler 1.016 (1.000-1.030) 05/24/24 17:44 Urine Protein 3+ (Negative) H 05/24/24 17:44 Urine Glucose (UA) Negative (Negative) 05/24/24 17:44 Urine Ketones Negative (Negative) 05/24/24 17:44 Urine Blood 3+ (Negative) H 05/24/24 17:44 Urine Nitrite Negative (Negative) 05/24/24 17:44 Urine Bilirubin Negative (Negative) 05/24/24 17:44 Urine Urobilinogen Negative (Negative) 05/24/24 17:44 Ur Leukocyte Esterase 3+ (Negative) H 05/24/24 17:44 Urine WBC (Auto) >50 /hpf (0-5) H 05/24/24 17:44 Urine RBC (Auto) 11-20 /hpf (0-2) H 05/24/24 17:44 U Hyaline Cast (Auto) 11-20 /lpf (0-2) H 05/24/24 17:44 U Epithel Cells (Auto) 0-2 /hpf (0-2) 05/24/24 17:44 Urine Bacteria (Auto) 4+ (None Seen) H 05/24/24 17:44 Adenovirus (PCR) Not Detected (NotDetected) 05/24/24 16:32 B. pertussis DNA (PCR) Not Detected (NotDetected) 05/24/24 16:32 B.parapertussis DNA PCR Not Detected (NotDetected) 05/24/24 16:32 C. pneumoniae DNA (PCR) Not Detected (NotDetected) 05/24/24 16:32 Coronavirus OC43 (PCR) Not Detected (NotDetected) 05/24/24 16:32 Coronavirus HKU1 (PCR) Not Detected (NotDetected) 05/24/24 16:32 Coronavirus 229E (PCR) Not Detected (NotDetected) 05/24/24 16:32 SARS-CoV-2 (PCR) Not Detected (NotDetected) 05/24/24 16:32 Coronavirus NL63 (PCR) Not Detected (NotDetected) 05/24/24 16:32 Human Metapneumovir PCR Not Detected (NotDetected) 05/24/24 16:32 Influenza Type A (PCR) Not Detected (NotDetected) 05/24/24 16:32 Influenza Type B (PCR) Not Detected (NotDetected) 05/24/24 16:32 M. pneumoniae (PCR) Not Detected (NotDetected) 05/24/24 16:32 Parainfluenza 1 (PCR) Not Detected (NotDetected) 05/24/24 16:32 Parainfluenza 2 (PCR) Not Detected (NotDetected) 05/24/24 16:32 Parainfluenza 3 (PCR) Not Detected (NotDetected) 05/24/24 16:32 Parainfluenza 4 (PCR) Not Detected (NotDetected) 05/24/24 16:32 RSV (PCR) Not Detected (NotDetected) 05/24/24 16:32 Entero/Rhino (PCR) Not Detected (NotDetected) 05/24/24 16:32 Impressions Chest X-Ray 05/24/24 15:21 SINGLE VIEW CHEST CLINICAL HISTORY: Generalized weakness. Cough FINDINGS: A PA chest radiograph is compared to chest x-ray and chest CT dated 08/02/2021. A 2-lead cardiac pacemaker is unchanged in position and partially obscures the left upper chest. The heart is enlarged, and there is uncoiling of the thoracic. The pulmonary vasculature is noncongested. Chronic interstitial thickening is similar to previous. There is bibasilar scarring/atelectasis. No airspace consolidation or large pleural effusion is identified. No pneumothorax is seen. The skeletal structures are osteopenic. There are numerous chronic/healed bilateral rib fractures. A left shoulder arthroplasty is in place. IMPRESSION: 1. Cardiomegaly and cardiac pacemaker without radiographic evidence of congestive failure. 2. No airspace consolidation or pleural effusion is identified. ACT 112: Negative or not required by law. Electronically signed by: Sudeep Singh M.D. 05/24/2024 4:41 PM ECG Additional Comments: ECG. atrial sensed ventricular paced rhythm with a rate of 70. Code Status & VTE Plan VTE Prophylaxis Plan VTE Prophylaxis will be ordered: Yes
[2024-05-24] MEDS ORDERED: ACETAMINOPHEN 325 MG TAB PO PRN (23:36)
[2024-05-24] MEDS ORDERED: NITROGLYCERIN SL 0.4 MG/TAB TAB SL PRN (23:36)
[2024-05-25] MEDS: SODIUM CHLORIDE 0.9% 1,000 ML IV SCH (00:41)
[2024-05-25 06:24] LABS: Basophils # (auto) 0.03 K/uL (0.00-0.20); Basophils % (auto) 0.7 %; Eosinophils # (auto) 0.12 K/uL (0.00-0.50); Eosinophils % (auto) 2.8 %; Hematocrit (blood only) 33.5 % (37.0-47.0); Immature Granulocytes # (auto) 0.04 K/uL (0.01-0.20); Immature Granulocytes % (auto) 0.9 %; Lymphocytes # (auto) 1.19 K/uL (1.20-3.40); Lymphocytes % (auto) 27.9 %; Mean Corpuscular Hemoglobin 30.6 pg (25.0-34.0); Mean Corpuscular Hgb Conc 32.8 g/dL (32.0-36.0); Mean Corpuscular Volume 93.1 fL (80.0-100.0); Mean Platelet Volume 8.8 fL (9.4-12.4); Monocytes # (auto) 0.47 K/uL (0.11-0.59); Neutrophils # (auto) 2.42 K/uL (1.40-6.50); Neutrophils % (auto) 56.7 %; Platelet Count 324 K/uL (130-400); RDW Coefficient of Variation 12.9 % (11.5-14.5); RDW Standard Deviation 44.2 fL (36.4-46.3); White Blood Count 4.27 K/ul (4.8-10.8)
[2024-05-25 06:42] LABS: BUN Creatinine Ratio 14.9 (10-20); Calcium 9.3 mg/dl (8.6-10.3); Creatinine Clr Calc Pharmacy 58.2 ml/min; Est GFR (African American) 98.3 ml/min; Est GFR (Non-African American) 84.8 ml/min; Magnesium 1.7 mg/dl (1.7-2.4); Potassium 3.9 mmol/L (3.5-5.1)
--- NOTE | 2024-05-25 06:56 | Hospitalist Progress Note ---
Date of Service May 25, 2024 Assessment & Plan (1) Weakness: Plan: Ms. Dewey is a 78-year-old female with past medical History significant for primary hyperparathyroidism, complete heart block s/p pacemaker, ascending aortic dilatation, hypertension, left ventricular hypertrophy, diastolic dysfunction, GERD, diverticulosis of large intestine, hepatic cyst, stage III chronic of kidney disease, female genital prolapse with presence of pessary, osteoporosis, partial old retinal detachment, history of GI bleed who is admitted for weakness and acute cystitis. #General weakness likely 2/2 infection PT/OT: independent lives with and children #Acute uncomplicated cystitis -UA suspicious for infection labs stable UA negative however, unclear timing of collection, will continue abx in interim given subjective improvement -Plan to transition to PO # hypercalcemia calcium 10.6 possible dehydration resolved this am PTH and Vit D acceptable/appropriate #complete heart block s/p pacemaker pacemaker interrogation performed from triage and seems device is working normally, detected a single episode of nonsustained SVT lasting less than 1 second several days ago. Will monitor on telemetry # A-fib/a flutter on metoprolol and Eliquis will monitor # hypertension on amlodipine and metoprolol we will monitor # chronic diastolic CHF will monitor for fluid overload hyperlipidemia on statin # CKD stage III presented with creatinine 0.7, at baseline will follow labs DVT prophylaxis on Eliquis disposition med/telemetry full code Likely discharge in am Admission and Anticipated Discharge Date Admission Date: May 24, 2024 Subjective Reports subjective improvement overall Encourage PO intake, states she feels a bit tired, but much better than arrival denies any chest pain palpitations or other acute concerns Physical Exam 2 Constitutional: WD/WN, vitals as above Respiratory: normal respiratory effort, lungs clear to auscultation Cardiovascular: RRR, no murmur, no edema Gastrointestinal (Abdomen): normal bowel sounds, soft, nontender, no hepatosplenomegaly Results & Data Results & Data Vital Signs (Past 12 Hours) Vital Signs Pulse Pulse Resp BP Pulse Ox Pulse Ox O2 Del Method 05/25/24 06:26 63 21 131/83 94 Room Air 05/25/24 02:41 60 18 117/74 96 Room Air 05/25/24 01:26 63 05/25/24 00:41 70 18 129/78 98 Room Air 05/25/24 00:00 94 05/25/24 00:00 63 18 103/58 L 94 Room Air 05/24/24 22:00 73 18 133/77 95 Room Air 05/24/24 20:35 96 Room Air 05/24/24 20:00 71 18 138/89 96 Room Air O2 Del Method 05/25/24 06:26 05/25/24 02:41 05/25/24 01:26 05/25/24 00:41 05/25/24 00:00 Room Air 05/25/24 00:00 05/24/24 22:00 05/24/24 20:35 05/24/24 20:00 Laboratory Results Home Medications Medication Instructions Recorded Confirmed Last Taken amlodipine 10 mg tablet 10 mg PO QAM 08/24/19 05/24/24 08/02/21 apixaban 5 mg tablet (Eliquis) 5 mg BID 05/24/24 05/24/24 Unknown cholecalciferol (vitamin D3) 125 125 mcg PO DAILY 05/24/24 05/24/24 Unknown mcg (5,000 unit) tablet (Vitamin D3) metoprolol succinate 25 mg 37.5 mg PO DAILY 05/24/24 05/24/24 Unknown tablet,extended release 24 hr rosuvastatin 5 mg tablet 5 mg PO DAILY 05/24/24 05/24/24 Unknown Active Medications Generic Name Dose Route Start Last Admin Trade Name Terrie PRN Reason Stop Dose Admin Amlodipine Besylate 10 mg 05/25/24 09:00 05/25/24 08:49 Amlodipine Besylate 5 Mg Tab PO 06/24/24 08:59 10 mg QAM JUDY Administration Apixaban 5 mg 05/25/24 09:00 05/25/24 08:49 Apixaban 5 Mg Tablet PO 06/24/24 08:59 5 mg BID JUDY Administration Metoprolol Succinate 37.5 mg 05/25/24 09:00 05/25/24 08:49 Metoprolol Succ 25mg Ext Rel Tab PO 06/24/24 08:59 37.5 mg DAILY JUDY Administration Rosuvastatin Calcium 5 mg 05/25/24 09:00 05/25/24 08:49 Rosuvastatin Calcium 5 Mg Tab PO 06/24/24 08:59 5 mg DAILY JUDY Administration Vitamin D 125 mcg 05/25/24 09:00 05/25/24 08:49 Cholecalciferol 125 Mcg (5,000 Units) Tab PO 06/24/24 08:59 125 mcg DAILY JUDY Administration Diagnostic Findings Overnight imaging reviewed: CTA with cardiomegaly, stable; no pulm emobolism, GGO scattered, chronic rib fractures Medications Administered Home Medications Medication Instructions Recorded Confirmed Last Taken amlodipine 10 mg tablet 10 mg PO QAM 08/24/19 05/24/24 08/02/21 apixaban 5 mg tablet (Eliquis) 5 mg BID 05/24/24 05/24/24 Unknown cholecalciferol (vitamin D3) 125 125 mcg PO DAILY 05/24/24 05/24/24 Unknown mcg (5,000 unit) tablet (Vitamin D3) metoprolol succinate 25 mg 37.5 mg PO DAILY 05/24/24 05/24/24 Unknown tablet,extended release 24 hr rosuvastatin 5 mg tablet 5 mg PO DAILY 05/24/24 05/24/24 Unknown Active Medications Generic Name Dose Route Start Last Admin Trade Name Freq PRN Reason Stop Dose Admin Amlodipine Besylate 10 mg 05/25/24 09:00 05/25/24 08:49 Amlodipine Besylate 5 Mg Tab PO 06/24/24 08:59 10 mg QAM JUDY Administration Apixaban 5 mg 05/25/24 09:00 05/25/24 08:49 Apixaban 5 Mg Tablet PO 06/24/24 08:59 5 mg BID JUDY Administration Metoprolol Succinate 37.5 mg 05/25/24 09:00 05/25/24 08:49 Metoprolol Succ 25mg Ext Rel Tab PO 06/24/24 08:59 37.5 mg DAILY JUDY Administration Rosuvastatin Calcium 5 mg 05/25/24 09:00 05/25/24 08:49 Rosuvastatin Calcium 5 Mg Tab PO 06/24/24 08:59 5 mg DAILY JUDY Administration Vitamin D 125 mcg 05/25/24 09:00 05/25/24 08:49 Cholecalciferol 125 Mcg (5,000 Units) Tab PO 06/24/24 08:59 125 mcg DAILY JUDY Administration
--- NOTE | 2024-05-25 08:04 | Electrocardiogram Report ---
Test Reason : Blood Pressure : / mmHG Vent. Rate : 070 BPM Atrial Rate : 070 BPM P-R Int : 200 ms QRS Dur : 146 ms QT Int : 440 ms P-R-T Axes : 011 -68 090 degrees QTc Int : 475 ms Atrial-sensed ventricular-paced rhythm Abnormal ECG When compared with ECG of 04-AUG-2021 05:33, Vent. rate has increased BY 10 BPM Confirmed by Jairon Cain ([id number]) on 05/25/2024 8:03:30 AM Referred By: REFERRED SELF Confirmed By:Jairon Cain
[2024-05-25] MEDS: METOPROLOL SUCC 25MG EXT REL TAB PO SCH (08:49)
[2024-05-25] MEDS: ROSUVASTATIN CALCIUM 5 MG TAB PO SCH (08:49)
[2024-05-25] MEDS: CHOLECALCIFEROL 125 MCG (5,000 UNITS) TAB PO SCH (08:49)
[2024-05-25] MEDS: amLODIPine BESYLATE 5 MG TAB PO SCH (08:49)
[2024-05-25] MEDS: APIXABAN 5 MG TABLET PO SCH (08:49)
[2024-05-25] MEDS: cefTRIAXone SODIUM 2,000 MG/50 ML BAG IV SCH (18:48)
[2024-05-25] MEDS ORDERED: COUGH DROP (SUGAR FREE) LOZ 24 LOZ/1 BOX BUCCAL PRN (19:18)
[2024-05-26 07:34] LABS: Hematocrit (blood only) 37.9 % (37.0-47.0); Hemoglobin 12.3 g/dl (12.0-16.0); Mean Corpuscular Hemoglobin 30.5 pg (25.0-34.0); Mean Corpuscular Hgb Conc 32.5 g/dL (32.0-36.0); Mean Platelet Volume 8.5 fL (9.4-12.4); Platelet Count 409 K/uL (130-400); RDW Coefficient of Variation 12.7 % (11.5-14.5); RDW Standard Deviation 44.1 fL (36.4-46.3); Red Blood Count 4.03 M/uL (4.20-5.40); White Blood Count 4.72 K/ul (4.8-10.8)
[2024-05-26 07:51] LABS: BUN Creatinine Ratio 18.4 (10-20); Calcium 10.1 mg/dl (8.6-10.3); Creatinine Clr Calc Pharmacy 51.3 ml/min; Est GFR (African American) 87.7 ml/min; Est GFR (Non-African American) 75.7 ml/min; Potassium 4.3 mmol/L (3.5-5.1)
[2024-05-26] MEDS: cephALEXin 500 MG CAP PO SCH (09:07)
--- NOTE | 2024-05-26 09:13 | Discharge Summary ---
Discharge Summary Date of Service May 26, 2024 Principal Dx & Hospital Course #1 = Principal Diagnosis (1) Weakness: Ms. Dewey is a 78-year-old female with past medical History significant for primary hyperparathyroidism, complete heart block s/p pacemaker, ascending aortic dilatation, hypertension, left ventricular hypertrophy, diastolic dysfunction, GERD, diverticulosis of large intestine, hepatic cyst, stage III chronic of kidney disease, female genital prolapse with presence of pessary, osteoporosis, partial old retinal detachment, history of GI bleed who is admitted for weakness and acute cystitis. UA suspicious however culture negative. Patient with marked improvement with IVF and abx. Recently on abx briefly. Will complete course for uncomplicated cystitis. On day of discharge, encourgaed patient to remain hydrated and drink a goal of 50oz fluid a day. Patient denies any acute concerns. Physical therapy remarked patient independent. #General weakness *resolved likely 2/2 infection PT/OT: independent lives with and children #Acute uncomplicated cystitis -UA suspicious for infection labs stable UA negative however, unclear timing of collection, will continue abx in interim given subjective improvement -Plan to transition to PO -dc on keflex 500mg bid x 5 days # hypercalcemia *resolved calcium 10.6 on admit possible dehydration Encourage PO intake #complete heart block s/p pacemaker pacemaker interrogation performed from triage and seems device is working normally, detected a single episode of nonsustained SVT lasting less than 1 second several days ago. stable # A-fib/a flutter on metoprolol and Eliquis # hypertension on amlodipine and metoprolol # chronic diastolic CHF stable hyperlipidemia on statin # CKD stage III presented with creatinine 0.7, at baseline stable Notes For Next Care Provider Medication Changes From Visit Keflex 500mg BID x 5 days Admission HPI Per Admitting Provider 78-year-old female with past medical history significant for primary hyperparathyroidism, complete heart block s/p pacemaker, ascending aortic dilatation, hypertension, left ventricular hypertrophy, diastolic dysfunction, GERD, diverticulosis of large intestine, hepatic cyst, stage III chronic of kidney disease, female genital prolapse, presence of pessary, osteoporosis, partial old retinal detachment, history of GI bleed, was brought in because of ongoing weakness for 1 week and found to have UTI. As per ER patient went to urgent care on and was told she has UTI and started antibiotic though seems she was again called back on Saturday and was told that she did not have a urine infection. Because of persistent weakness came to the ER today. Denies any fevers. No headache. No dizziness. No blurred vision. No runny nose or sore throat. No cough. No chest pain or shortness of breath. No nausea vomiting. Appetite is okay. No abdominal pain. Normal bowel and bladder movements. Currently resting comfortably and hemodynamically stable. Past medical history. As mentioned above. Past surgical history. Colonoscopy and EGD. S/p dual-chamber pacemaker. Appendectomy. Reconstruction of shoulder joint left side. Laser trabeculoplasty. Social history. . No smoking. No alcohol use. No drug use. Family history. Mother had aneurysm. Father had kidney failure. Admission Exam Per Admitting Provider General- Not in distress Head- atraumatic Eyes- PERRL. ENT- oropharynx clear Neck- supple, no JVD. Lungs- clear to auscultation no wheezing or crackles. Heart- regular rhythm; no murmur, no gallop. Abdomen- normal bowel sounds, soft, nontender, no distension. Extremities- no pretibial edema, no erythema seen. Neuro- alert, oriented PERRL, EOMI; no facial palsy; no dysarthria; moves extremities. Discharge Exam Constitutional WD/WN, vitals as above Respiratory normal respiratory effort, lungs clear to auscultation Cardiovascular RRR, no murmur, no edema Musculoskeletal no cyanosis or clubbing, extremities motor strength 5/5 Neurologic PERRL, EOMI, accommodation nl, no face palsy, no dysarthria Updated Medication List Medication Instructions Recorded Confirmed Type amlodipine 10 mg tablet 10 mg PO QAM 08/24/19 05/24/24 History apixaban 5 mg tablet (Eliquis) 5 mg BID 05/24/24 05/24/24 History cholecalciferol (vitamin D3) 125 125 mcg PO DAILY 05/24/24 05/24/24 History mcg (5,000 unit) tablet (Vitamin D3) metoprolol succinate 25 mg 37.5 mg PO DAILY 05/24/24 05/24/24 History tablet,extended release 24 hr rosuvastatin 5 mg tablet 5 mg PO DAILY 05/24/24 05/24/24 History cephalexin 500 mg capsule 500 mg PO Q12 #9 caps 05/26/24 Rx Hospital Stay Data Consultations 05/24/24 19:11 ED Decision to Admit Stat Pending Results Patient Have Any Pending Studies at Discharge: No Discharge Instructions Given to Patient (Per Discharging Provider) You were admitted for weakness and UTI You subjectively improved with fluids and antibiotics. Please continue the following: Keflex 500mg every 12 hours for 5 more days, your next dose will be this evening around 8-9pm You were noted to be dehydrated, please aim to drink 50 oz of water, or a around of 6 servings 6-8oz of water/fluid You were evaluated by Physical Therapy who determined you were independent and safe for discharge home. There were no changes to your prior medications. Total Time Total Time Spent Total Time Spent (In Minutes): 35
== END 2024-05-26 09:11 | disposition home or self-care (01) | DRG 690 ==
LOC: ED 14:51 → EDINP 22:43 → 2W 23:36

== ENCOUNTER 2025-09-12 16:38 | Inpatient (IN) ==
[2025-09-12 17:32] LABS: Hematocrit (blood only) 43.7 % (37.0-47.0); Hemoglobin 14.5 g/dl (12.0-16.0); Immature Granulocytes # (auto) 0.14 K/uL (0.01-0.20); Immature Granulocytes % (auto) 2.2 %; Mean Corpuscular Hemoglobin 31.1 pg (25.0-34.0); Mean Corpuscular Volume 93.8 fL (80.0-100.0); Platelet Count 182 K/uL (130-400); RDW Standard Deviation 45.9 fL (36.4-46.3); Red Blood Count 4.66 M/uL (4.20-5.40); White Blood Count 6.34 K/ul (4.8-10.8)
--- NOTE | 2025-09-12 17:34 | Emergency Department Note ---
Impression & Plan Compression fracture of T12 vertebra, Fall down stairs Admit to the [facility] ED Provider Note NAME: DESMOND AVENDANO AGE: 79 SEX: Female INFORMANT: Patient ED PROVIDER(S): Adrianna Lamar DO CHIEF COMPLAINT: fall down stairs PLAN: Disposition: admit to the [facility] MEDICAL DECISION MAKING: this is a 79-year-old female patient who fell down 5 steep cement stairs. She has no recollection of the fall. She believes that she was walking up the stairs and may have lost her balance and fell backwards to the bottom. She complains of severe pain in her tailbone. She is unsure if she lost consciousness. She is on Eliquis. patient was a trauma alert. She presented to the emergency department fully immobilized. Laboratory studies were unremarkable. She only complained of pain in her tailbone initially. she underwent CT scanning of her brain, C-spine, chest, abdomen/pelvis. This revealed compression fractures at C5 and T12. The patient had absolutely no pain at C5 but did have significant discomfort at T12. There were no findings at the sacrum and that pain seem to have resolved. Patient room required multiple doses of IV analgesia. [facility] will [facility] for further inpatient care. Triage Nursing notes: reviewed and agree With them. Vital Signs: reviewed and remarkable for hypertension and hypoxia Additional History obtained from: EMS Chronic Medical/Social Conditions affecting care: on Eliquis for DVT Differential Diagnosis: spinal fracture, head injury, intracranial bleed Diagnostics, independently interpreted by me: ECG: paced rhythm at a rate of 69 with no obvious ischemia Cardiac Monitoring: paced rhythm at a rate of 72 Imaging studies: CT scan of the brain: PER [facility] CT scan cervical spine: PER [facility] CT scan of the chest: PER [facility] CT scan of the abdomen/pelvis: PER [facility] Chest x-ray: PER [facility] HPI: 79 year old Female arrives for evaluation of Trauma from falling downstairs. fell down 5 steep cement stairs. She has no recollection of the fall. She believes that she was walking up the stairs and may have lost her balance and fell backwards to the bottom. She complains of severe pain in her tailbone. She is unsure if she lost consciousness. She is on Eliquis. PAST MEDICAL HISTORY: See Below, PAST SURGICAL HISTORY: See Below, SOCIAL HISTORY: See Below, HOME MEDICATIONS: see list ALLERGIES: none VITALS: See Below PHYSICAL EXAMINATION: Primary Survey Airway: Intact Breathing: Normal, breath sounds equal bilaterally Circulation: Skin warm, distal pulses 2+, capillary refill less than 2 seconds Disability Pupils: Equal and reactive to light, 4mm, brisk GCS: 15, E = 6 V=5 M= 4 Motor Function: Moves all extremities. Sensory: No deficits Secondary Survey GEN: Well developed and well-nourished HEAD: Normal cephalic atraumatic EYES: Pupils round reactive to light, conjunctiva clear, extraocular movements intact, no raccoons eyes ENT: No fluid in external acoustic canals, no hemotympanum, no seo's sign, nares patent, oropharynx clear NECK: No JVD, midline trachea, no cervical spine tenderness, C-collar in place HEART: Regular rate and rhythm LUNGS: Clear to auscultation bilaterally. CHEST: Chest wall non-tender, no bruising/deformity ABD: No Garg-Parker's or Javed's sign, soft, non-tender, no rebound or guarding, PELVIS: Stable to rock BACK: significant pain to palpation over the sacrum and coccyx : No perineal hematoma, no blood at the meatus EXT: 2+ global pulses, moving all extremities well, +5/5 muscle strength globally NEURO: CNII-XII grossly intact, no sensory deficits RECTAL: Good tone, no gross blood, no high riding prostate. There was brown stool which was Hemoccult positive Emergency Department treatment: mine shifter, IV fentanyl, IV Zofran, IV Dilaudid Emergency Department course: The patient was evaluated in room B-8. A complete history and physical was performed. The patient was a Trauma alert patient was rolled off the long spine board. Complete assessment was performed. Laboratory studies were drawn as above. Twelve-lead EKG was obtained. An order was placed for continuous cardiac monitoring. Patient was in a paced rhythm at a rate of 72. Portable chest x-ray was performed. Patient was given a dose of IV fentanyl. Patient went for CT scan of the brain, cervical spine, chest, abdomen/pelvis. Upon returning from radiology, the patient continued to have discomfort in her back and was given a dose of IV Dilaudid. I reviewed results with the patient and her granddaughter. I discussed the case with the [facility] Hospitalist. Patient was unable to have MRI of the compression fracture because of her pacer. Past Med/Surg History Problem List (Updated 09/13/25 @ 12:48 by Adrianna Lamar DO) Fall down stairs (Acute) Compression fracture of T12 vertebra (Acute) Compression fracture of thoracic vertebra DVT prophylaxis Hypoxia Pneumonia due to COVID-19 virus Fall Syncope and collapse (Acute) Weakness (Acute) Status post reverse arthroplasty of left shoulder (~01/2021) Encounter for pre-operative examination Hypercalcemia (Acute) Genital prolapse (Acute) Cystocele (Acute) Closed fracture of left proximal humerus History of pacemaker (Chronic) 2016, [employer]. INSERTED FOR CHB (FOLLOWS WITH DR. DAHL). WILL BRING CARD DOS. GI bleed Third degree heart block (Chronic) "s/p pacemaker" Medical History History of GI bleed Hemothorax on right 08/2019 2/2 rib fx. Had OP f/u with Jocelyn. Resolved. 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 Beliefs That Will Affect Care: None marital status: Current Living Situation: Spouse and Family Current Living Situation Comment: Lives in a house with her , son, granddaughter & 3 great grandkids Other Information That Helps Us Care for You: No Feels Safe at Home: Yes Safety Concerns: Feels Safe At This Time Assistive Devices: None Allergies Allergies Allergy/AdvReac Type Severity Reaction Status Date / Time No Known Allergies Allergy Verified 09/12/25 18:11 Home Meds Home Medications Medication Instructions Recorded Confirmed amlodipine 10 mg tablet 10 mg PO DAILY 08/24/19 09/12/25 apixaban 5 mg tablet (Eliquis) 5 mg PO AMHS 05/24/24 09/12/25 metoprolol succinate 25 mg 37.5 mg PO QAM 05/24/24 09/12/25 tablet,extended release 24 hr rosuvastatin 10 mg tablet 10 mg PO QAM 09/12/25 09/12/25 Results & Data (ED) Vital Signs Vital Signs - 24 hr 09/12/25 16:54 09/12/25 17:00 09/12/25 17:08 Temperature 36.7 C Temperature Source Oral Pulse Rate 70 78 Pulse Rate [Apical] Respiratory Rate 16 Respiratory Effort / Characteristics Non-Labored Spontaneous Blood Pressure 176/98 H Blood Pressure [Right Arm] Blood Pressure Mean 124 Blood Pressure Mean [Right Arm] Blood Pressure Position [Right Arm] Pulse Oximetry 88 L 93 Oxygen Delivery Method Nasal Cannula Nasal Cannula Oxygen Flow Rate 0 2 Sepsis Recent Fever Within 48 Hours No Sepsis New/Unexplained Change in Mental Status No Sepsis Action Taken by Nursing No Action Required Oxygen Flow Rate - Titration 2 Pulse Oximetry Post Tiitration 93 09/12/25 17:08 09/12/25 17:08 09/12/25 17:08 Temperature 36.7 C Temperature Source Pulse Rate 78 Pulse Rate [Apical] 78 78 Respiratory Rate 16 16 16 Respiratory Effort / Characteristics Non-Labored Spontaneous Non-Labored Spontaneous Blood Pressure 176/98 H Blood Pressure [Right Arm] 176/98 H 176/98 H Blood Pressure Mean Blood Pressure Mean [Right Arm] 124 124 Blood Pressure Position [Right Arm] Lying Pulse Oximetry 93 93 93 Oxygen Delivery Method Nasal Cannula Nasal Cannula Nasal Cannula Oxygen Flow Rate 2 2 2 Sepsis Recent Fever Within 48 Hours Sepsis New/Unexplained Change in Mental Status Sepsis Action Taken by Nursing Oxygen Flow Rate - Titration Pulse Oximetry Post Tiitration 09/12/25 17:31 09/12/25 18:00 09/12/25 19:00 Temperature Temperature Source Pulse Rate 78 Pulse Rate [Apical] 77 77 Respiratory Rate 16 16 16 Respiratory Effort / Characteristics Non-Labored Spontaneous Non-Labored Spontaneous Blood Pressure Blood Pressure [Right Arm] 153/91 H 167/86 H Blood Pressure Mean Blood Pressure Mean [Right Arm] 111 113 Blood Pressure Position [Right Arm] Pulse Oximetry 93 91 96 Oxygen Delivery Method Nasal Cannula Nasal Cannula Nasal Cannula Oxygen Flow Rate 2 2 2 Sepsis Recent Fever Within 48 Hours Sepsis New/Unexplained Change in Mental Status Sepsis Action Taken by Nursing Oxygen Flow Rate - Titration Pulse Oximetry Post Tiitration 09/12/25 19:00 09/12/25 20:00 Temperature Temperature Source Pulse Rate Pulse Rate [Apical] 77 65 Respiratory Rate 16 18 Respiratory Effort / Characteristics Non-Labored Spontaneous Blood Pressure Blood Pressure [Right Arm] 167/86 H 127/83 Blood Pressure Mean Blood Pressure Mean [Right Arm] 113 97 Blood Pressure Position [Right Arm] Pulse Oximetry 96 96 Oxygen Delivery Method Nasal Cannula Nasal Cannula Oxygen Flow Rate 2 2 Sepsis Recent Fever Within 48 Hours Sepsis New/Unexplained Change in Mental Status Sepsis Action Taken by Nursing Oxygen Flow Rate - Titration Pulse Oximetry Post Tiitration Laboratory Data 09/13/25 06:20 09/13/25 06:20 Lab Results 09/12/25 09/12/25 09/12/25 Range/Units 16:50 16:52 19:30 WBC 6.34 (4.8-10.8) K/ul RBC 4.66 (4.20-5.40) M/uL Hgb 14.5 (12.0-16.0) g/dl POC Hgb 15.3 (12.0-16.0) g/dl Hct 43.7 (37.0-47.0) % POC Hct 45 (37-47) % MCV 93.8 (80.0-100.0) fL MCH 31.1 (25.0-34.0) pg MCHC 33.2 (32.0-36.0) g/dL RDW Std Deviation 45.9 (36.4-46.3) fL RDW Coeff of Ole 13.3 (11.5-14.5) % Plt Count 182 (130-400) K/uL MPV 9.3 L (9.4-12.4) fL Immature Gran % (Auto) 2.2 % Neut % (Auto) 58.4 % Lymph % (Auto) 30.1 % Burke % (Auto) 6.6 % Eos % (Auto) 2.1 % Baso % (Auto) 0.6 % Neut # (Auto) 3.70 (1.40-6.50) K/uL Lymph # (Auto) 1.91 (1.20-3.40) K/uL Burke # (Auto) 0.42 (0.11-0.59) K/uL Eos # (Auto) 0.13 (0.00-0.50) K/uL Baso # (Auto) 0.04 (0.00-0.20) K/uL Immature Gran # (Auto) 0.14 (0.01-0.20) K/uL PT 10.8 (9.0-12.0) Seconds INR 1.0 (0.9-1.1) APTT 27 (21-31) Seconds PTT Ratio 1.0 POC Sodium 142 (135-144) mmol/L Sodium 140 (136-145) mmol/L POC Potassium 4.1 (3.3-5.0) mmol/L Potassium 4.2 (3.5-5.1) mmol/L POC Chloride 110 (101-112) mmol/L Chloride 109 H (98-107) mmol/L Carbon Dioxide 23 (21-32) mmol/L POC Total CO2 20 L (24-31) mmol/L Anion Gap 8 (3-11) POC Anion Gap 17.0 (16-25) mmol/L POC BUN 23 H (7-18) mg/dl BUN 22 (6-23) mg/dl Creatinine 1.13 (0.6-1.2) mg/dl POC Creatinine 1.2 (0.6-1.3) mg/dl Est Cr Clr Drug Dosing 35.6 ml/min eGFR 49.80 BUN/Creatinine Ratio 19.5 (10-20) Glucose 98 (70-99(Fasting)) mg/dl POC Glucose (other) 101 H (70-99) mg/dl Calcium 10.2 (8.6-10.3) mg/dl POC Ioniz Calcium Elizabeth 1.21 (1.12-1.32) mmol/l Total Bilirubin 0.5 (0.2-1.0) mg/dl AST 27 (13-39) U/L ALT 19 (7-52) U/L Alkaline Phosphatase 115 H (34-104) U/L Troponin I High Sens 8.4 (0-14) pg/ml Total Protein 7.7 (6.0-8.3) gm/dl Albumin 4.2 (3.4-5.0) gm/dl Globulin 3.5 (2.5-4.0) gm/dl Albumin/Globulin Ratio 1.2 (0.9-2) Lipase 47 (11-82) U/L Urine Color Yellow Urine Appearance Clear (Clear) Urine pH 7.5 (4.5-7.5) Ur Specific [place] 1.025 (1.000-1.030) Urine Protein 1+ H (Negative) Urine Glucose (UA) Negative (Negative) Urine Ketones Negative (Negative) Urine Blood 2+ H (Negative) Urine Nitrite Negative (Negative) Urine Bilirubin Negative (Negative) Urine Urobilinogen Negative (Negative) Ur Leukocyte Esterase 1+ H (Negative) Urine WBC (Auto) 6-10 H (0-5) /hpf Urine RBC (Auto) 3-5 H (0-2) /hpf U Hyaline Cast (Auto) 0-2 (0-2) /lpf U Epithel Cells (Auto) 0-2 (0-2) /hpf Urine Bacteria (Auto) None Seen (None Seen) Urine Comment Administered Medications Acetaminophen (Acetaminophen 325 Mg Tab) 650 mg PO Q4H PRN PRN Reason: pain/fever Stop: 10/12/25 22:58 Last Admin: 09/13/25 06:26 Dose: 650 mg Documented By: henrik Amlodipine Besylate (Amlodipine Besylate 5 Mg Tab) 10 mg PO DAILY [facility] Stop: 10/13/25 08:59 Last Admin: 09/13/25 08:47 Dose: 10 mg Documented By: SAMAN Apixaban (Apixaban 5 Mg Tablet) 5 mg PO BID [facility] Stop: 10/12/25 22:58 Last Admin: 09/13/25 08:48 Dose: 5 mg Documented By: Admin: 09/12/25 23:26 Dose: 5 mg Documented By: henrik Hydromorphone HCl (Hydromorphone Inj 0.5 Mg/0.5 Ml Syr) 0.5 mg IV Q6H PRN PRN Reason: Breakthrough Pain Stop: 09/26/25 22:58 Last Admin: 09/13/25 08:48 Dose: 0.5 mg Documented By: Admin: 09/13/25 01:40 Dose: 0.5 mg Documented By: henrik Lidocaine (Lidocaine 5% 1 Patch) 1 patch TD HS [facility] Stop: 10/13/25 01:34 Last Admin: 09/13/25 04:01 Dose: 1 patch Documented By: henrik Metoprolol Succinate (Metoprolol Succ 25mg Ext Rel Tab) [facility] Stop: 10/13/25 08:59 Last Admin: 09/13/25 08:47 Dose: 37.5 mg Documented By: SAMAN Miscellaneous (Remove Lidoderm Patch) 1 each N/A DAILY@0900 [facility] Stop: 10/13/25 11:59 Last Admin: 09/13/25 11:36 Dose: 1 each Documented By: SAMAN Ondansetron HCl (Ondansetron Inj 2 Mg/Ml 2 Ml Vial) 4 mg IV Q6H PRN PRN Reason: Nausea And Vomiting Stop: 10/13/25 01:35 Last Admin: 09/13/25 01:45 Dose: 4 mg Documented By: henrik Oxycodone HCl (Oxycodone Hcl Ir 5 Mg Tab (Immediate Release)) 5 mg PO Q6H PRN PRN Reason: Mod-Sev Pain (Scale 4-10) Stop: 09/26/25 22:58 Last Admin: 09/13/25 11:37 Dose: 5 mg Documented By: Admin: 09/13/25 04:00 Dose: 5 mg Documented By: henrik Rosuvastatin Calcium (Rosuvastatin Calcium 10 Mg Tab) [facility] [place] Stop: 10/13/25 08:59 Last Admin: 09/13/25 08:48 Dose: 10 mg Documented By: SAMAN Discontinued Medications Fentanyl Citrate (Fentanyl Citrate Pf 100 Mcg/2 Ml Vial) 25 mcg IV NOW ONE Stop: 09/12/25 18:01 Last Admin: 09/12/25 18:07 Dose: 25 mcg Documented By: ARIELLA Hydromorphone HCl (Hydromorphone Inj 0.5 Mg/0.5 Ml Syr) 0.25 mg IV NOW STA Stop: 09/12/25 19:11 Last Admin: 09/12/25 19:23 Dose: 0.25 mg Documented By: ARIELLA Lactated Ringer's (Lr) 1,000 mls @ 80 mls/hr IV .[id number] [facility] Stop: 09/13/25 11:28 Last Infusion: 09/13/25 11:52 Dose: Infused Documented By: Admin: 09/12/25 23:07 Dose: 80 mls/hr Documented By: LENY Lidocaine (Lidocaine 5% 1 Patch) 1 patch TD NOW STA Stop: 09/12/25 23:00 Last Admin: 09/12/25 23:26 Dose: 1 patch Documented By: henrik Miscellaneous (Remove Lidoderm Patch) 1 each N/A 1100 ONE Stop: 09/13/25 11:01 Last Admin: 09/13/25 11:36 Dose: 1 each Documented By: SAMAN Ondansetron HCl (Ondansetron Inj 2 Mg/Ml 2 Ml Vial) 4 mg IV NOW STA Stop: 09/12/25 18:01 Last Admin: 09/12/25 18:07 Dose: 4 mg Documented By: ARIELLA Oxycodone HCl (Oxycodone Hcl Ir 5 Mg Tab (Immediate Release)) 5 mg PO NOW STA Stop: 09/12/25 21:05 Last Admin: 09/12/25 21:13 Dose: 5 mg Documented By: ARIELLA Discharge Plan Visit Data Chief Complaint: Fall Stated Complaint: FALL, BACK PAIN ED Provider: Adrianna Lamar Discharge Problem: Compression fracture of T12 vertebra, Fall down stairs Patient Disposition: Admitted As Inpatient Condition: Serious Discharge Instructions Interventions: ED Discharge Assessment Last Done: 09/12/25 22:14
[2025-09-12 17:42] LABS: Alanine Aminotransferase 19.0 U/L (7-52); Albumin Globulin Ratio 1.2 (0.9-2); Albumin Level 4.2 gm/dl (3.4-5.0); Alkaline Phosphatase 115.0 U/L (34-104); Anion Gap 8.0 (3-11); Bilirubin,Total 0.5 mg/dl (0.2-1.0); Blood Urea Nitrogen 22.0 mg/dl (6-23); Calcium 10.2 mg/dl (8.6-10.3); Carbon Dioxide 23.0 mmol/L (21-32); Chloride 109.0 mmol/L (98-107); Creatinine Clr Calc Pharmacy 35.6 ml/min; Globulin 3.5 gm/dl (2.5-4.0); Glucose 98.0 mg/dl (70-99(Fasting)); Lipase 47.0 U/L (11-82); Potassium 4.2 mmol/L (3.5-5.1); Sodium 140.0 mmol/L (136-145); Total Protein 7.7 gm/dl (6.0-8.3)
[2025-09-12] MEDS: ONDANSETRON INJ 2 MG/ML 2 ML VIAL IV STA (18:07)
[2025-09-12 18:12] LABS: INR 1.0 (0.9-1.1); Partial Thromboplastin Time 27 Seconds (21-31); Prothrombin Time 10.8 Seconds (9.0-12.0)
--- NOTE | 2025-09-12 18:40 | CT Scan Report ---
Exam: CTA head/brain without contrast. Reason for exam: Patient fell. Unable to raise arms for exam. Previous studies: CT head 08/02/2021. FINDINGS: There is some diffuse atrophy and lucency in the deep white matter similar to the previous study. No intracranial mass, hemorrhage or edema is seen. No midline shift or extra-axial blood or fluid collection is noted. The mastoids remain well aerated. No acute process seen in the sinuses. Remaining bony calvarium. IMPRESSION: 1. Negative for acute intracranial process. 2. 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 Electronically signed by Jasper Scott 09-12-2025 6:40 PM
--- NOTE | 2025-09-12 18:47 | CT Scan Report ---
Exam: CT cervical spine without contrast. Reason for exam: Patient fell. Previous studies: None FINDINGS: Moderate central compression fracture of the C5 vertebral body with approximately 3 mm retropulsion of the posterior-superior element. No definite displaced fragment is seen and no definite acute fracture line is seen. The age of this is uncertain. The remaining vertebral body heights are intact. No significant overall bony spinal stenosis is seen. There is abnormal narrowing of the C5-6 and C6/7 intervertebral disc spaces with degenerative facet arthropathy throughout the mid and lower cervical spine. Moderate bilateral carotid artery calcification is seen. IMPRESSION: 1. Moderate compression fracture of C5 of uncertain age. This may be acute and there is mild retropulsion of the posterior-superior aspect of the vertebral body. Further evaluation with MRI study of the cervical spine to evaluate this fracture is recommended. 2. Otherwise negative for acute bony trauma. 3. Moderate degenerative spondylosis at the mid and lower cervical levels. Electronically signed by Jasper Scott 09-12-2025 6:47 PM
--- NOTE | 2025-09-12 18:53 | CT Scan Report ---
Exam: CT chest diagnostic with contrast. Reason for exam: Injury. Patient fell. Previous studies: Portable chest 09/12/2025; CT thorax 08/02/2021 FINDINGS: There is a atelectasis seen in both lower lobes. No pneumothorax or significant pleural effusion is seen at this time. Some chronic interstitial fibrotic changes and/or scarring seen in both lung zones with diffuse bronchial wall thickening. No mediastinal mass or adenopathy is seen. Pacemaker lead entering via the left subclavian is noted. Heart is enlarged. Chronic compression fractures seen in the lower thoracic spine. Left shoulder arthroplasty is noted. IMPRESSION: 1. Negative for acute traumatic abnormalities. 2. Mild chronic lung scarring/fibrosis with areas of atelectasis in both lower lobes. 3. Stable chronic compression fracture in the lower thoracic spine. Electronically signed by Jasper Scott 09-12-2025 6:52 PM
--- NOTE | 2025-09-12 18:59 | CT Scan Report ---
Exam: CT abdomen/pelvis with IV contrast. Reason for exam: Injury alert, patient fell. Previous studies: CT abdomen/pelvis 08/24/2019. FINDINGS: The lower lung zones show some areas of atelectasis. Sharply demarcated low-attenuation lesions in the liver again noted compatible with hepatic cysts. No biliary tree dilatation noted. Multiple calcified gallstones are present. Pancreas and spleen are unremarkable. Hiatal hernia seen in the lower mediastinum. Adrenal glands unremarkable. Multiple cysts seen on the right kidney without hydronephrosis or acute traumatic abnormality. There is a large staghorn calculus in the left renal pelvis with marked chronic atrophy and calyceal dilatation in the left kidney which was also present on the previous study. Increased air is seen to the colon. No evidence of bowel obstruction or free air is seen. Urinary bladder is moderately distended. Diverticulosis is noted. Radiopaque pessary seen in the upper vaginal vault. Right inguinal hernia containing fat only at this time. Compression fracture of T12 is seen. Sclerosis is seen throughout the L1 vertebral body. These may be chronic, however if there are current clinical symptoms referable to the recent trauma at these levels, for evaluation with MRI study of the thoracic and lumbar spine would be recommended. IMPRESSION: 1. Negative for acute traumatic abnormalities. 2. Staghorn left renal calculus with chronic hydronephrosis and marked atrophy of the left kidney. 3. Multiple right renal cysts. 4. Diverticulosis. 5. Right inguinal hernia. 6. Compression fracture of T12 and sclerosis throughout the vertebral body of L1. No definite acute fracture line or retropulsed fragment is seen. If there appear to be symptoms referable to these levels from the recent trauma however, further evaluation with MRI study would be recommended. Electronically signed by Japser Scott 09-12-2025 6:59 PM
--- NOTE | 2025-09-12 19:08 | XRay Report ---
Exam: Chest one view portable. Reason for exam: Trauma. Previous studies: Chest radiograph 08/02/2021 FINDINGS: Left-sided pacemaker and left shoulder arthroplasty again noted. Heart is mildly enlarged. Aorta is markedly tortuous. Lungs show no acute infiltrate, collapse or edema. IMPRESSION: Mild cardiomegaly. Otherwise negative for acute disease. Electronically signed by Jasper Scott 09-12-2025 7:08 PM
[2025-09-12] MEDS: HYDROmorphone INJ 0.5 MG/0.5 ML SYR IV STA (19:23)
[2025-09-12 19:46] LABS: Appearance Urine Clear (Clear); Bacteria Urine Automated None Seen (None Seen); Cast Urine Automated 0-2 /lpf (0-2); Epithelial Cell Urine Auto 0-2 /hpf (0-2); Glucose Urine UA Negative (Negative)
[2025-09-12] MEDS ORDERED: POLYETHYLENE (MIRALAX) 17 GM PACK PO PRN (22:59)
[2025-09-12] MEDS: LACTATED RINGER'S 1,000 ML IV SCH (23:07)
--- NOTE | 2025-09-12 23:22 | History & Physical Report ---
Date of Service September 12, 2025 Assessment & Plan (1) Fall: Plan: 79-year-old female with past medical history significant for hyperlipidemia, primary hyperparathyroidism, complete heart block status post pacemaker, paroxysmal atrial fibrillation, ascending aortic dilatation, hypertension, left ventricular hypertrophy, diastolic dysfunction, moderate mitral regurgitation, GERD, diverticulosis, CKD stage IIIa, female genital prolapse, presence of pessary, osteoporosis, partial old retinal detachment, history of GI bleed who lives at home and ambulates without support comes because of fall. Patient says she fell from the [place] of the stairs and she fell on her back on the concrete floor. She could not able to get up. Her family helped try to get her up but because of pain the she was laid down on the floor and brought to the ER. Patient says she did not hit her head. No loss of consciousness. Currently resting comfortably and hemodynamically stable. Denies headache. No dizziness. No blurred vision. No runny nose or sore throat. No cough. No fevers. No difficulty swallowing. Appetite is okay. Denies any chest pain or shortness of breath. No nausea. No abdominal pain. Normal bowel and bladder movements. Complains of pain in the mid back. Denies any pain in the neck. Can move her neck okay. Fall Fell from steps on the back CT head is okay CT chest negative for acute traumatic abnormalities. Shows some chronic compression fractures lower thoracic spine Cervical spine CT. Moderate compression fracture of C5 of uncertain age.Possibly acute. CT abdomen pelvis. Compression fracture of T12 and sclerosis throughout the vertebral body of L1. Staghorn left renal calculus with chronic hydronephrosis and marked atrophy of the left kidney Could not do MRI because of pacemaker Patient has no neck pain and can flex and extend neck okay.C5 fracture old vs actue Complains of pain in the mid back Possible T12 fracture could be acute Pain control Spine Ortho consult for further recommendation PT OT when stable Complete heart block Status post pacemaker in 2016 Paroxysmal atrial fibrillation On metoprolol succinate and Eliquis Hypertension On amlodipine and metoprolol succinate We will monitor Hyperlipidemia On statin Chronic diastolic CHF Moderate MR on echo 01/2024 Monitor for volume overload Possible UTI Will follow cultures CKD stage III Presented creatinine 1.12 Baseline around 1 Will follow labs Staghorn left renal calculus with chronic hydronephrosis and marked atrophy of the left kidney Chronic followup with PCP and Urology DVT prophylaxis Eliquis Disposition Medical floor Full code. History of Present Illness Chief Complaint: Status post fall Primary Care Provider: Avani Palacios DO 79-year-old female with past medical history significant for hyperlipidemia, primary hyperparathyroidism, complete heart block status post pacemaker, paroxysmal atrial fibrillation, ascending aortic dilatation, hypertension, left ventricular hypertrophy, diastolic dysfunction, moderate mitral regurgitation, GERD, diverticulosis, CKD stage IIIa, female genital prolapse, presence of pessary, osteoporosis, partial old retinal detachment, history of GI bleed who lives at home and ambulates without support comes because of fall. Patient says she fell from the [place] of the stairs and she fell on her back on the concrete floor. She could not able to get up. Her family helped try to get her up but because of pain the she was laid down on the floor and brought to the ER. Patient says she did not hit her head. No loss of consciousness. Currently resting comfortably and hemodynamically stable. Denies headache. No dizziness. No blurred vision. No runny nose or sore throat. No cough. No fevers. No difficulty swallowing. Appetite is okay. Denies any chest pain or shortness of breath. No nausea. No abdominal pain. Normal bowel and bladder movements. Complains of pain in the mid back. Denies any pain in the neck. Can move her neck okay. Past medical history. As mentioned above. Past surgical history. Colonoscopy. EGD. Dual-chamber pacemaker. Left laser trabeculoplasty. Left shoulder joint implant. Appendectomy. Social history. . No smoking. No alcohol use. No drug use. Family history. Father had kidney failure. Mother had aneurysm. Allergies Allergy/AdvReac Type Severity Reaction Status Date / Time No Known Allergies Allergy Verified 09/12/25 18:11 Home Medications Medication Instructions Recorded Confirmed Type amlodipine 10 mg tablet 10 mg PO DAILY 08/24/19 09/12/25 History apixaban 5 mg tablet (Eliquis) 5 mg PO AMHS 05/24/24 09/12/25 History metoprolol succinate 25 mg 37.5 mg PO QAM 05/24/24 09/12/25 History tablet,extended release 24 hr rosuvastatin 10 mg tablet 10 mg PO QAM 09/12/25 09/12/25 History Past Med/Surg History Problem List (Updated 06/26/24 @ 00:08 by Background Daemon) DVT prophylaxis Hypoxia Pneumonia due to COVID-19 virus Fall Syncope and collapse (Acute) Weakness (Acute) Status post reverse arthroplasty of left shoulder (~01/2021) Encounter for pre-operative examination Hypercalcemia (Acute) Genital prolapse (Acute) Cystocele (Acute) Closed fracture of left proximal humerus History of pacemaker (Chronic) 2016, [employer]. INSERTED FOR CHB (FOLLOWS WITH DR. DAHL). WILL BRING CARD DOS. GI bleed Third degree heart block (Chronic) "s/p pacemaker" Medical History History of GI bleed Hemothorax on right 08/2019 2/2 rib fx. Had OP f/u with Jocelyn. Resolved. 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 ENT- oropharynx clear Neck- supple, no JVD. Lungs- clear to auscultation no wheezing or crackles Heart- regular rhythm; no murmur, no gallop. Abdomen- normal bowel sounds, soft, nontender, no distension Extremities- no pretibial edema, no erythema seen Neuro- alert, oriented PERRL, no facial palsy; no dysarthria; moves extremities. Musculoskeletal- Tenderness in lower thoracic spine region Results & Data Results & Data Vital Signs (Past 12 Hours) Vital Signs Temp Pulse Pulse Resp BP BP Pulse Ox 09/12/25 20:00 65 18 127/83 96 09/12/25 19:00 77 16 167/86 H 96 09/12/25 19:00 77 16 167/86 H 96 09/12/25 18:00 77 16 153/91 H 91 09/12/25 17:31 78 16 93 09/12/25 17:08 78 16 176/98 H 93 09/12/25 17:08 36.7 C 78 16 176/98 H 93 09/12/25 17:08 78 16 176/98 H 93 09/12/25 17:08 36.7 C 78 16 176/98 H 93 09/12/25 17:00 88 L 09/12/25 16:54 70 O2 Del Method O2 Flow Rate 09/12/25 20:00 Nasal Cannula 2 09/12/25 19:00 Nasal Cannula 2 09/12/25 19:00 Nasal Cannula 2 09/12/25 18:00 Nasal Cannula 2 09/12/25 17:31 Nasal Cannula 2 09/12/25 17:08 Nasal Cannula 2 09/12/25 17:08 Nasal Cannula 2 09/12/25 17:08 Nasal Cannula 2 09/12/25 17:08 Nasal Cannula 2 09/12/25 17:00 Nasal Cannula 0 09/12/25 16:54 Diagnostic Findings Laboratory Results WBC 6.34 K/ul (4.8-10.8) 09/12/25 16:50 RBC 4.66 M/uL (4.20-5.40) 09/12/25 16:50 Hgb 14.5 g/dl (12.0-16.0) 09/12/25 16:50 POC Hgb 15.3 g/dl (12.0-16.0) 09/12/25 16:52 Hct 43.7 % (37.0-47.0) 09/12/25 16:50 POC Hct 45 % (37-47) 09/12/25 16:52 MCV 93.8 fL (80.0-100.0) 09/12/25 16:50 MCH 31.1 pg (25.0-34.0) 09/12/25 16:50 MCHC 33.2 g/dL (32.0-36.0) 09/12/25 16:50 RDW Std Deviation 45.9 fL (36.4-46.3) 09/12/25 16:50 RDW Coeff of Ole 13.3 % (11.5-14.5) 09/12/25 16:50 Plt Count 182 K/uL (130-400) 09/12/25 16:50 MPV 9.3 fL (9.4-12.4) L 09/12/25 16:50 Immature Gran % (Auto) 2.2 % 09/12/25 16:50 Neut % (Auto) 58.4 % 09/12/25 16:50 Lymph % (Auto) 30.1 % 09/12/25 16:50 [place] % (Auto) 6.6 % 09/12/25 16:50 Eos % (Auto) 2.1 % 09/12/25 16:50 Baso % (Auto) 0.6 % 09/12/25 16:50 Neut # (Auto) 3.70 K/uL (1.40-6.50) 09/12/25 16:50 Lymph # (Auto) 1.91 K/uL (1.20-3.40) 09/12/25 16:50 [place] # (Auto) 0.42 K/uL (0.11-0.59) 09/12/25 16:50 Eos # (Auto) 0.13 K/uL (0.00-0.50) 09/12/25 16:50 Baso # (Auto) 0.04 K/uL (0.00-0.20) 09/12/25 16:50 Immature Gran # (Auto) 0.14 K/uL (0.01-0.20) 09/12/25 16:50 PT 10.8 Seconds (9.0-12.0) 09/12/25 16:50 INR 1.0 (0.9-1.1) 09/12/25 16:50 APTT 27 Seconds (21-31) 09/12/25 16:50 PTT Ratio 1.0 09/12/25 16:50 POC Sodium 142 mmol/L (135-144) 09/12/25 16:52 Sodium 140 mmol/L (136-145) 09/12/25 16:50 POC Potassium 4.1 mmol/L (3.3-5.0) 09/12/25 16:52 Potassium 4.2 mmol/L (3.5-5.1) 09/12/25 16:50 POC Chloride 110 mmol/L (101-112) 09/12/25 16:52 Chloride 109 mmol/L (98-107) H 09/12/25 16:50 Carbon Dioxide 23 mmol/L (21-32) 09/12/25 16:50 POC Total CO2 20 mmol/L (24-31) L 09/12/25 16:52 Anion Gap 8 (3-11) 09/12/25 16:50 POC Anion Gap 17.0 mmol/L (16-25) 09/12/25 16:52 POC BUN 23 mg/dl (7-18) H 09/12/25 16:52 BUN 22 mg/dl (6-23) 09/12/25 16:50 Creatinine 1.13 mg/dl (0.6-1.2) 09/12/25 16:50 POC Creatinine 1.2 mg/dl (0.6-1.3) 09/12/25 16:52 Est Cr Clr Drug Dosing 35.6 ml/min 09/12/25 16:50 eGFR 49.80 09/12/25 16:50 BUN/Creatinine Ratio 19.5 (10-20) 09/12/25 16:50 Glucose 98 mg/dl (70-99(Fasting)) 09/12/25 16:50 POC Glucose (other) 101 mg/dl (70-99) H 09/12/25 16:52 Calcium 10.2 mg/dl (8.6-10.3) 09/12/25 16:50 POC Ioniz Calcium [place] 1.21 mmol/l (1.12-1.32) 09/12/25 16:52 Total Bilirubin 0.5 mg/dl (0.2-1.0) 09/12/25 16:50 AST 27 U/L (13-39) 09/12/25 16:50 ALT 19 U/L (7-52) 09/12/25 16:50 Alkaline Phosphatase 115 U/L (34-104) H 09/12/25 16:50 Troponin I High Sens 8.4 pg/ml (0-14) 09/12/25 16:50 Total Protein 7.7 gm/dl (6.0-8.3) 09/12/25 16:50 Albumin 4.2 gm/dl (3.4-5.0) 09/12/25 16:50 Globulin 3.5 gm/dl (2.5-4.0) 09/12/25 16:50 Albumin/Globulin Ratio 1.2 (0.9-2) 09/12/25 16:50 Lipase 47 U/L (11-82) 09/12/25 16:50 Urine Color Yellow 09/12/25 19:30 Urine Appearance Clear (Clear) 09/12/25 19:30 Urine pH 7.5 (4.5-7.5) 09/12/25 19:30 Ur Specific [place] 1.025 (1.000-1.030) 09/12/25 19:30 Urine Protein 1+ (Negative) H 09/12/25 19:30 Urine Glucose (UA) Negative (Negative) 09/12/25 19:30 Urine Ketones Negative (Negative) 09/12/25 19: Urine Blood 2+ (Negative) H 09/12/25 19:30 Urine Nitrite Negative (Negative) 09/12/25 19:30 Urine Bilirubin Negative (Negative) 09/12/25 19:30 Urine Urobilinogen Negative (Negative) 09/12/25 19:30 Ur Leukocyte Esterase 1+ (Negative) H 09/12/25 19:30 Urine WBC (Auto) 6-10 /hpf (0-5) H 09/12/25 19:30 Urine RBC (Auto) 3-5 /hpf (0-2) H 09/12/25 19:30 U Hyaline Cast (Auto) 0-2 /lpf (0-2) 09/12/25 19:30 U Epithel Cells (Auto) 0-2 /hpf (0-2) 09/12/25 19:30 Urine Bacteria (Auto) None Seen (None Seen) 09/12/25 19:30 Urine Comment 09/12/25 19:30 Impressions Chest X-Ray 09/12/25 17:18 Exam: Chest one view portable. Reason for exam: Trauma. Previous studies: Chest radiograph 08/02/2021 FINDINGS: Left-sided pacemaker and left shoulder arthroplasty again noted. Heart is mildly enlarged. Aorta is markedly tortuous. Lungs show no acute infiltrate, collapse or edema. IMPRESSION: Mild cardiomegaly. Otherwise negative for acute disease. Electronically signed by Jasper Scott 09-12-2025 7:08 PM Abdomen/Pelvis CT 09/12/25 17:20 Exam: CT abdomen/pelvis with IV contrast. Reason for exam: Injury alert, patient fell. Previous studies: CT abdomen/pelvis 08/24/2019. FINDINGS: The lower lung zones show some areas of atelectasis. Sharply demarcated low-attenuation lesions in the liver again noted compatible with hepatic cysts. No biliary tree dilatation noted. Multiple calcified gallstones are present. Pancreas and spleen are unremarkable. Hiatal hernia seen in the lower mediastinum. Adrenal glands unremarkable. Multiple cysts seen on the right kidney without hydronephrosis or acute traumatic abnormality. There is a large staghorn calculus in the left renal pelvis with marked chronic atrophy and calyceal dilatation in the left kidney which was also present on the previous study. Increased air is seen to the colon. No evidence of bowel obstruction or free air is seen. Urinary bladder is moderately distended. Diverticulosis is noted. Radiopaque pessary seen in the upper vaginal vault. Right inguinal hernia containing fat only at this time. Compression fracture of T12 is seen. Sclerosis is seen throughout the L1 vertebral body. These may be chronic, however if there are current clinical symptoms referable to the recent trauma at these levels, for evaluation with MRI study of the thoracic and lumbar spine would be recommended. IMPRESSION: 1. Negative for acute traumatic abnormalities. 2. Staghorn left renal calculus with chronic hydronephrosis and marked atrophy of the left kidney. 3. Multiple right renal cysts. 4. Diverticulosis. 5. Right inguinal hernia. 6. Compression fracture of T12 and sclerosis throughout the vertebral body of L1. No definite acute fracture line or retropulsed fragment is seen. If there appear to be symptoms referable to these levels from the recent trauma however, further evaluation with MRI study would be recommended. Electronically signed by Jasper Scott 09-12-2025 6:[address] 09/12/25 17:20 Exam: CT cervical spine without contrast. Reason for exam: Patient fell. Previous studies: None FINDINGS: Moderate central compression fracture of the C5 vertebral body with approximately 3 mm retropulsion of the posterior-superior element. No definite displaced fragment is seen and no definite acute fracture line is seen. The age of this is uncertain. The remaining vertebral body heights are intact. No significant overall bony spinal stenosis is seen. There is abnormal narrowing of the C5-6 and C6/7 intervertebral disc spaces with degenerative facet arthropathy throughout the mid and lower cervical spine. Moderate bilateral carotid artery calcification is seen. IMPRESSION: 1. Moderate compression fracture of C5 of uncertain age. This may be acute and there is mild retropulsion of the posterior-superior aspect of the vertebral body. Further evaluation with MRI study of the cervical spine to evaluate this fracture is recommended. 2. Otherwise negative for acute bony trauma. 3. Moderate degenerative spondylosis at the mid and lower cervical levels. Electronically signed by Jasper Scott 09-12-2025 6:[address] 09/12/25 17:20 Exam: CT chest diagnostic with contrast. Reason for exam: Injury. Patient fell. Previous studies: Portable chest 09/12/2025; CT thorax 08/02/2021 FINDINGS: There is a atelectasis seen in both lower lobes. No pneumothorax or significant pleural effusion is seen at this time. Some chronic interstitial fibrotic changes and/or scarring seen in both lung zones with diffuse bronchial wall thickening. No mediastinal mass or adenopathy is seen. Pacemaker lead entering via the left subclavian is noted. Heart is enlarged. Chronic compression fractures seen in the lower thoracic spine. Left shoulder arthroplasty is noted. IMPRESSION: 1. Negative for acute traumatic abnormalities. 2. Mild chronic lung scarring/fibrosis with areas of atelectasis in both lower lobes. 3. Stable chronic compression fracture in the lower thoracic spine. Electronically signed by Jasper Scott 09-12-2025 6:[address] 09/12/25 17:20 Exam: CTA head/brain without contrast. Reason for exam: Patient fell. Unable to raise arms for exam. Previous studies: CT head 08/02/2021. FINDINGS: There is some diffuse atrophy and lucency in the deep white matter similar to the previous study. No intracranial mass, hemorrhage or edema is seen. No midline shift or extra-axial blood or fluid collection is noted. The mastoids remain well aerated. No acute process seen in the sinuses. Remaining bony calvarium. IMPRESSION: 1. Negative for acute intracranial process. 2. 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 Electronically signed by Jasper Scott 09-12-2025 6:40 PM ECG Additional Comments: ECG. Atrial sensed ventricular paced rhythm rate of 69. No significant change was found. Code Status & VTE Plan VTE Prophylaxis Plan VTE Prophylaxis will be ordered: Yes
[2025-09-12] MEDS: APIXABAN 5 MG TABLET PO SCH (23:26)
[2025-09-12] MEDS: LIDOCAINE 5% 1 PATCH TD STA (23:26)
[2025-09-13] MEDS: HYDROmorphone INJ 0.5 MG/0.5 ML SYR IV PRN (01:40)
[2025-09-13] MEDS: ONDANSETRON INJ 2 MG/ML 2 ML VIAL IV PRN (01:45)
[2025-09-13] MEDS: LIDOCAINE 5% 1 PATCH TD SCH (04:01)
[2025-09-13] MEDS: ACETAMINOPHEN 325 MG TAB PO PRN (06:26)
[2025-09-13 06:58] LABS: Hematocrit (blood only) 40.7 % (37.0-47.0); Hemoglobin 13.2 g/dl (12.0-16.0); Immature Granulocytes # (auto) 0.04 K/uL (0.01-0.20); Immature Granulocytes % (auto) 0.6 %; Mean Corpuscular Hemoglobin 30.6 pg (25.0-34.0); Mean Corpuscular Volume 94.2 fL (80.0-100.0); Platelet Count 138 K/uL (130-400); RDW Standard Deviation 45.4 fL (36.4-46.3); Red Blood Count 4.32 M/uL (4.20-5.40); White Blood Count 6.61 K/ul (4.8-10.8)
[2025-09-13 07:18] LABS: Anion Gap 6.0 (3-11); Blood Urea Nitrogen 14.0 mg/dl (6-23); Calcium 9.3 mg/dl (8.6-10.3); Carbon Dioxide 27.0 mmol/L (21-32); Chloride 104.0 mmol/L (98-107); Creatinine Clr Calc Pharmacy 51.7 ml/min; Glucose 106.0 mg/dl (70-99(Fasting)); Magnesium 1.8 mg/dl (1.7-2.4); Potassium 4.4 mmol/L (3.5-5.1); Sodium 137.0 mmol/L (136-145)
[2025-09-13] MEDS: METOPROLOL SUCC 25MG EXT REL TAB PO SCH (08:47)
[2025-09-13] MEDS: ROSUVASTATIN CALCIUM 10 MG TAB PO SCH (08:48)
--- NOTE | 2025-09-13 09:06 | Orthopedic Consultation ---
Date of Service September 13, 2025 Assessment & Plan (1) Compression fracture of thoracic vertebra: * Case/imaging reviewed and discussed with Dr Dominguez * Recommend closed management of T12 compression fx. * C5 compression fx identified on CT scan asymptomatic, likely old * TLSO brace ordered * Weight bearing status: activity as tolerated * Daily treatment: Physical Therapy/ Occupational Therapy per protocol * Pain control * Disposition: TBD * Remainder care per primary team * Will follow peripherally in hospital, office f/u 4-6 weeks for repeat XR * * Patient seen and examined, note patient is not having any significant symptoms either in the upper thoracic or thoracolumbar region, both findings on studies could be chronic in nature. Recommend TLSO brace just as a precaution, follow-up in office after discharge. History of Present Illness Reason for Consultation: Back pain Requesting Physician: . Attending Physician: Baldemar Bruno MD Patient is a 79 y/o female with back pain. PMH including hyperlipidemia, primary hyperparathyroidism, complete heart block status post pacemaker, paroxysmal atrial fibrillation, ascending aortic dilatation, hypertension, left ventricular hypertrophy, diastolic dysfunction, moderate mitral regurgitation, GERD, diverticulosis, CKD stage IIIa, female genital prolapse, presence of pessary, osteoporosis, partial old retinal detachment, history of GI bleed. Presents to hospital with back pain after falling down stairs. Current workup including CT C-spine demonstrating compression fracture of C5 of uncertain age, CT AP demonstrates Compression fracture of T12 and sclerosis throughout the vertebral body of L1. Admitted to hospital medicine team for pain control. Orthopedics consulted for management recommendations. At time of exam patient lying in bed, no acute distress. Reports pain of the mid-low back. Denies pain of the cervical spine. Denies tingling or numbness of bilateral lower extremities. No assistive devices at baseline. Allergies Allergy/AdvReac Type Severity Reaction Status Date / Time No Known Allergies Allergy Verified 09/12/25 18:11 Home Medications Medication Instructions Recorded Confirmed Type amlodipine 10 mg tablet 10 mg PO DAILY 08/24/19 09/12/25 History apixaban 5 mg tablet (Eliquis) 5 mg PO AMHS 05/24/24 09/12/25 History metoprolol succinate 25 mg 37.5 mg PO QAM 05/24/24 09/12/25 History tablet,extended release 24 hr rosuvastatin 10 mg tablet 10 mg PO QAM 09/12/25 09/12/25 History Past Med/Surg History Problem List (Updated 09/13/25 @ 12:48 by Adrianna Lamar DO) Fall down stairs (Acute) Compression fracture of T12 vertebra (Acute) Compression fracture of thoracic vertebra DVT prophylaxis Hypoxia Pneumonia due to COVID-19 virus Fall Syncope and collapse (Acute) Weakness (Acute) Status post reverse arthroplasty of left shoulder (~01/2021) Encounter for pre-operative examination Hypercalcemia (Acute) Genital prolapse (Acute) Cystocele (Acute) Closed fracture of left proximal humerus History of pacemaker (Chronic) 2016, [employer]. INSERTED FOR [facility] (FOLLOWS WITH DR. DAHL). WILL BRING CARD DOS. GI bleed Third degree heart block (Chronic) "s/p pacemaker" Medical History History of GI bleed Hemothorax on right 08/2019 2/2 rib fx. Had OP f/u with [facility]. Resolved. Surgical History Status post biventricular cardiac pacemaker insertion History of esophagogastroduodenoscopy (EGD) History of colonoscopy History of tooth extraction H/O detached retina repair LEFT History of cataract surgery RT/LEFT Family History Other No family history of adverse response to anesthesia Social History Smoking Status: Former smoker Tobacco Type: Cigarettes Second Hand Exposure: No; Do You Dip or Chew Tobacco: No; Tobacco Cessation Education Requested by Patient: No Hx Alcohol Use: No Hx Substance Use: No Preferred Language: Swedish Communication Ability: Effective Data Transcriber Required: No Beliefs That Will Affect Care: None marital status: Current Living Situation: Spouse and Family Current Living Situation Comment: Lives in a house with her , son, granddaughter & 3 great grandkids Other Information That Helps Us Care for You: No Feels Safe at Home: Yes Safety Concerns: Feels Safe At This Time Assistive Devices: Walker Review of Systems All systems reviewed & are unremarkable except as noted in HPI & below. Physical Exam * General: Alert and oriented, no acute distress * Constitutional: well-developed, well-nourished. * Respiratory: Normal respiratory effort, no distress * Gastrointestinal: No tenderness to palpation, no rigidity or guarding. * Skin: No rash or lesion. * Neurologic: Grossly normal * Musculoskeletal: Thoracic and lumbar spine region without obvious deformity or overlying skin changes. Moderate tenderness region T-12 midline with paraspinal tenderness/spasm. Otherwise no tenderness b/l buttock or LE. Pain with lumbar flexion/extension and rotational movements. AROM b/l hip flexion, knee flexion/extension, ankle flexion/extension intact. Sensation intact plantar/dorsal foot. Brisk capillary refill. Results & Data Results & Data Laboratory Results . Diagnostic Findings . Chest X-Ray 09/12/25 17:18 Exam: Chest one view portable. Reason for exam: Trauma. Previous studies: Chest radiograph 08/02/2021 FINDINGS: Left-sided pacemaker and left shoulder arthroplasty again noted. Heart is mildly enlarged. Aorta is markedly tortuous. Lungs show no acute infiltrate, collapse or edema. IMPRESSION: Mild cardiomegaly. Otherwise negative for acute disease. Electronically signed by Jasper Scott 09-12-2025 7:08 PM Abdomen/Pelvis CT 09/12/25 17:20 Exam: CT abdomen/pelvis with IV contrast. Reason for exam: Injury alert, patient fell. Previous studies: CT abdomen/pelvis 08/24/2019. FINDINGS: The lower lung zones show some areas of atelectasis. Sharply demarcated low-attenuation lesions in the liver again noted compatible with hepatic cysts. No biliary tree dilatation noted. Multiple calcified gallstones are present. Pancreas and spleen are unremarkable. Hiatal hernia seen in the lower mediastinum. Adrenal glands unremarkable. Multiple cysts seen on the right kidney without hydronephrosis or acute traumatic abnormality. There is a large staghorn calculus in the left renal pelvis with marked chronic atrophy and calyceal dilatation in the left kidney which was also present on the previous study. Increased air is seen to the colon. No evidence of bowel obstruction or free air is seen. Urinary bladder is moderately distended. Diverticulosis is noted. Radiopaque pessary seen in the upper vaginal vault. Right inguinal hernia containing fat only at this time. Compression fracture of T12 is seen. Sclerosis is seen throughout the L1 vertebral body. These may be chronic, however if there are current clinical symptoms referable to the recent trauma at these levels, for evaluation with MRI study of the thoracic and lumbar spine would be recommended. IMPRESSION: 1. Negative for acute traumatic abnormalities. 2. Staghorn left renal calculus with chronic hydronephrosis and marked atrophy of the left kidney. 3. Multiple right renal cysts. 4. Diverticulosis. 5. Right inguinal hernia. 6. Compression fracture of T12 and sclerosis throughout the vertebral body of L1. No definite acute fracture line or retropulsed fragment is seen. If there appear to be symptoms referable to these levels from the recent trauma however, further evaluation with MRI study would be recommended. Electronically signed by Jasper Scott 09-12-2025 6:[address] 09/12/25 17:20 Exam: CT cervical spine without contrast. Reason for exam: Patient fell. Previous studies: None FINDINGS: Moderate central compression fracture of the C5 vertebral body with approximately 3 mm retropulsion of the posterior-superior element. No definite displaced fragment is seen and no definite acute fracture line is seen. The age of this is uncertain. The remaining vertebral body heights are intact. No significant overall bony spinal stenosis is seen. There is abnormal narrowing of the C5-6 and C6/7 intervertebral disc spaces with degenerative facet arthropathy throughout the mid and lower cervical spine. Moderate bilateral carotid artery calcification is seen. IMPRESSION: 1. Moderate compression fracture of C5 of uncertain age. This may be acute and there is mild retropulsion of the posterior-superior aspect of the vertebral body. Further evaluation with MRI study of the cervical spine to evaluate this fracture is recommended. 2. Otherwise negative for acute bony trauma. 3. Moderate degenerative spondylosis at the mid and lower cervical levels. Electronically signed by Jasper Scott 09-12-2025 6:[address] 09/12/25 17:20 Exam: CT chest diagnostic with contrast. Reason for exam: Injury. Patient fell. Previous studies: Portable chest 09/12/2025; CT thorax 08/02/2021 FINDINGS: There is a atelectasis seen in both lower lobes. No pneumothorax or significant pleural effusion is seen at this time. Some chronic interstitial fibrotic changes and/or scarring seen in both lung zones with diffuse bronchial wall thickening. No mediastinal mass or adenopathy is seen. Pacemaker lead entering via the left subclavian is noted. Heart is enlarged. Chronic compression fractures seen in the lower thoracic spine. Left shoulder arthroplasty is noted. IMPRESSION: 1. Negative for acute traumatic abnormalities. 2. Mild chronic lung scarring/fibrosis with areas of atelectasis in both lower lobes. 3. Stable chronic compression fracture in the lower thoracic spine. Electronically signed by Jasper Scott 09-12-2025 6:[address] 09/12/25 17:20 Exam: CTA head/brain without contrast. Reason for exam: Patient fell. Unable to raise arms for exam. Previous studies: CT head 08/02/2021. FINDINGS: There is some diffuse atrophy and lucency in the deep white matter similar to the previous study. No intracranial mass, hemorrhage or edema is seen. No midline shift or extra-axial blood or fluid collection is noted. The mastoids remain well aerated. No acute process seen in the sinuses. Remaining bony calvarium. IMPRESSION: 1. Negative for acute intracranial process. 2. 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 Electronically signed by Jasper Scott 09-12-2025 6:40 PM PG Care Time/CCT Total # of Minutes Spent Total Time Spent with Patient: Total time spent is greater than 50% in coordination of care (as documented) at patient's floor/unit and/or counseling patient: [place] [address] IN/OBS CONSULT LVL 3,45M Patient Type New Medical Decision Making Straight Forward Diagnoses Compression fracture of thoracic vertebra S22.000A
--- NOTE | 2025-09-13 10:42 | Hospitalist Progress Note ---
Date of Service September 13, 2025 Assessment & Plan (1) Fall: Plan: 79-year-old female with past medical history significant for hyperlipidemia, primary hyperparathyroidism, complete heart block status post pacemaker, paroxysmal atrial fibrillation, ascending aortic dilatation, hypertension, left ventricular hypertrophy, diastolic dysfunction, moderate mitral regurgitation, GERD, diverticulosis, CKD stage IIIa, female genital prolapse, presence of pessary, osteoporosis, partial old retinal detachment, history of GI bleed who lives at home and ambulates without support comes because of fall. Patient says she fell from the [place] of the stairs and she fell on her back on the concrete floor. She could not able to get up. Her family helped try to get her up but because of pain the she was laid down on the floor and brought to the ER. Patient says she did not hit her head. No loss of consciousness. Currently resting comfortably and hemodynamically stable. Denies headache. No dizziness. No blurred vision. No runny nose or sore throat. No cough. No fevers. No difficulty swallowing. Appetite is okay. Denies any chest pain or shortness of breath. No nausea. No abdominal pain. Normal bowel and bladder movements. Complains of pain in the mid back. Denies any pain in the neck. Can move her neck okay. Mechanical Fall Acute T12 compression fracture CT head is okay CT chest negative for acute traumatic abnormalities. Shows some chronic compression fractures lower thoracic spine Cervical spine CT. Moderate compression fracture of C5 of uncertain age. CT abdomen pelvis. Compression fracture of T12 and sclerosis throughout the vertebral body of L1. Staghorn left renal calculus with chronic hydronephrosis and marked atrophy of the left kidney [facility] consulted for comanagement; they recommend TLSO brace. Patient denies any neck pain; C5 compression fracture likely old. Continue pain control with oxycodone, lidocaine patch and Tylenol and Dilaudid Will order PT OT. Follow-up with orthospine in 4 to 6 weeks with repeat x-ray Complete heart block Status post pacemaker in 2015 Paroxysmal atrial fibrillation On metoprolol succinate and Eliquis-continue Hypertension On amlodipine and metoprolol succinate-continue We will monitor Hyperlipidemia On statin-continue Chronic diastolic CHF Moderate MR on echo 01/2024 Monitor for volume overload Possible UTI Will follow cultures CKD stage III Presented creatinine 1.12 Baseline around 1 Will follow labs Staghorn left renal calculus with chronic hydronephrosis and marked atrophy of the left kidney Chronic followup with PCP and Urology DVT prophylaxis Eliquis Disposition Medical floor Full code. Please note the above document was generated using voice recognition software. It may contain grammatical, syntax or spelling errors. Any formal questions or concerns about the content, text or information contained within the body of this dictation should be directly addressed to the provider for clarification Admission and Anticipated Discharge Date Admission Date: September 12, 2025 Subjective Patient seen and examined at bedside. She reports pain in her lower back and paraspinal region. No pain in neck. Able to move her legs without any issues. Denies any weakness/numbness Review of Systems Review of Systems: All systems reviewed & are unremarkable except as noted in Subjective Physical Exam Physical Exam: General- Not in distress Head- atraumatic Eyes- PERRL. ENT- oropharynx clear Neck- supple, no JVD. Lungs- clear to auscultation no wheezing or crackles Heart- regular rhythm; no murmur, no gallop. Abdomen- normal bowel sounds, soft, nontender, no distension Extremities- no pretibial edema, no erythema seen Neuro- alert, oriented PERRL, no facial palsy; no dysarthria; moves extremities. Musculoskeletal- Tenderness in lower thoracic spine region; also paraspinal muscle tenderness Results & Data Results & Data Vital Signs (Past 12 Hours) Vital Signs Temp Pulse Resp BP Pulse Ox O2 Del Method O2 Flow Rate 09/13/25 07:20 36.6 C 63 18 134/80 97 Nasal Cannula 2 09/12/25 22:59 36.7 C 70 16 140/75 97 Nasal Cannula 3 09/12/25 22:40 Nasal Cannula 3 09/12/25 22:40 36.7 C 70 16 140/75 97 Nasal Cannula 3
[2025-09-13] MEDS: REMOVE LIDODERM PATCH ONE (11:36)
[2025-09-13] MEDS: REMOVE LIDODERM PATCH SCH (11:36)
--- NOTE | 2025-09-13 15:31 | Electrocardiogram Report ---
Test Reason : Blood Pressure : */* mmHG Vent. Rate : 69 BPM Atrial Rate : 69 BPM P-R Int : 186 ms QRS Dur : 160 ms QT Int : 466 ms P-R-T Axes : -8 -9 149 degrees QTcB Int : 499 ms Atrial-sensed ventricular-paced rhythm Abnormal ECG When compared with ECG of 24-May-2024 16:39, No significant change was found Confirmed by Joaquin Barajas ([id number]) on 09/13/2025 3:31:10 PM Referred By: REFERRED SELF Confirmed By: Joaquin Barajas
[2025-09-14 07:45] LABS: Hematocrit (blood only) 41.5 % (37.0-47.0); Hemoglobin 13.5 g/dl (12.0-16.0); Immature Granulocytes # (auto) 0.02 K/uL (0.01-0.20); Immature Granulocytes % (auto) 0.4 %; Mean Corpuscular Hemoglobin 30.4 pg (25.0-34.0); Mean Corpuscular Volume 93.5 fL (80.0-100.0); Platelet Count 134 K/uL (130-400); RDW Standard Deviation 44.8 fL (36.4-46.3); Red Blood Count 4.44 M/uL (4.20-5.40); White Blood Count 5.59 K/ul (4.8-10.8)
[2025-09-14 07:57] LABS: Anion Gap 5.0 (3-11); Blood Urea Nitrogen 14.0 mg/dl (6-23); Calcium 9.6 mg/dl (8.6-10.3); Carbon Dioxide 26.0 mmol/L (21-32); Chloride 105.0 mmol/L (98-107); Creatinine Clr Calc Pharmacy 50.4 ml/min; Glucose 95.0 mg/dl (70-99(Fasting)); Potassium 4.4 mmol/L (3.5-5.1); Sodium 136.0 mmol/L (136-145)
--- NOTE | 2025-09-14 11:04 | Hospitalist Progress Note ---
Date of Service September 14, 2025 Assessment & Plan (1) Fall: Plan: 79-year-old female with past medical history significant for hyperlipidemia, primary hyperparathyroidism, complete heart block status post pacemaker, paroxysmal atrial fibrillation, ascending aortic dilatation, hypertension, left ventricular hypertrophy, diastolic dysfunction, moderate mitral regurgitation, GERD, diverticulosis, CKD stage IIIa, female genital prolapse, presence of pessary, osteoporosis, partial old retinal detachment, history of GI bleed who lives at home and ambulates without support comes because of fall. Mechanical Fall Acute T12 compression fracture CT head is okay CT chest negative for acute traumatic abnormalities. Shows some chronic compression fractures lower thoracic spine Cervical spine CT. Moderate compression fracture of C5 of uncertain age. CT abdomen pelvis. Compression fracture of T12 and sclerosis throughout the vertebral body of L1. Staghorn left renal calculus with chronic hydronephrosis and marked atrophy of the left kidney [facility] consulted for comanagement; they recommend TLSO brace. Patient denies any neck pain; C5 compression fracture likely old. Continue pain control with oxycodone, lidocaine patch and Tylenol and Dilaudid Follow-up with orthospine in 4 to 6 weeks with repeat x-ray PT OT consulted; patient and family wants to go to rehab. Appreciate case management assistance after PT OT evaluation Complete heart block Status post pacemaker in 2015 Paroxysmal atrial fibrillation On metoprolol succinate and Eliquis-continue Hypertension On amlodipine and metoprolol succinate-continue Hyperlipidemia On statin-continue Chronic diastolic CHF Moderate MR on echo 01/2024 Monitor for volume overload Possible UTI- ruled out CKD stage III- at baseline Staghorn left renal calculus with chronic hydronephrosis and marked atrophy of the left kidney Chronic followup with PCP and Urology DVT prophylaxis Eliquis Disposition Medical floor Full code. Please note the above document was generated using voice recognition software. It may contain grammatical, syntax or spelling errors. Any formal questions or concerns about the content, text or information contained within the body of this dictation should be directly addressed to the provider for clarification Admission and Anticipated Discharge Date Admission Date: September 12, 2025 Subjective Patient seen and examined at bedside. She reports that her pain is well- controlled today. Denies any fever, chills, chest pain or shortness of breath. Family at bedside Review of Systems Review of Systems: All systems reviewed & are unremarkable except as noted in Subjective Physical Exam Physical Exam: General- Not in distress Head- atraumatic Eyes- PERRL. ENT- oropharynx clear Neck- supple, no JVD. Lungs- clear to auscultation no wheezing or crackles Heart- regular rhythm; no murmur, no gallop. Abdomen- normal bowel sounds, soft, nontender, no distension Extremities- no pretibial edema, no erythema seen Neuro- alert, oriented PERRL, no facial palsy; no dysarthria; moves extremities. Musculoskeletal- Tenderness in lower thoracic spine region; also paraspinal muscle tenderness Results & Data Results & Data Vital Signs (Past 12 Hours) Vital Signs Temp Pulse Resp BP Pulse Ox O2 Del Method O2 Flow Rate 09/14/25 07:35 36.4 C L 55 L 18 130/74 90 Nasal Cannula 1 09/14/25 07:30 Nasal Cannula 1 09/13/25 23:14 36.8 C 67 18 157/82 H 98 Nasal Cannula 2
[2025-09-15 09:05] LABS: Hematocrit (blood only) 45.2 % (37.0-47.0); Hemoglobin 15.2 g/dl (12.0-16.0); Immature Granulocytes # (auto) 0.02 K/uL (0.01-0.20); Immature Granulocytes % (auto) 0.4 %; Mean Corpuscular Hemoglobin 31.7 pg (25.0-34.0); Mean Corpuscular Volume 94.4 fL (80.0-100.0); Platelet Count 135 K/uL (130-400); RDW Standard Deviation 46.0 fL (36.4-46.3); Red Blood Count 4.79 M/uL (4.20-5.40); White Blood Count 4.94 K/ul (4.8-10.8)
[2025-09-15 09:21] LABS: Anion Gap 7.0 (3-11); Calcium 9.9 mg/dl (8.6-10.3); Carbon Dioxide 24.0 mmol/L (21-32); Chloride 106.0 mmol/L (98-107); Potassium 4.2 mmol/L (3.5-5.1); Sodium 137.0 mmol/L (136-145)
[2025-09-15 09:27] LABS: Blood Urea Nitrogen 22.0 mg/dl (6-23); Creatinine Clr Calc Pharmacy 48.1 ml/min; Glucose 75.0 mg/dl (70-99(Fasting))
--- NOTE | 2025-09-15 11:56 | Hospitalist Progress Note ---
Date of Service September 15, 2025 Assessment & Plan (1) Fall: Plan: 79-year-old female with past medical history significant for hyperlipidemia, primary hyperparathyroidism, complete heart block status post pacemaker, paroxysmal atrial fibrillation, ascending aortic dilatation, hypertension, left ventricular hypertrophy, diastolic dysfunction, moderate mitral regurgitation, GERD, diverticulosis, CKD stage IIIa, female genital prolapse, presence of pessary, osteoporosis, partial old retinal detachment, history of GI bleed who lives at home and ambulates without support comes because of fall. Mechanical Fall Acute T12 compression fracture CT head is okay CT chest negative for acute traumatic abnormalities. Shows some chronic compression fractures lower thoracic spine Cervical spine CT. Moderate compression fracture of C5 of uncertain age. CT abdomen pelvis. Compression fracture of T12 and sclerosis throughout the vertebral body of L1. Staghorn left renal calculus with chronic hydronephrosis and marked atrophy of the left kidney [facility] consulted for comanagement; they recommend TLSO brace. Patient denies any neck pain; C5 compression fracture likely old. Continue pain control with oxycodone, lidocaine patch and Tylenol and Dilaudid Follow-up with orthospine in 4 to 6 weeks with repeat x-ray PT OT consulted; patient and family wants to go to rehab. Appreciate case management assistance after PT OT evaluation Complete heart block: Status post pacemaker in 2016 Paroxysmal atrial fibrillation: On metoprolol succinate and Eliquis-continue Hypertension: On amlodipine and metoprolol succinate-continue Hyperlipidemia: On statin-continue Chronic diastolic CHF Moderate MR on echo 01/2024 Monitor for volume overload Possible UTI- ruled out CKD stage III- at baseline Staghorn left renal calculus with chronic hydronephrosis and marked atrophy of the left kidney Chronic followup with PCP and Urology DVT prophylaxis: Eliquis Disposition: Medical floor Full code. Please note the above document was generated using voice recognition software. It may contain grammatical, syntax or spelling errors. Any formal questions or concerns about the content, text or information contained within the body of this dictation should be directly addressed to the provider for clarification Admission and Anticipated Discharge Date Admission Date: September 12, 2025 Subjective Patient seen and examined at bedside. She reports that her pain is well- controlled overall but had brief increase in pain in AM. Denies any fever, chills, chest pain or shortness of breath. Pt wants to go to rehab before transitioning to home. Physical Exam Physical Exam: General- Not in distress Head- atraumatic Eyes- PERRL. ENT- oropharynx clear Neck- supple, no JVD. Lungs- clear to auscultation no wheezing or crackles Heart- regular rhythm; no murmur, no gallop. Abdomen- normal bowel sounds, soft, nontender, no distension Extremities- no pretibial edema, no erythema seen Neuro- alert, oriented PERRL, no facial palsy; no dysarthria; moves extremities. Musculoskeletal- Tenderness in lower thoracic spine region; also paraspinal muscle tenderness Results & Data Results & Data Vital Signs (Past 12 Hours) Vital Signs Temp Pulse Resp BP Pulse Ox O2 Del Method 09/15/25 08:10 36.6 C 77 18 138/73 90 Room Air
[2025-09-15] MEDS: POLYETHYLENE (MIRALAX) 17 GM PACK PO ONE (12:51)
[2025-09-15] MEDS: DOCUSATE SODIUM 100 MG CAP PO SCH (12:51)
[2025-09-15 23:36] VITALS: O2SAT 91
[2025-09-16 08:21] VITALS: BP 153/91; RESP 16; TEMP 97.5
--- NOTE | 2025-09-16 11:04 | Discharge Summary ---
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 Patient says she fell from the [place] of the stairs and she fell on her back on the concrete floor. She could not able to get up. Her family helped try to get her up but because of pain the she was laid down on the floor and brought to the ER. Patient says she did not hit her head. No loss of consciousness. Currently resting comfortably and hemodynamically stable. Denies headache. No dizziness. No blurred vision. No runny nose or sore throat. No cough. No fevers. No difficulty swallowing. Appetite is okay. Denies any chest pain or shortness of breath. No nausea. No abdominal pain. Normal bowel and bladder movements. Complains of pain in the mid back. Denies any pain in the neck. Can move her neck okay. Past medical history. As mentioned above. Past surgical history. Colonoscopy. EGD. Dual-chamber pacemaker. Left laser trabeculoplasty. Left shoulder joint implant. Appendectomy. Social history. . No smoking. No alcohol use. No drug use. Family history. Father had kidney failure. Mother had aneurysm. Admission Exam Per Admitting Provider General- Not in distress Head- atraumatic Eyes- PERRL. ENT- oropharynx clear Neck- supple, no JVD. Lungs- clear to auscultation no wheezing or crackles Heart- regular rhythm; no murmur, no gallop. Abdomen- normal bowel sounds, soft, nontender, no distension Extremities- no pretibial edema, no erythema seen Neuro- alert, oriented PERRL, no facial palsy; no dysarthria; moves extremities. Musculoskeletal- Tenderness in lower thoracic spine region Principal Diagnosis Mechanical Fall Acute T12 compression fracture Discharge Exam General- Not in distress Head- atraumatic Eyes- PERRL. ENT- oropharynx clear Neck- supple, no JVD. Lungs- clear to auscultation no wheezing or crackles Heart- regular rhythm; no murmur, no gallop. Abdomen- normal bowel sounds, soft, nontender, no distension Extremities- no pretibial edema, no erythema seen Neuro- alert, oriented PERRL, no facial palsy; no dysarthria; moves extremities. Musculoskeletal- Tenderness in lower thoracic spine region; also paraspinal muscle tenderness Discharge Data Allergies Allergy/AdvReac Type Severity Reaction Status Date / Time No Known Allergies Allergy Verified 09/12/25 18:11 Consultations 09/12/25 20:22 ED Decision to Admit Stat 09/13/25 08:00 Consult Orthopedic Spine Surgery Routine Ordered Studies 09/12/25 17:20 CT abd pelvis IV con only Stat CT cervical spine wo con Stat CT chest diagnostic w con Stat CT head/brain wo con Stat Hospital Course (1) Fall: 79-year-old female with past medical history significant for hyperlipidemia, primary hyperparathyroidism, complete heart block status post pacemaker, paroxysmal atrial fibrillation, ascending aortic dilatation, hypertension, left ventricular hypertrophy, diastolic dysfunction, moderate mitral regurgitation, GERD, diverticulosis, CKD stage IIIa, female genital prolapse, presence of pessary, osteoporosis, partial old retinal detachment, history of GI bleed who lives at home and ambulates without support comes because of fall. Mechanical Fall Acute T12 compression fracture CT head is okay CT chest negative for acute traumatic abnormalities. Shows some chronic compression fractures lower thoracic spine Cervical spine CT. Moderate compression fracture of C5 of uncertain age. CT abdomen pelvis. Compression fracture of T12 and sclerosis throughout the vertebral body of L1. Staghorn left renal calculus with chronic hydronephrosis and marked atrophy of the left kidney [facility] consulted for comanagement; they recommend TLSO brace. Patient denies any neck pain; C5 compression fracture likely old. Continue pain control with oxycodone, lidocaine patch and Tylenol Follow-up with orthospine in 4 to 6 weeks with repeat x-ray PT OT consulted; patient and family wants to go to rehab. Appreciate case management assistance after PT OT evaluation Pain fairly under control w/ pain meds per pt. Complete heart block: Status post pacemaker in 2015 Paroxysmal atrial fibrillation: On metoprolol succinate and Eliquis-continue Hypertension: On amlodipine and metoprolol succinate-continue Hyperlipidemia: On statin-continue Chronic diastolic CHF Moderate MR on echo 01/2024 Monitor for volume overload Possible UTI- ruled out CKD stage III- at baseline Staghorn left renal calculus with chronic hydronephrosis and marked atrophy of the left kidney Chronic followup with PCP and Urology DVT prophylaxis: Jose Luis Disposition: Medical floor Full code. Patient is being discharged to [facility] with following instructions at the point of discharge: Follow-up with your primary care physician within a week time and likely you will need labs CBC/CMP/magnesium/phosphorus. You will need follow-up with orthospine surgeon in 4 to 6 weeks time upon discharge and possible repeat x-ray of your spine. Continue with physical therapy upon discharge. Follow up w/ urology in 2-4 weeks time upon discharge. Take your medications as prescribed. Please make sure that you are able to get your medications today by calling your pharmacy before you leave the hospital so that your treatment continuity is not broken. Please note the above document was generated using voice recognition software. It may contain grammatical, syntax or spelling errors. Any formal questions or concerns about the content, text or information contained within the body of this dictation should be directly addressed to the provider for clarification Home Health Attestation I certify that this patient is under my care and that I, or a physicians traffic assistant working with me, had a face to-face encounter that meets the home health [id number] encounter requirements with this patient. The encounter with the patient was in whole, or in part, for the following medical condition, which is the primary reason for home health care (list medical condition): I certify that, based on my findings, the following services are medically necessary home health services: My clinical findings support the need for the above services because: Further, I certify that my clinical findings support that this patient is homebound (i.e. absences from home require considerable and taxing effort and are for medical reasons or protestant services or infrequently or of short duration when for other reasons) because: Certification for Home Health Services: Based on the above findings, I certify that this patient is confined to the home and needs intermittent halfway care, physical therapy and/or speech therapy or continues to need occupational therapy. The patient is under my care, and I have initiated the establishment of the plan of care. This patient will be followed by a physician who will periodically review the plan of care. Total Time Total Time Spent Total Time Spent (In Minutes): 40 Discharge Plan Discharge Items Patient Disposition: Transfer Inpatient Rehab Fac Reason For Visit: FALL, BACK PAIN, AMBULATORY DYSFUNCTION Discharge Diagnosis: Mechanical Fall Acute T12 compression fracture Condition on Discharge: Serious Activity: Per Instructions section Weightbearing: Full weightbearing Non-emergency contact: Primary Care Provider Call non-emergency contact if: you have any medication questions and your symptoms worsen Follow-up/Referrals: Higinio Dominguez MD [Surgeon] - Avani Palacios DO [Primary Care Provider] - Diet: Heart Healthy Addtl Attending Provider Instructions: Follow-up with your primary care physician within a week time and likely you will need labs CBC/CMP/magnesium/phosphorus. You will need follow-up with orthospine surgeon in 4 to 6 weeks time upon discharge and possible repeat x-ray of your spine. Continue with physical therapy upon discharge. Follow up w/ urology in 2-4 weeks time upon discharge. Take your medications as prescribed. Please make sure that you are able to get your medications today by calling your pharmacy before you leave the hospital so that your treatment continuity is not broken. Pending Studies at Discharge: No Stand-Alone Forms: My [facility] Skilled Items Patient informed of condition?: Yes DNR: No Discharge Level of Care: Acute rehab Communicable Disease: No Discharge Prognosis: Stable Lines: None Urinary Catheter: No Medications and DC Order Prescriptions: New oxycodone 5 mg Tablet 5 mg PO Q6H PRN (Reason: pain) Qty: 14 0RF polyethylene glycol 3350 [Miralax] 17 gram Powder In Packet 17 g PO DAILY PRN (Reason: laxative effect) Qty: 15 0RF docusate sodium 100 mg Capsule 100 mg PO BID PRN (Reason: constipation) Qty: 30 0RF Continued amlodipine 10 mg tablet 10 mg PO DAILY rosuvastatin 10 mg tablet 10 mg PO QAM Eliquis 5 mg tablet 5 mg PO AMHS metoprolol succinate 25 mg tablet extended release 24 hr 37.5 mg PO QAM Discharge Orders: Discharge Order (Routine); Ordered 09/16/25 Ordered By: Laquita Headley Admission Data Admit Date/Time: 09/12/25 20:49 Attending Provider: Laquita Headley Admit Provider: Mathieu Bragg Primary Care Provider: Avani Palacios Other Providers: Mathieu Bragg; Higinio Dominguez; [facility]
[2025-09-16] MEDS: POLYETHYLENE (MIRALAX) 17 GM PACK PO SCH (11:40)
[2025-09-16 12:14] VITALS: PULSE 65
== END 2025-09-16 13:46 | DRG 552 ==
LOC: ED 16:38 → 3N 20:49 → SUATTDRO 20:49 → 3N 22:14